=== PATIENT | male | born 1935 | race Caucasian/White ===

== ENCOUNTER 2025-06-22 13:15 | Outpatient (AMB) | payer MEDICARE, SELFPAY ==
--- OUTSIDE RECORDS SUMMARY | 2025-06-22 14:25 | XMS_ITS ---
Author Organization [facility] Care Team Providers Care Chha Name Role Phone Daniel Swenson Unavailable Unavailable Allergies and adverse reactions Code CodeSystem Substance Reaction Severity StartDate Concern Status 7984 RXNORM Penicillin Bronchospasm (c ode- 6403772, SNOMED CT) Moderate 05/26/2021 active 37510 RXNORM Lisinopril Bronchospasm (c ode- 7608471, SNOMED CT) Moderate 05/26/2021 active Care Team Name Role Address Phone Organization Dates Daniel Swenson [address] [place] [address], [address], [place] States (Office): : [facility] 05/27/2021 - 07/14/2021 Immunizations Immunization Status Vaccine Details Vaccine Code CodeSystem Date Notes Pneumovax Dose 1 completed pneumococcal polysaccharide vaccine, 23 valent 33 CVX created date: 06/02/2021 administere d date: 11/04/2019 PCV (Prevnar) 13 completed pneumococcal conjugate vaccine, 13 valent 133 CVX created date: 06/02/2021 administere d date: 11/04/2019 Influenza (standard dose syringe) completed Influenza, Madin [place] Canine Kidney, subunit, quadrivalent, injectable, preservative free 171 CVX created date: 06/02/2021 administere d date: 06/15/2020 COVID-19 Vaccine Dose 1 completed unknown vaccine or immune globulin Mfg: Pfsier 999 CVX created date: 06/12/2021 administere d date: 12/28/2020 COVID-19 Vaccine Dose 2 completed unknown vaccine or immune globulin Mfg: Pfsier 999 CVX created date: 06/12/2021 administere d date: 05/24/2021 Mental Status Section Date Assessment Total Score Description 07/14/2021 CAM 0 No delirium ind icated 06/01/2021 BIMS 12 moderate cognit helena impairment CAM 0 No delirium ind icated PHQ-9 03 minimal depress ion Problems Problem # Description Date of onset Resolved Date Code CodeSystem Concern Status 1 ANEMIA, UNSPECIFIED 05/26/[address] active 2 BACTEREMIA 05/26/[address] active 3 ESSENTIAL (PRIMARY) HYPERTENSION 05/26/[address] active 4 SEPSIS, UNSPECIFIED ORGANISM 05/26/[address] active 5 UNSPECIFIED ATRIAL FIBRILLATION 05/26/[address] active 6 UNSPECIFIED ATRIAL FLUTTER 05/26/[address] active 7 UNSTEADINESS ON FEET 05/26/[address] active 8 URINARY TRACT INFECTION, SITE NOT SPECIFIED 05/26/[address] active 9 WEAKNESS 05/26/[address] active Reason for Referral No Reasons for Referral Entered Social History Social History Observation Description Start Date End Date Code Code System Current Smoking Status Tobacco smoking consumption unknown 603873258 SNOMED CT Sex Assigned At Male 1935 92877-6 [facility] Gender Identity Vital Signs Code Code System Vitals Name Values and Units Timing Information 59328-3 LOINC Pain Level Value=0.0 07/14/2021 9279-1 [facility] Respiratory Rate Value=19.0 Units=/m in 07/14/2021 18523-4 [facility] O2 % BldC Oximetry Value=97.0 Units= % 07/14/2021 8310-5 LOINC Body Temperature Value=98.0 Units= F 07/14/2021 8867-4 [facility] Heart rate Value=74.0 Units=/min 08/2021 86341-7 [facility] Weight Fgcwb=456.0 Units=Lbs 05/2021 8462-4 [facility] Blood Pressure-Diastolic Value=58 Un its=mmHg 07/07/2021 8480-6 [facility] Blood Pressure-Systolic Ixamh=684 Un its=mmHg 07/07/2021 8302-2 [facility] Height Value=69.0 Units=Inches 05/27/2021
== END 2025-06-22 13:17 | disposition home or self-care (01) ==
LOC: HO.HMGAL 13:15
PROVIDERS: PCP Internal Medicine; Visit Provider Registered Nurse Emergency
DX: J30.89 Other allergic rhinitis (principal)
CPT/HCPCS: 95117; 95165

== ENCOUNTER 2025-07-07 15:14 | Outpatient (AMB) | payer MEDICARE, SELFPAY ==
--- OUTSIDE RECORDS SUMMARY | 2021-02-12 11:58 | XMS_ITS | Encounter Summary ---
Author Organization [facility] Address [address] [facility] [address] [place] [address] Phone Care Team Providers Care Subsystems Engineer Name Role Phone Willie Blair MD Primary Care Provider [phone] Daniel Flores MD Unavailable Delvin Waddell MD Unavailable Shaylee Dejesus MD Unavailable Tramaine Valle MD Unavailable Encounter Details Date Type Department Care Team (Late st Contact Info) Description 02/12/2021 11:58 AM EDT Hospital Encounter [facility] [address] [place] [address] Orlando Smallwood PA [address] [place] [address] [email or web address] Social History Tobacco Use Types Packs/Day [...] got money to buy more. Never True 02/27/2025 Within the past 6 months the food we bought just didn't last and we didn't have enough money to get more. Never True Residential Stability Answer Date Recor ded What is your housing situation today? I have jenifer sing 02/27/2025 How many times have you move d in the past 12 months? Zero (I did not move) 02/27/2025 Paying for Meds Answer Date Recorded Do you have trouble paying for medicines? No 02/27/2025 Paying Utility Bills Answer Date Record ed Do you have trouble paying your heating or elect ricity bill? No 02/27/2025 Transportation Answer Date Recorded Has the lack of transportati on kept you from medical appointments or from getting medications? No 02/27/2025 Digital Access Answer Date Recorded No 02/27/2025 Yes 02/27/2025 Do you have reliable internet access at home? Ye s 02/27/2025 Do you have a device (e.g., phone, tablet, computer) with a working camera? Yes 02/27/2025 Intimate Partner Violence Answer Date R ecorded Are you denied basic needs s uch as food, clothing, or medical care? No 03/23/2025 In the past 12 months have y ou been in a relationship with a person who hurts, threatens, or tries to control you? No 03/23/2025 Are you denied basic needs s uch as food, clothing, or medical care? No 03/23/2025 In the past 12 months have y ou been in a relationship with a person who hurts, threatens, or tries to control you? No 03/23/2025 Sex and Gender Information Value Date Recorded Sex Assigned at Male 06/15/2019 8:25 PM EDT Legal Sex Male 10:14 PM EDT Gender Identity Male 06/15/2019 8:25 PM EDT Sexual Orientation Straight 06/15/2019 8: 25 PM EDT documented as of this encounter Functional Status * Calculated C-SSRS Risk Score (Lifetime/Recent) Answer Date of Assessment Author No Risk Indicated 02/27/2025 2:34 PM EDT Sheela Sanchez RN * [place] Suicide Severity Rating Scale (Screener/Recent Self-Report) Question Answer Date of Assessment Author 1. Wish to be (Past 1 Month) No 02/27/2025 2:34 PM EDT Florecita Sawant RN 2. Non-Specific Active Suici alayna Thoughts (Past 1 Month) No 02/27/2025 2:34 PM EDT Kat Sawant RN 6. Suicidal Behavior (Lifetime) No 2:34 PM EDT Sheela Sawant RN documented as of this encounter Plan of Treatment Upcoming Encounters Date Type Department Care Team (Late st Contact Info) Description 08/10/2025 10:00 AM EDT Office Visit [facility] Allergy and Critical Care Medicine [address] [place] [address] López Henry MD [address] [place] [address] 08/27/2025 2:00 PM EDT Office Visit [facility] Internal Medicine 40 [place] [address] Willie Blair MD 40 [place] [address] documented as of this encounter Procedures Procedure [...] note documentation 02/27/2025 02/27/2025 7:29 AM EDT Assessment Noted Time PHQ-2 Depression Total Score: 0 02/04/20 10:44 AM EDT documented as of this encounter Care Teams Subsystems Engineer Relationship Specialty Start Date End Date Willie Blair MD 40 [place] [address] [email or web address] PCP - General Internal Medicine 02/04/20 Daniel Flores MD [address] [address] [email or web address] 04/14/20 Delvin Waddell MD [address] [address] [email or web address] 04/14/20 Shaylee Dejesus MD [address] [place] [address] Otolaryngology 05/20/20 Tramaine Valle MD [address] [place] [address] [email or web address] Gastroenterology 11/30/20 documented as of this encounter Additional Source Comments The information contained in this document represents components of the legal health record. It is not the complete legal health record.[facility]
--- OUTSIDE RECORDS SUMMARY | 2025-07-07 17:21 | XMS_ITS | Encounter Summary ---
Author Organization [facility] Address [address] [facility] [address] [place] [address] Phone Care Team Providers Care Corn Popper Name Role Phone Willie Blair MD Unavailable [phone] Willie Blair MD Primary Care Provider [phone] Daniel Flores MD Unavailable [phone] Delvin Waddell MD Unavailable Shaylee Dejesus MD Unavailable Tramaine Valle MD Unavailable [phone] Maxx Gardner OT Unavailable Chantel Philippe RN Unavailable Keily Gomez OT Unavailable Socorro Begum Unavailable [phone] Keily Gomez OT Unavailable Encounter Details Date Type Department Care Team (Late st Contact Info) Description 05/23/2021 Procedure Pass [facility] Cardiovascular And Interventional Radiology [address] [place], [place] [id number] Social History Tobacco Use Types Packs/Day Years Used Date Smoking Tobacco: Former Cigarettes Smokeless Tobacco: Never Alcohol Use Standard Drinks/Week Comments Not Currently 0 (1 standard drink = 0.6 oz pur e alcohol) 1-2 beers, 2-3 x month Sex and Gender Information Value Date Recorded Sex Assigned at Male 06/15/2019 8:25 PM EDT Legal Sex Male 10:14 PM EDT Gender Identity Male 06/15/2019 8:25 PM EDT Sexual Orientation Straight 06/15/2019 8: 25 PM EDT documented as of this encounter Plan of Treatment Upcoming Encounters Date Type Department Care Team (Late st Contact Info) Description 08/10/2025 10:00 AM EDT Office Visit [facility] Pulmonary, Allergy and Critical Care Medicine 10 [place] [address] López Henry MD [address] [address] [email or web address] 08/27/2025 2:00 PM EDT Office Visit [facility] Internal Medicine [address] [place] [address] Willie Blair MD 40 [place] [address] [email or web address] documented as of this encounter Visit Diagnoses Not on filedocumented [...] Assessment Noted Time PHQ-2 Depression Total Score: 2 02/22/20 21 1:16 PM EDT documented as of this encounter Care Teams Corn Popper Relationship Specialty Start Date End Date Willie Blair MD 40 [place] [address] [email or web address] PCP - General Internal Medicine 02/04/20 Willie Blair MD 40 [place] [address] [email or web address] Insurance Assigned Provider 02/08/24 Daniel Flores MD [address] [phone] [email or web address] Urology 04/14/20 Delvin Waddell MD [address] [phone] [email or web address] Cardiology 04/14/20 Shaylee Dejesus MD [address] [place] [address] [address] Otolaryngology 05/20/20 Tramaine Valle MD [address] [place] [phone] [email or web address] Gastroenterology 11/30/20 Maxx Gardner OT 10 [place] [address] [email or web address] Transitions Apartment ManagerHealthcare Corporate Account Director Therapy 05/22/21 Chantel Philippe, RN 10 [place] [address] [email or web address] iCMP Apartment ManagerDean Of Men 10/12/22 10/31/22 Keily Gomez, OT 30 [place] [address] [email or web address] Transitions Apartment ManagerHealthcare Corporate Account Director Therapy 12/30/23 Socorro Begum PA [address] [place] [address] Physician Branch Operations Specialist Cardiology 04/06/24 Keily Gomez, OT 30 [place] [address] [email or web address] Transitions Apartment ManagerHealthcare Corporate Account Director Therapy 03/01/25 documented as of this encounter Additional Source Comments The information contained in this document represents components of the legal health record. It is not the complete legal health record.[facility]
--- OUTSIDE RECORDS SUMMARY | 2025-07-07 17:21 | XMS_ITS | Encounter Summary ---
Author Organization [facility] Address [address] [facility] [address] [place] [address] Phone Care Team Providers Care Legal Librarian Name Role Phone Willie Blair MD Unavailable Willie Blair MD Primary Care Provider [phone] Daniel Flores MD Unavailable Delvin Waddell MD Unavailable Shaylee Dejesus MD Unavailable Tramaine Valle MD Unavailable [phone] Socorro Begum Unavailable [phone] Keily Gomez OT Unavailable Encounter Details Date Type Department Care Team (Late st Contact Info) Description 12/02/2024 Procedure Pass [facility] Endoscopy Admitting Dept Virtual Department [address] [place] [address] Social History Tobacco Use Types Packs/Day Years [...] on file 03/01/2023 No 03/01/2023 No 03/01/2023 Digital Access Answer Date Recorded No 03/26/2023 No 03/26/2023 Reliable internet access at home? Not on file 03/26/2023 Device with a working camera? Not on file Intimate Partner Violence Answer Date R ecorded Are you denied basic needs s uch as food, clothing, or medical care? No 12/02/2024 In the past 12 months have y ou been in a relationship with a person who hurts, threatens, or tries to control you? No 12/02/2024 Are you denied basic needs s uch as food, clothing, or medical care? No 12/02/2024 In the past 12 months have y ou been in a relationship with a person who hurts, threatens, or tries to control you? No 12/02/2024 Sex and Gender Information Value Date Recorded [...] Pulmonary, Allergy and Critical Care Medicine 10 [facility] [place] [address] López Henry MD 10 [facility] 2nd [place] [address] 08/27/2025 2:00 PM EDT Office Visit [facility] Internal Medicine [address] [place] [address] [place] [address] Willie Blair MD 40 [place] [address] [email or web address] documented as of this encounter Visit Diagnoses Not on filedocumented in this encounter Additional Health Concerns Infection Onset Date Last Indicated Resolved Time CoV-Risk 12/31/2024 12/31/2024 01/11/2025 1:22 AM EDT CoV-Risk Comment:Per note documentation 02/27/2025 02/27/2025 7:29 AM EDT Assessment Noted Time PHQ-9 Depression Total Score: 7 03/01/20 22 2:17 PM EDT PHQ-2 Depression Total Score: 0 03/18/20 24 7:47 PM EDT documented as of this encounter Care Teams Legal Librarian Relationship Specialty Start Date End Date Willie Blair MD 40 [place] [address] [email or web address] PCP - General Internal Medicine 02/04/20 Willie Blair MD 40 [place] [address] [email or web address] Insurance Assigned Provider 02/08/24 Daniel Flores MD 100 [facility] [address] [place] [address] [email or web address] Urology 04/14/20 Delvin Waddell MD 100 [facility] [address] [place] [address] [email or web address] Cardiology 04/14/20 Shaylee Dejesus MD NPI: [id number] [place] [address] Dr FELIX [address] [place] [address] Otolaryngology 05/20/20 Tramaine Valle MD [address] [place] [address] 2 [place] [address] [email or web address] Gastroenterology 11/30/20 Socorro Begum PA [address] [place] [address] Physician Patrol Judge Cardiology 04/06/24 Keily Gomez, OT 30 [place] [address] [email or web address] Transitions Milk Powder GrinderPlant Taxonomist Therapy 03/01/25 documented as of this encounter Additional Source Comments The information contained in this document represents components of the legal health record. It is not the complete legal health record.[facility]
--- OUTSIDE RECORDS SUMMARY | 2025-07-07 17:21 | XMS_ITS | Encounter Summary ---
Author Organization [facility] Address [address] [facility] [address] [place] [address] Phone Care Team Providers Care Student Support Services Director Name Role Phone Willie Blair MD Unavailable Willie Blair MD Primary Care Provider Daniel Flores MD Unavailable [phone] Delvin Waddell MD Unavailable Shaylee Dejesus MD Unavailable [phone] Tramaine Valle MD Unavailable [phone] Maxx Gardner OT Unavailable Chantel Philippe RN Unavailable [phone] Keily Gomez OT Unavailable Socorro Begum Unavailable [phone] Keily Gomez OT Unavailable Encounter Details Date Type Department Care Team (Late st Contact Info) Description 02/21/2021 Procedure Pass [facility], Ct Scan - [address] [id number] Social History Tobacco Use Types Packs/Day Years Used Date Smoking Tobacco: Never Smokeless Tobacco: Never Alcohol Use Standard Drinks/Week Comments Yes 0 [...] Pulmonary, Allergy and Critical Care Medicine 10 [place] [address] López Henry MD [address] [address] [email or web address] 08/27/2025 2:00 PM EDT Office Visit [facility] Internal Medicine 40 [place] [address] Willie Blair MD 40 [place] [address] [email or web address] documented as of this encounter Visit Diagnoses [...] EDT CoV-Risk Comment:Per note documentation 02/27/2025 02/27/2025 04/27/202 5 7:29 AM EDT Assessment Noted Time PHQ-2 Depression Total Score: 2 02/22/20 21 1:16 PM EDT documented as of this encounter Care Teams Student Support Services Director Relationship Specialty Start Date End Date Willie Blair MD 40 [place] [address] [email or web address] PCP - General Internal Medicine 02/04/20 Willie Blair MD 40 [place] [address] [email or web address] Insurance Assigned Provider 02/08/24 Daniel Flores MD [address] [phone] [email or web address] Urology 04/14/20 Delvin Waddell MD [address] [phone] [email or web address] Cardiology 04/14/20 Shaylee Dejesus MD [address] [place] [address] [address] FELIX [address] [place] [address] Otolaryngology 05/20/20 Tramaine Valle MD [address] [place] [address] [phone] [email or web address] Gastroenterology 11/30/20 Maxx Gardner, OT 10 [place], [place] [phone] [email or web address] Transitions Cabin Cleaning SupervisorSkinner Pelts Therapy 05/22/21 Chantel Philippe, RN 10 [place] [address] [email or web address] iCMP Cabin Cleaning SupervisorDie Repair 10/12/22 10/31/22 Keily Gomez, OT 30 [place] [address] [email or web address] Transitions Cabin Cleaning SupervisorSkinner Pelts Therapy 12/30/23 Socorro Begum PA [address] [place] [address] Physician Procurement Consultant Cardiology 04/06/24 Keily Gomez, OT 30 [place] [address] [email or web address] Transitions Cabin Cleaning SupervisorSkinner Pelts Therapy 03/01/25 documented as of this encounter Additional Source Comments The information contained in this document represents components of the legal health record. It is not the complete legal health record.[facility]
--- OUTSIDE RECORDS SUMMARY | 2025-07-07 17:21 | XMS_ITS | Clinical Summary ---
Author Organization Formerly [facility] Address [address] [place] [id number] Phone Care Team Providers Care Nut And Bolt Assembler Name Role Phone Willie Blair MD Unavailable [phone] Willie Blair MD Primary Care Provider Daniel Flores MD Unavailable Delvin Waddell MD Unavailable Shaylee Dejesus MD Unavailable Tramaine Valle MD Unavailable Socorro Begum Unavailable [phone] Allergies Active Allergy Reactions Criticality Noted Date Comments Lisinopril Angioedema High 10/04/2017 Other Reaction(s): Anaphylaxis, Not available Penicillins Swelling High 10/04/2017 Other Reaction(s): Anaphylaxis, Not available Medications lactobacillus rhamnosus, GG, (CULTURELLE) 10 billion cell capsule Take 1 capsule by mouth daily. Active Additional Information Patient taking differently:1 capsule Oral Daily,Align, Reported on 03/30/2025 ascorbic acid, vitamin C, (VITAMIN C) 500 MG tablet Take 500 mg by mouth daily. Active ferrous sulfate 325 mg (65 mg white earth iron) tablet Take 325 mg by mouth as directed. 5 days a week M-F 1 Active cholecalciferol, vitamin D3, 25 mcg (1,000 unit) capsule Take 2 capsules in the AM and 1 capsule in the PM Active calcium citrate-vitamin D3 315 mg-6.25 mcg (250 unit) per tablet 2 in am and 1 in pm 100 tablet 3 1 Active Additional Information Patient taking differently: Take 2 tablets at noon time and 1 tablet at dinner., Reported on 03/30/2025 loperamide (IMODIUM A-D) 2 mg tablet Take 2 mg by mouth 3 (three) times a day as needed for diarrhea. Active loratadine (CLARITIN) 10 mg tablet Take 10 mg by mouth daily as needed. Active losartan (COZAAR) 50 MG tablet Take 50 mg by mouth every morning. 4 Active nitroglycerin (NITROSTAT) 0.4 MG SL tabletIndication s:Precordial pain Place 1 tablet (0.4 mg total) under the tongue every 5 (five) minutes as needed for chest pain. 28 tablet 3 4 Active finasteride (PROSCAR) 5 mg tabletIndication s:BPH (benign prostatic hyperplasia) take one tablet by mouth every morning 90 tablet 3 4 Active FARXIGA 5 mg tablet Take 5 mg by mouth every morning. 4 Active omeprazole (PRILOSEC) 40 MG capsule TAKE ONE CAPSULE BY MOUTH ONCE DAILY 90 capsule 3 5 Active ELIQUIS 5 mg tabletIndication s:Atrial fibrillation and flutter TAKE ONE TABLET BY MOUTH TWICE DAILY 60 tablet 11 5 Active furosemide (LASIX) 20 MG tablet Take 1 tablet (20 mg total) by mouth daily. 30 tablet 5 Active predniSONE (DELTASONE) 10 MG tabletIndication s:Chronic obstructive pulmonary disease, unspecified COPD type Take 1 tablet (10 mg total) by mouth daily with breakfast. 4 tablet 5 Active carvedilol (COREG) 3.125 MG tabletIndication s:Essential hypertension 6.25 mg in am and 3.125 mg in pm 360 tablet 3 5 Active ENTRESTO 24-26 mg per tablet Take 1 tablet by mouth 2 (two) times a day. Active albuterol 90 mcg/actuation inhaler INHALE 2 PUFFS INTO THE LUNGS EVERY 6 (SIX) HOURS NEEDED FOR WHEEZING. 8.5 g 11 5 Active Active Problems Problem Noted Date Diagnosed Date Stage 3a chronic kidney disease 03/05/2025 Acute on chronic systolic heart failure 02/29/20 25 Assessment & Plan (03/01/2025 11:17 AM EDT): As Noted above Assessment & Plan (02/28/2025 12:36 PM EDT): As Noted. Congestive heart failure with cardiomyopathy Assessment & Plan (03/01/2025 11:17 AM EDT): Known history of nonischemic cardiomyopathy no record of latest EF. Follows closely with [facility] cardiology who was last seen in their office for a follow-up regarding chest pains back in January however previous to that he was last seen in June 2024, where he was taken off of Lasix and started on farxiga. Since then he has been having some shortness of breath and lower extremity edema which has been progressively getting worse. On admission he has noted to have an elevated BNP and noted interstitial edema on chest x-ray. Cardiology consulted, Lasix 80 mg twice daily being continued as per recommendations. Farxiga is nonformulary therefore started on Jardiance 10 mg p.o. daily TTE showing EF of 40 to 45% Will continue strict I & Os and daily weights Follow renal function closely as diuresis is escalated. Assessment & Plan (02/28/2025 12:36 PM EDT): Known history of nonischemic cardiomyopathy no record of latest EF. Follows closely with [facility] cardiology who was last seen in their office for a follow-up regarding chest pains back in January however previous to that he was last seen in June 2024, where he was taken off of Lasix and started on farxiga. Since then he has been having some shortness of breath and lower extremity edema which has been progressively getting worse. On admission he has noted to have an elevated BNP and noted interstitial edema on chest x-ray. Patient was given IV Lasix 40 mg while in the emergency department and transition to Lasix 80 mg daily on the medicine floor I/O- 1200 mL. Weight is down 3 pounds from 239-236. Creatinine has bumped from 0.9-1.2 Clinical exam shows no pulmonary crackles however patient does have 2+ to 3+ edema of the legs. -Farxiga is nonformulary therefore started on Jardiance 10 mg p.o. daily -Seen by cardiology and Lasix increased 80 mg IV twice daily. - Echocardiogram ordered for 03/02 -strict I & Os -daily weights - Follow renal function closely as diuresis is escalated. Assessment & Plan (02/27/2025 8:09 PM EDT): Patient with a history of CHF who follows closely with [facility] cardiology who was last seen in their office for a follow-up regarding chest pains back in January however previous to that he was last seen in June 2024, where he was taken off of Lasix and started on farxiga. Since then he has been having some shortness of breath and lower extremity edema which has been progressively getting worse. On admission he has noted to have an elevated BNP and noted interstitial edema on chest x-ray. Patient was given IV Lasix 40 mg while in the emergency department. - IV Lasix 40 mg daily -Farxiga is nonformulary therefore will give Jardiance 10 mg p.o. daily - Obtain echocardiogram -Cardiology referral -strict I & Os -daily weights BPH (benign prostatic hyperplasia) 07/23/2024 Overview (07/23/2024): Saw [facility] 06/23/24 fol for nephrolithiasis, microscopic hematuria, and BPH- tx on dual therapy- f/u [address] Flores Assessment & Plan (03/01/2025 11:17 AM EDT): Patient follows with Dr Flores and has noted hematuria due to the eliquis. According to patient's , patient has been on the Eliquis for a long time and cardiology does not want to stop it. No noted hematuria thus far. No urinary retention. Continue finasteride 5 mg p.o. daily and Cardura 2 mg at night Assessment & Plan (02/28/2025 12:36 PM EDT): Patient follows with Dr Flores and has noted hematuria due to the eliquis. According to patient's , patient has been on the Eliquis for a long time and cardiology does not want to stop it. No noted hematuria thus far. No urinary retention. -Continue finasteride 5 mg p.o. daily and Cardura 2 mg at night Assessment & Plan (02/27/2025 8:12 PM EDT): Patient follows with Dr Flores and has noted hematuria due to the eliquis. According to patient's , patient has been on the Eliquis for a long time and cardiology does not want to stop it. -Continue finasteride 5 mg p.o. daily and Cardura 2 mg at night Infection of intervertebral disc (pyogenic), lum bar region 03/28/2023 Hyperparathyroidism 03/27/2022 Assessment & Plan (03/27/2022 12:06 PM EDT): Pt had parathyroidectomy in past Cardiomyopathy 08/25/2021 Overview (02/13/2022): Mild nonischemic cardiomyopathy with EF of lower limit of normal by echo 04/2016. Assessment & Plan (12/29/2023 8:31 PM EST): -Patient with cardiomyopathy on Lasix at home, with chronic lower extremity edema -BNP is elevated at 1904 troponin mildly elevated but flat -Continue s/p IV Lasix holding for now now -Closely monitor I's and O's and check daily weights -He received IV diuresis but does not appear volume overloaded and further diuresis is held Assessment & Plan (08/27/2021 5:06 PM EDT): Ejection fraction noted at 45 to 50% in May, grade 1 diastolic dysfunction mild aortic stenosis Chronically on furosemide and Coreg as well as losartan Resume Lasix tomorrow Lumbar facet arthropathy 07/11/2021 Abdominal aortic aneurysm (AAA) without rupture 10/04/2017 Assessment & Plan (08/25/2021 6:33 PM EDT): This is followed and has been stable in appearance, most recent CT was in May Assessment & Plan (06/19/2018 10:54 AM EDT): The patient's AAA may affect the presenting issue of surgical procedure (s) and may increase the risk of slow healing wound (s), infection (s), kidney, lung and/or heart problems. Stable and/or controlled chronic conditions may reduce complications associated with your chronic condition (s). CT scan done earlier this year showed the aneurysm to be up to 2.8cm in size. Atrial fibrillation and flutter 10/04/2017 Assessment & Plan (03/01/2025 11:17 AM EDT): Patient with a history of a atrial fibrillation who follows with [facility] cardiology. He is managed on Coreg 6.25 p.o. twice daily and anticoagulated with Eliquis 5 mg p.o. twice daily. Heart rates have been well-controlled throughout his hospital stay. Telemetry shows A-fib in the 70s. Home regimen of Eliquis and Coreg continued. Continue to monitor on telemetry Assessment & Plan (02/28/2025 12:36 PM EDT): Patient with a history of a atrial fibrillation who follows with [facility] cardiology. He is managed on Coreg 6.25 p.o. twice daily and anticoagulated with Eliquis 5 mg p.o. twice daily. Heart rates have been well-controlled throughout his hospital stay. Telemetry shows A-fib in the 70s. -Home regimen of Eliquis and Coreg continued. -Continue to monitor on telemetry Assessment & Plan (02/27/2025 8:09 PM EDT): Patient with a history of a atrial fibrillation who follows with [facility] cardiology. Patient is rate controlled and on Eliquis 5 mg p.o. twice daily. Patient also was noted to be on Coreg at 6.25 p.o. twice daily. - Continue Eliquis 5 mg p.o. twice daily and Coreg 6.25 mg p.o. twice daily Assessment & Plan (12/27/2023 11:48 PM EST): -continue beta-ishaan -Continue anticoagulation with Eliquis, renally dosed Assessment & Plan (02/14/2022 10:48 AM EDT): Chronically on anticoagulation. The patient's CHADS-VASc = 3 (3.2% risk of stroke per year) Hypertension (1 point) Age > 75 (2 points) Remains stable in atrial fibrillation the monitor with a normal ventricular rate. Continue home coreg. Continue to hold Eliquis. Discussed the risks/benefits of holding his anticoagulation, which favor holding the medication in the immediate aftermath of significant bleeding event. Recommended outpatient follow up with his carton packaging machine operator (previously Dr. Waddell) for discussion on when the resume the medication. Assessment & Plan (08/25/2021 6:10 PM EDT): Hold Eliquis in the setting of GI bleeding, continue Coreg Assessment & Plan (05/26/2021 7:59 AM EDT): History of atrial fibrillation, chronic systolic CHF, hypertension,, mild to moderate CAD (based on catheterization April 2021). Followed by [place] cardiology (EKG here sinus) Had Cardiac cath April 2021 with summary-- cardiomyopathy NONischemic, EF 30%, NONcardiac chest pain (cath done for cardiomyopathy and atypical chest pain ) Echo done during this hospitalization EF 45%. -continue usual coreg lasix, losartan -eliquis still on hold until he gets, PICC line (Last night Doppler legs ordered due to edema. These were negative-patient has chronic leg edema) Assessment & Plan (06/19/2018 10:31 AM EDT): The patient's a-fib may affect the presenting issue of surgical procedure (s) and may increase the risk of slow healing wound (s), infection (s), kidney, lung and/or heart problems. Stable and/or controlled chronic conditions may reduce complications associated with your chronic condition (s). He is on Eliquis and will need to stop this preoperatively with no bridging. Chronic obstructive pulmonary disease 10/04/2017 Assessment & Plan (03/01/2025 11:17 AM EDT): Patient with a history of COPD who has been on albuterol MDI as needed.. On physical exam patient is not noted to have wheezing however diminished breath sounds bilaterally along with a productive cough with yellow sputum. His chest x-ray revealed no signs of pneumonia however interstitial edema. Patient was given 40 mg of IV Solu-Medrol and DuoNebs and admitted to medicine. Remained on IV steroids and was transition to p.o. prednisone on 03/02 after improvement in wheezing Continue DuoNebs to 4 times daily [facility] Assessment & Plan (02/28/2025 12:36 PM EDT): Patient with a history of COPD who has been on albuterol MDI as needed.. On physical exam patient is not noted to have wheezing however diminished breath sounds bilaterally along with a productive cough with yellow sputum. His chest x-ray revealed no signs of pneumonia however interstitial edema.. Patient was given 40 mg of IV Solu-Medrol and DuoNebs and admitted to medicine. Stable overnight with decrease in cough. Continues with inspiratory and expiratory wheezes - Continue Solu-Medrol IV 40 mg twice daily - Change DuoNebs to 4 times daily scheduled - [facility] Assessment & Plan (02/27/2025 8:09 PM EDT): Patient with a history of COPD who has been on albuterol MDI as needed.. On physical exam patient is not noted to have wheezing however diminished breath sounds bilaterally along with a productive cough with yellow sputum. His chest x-ray revealed no signs of pneumonia however interstitial edema.. Patient was given 40 mg of IV Solu-Medrol - Continue Solu-Medrol IV 40 mg twice daily - DuoNebs 3 mL a every 4-6 hours as - Albuterol MDI. Prn Assessment & Plan (02/12/2025 10:36 AM EDT): Chronic Obstructive Pulmonary Disease (COPD) Ongoing dyspnea, particularly with exertion. Previously on Incruse, discontinued due to dizziness, which improved post-discontinuation. Currently using albuterol. Dizziness may be related to dehydration. Hydration should be addressed before reintroducing Incruse. - Encourage hydration with electrolyte solutions like Pedialyte, especially in the morning before getting out of bed, to improve dizziness and potentially enhance breathing. - Consider reintroducing Incruse after ensuring adequate hydration and monitoring for dizziness. - Continue using albuterol as needed for symptom relief. Assessment & Plan (03/22/2024 2:45 PM EDT): Shortness of breath with exertion and stair climbing. Not using Incruse inhaler regularly. Discussed the importance of daily use for symptom control and preservation of lung function. -Use Incruse inhaler daily, consider taking at night if easier to remember. -Use Albuterol inhaler prior to exertional activities. Assessment & Plan (12/26/2023 9:36 PM EST): -Currently no wheezing, continue as needed albuterol, Incruse Ellipta is nonformulary Assessment & Plan (10/31/2022 11:36 AM EST): Recommend trying Incruse inhaler. This may improve his dyspnea on exertion. Albuterol as needed. Assessment & Plan (08/26/2021 4:53 PM EDT): No symptoms of exacerbation, clear chest x-ray on admission Assessment & Plan (08/23/2021 11:22 AM EDT): Continue with albuterol as needed. If his albuterol use increases we can think about adding something like Incruse or Spiriva. Assessment & Plan (07/01/2020 10:18 AM EDT): Patient is stable from pulmonary standpoint. Continue with the albuterol. I do not believe it is contributing to his thrush. He has had several sinus infections after starting our other inhalers and so holding off on those. Clinically he has been stable from a pulmonary standpoint. Assessment & Plan (06/19/2018 10:32 AM EDT): The patient's COPD may affect the presenting issue of surgical procedure (s) and may increase the risk of slow healing wound (s), infection (s), kidney, lung and/or heart problems. Stable and/or controlled chronic conditions may reduce complications associated with your chronic condition (s). He has seen Dr. Henry of pulmonology. Assessment & Plan (04/17/2018 9:39 AM EDT): Patient has had multiple sinus infections and issues when inhalers have been changed to a long-acting anticholinergic or even a long-acting beta agonist. He is feeling very stable on his daily regimen of Pro Air every evening and in the mornings only when necessary. As he is feeling well I would recommend no changes. Consider repeat pulmonary function test in about 2 years. Otherwise, I think that I will refer him back to your primary care is he seems to be quite stable from a pulmonary standpoint at this time. Assessment & Plan (01/07/2018 3:51 PM EST): Patient seems to have increased sinus infections whenever on long-acting beta agonist or long-acting cholinergics. Though he uses his Provera twice a day and could probably even use it more they're reluctant to try a new inhaler. Spiriva and delirium in the past and caused similar symptoms. Other inhalers prior to my meeting him has also caused these difficulties. Essential hypertension 10/04/2017 Assessment & Plan (03/01/2025 11:17 AM EDT): Hypertension managed as an outpatient with Coreg 6.25 twice daily and losartan 50 mg p.o. daily. Blood pressure is elevated since admission with increase in bpthis am 161/105. B{ improved with aggressive diuresis. Continue losartan 50 mg daily. Assessment & Plan (02/28/2025 1:01 PM EDT): Hypertension managed as an outpatient with Coreg 6.25 twice daily and losartan 50 mg p.o. daily. Blood pressure is elevated since admission with increase in bpthis am 161/105. B{ improved with aggressive diuresis. -Continue losartan 50 mg daily. Assessment & Plan (02/27/2025 8:09 PM EDT): Patient with a history of hypertension who is on Coreg 6.25 twice daily and losartan 50 mg p.o. daily Assessment & Plan (12/26/2023 9:35 PM EST): -Blood pressures currently controlled, continue Coreg Cozaar on hold for TIMO Assessment & Plan (09/05/2022 4:27 PM EDT): Than1 could argue that his cuff is too small and indeed it is a standard cuff and his arm is larger than average. Meanwhile the cuff that we used might of been slightly too large. The patient I feel is not 100% beta blocked and is on the alpha- ishaan. We would like him to increase the Coreg to 6.25 mg p.o. twice daily. He should be mindful of orthostatic symptoms and I described that to his . He should be taking some water increase for better stroke-volume. Will then follow-up with him in 40 days and see how his blood pressure is doing. I think it would be reasonable for him to go back to the eye doctor regarding the blurry vision so that he can get the eyes properly examined for optic nerve edema. This is being said because he was doing well back in July on the eye exam but now having the blurry vision. We encourage in any case to call back and be reassessed by the eye doctor. So again in 40 days I will see him and we encouraged to get a bigger cuff and recheck at home. Assessment & Plan (02/14/2022 10:54 AM EDT): History of nonischemic cardiomyopathy with a fairly preserved EF according to [facility] records. Given his ongoing hemodynamic stability, will resume his home cardiac medications. Assessment & Plan (06/19/2018 10:32 AM EDT): The patient's hypertension may affect the presenting issue of surgical procedure (s) and may increase the risk of slow healing wound (s), infection (s), kidney, lung and/or heart problems. Stable and/or controlled chronic conditions may reduce complications associated with your chronic condition (s). Hyperlipidemia 10/04/2017 Left bundle branch block 10/04/2017 Obstructive sleep apnea syndrome 10/04/2017 Assessment & Plan (03/01/2025 11:17 AM EDT): Uses CPAP Assessment & Plan (02/28/2025 12:36 PM EDT): Uses CPAP Assessment & Plan (02/27/2025 8:09 PM EDT): Uses CPAP Assessment & Plan (10/31/2022 11:36 AM EST): Patient falls asleep immediately when starts watching television. I did encourage him to resume using his CPAP regularly. May need to have the settings readjusted. Osteoarthritis Class 2 severe obesity due t o excess calories with serious comorbidity and body mass index (BMI) of 35.0 to 35.9 in adult Resolved Problems Problem Noted Date Diagnosed Date Resolved Date Bradycardia 02/12/2025 02/27/2025 Assessment & Plan (02/12/2025 10:36 AM EDT): Bradycardia Heart rate today in the 50s and at 59 bpm noted during a previous cardiology visit. Possible sick sinus syndrome contributing to dizziness. Further evaluation by a carton packaging machine operator is suggested. - Send a note to cardiology PA, Socorro Begum, to consider the low heart rate as a potential cause of dizziness. - Consider referral to a carton packaging machine operator for further evaluation if needed. Epigastric pain 10/07/2024 02/27/2025 Assessment & Plan (10/07/2024 1:52 PM EST): Await abdominal ultrasound. To plan follow up as indicated. If any worsened symptoms or concerns while awaiting imaging, will follow up emergently. Dizziness 10/07/2024 02/27/2025 Assessment & Plan (02/12/2025 10:36 AM EDT): Dizziness Dizziness, particularly in the morning, improves with movement. Potentially related to dehydration or medication changes, including discontinuation of Incruse and cardiac medications. Hydration should be addressed before reintroducing Incruse. - Encourage hydration with Pedialyte to address potential dehydration, explaining the mechanism of electrolyte absorption and its benefits over other solutions like Gatorade. - Monitor dizziness after reintroducing Incruse to determine if it is a contributing factor. Assessment & Plan (10/07/2024 1:54 PM EST): Improved when stopped Incruse. Will request review of medication by pulmonology. Dehydration 03/22/2024 02/27/2025 Assessment & Plan (03/22/2024 2:46 PM EDT): Blood pressure slightly low, mucous membranes dry. Likely due to inadequate fluid intake. -Increase fluid intake, consider sugar-free Gatorade or similar for electrolyte replenishment. Hypoxia 12/28/2023 02/27/2025 Pneumonia due to infectious organism 12/26/2023 02/27/2025 Assessment & Plan (12/29/2023 8:27 PM EST): -Patient has had a chronic cough for several weeks but it has gotten worse in the past couple of days and he developed yellow phlegm, fever -No leukocytosis, normal lactate - covid and influenza negative -procalcitonin 0.13 - not suggestive of bacterial infection -Legionella and strep pneumo negative - MRSA screen negative - noncontrast CT 12/27 did not show infiltrate - makes pneumonia less likely, possibly bronchitis -Continue empiric antibiotics, Rocephin and azithromycin (cover urine, respiratory, blood ctx NG - does have hx mssa bacteremia but was years ago) -Continued oxygen requirement, he does not use supplemental oxygen at baseline TIMO (acute kidney injury) 12/26/2023 Assessment & Plan (12/29/2023 8:32 PM EST): -Patient presented with creatinine of 1.7 compared to his baseline of 1.1 -Hold nephrotoxic meds including Cozaar - consider nephrology consult -lasix held renal function improving GIB (gastrointestinal bleeding) 02/13/2022 03/26/2022 Lower gastrointestinal hemorrhage 08/25/2021 03/26/2022 Overview (02/13/2022): Known diverticular disease. History of hemorrhoidal bleeding as well. Has had a partial colectomy. Assessment & Plan (02/14/2022 10:56 AM EDT): Appreciate gastroenterology's input. Bleeding appears to be diverticular versus hemorrhoidal. No signs of ongoing bleeding. Will continue to hold home Eliquis. May benefit from surgical evaluation for his hemorrhoids. Assessment & Plan (08/27/2021 5:06 PM EDT): Bright red blood per rectum on admission after bowel movement, still with BRBPR this afternoon; Some lightheadedness at home, none at present Known history of hemorrhoids, also had a diverticular bleed in 2016, required surgery, Patient feels his last colonoscopy was probably in 2016 or 2017, follows with Dr. Valle, Chronically on Eliquis, no NSAIDs or other anticoagulants Hemoglobin 11, with some BRBPR noted this afternoon. Holding Eliquis Colonoscopy planned for tomorrow following preparation Clear liquids N.p.o. past midnight -GI consult appreciated Staphylococcus aureus bacteremia 05/21/2021 02/13/2022 Assessment & Plan (05/25/2021 2:51 PM EDT): -Presented with back pain. In the hospital blood cultures positive MSSA. Back MRI with--? Paraspinal abscess. Source of MSSA unclear. IR tapped the ? Abscess 05/23, bloody. Cultures pending Follow-up blood cultures greater than 48 hours negative-IR consulted for PICC Reviewed--? Abscess with neuro[facility]. 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 Intravascular source likely. Probable endocarditis. TTE reading pending. If vegetation not found would do CHARITO. 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 Repeat BCs pending Dr Sherman to see tomorrow. Acute left-sided low back pain 05/20/2021 02/13/2022 Assessment & Plan (05/21/2021 12:07 PM EDT): For MRI today-- r/o discitis/osteomyelitis/epidural abscess Chest pain 05/20/2021 02/27/2025 Assessment & Plan (12/29/2023 8:30 PM EST): - troponins flat, do not suspect ACS - CT was w/o contrast so did not rule out PE - but not tachycardic mildly hypoxic - he is on apixaban, overall suspicion for PE lower, d dimer not over age corrected cut off - echo did not show pericardial effusion - pericarditis considered, troponins only mildly elevated and no EKG changes, cardiology felt noncardiac - by history does not sound musculoskeletal - kidney ultrasound did not show obstruction, do not suspect renal cysts are contributing Assessment & Plan (10/31/2022 11:37 AM EST): Wonder if this could be some atelectasis. Recommend patient use incentive spirometry at least twice daily for 3 weeks. Can also try albuterol during these episodes. Does not appear exertional. Not having any right now so I will not get any imaging studies at this point. Assessment & Plan (02/14/2022 10:52 AM EDT): Reports intermittent, chronic, left-sided chest pain located in the left mid- axillary region. 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 He describes the pain as intermittent, improves with activity and raising his arm over his head. No abnormality noted on recent chest xray. His description of the pain is suspicious for musculoskeletal etiology. Recurrent UTI 05/20/2021 02/13/2022 Assessment & Plan (05/25/2021 2:52 PM EDT): Urine culture staph aureus on 05/19 MSSA, most likely from bacteremia per ID Seen by Dr. Freeman who felt patient did not have prostatitis based on his prostate exam. Defer further management of stones to the outpatient setting with Urologist, Dr. Flores Assessment & Plan (05/21/2021 12:08 PM EDT): Most likely spillover from bacteremia, tho pt was relatively asymptomatic as outpt. Pre-op evaluation 06/24/2018 02/13/2022 Diastasis recti 06/19/2018 02/27/2025 Assessment & Plan (06/19/2018 10:23 AM EDT): The patient has a diastasis recti. I explained the nature of these and he and his understand that this does not need to be repaired. 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 I explained that the traditional way to repair this would be an open procedure with mesh implantation. Another option would be laparoscopic repair with mesh. I do not necessarily favor the open procedure but he would need a general anesthesia for laparoscopic. The risks and benefits of hernia surgery including but not limited to infection, bleeding, chronic pain, recurrence, need for open procedure if done laparoscopically, damage to organs, heart/lung risks of anesthesia, and scar have been explained to the patient. The patient understands these risks and wishes to proceed as the hernia is enlarging. 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 He is also on blood thinners for atrial fibrillation and he will need a letter from Dr. Blair for clearance. He would need to stop his Eliquis preoperatively. He has OSAP and will bring his CPAP with him to the hospital. I will have him see Anesthesia preoperatively as well. Recurrent sinusitis 01/07/2018 02/14/20 22 Assessment & Plan (01/07/2018 3:51 PM EST): Recommend that he part or saline washes. Currently on azithromycin. Shortness of breath 01/07/2018 02/28/20 25 Assessment & Plan (10/07/2024 1:53 PM EST): Concerning given history of CHF and modest weight gain. He is going to follow up with cardiology next week and also will check home AM weights daily until then. If continued gain, will follow up sooner. Assessment & Plan (01/07/2018 3:55 PM EST): We'll check chest x-ray with bilateral decubitus to rule out a pleural effusion ==> reviewed films no effusion or elevated hemidiaphragms. Likely diminished due to COPD. Adjustment disorder with depressed mood 01/03/2018 02/27/2025 Assessment & Plan (06/19/2018 10:34 AM EDT): The patient's depression may affect the presenting problem of surgical procedure (s) and may increase the risk of slow healing wound (s), infection (s) and the need to assure stability to optimize decisions and wound care. Stable and/or controlled chronic conditions may reduce complications associated with your chronic condition (s). Acute non-recurrent maxillary sinusitis 01/03/2018 04/17/2018 Bilateral headache 01/03/2018 2 Bilateral leg edema 01/03/2018 02/14/20 22 Hematuria 01/03/2018 02/13/2022 Anemia 10/04/2017 02/27/2025 Assessment & Plan (02/14/2022 10:46 AM EDT): Patient suffers from chronic anemia. Hemoglobin 11.7 on presentation, down to 9.7 on re-check. Stable this morning at 9.6. No signs of significant ongoing GI bleeding. Will restart his home iron supplementation. Angioedema 10/04/2017 02/13/2022 Gross hematuria 10/04/2017 02/13/2022 Calculus of kidney 10/04/2017 5 Encounters Date Type Department Care Team Description 04/30/2025 7:40 AM EDT - 04/30/2025 11:59 PM EDT Hospital Encounter [facility] [address] [place] [id number] Willie Blair MD Discharge Disposition: Home or Self Care from Last 3 Months Immunizations Immunization Administration Dates Next Due COVID-19 (Pre-08/26) Pfizer Vaccine, Bivalent 12+ 08/05/2022 COVID-19 (Pre-08/26) Pfizer Vaccine, mRNA, PF 08/17/2021,12/28/2020,12/07/2020 COVID-19, Unspecified Formulation 05/24/2021, Influenza High-Dose Quadriva lent Preservative Free IM 07/02/2023,08/05/2022,08/03/2021 Influenza High-Dose Trivalen t Preservative Free IM 07/27/2024,07/28/2018,07/09/2016,07/24,08/18/2014,07/13/2013,07/13/2012 Influenza Nasal, Unspecified Formulation 07/14/2010,08/05/2009 Influenza Trivalent Adjuvant ed Preservative free IM 06/19/2017 Influenza, Unspecified Formulation 07/20/2020,,09/13/2011 Influenza, whole 07/06/2008 Pneumococcal conjugate PCV13 11/04/2019,07/24/20 15 Pneumococcal conjugate, unsp ecified formulation 11/04/2019 Pneumococcal polysaccharide PPSV23 11/04,06/19/2017,02/02/2010,08/04 RSV Vaccine (bivalent) 07/24/2023 Td (adult) 5 Lf Tetanus Toxo id, PF, Adsorbed 09/04/2004 Tdap 06/17/2018,06/04/2013 Zoster live 04/14/2010 Zoster recombinant 08/27/2019,05/18/2019 Family History Medical History Relation Comments Leukemia Brother 1 Prostate cancer Brother 1 Heart disease Brother 2 Prostate cancer Brother 2 Stomach cancer Brother 2 Cancer Father No Known Problems Mother Prostate cancer Son Relation Status Comments Brother 1 (Age 86) Brother 2 Daughter Alive Father Mother Son Social History Tobacco Use Types Packs/Day Years Used Date Smoking Tobacco: Former Cigarettes Smokeless Tobacco: Never Tobacco Cessation:Counseling Given: Not Answered Comments:tried it in his 20s, once in a while; light smoker back [...] Orientation Straight 06/15/2019 8: 25 PM EDT Last Filed Vital Signs Vital Sign Reading Time Taken Comments Blood Pressure 124/72 03/30/2025 1:55 PM EDT Pulse 56 03/30/2025 1:55 PM EDT Temperature 36.1 C (97 F) 03/30/2025 12:51 PM EDT Respiratory Rate 20 03/30/2025 12:51 PM EDT Oxygen Saturation 96% 03/30/2025 12:51 PM EDT Inhaled Oxygen Concentration - - Weight 105.2 kg (232 lb) 03/30/2025 12:51 PM EDT Height 170.7 cm (5' 7.21 ) 03/30/2025 12:51 PM E DT Body Mass Index 36.11 03/30/2025 12:51 PM EDT Plan of Treatment Upcoming Encounters Date Type Department Care Team (Late st Contact Info) Description 08/10/2025 10:00 AM EDT Office [place] [facility] Critical [facility] Medicine [address] [place] [phone] López Henry MD [address] [place] [address] [place] [address] 08/27/2025 2:00 PM EDT Office Visit [facility] [address] [place] [address] Willie Blair MD [address] [place] [address] Health Maintenance Due Date Last Done Comments INFLUENZA VACCINE (#1) 2025 , 07/02/2023, 07/02/2023, Additional history exists COVID-19 VACCINE ( season) 2025 07/27/2024, 08/08/2023, 08/05/2022, Additional history exists DEPRESSION SCREENING 03/23/2026 03/23/2025, 03/01/20 22 CREATININE LEVEL 04/30/2026 04/30/2025, 12/2024, 03/02/2025, Additional history exists LIPID PANEL 04/30/2026 04/30/2025, 05/2 12/2023, 10/11/2023, Additional history exists POTASSIUM LEVEL 04/30/2026 04/30/2025, 05/0 12/2024, 03/02/2025, Additional history exists Adult Td,Tdap Booster 06/17/2028 06/17/2018 , 06/04/2013, 09/04/2004 ZOSTER VACCINES Completed 08/27/2019, 05/04, 04/14/2010 PNEUMOCOCCAL VACCINES (50+ years) Completed 11/04/2019, 11/04/2019, 06/19/2017, Additional history exists RSV VACCINE Completed 07/24/2023 HEPATITIS A VACCINES Aged Out No long er eligible based on patient's age to complete this topic HIB VACCINES Aged Out No longer eligi ble based on patient's age to complete this topic MENINGOCOCCAL VACCINES (ACWY) Aged Out No longer eligible based on patient's age to complete this topic MENINGOCOCCAL VACCINES (B) Aged Out N o longer eligible based on patient's age to complete this topic Medical Devices Implanted Type Area Packing Room Inspector Device Identifier Shelf Expiration Date Model / Serial / Lot Lens Lens Bilateral: Eye Knees Description:Bilat knee repla cements Device Fixation 37mm Optifix Pdlla Smooth Head Hollow Core Angled Tip Absorb Sterile Disp 30 Fastner - [id number] Implanted:Qty: 1 on 07/02/2018 by Arleen Donald MD at [facility] N/A: Abdomen DAVOL 03/01/2020 [id number] / / [id number] Mesh Synthetic [id number] Abdominal Non Absorbable Ellipse Polypropylene Eptfe Ventralex - [id number] Implanted:Qty: 1 on 07/02/2018 by Arleen Donald MD at [facility] Abdomen DAVOL 10/01/2019 [id number] / / [id number] Device Fixation 37mm Optifix Pdlla Smooth Head Hollow Core Angled Tip Absorb Sterile Disp 30 Fastner - [id number] Implanted:Qty: 1 on 07/02/2018 by Arleen Donald MD at [facility] N/A: Abdomen DAVOL 08/01/2018 [id number] / / [id number] Procedures Procedure Name Priority Date/Time Associated Diagnosis Comments 25-OH VITAMIN D Routine 04/30/2025 7:41 AM EDT Hyperparathyroidism COMPREHENSIVE METABOLIC PANEL Routine 04/30/2025 7:41 AM EDT Essential hypertension Impaired fasting glucose CBC AND DIFFERENTIAL Routine 04/30/2025 7:41 AM EDT Essential hypertension HEMOGLOBIN A1C Routine 04/30/2025 7:41 AM EDT Impaired fasting glucose LIPID PANEL Routine 04/30/2025 7:41 AM EDT ASCVD (arteriosclerotic cardiovascular disease) MAGNESIUM Routine 04/30/2025 7:41 AM EDT Essential hypertension from Last 3 Months Results * (ABNORMAL) Comprehensive metabolic panel (04/30/2025 7:41 AM EDT) SODIUM 141 133 - 146 mmol/L [facility] POTASSIUM 4.5 3.3 - 5.1 mmol/L [facility] CHLORIDE 105 96 - 108 mmol/L [facility] CO2 24 21 - 35 mmol/L [facility] BUN 30(H) 6 - 19 mg/dL [facility] CREATININE 1.10 0.5 - 1.5 mg/dL [facility] GLUCOSE 97 70 - 99 mg/dL [facility] ALBUMIN 3.9 3.9 - 4.8 g/dL [facility] TOTAL PROTEIN 6.7 6.5 - 8.0 g/dL [facility] CALCIUM 10.0 8.4 - 10.3 mg/dL [facility] ALKALINE PHOSPHATASE 69 39 - 117 U/L [facility] TOTAL BILIRUBIN 0.6 0.0 - 1.2 mg/dL [facility] AST 22 0 - 37 U/L [facility] ALT 18 0 - 40 U/L [facility] GLOBULIN 2.8 1 - 4.8 g/dL [facility] EGFR 64 >59 mL/min/1.7 3m2 [facility] Comment:Estimated glomerular filtration rate calculated using the CKD-EPI refit equation. ANION GAP 17 10 - 20 mmol/L [facility] Blood 04/30/2025 7:41 AM EDT 04/30/2025 7:43 AM EDT us Willie Blair MD LAB BLOOD ORDERABLES Final Re sult Performing Organization Address City/[facility]/ZIP Co de Phone Number [address] [address] * 25-OH vitamin D (04/30/2025 7:41 AM EDT) 25 OH VIT D (TOTAL) 42 30 - 60 ng/mL [facility] Blood 04/30/2025 7:41 AM EDT 04/30/2025 7:43 AM EDT us Willie Blair MD LAB BLOOD ORDERABLES Final Re sult Performing Organization Address [facility] Co de Phone Number [address] [address] * (ABNORMAL) CBC and differential (04/30/2025 7:41 AM EDT) WBC 5.88 4.00 - 11.00 K/uL [facility] RBC 5.07 4.50 - 5.90 M/uL [facility] HGB 15.1 13.5 - 17.5 g/dL [facility] HCT 48.0 41.0 - 53.0 % [facility] PLT 193 150 - 450 K/uL [facility] MCV 94.7 80.0 - 100.0 fL [facility] MCH 29.8 27.0 - 31.0 pg [facility] MCHC 31.5(L) 32.0 - 36.0 g/dL [facility] RDW 14.7(H) 11.5 - 14.5 % [facility] MPV 11.9 8.4 - 12.0 [facility] NRBC 0.00 0.00 /100 WBCs [facility] ABSOLUTE NRBC 0.00 0.00 K/uL [facility] DIFF METHOD Auto [facility] NEUTS 64.0 48.0 - 76.0 % [facility] LYMPHS 16.0(L) 18.0 - 41.0 % [facility] MONOS 13.4(H) 4.0 - 11.0 % [facility] EOS 5.4(H) 0.0 - 5.0 % [facility] BASOS 0.9 0.0 - 1.5 % [facility] Granulocytes, immature (%) 0.3 0.0 - 0.9 % [facility] ABSOLUTE NEUTS 3.76 1.92 - 7.60 K/uL [facility] ABSOLUTE LYMPHS 0.94 0.72 - 4.10 K/uL [facility] ABSOLUTE MONOS 0.79 0.16 - 1.10 K/uL [facility] ABSOLUTE EOS 0.32 0.00 - 0.50 K/uL [facility] ABSOLUTE BASOS 0.05 0.00 - 0.15 K/uL [facility] Granulocytes, immature 0.02 0.00 - 0.09 K/uL [facility] Blood 04/30/2025 7:41 AM EDT 04/30/2025 7:43 AM EDT us Willie Blair MD LAB BLOOD ORDERABLES Final Re sult Performing Organization Address City/[facility] Co de Phone Number [address] [address] * Magnesium (04/30/2025 7:41 AM EDT) MAGNESIUM 2.0 1.6 - 2.6 mg/dL [facility] Blood 04/30/2025 7:41 AM EDT 04/30/2025 7:43 AM EDT us Willie Blair MD LAB BLOOD ORDERABLES Final Re sult Performing Organization Address City/[facility]/ZIP Co de Phone Number [address] [address] * Hemoglobin A1c (04/30/2025 7:41 AM EDT) HEMOGLOBIN A1C 5.6 4.3 - 5.8 % [facility] Blood 04/30/2025 7:41 AM EDT 04/30/2025 7:44 AM EDT us Willie Blair MD LAB BLOOD ORDERABLES Final Re sult Performing Organization Address City/[facility]/ZIP Co de Phone Number [address] [address] * (ABNORMAL) Lipid panel (04/30/2025 7:41 AM EDT) HDL 52 mg/dL [facility] Comment: Interpretation <40 mg/dL: Low HDL cholesterol (major risk factor for CHD) Greater than or equal to 60 mg/dL: High HDL cholesterol ( negative risk factor for CHD) HDL - cholesterol is affected by a number of factors, e.g. smoking, excerise, hormones, sex and age. CHOLESTEROL 160 0 - 240 mg/dL [facility] TRIGLYCERIDES 73 30 - 160 mg/dL [facility] LDL 93 50 - 129 mg/dL [facility] Comment: LDL levels in terms of risk for coronary heart disease: <100 mg/dL: Optimal 100-129 mg/dL: Near or above optimal 130-159 mg/dL: Borderline high 160-189 mg/dL: High >190 mg/dL: Very High CARDIAC RISK RATIO 3.1(L) 3.4 - 5.0 [facility] Blood 04/30/2025 7:41 AM EDT 04/30/2025 7:44 AM EDT us Willie Blair MD LAB BLOOD ORDERABLES Final Re sult Performing Organization Address City/[facility]/ZIP Co de Phone Number [address] [address] from Last 3 Months Insurance MEDICARE PART A & B [employer] MEDEX SUPPLEMENT MEDICARE PART A & B [employer] MEDEX SUPPLEMENT MEDICARE PART A & B [employer] MEDEX SUPPLEMENT MEDICARE PART A & B [employer] MEDEX SUPPLEMENT MEDICARE PART A & B [employer] MEDEX SUPPLEMENT MEDICARE PART A & B [employer] MEDEX SUPPLEMENT MEDICARE PART A & B [facility] MEDEX SUPPLEMENT MEDICARE PART A & B [employer] MEDEX SUPPLEMENT MEDICARE PART A & B [employer] MEDEX SUPPLEMENT Advance Directives For more information, please contact: [phone] (9AM - 5PM [facility], Saturday-Saturday) Documents on File Type Date Recorded Patient Director Of Sales Expl anation Healthcare Proxy 04/26/2020 Health Care Proxy * Full Code (Latest Code Status on File) Date Activated Date Inactivated Comments 02/27/2025 10:32 PM Question Answer Comments Code Status Confirmed With: Patient * Full Code Date Activated Date Inactivated Comments 12/26/2023 9:33 PM 02/27/2025 10:32 PM Question Answer Comments Code Status Confirmed With: Patient * Full Code Date Activated Date Inactivated Comments 03/12/2022 8:16 AM 07/11/2023 10:39 AM Question Answer Comments Code Status Confirmed With: Patient * Full Code Date Activated Date Inactivated Comments 02/13/2022 3:39 PM 03/12/2022 8:16 AM Question Answer Comments Code Status Confirmed With: Patient * Full Code Date Activated Date Inactivated Comments 08/25/2021 8:37 PM 02/13/2022 3:39 PM Question Answer Comments Code Status Confirmed With: Patient Healthcare Agents on File Name Relationship Healthcare Agent Relationship Communication Kathy Du Spouse .Primary Health Care Agent (Proxy form on file) Arnulfo Du Son Alternate He althcare Agent (Proxy form on file) Care Teams [employer] Relationship Specialty Start Date End Date Willie Blair MD [address] [place] [address] [email or web address] PCP - General Internal Medicine 02/04/20 Willie Blair MD [address] [place] [address] [email or web address] Assigned Provider 02/08/24 Daniel Flores MD [address] [place] [phone] [email or web address] 04/14/20 Delvin Waddell MD [address] [place] [address] [email or web address] 04/14/20 Shaylee Dejesus MD [address] [place] [address] [address] [place] [address] Otolaryngology 05/20/20 Tramaine Valle MD [address] [place] [phone] Gastroenterology 11/30/20 Socorro Begum PA [facility] [place] [address] Physician [employer] Cardiology 04/06/24 Additional Source Comments The information contained in this document represents components of the legal health record. It is not the complete legal health record.[facility]ly [facility]
--- OUTSIDE RECORDS SUMMARY | 2025-07-07 17:21 | XMS_ITS | Encounter Summary ---
Author Organization [facility] Address [address] [facility] [address] [place] [address] Phone Care Team Providers Care Skip Tender Name Role Phone Willie Blair MD Unavailable Willie Blair MD Primary Care Provider [phone] Daniel Flores MD Unavailable Delvin Waddell MD Unavailable Shaylee Dejesus MD Unavailable [phone] Tramaine Valle MD Unavailable [phone] Socorro Begum Unavailable [phone] Keily Gomez OT Unavailable Encounter Details Date Type Department Care Team (Late st Contact Info) Description 02/27/2025 Procedure Pass [facility] Echo Lab 30 [place], [place] [id number] Social History Tobacco Use Types Packs/Day Years [...] as food, clothing, or medical care? No 02/27/2025 In the past 12 months have y ou been in a relationship with a person who hurts, threatens, or tries to control you? No 02/27/2025 Are you denied basic needs s uch as food, clothing, or medical care? No 02/27/2025 In the past 12 months have y ou been in a relationship with a person who hurts, threatens, or tries to control you? No 02/27/2025 Sex and Gender Information Value Date Recorded [...] 2:34 PM EDT Sheela Sanchez RN * [place] Suicide Severity Rating Scale (Screener/Recent Self-Report) Question [...] Description 08/10/2025 10:00 AM EDT Office Visit [facility] Pulmonary, Allergy and Critical Care Medicine [address] [place] [address] López Henry MD [address] [place] [address] 08/27/2025 2:00 PM EDT Office Visit [facility] [place] Internal Medicine 40 [place] [address] Willie Blair MD 40 [place] [address] documented as of this encounter Visit Diagnoses Not on filedocumented in this encounter Additional Health Concerns Infection Onset Date Last Indicated Resolved Time CoV-Risk Comment:Per note documentation 02/27/2025 02/27/2025 04/27/202 5 7:29 AM EDT Assessment Noted Time PHQ-9 Depression Total Score: 7 03/01/20 22 2:17 PM EDT PHQ-2 Depression Total Score: 0 03/18/20 24 7:47 PM EDT documented as of this encounter Care Teams Skip Tender Relationship Specialty Start Date End Date Willie Blair MD 40 [place] [address] [email or web address] PCP - General Internal Medicine 02/04/20 Willie Blair MD 40 [place] [address] [email or web address] Insurance Assigned Provider 02/08/24 Daniel Flores MD [address] [phone] [email or web address] Urology 04/14/20 Delvin Waddell MD [address] [phone] [email or web address] Cardiology 04/14/20 Shaylee Dejesus MD [address] [place] [address] Otolaryngology 05/20/20 Tramaine Valle MD [address] [place] [address] [phone] [email or web address] Gastroenterology 11/30/20 Socorro Begum [place] [address] Physician House Principal Cardiology 04/06/24 Keily Gomez, OT [address] [place] [address] [email or web address] Transitions Wet Process Miller HeadSteam Roller Operator Therapy 03/01/25 documented as of this encounter Additional Source Comments The information contained in this document represents components of the legal health record. It is not the complete legal health record.[facility]
--- OUTSIDE RECORDS SUMMARY | 2025-07-07 17:21 | XMS_ITS | Encounter Summary ---
Author Organization [facility] Address [address] [facility] [address] [place] [address] Phone Care Team Providers Care Health Plan Manager Name Role Phone Willie Blair MD Unavailable [phone] Willie Blair MD Primary Care Provider [phone] Daniel Flores MD Unavailable Delvin Waddell MD Unavailable [phone] Shaylee Dejesus MD Unavailable Tramaine Valle MD Unavailable [phone] Chantel Philippe RN Unavailable [phone] Keily Gomez OT Unavailable [phone] Socorro Begum Unavailable [phone] Keily Gomez OT Unavailable [phone] Encounter Details Date Type Department Care Team (Late st Contact Info) Description 01/03/2022 Procedure Pass [facility] Endoscopy Admitting Dept Virtual Department [address] [place] [address] [phone] Social History Tobacco Use Types Packs/Day Years Used Date Smoking Tobacco: Former Cigarettes Smokeless Tobacco: Never Comments:tried it in his 20s , once in a while Alcohol Use Standard Drinks/Week Comments Not Currently 0 (1 standard drink = 0.6 oz pure alcohol) 1-2 beers, 2-3 x month if that Sex and Gender Information Value Date Recorded [...] [facility] Pulmonary, Allergy and Critical Care Medicine [address] [place] [address] López Henry MD [address] [place] [address] [email or web address] 08/27/2025 2:00 PM EDT Office Visit [facility] Internal Medicine 40 [place] [address] Willie Blair MD 40 [place] [address] [email or web address] documented as of this encounter Visit Diagnoses Not on filedocumented in this encounter Additional Health Concerns Infection Onset Date Last Indicated Resolved Time CoV-Risk Comment:2 Neg covid 12/26/2023 12/26/2023 12/27/2023 2:[address] CoV-Risk 12/31/2024 12/31/2024 01/11/2025 1:22 AM EDT CoV-Risk Comment:Per note documentation 02/27/2025 02/27/2025 7:29 AM EDT Assessment Noted Time PHQ-2 Depression Total Score: 2 02/22/20 21 1:16 PM EDT documented as of this encounter Care Teams Health Plan Manager Relationship Specialty Start Date End Date Willie Blair MD 40 [place] [address] [email or web address] PCP - General Internal Medicine 02/04/20 Willie Blair MD 40 [place] [address] [email or web address] Insurance Assigned Provider 02/08/24 Daniel Flores MD [address] [phone] [email or web address] Urology 04/14/20 Delvin Waddell MD [address] [phone] [email or web address] Cardiology 04/14/20 Shaylee Dejesus MD [address] [place] [address] Otolaryngology 05/20/20 Tramaine Valle MD [address] [place] [address] [email or web address] Gastroenterology 11/30/20 Chantel Philippe, RN 10 [place], [place] [phone] [email or web address] iCMP Diplomatic InterpreterEvent Marketing Coordinator 10/12/22 10/31/22 Keily Gomez, OT 30 [place] [address] [email or web address] Transitions Diplomatic InterpreterLaborer Airport Maintenance Therapy 12/30/23 Socorro Begum PA [address] [place] [address] Physician Scaler Packer Cardiology 04/06/24 Keily Gomez, OT 30 [place] [address] [email or web address] Transitions Diplomatic InterpreterLaborer Airport Maintenance Therapy 03/01/25 documented as of this encounter Additional Source Comments The information contained in this document represents components of the legal health record. It is not the complete legal health record.[facility]
--- OUTSIDE RECORDS SUMMARY | 2025-07-07 17:21 | XMS_ITS | Encounter Summary ---
Author Organization [facility] Address 399 [facility] [address] [place] [address] Phone Care Team Providers Care Park Ranger Name Role Phone Willie Blair MD Unavailable [phone] Willie Blair MD Primary Care Provider Daniel Flores MD Unavailable [phone] Delvin Waddell MD Unavailable Shaylee Dejesus MD Unavailable [phone] Tramaine Valle MD Unavailable [phone] Maxx Gardner OT Unavailable Chantel Philippe RN Unavailable Keily Gomez OT Unavailable Socorro Begum Unavailable [phone] Keily Gomez OT Unavailable [phone] Encounter Details Date Type Department Care Team (Late st Contact Info) Description 05/25/2021 Procedure Pass [facility] Cardiovascular And Interventional Radiology 30 [place], [place] [phone] Social History Tobacco Use Types Packs/Day Years [...] Pulmonary, Allergy and Critical Care Medicine 10 [place] [address] López Henry MD [address] [address] [email or web address] 08/27/2025 2:00 PM EDT Office Visit [facility] Internal Medicine 40 [place] [address] Willie Blair MD 40 [place] [address] [email or web address] documented as of this encounter Visit Diagnoses [...] documented as of this encounter Care Teams Park Ranger Relationship Specialty Start Date End Date Willie Blair MD 40 [place] [address] [email or web address] PCP - General Internal Medicine 02/04/20 Willie Blair MD 40 [place] [address] [email or web address] Insurance Assigned Provider 02/08/24 Daniel Flores MD [address] [phone] [email or web address] Urology 04/14/20 Delvin Waddell MD [address] [phone] [email or web address] Cardiology 04/14/20 Shaylee Dejesus MD [address] [place] [address] [address] Otolaryngology 05/20/20 Tramaine Valle MD [address] [place] [address] [phone] [email or web address] Gastroenterology 11/30/20 Maxx Gardner OT 10 [place] [address] [email or web address] Transitions Spreader Operator AutomaticAutomation Architect Therapy 05/22/21 Chantel Philippe, RN 10 [place] [address] [email or web address] iCMP Spreader Operator AutomaticMetal Model Builder 10/12/22 10/31/22 Keily Gomez, OT 30 [place] [address] [email or web address] Transitions Spreader Operator AutomaticAutomation Architect Therapy 12/30/23 Socorro Begum PA [address] [place] [address] Physician Maintenance Scheduler Cardiology 04/06/24 Keily Gomez, OT 30 [place] [address] [email or web address] Transitions Spreader Operator AutomaticAutomation Architect Therapy 03/01/25 documented as of this encounter Additional Source Comments The information contained in this document represents components of the legal health record. It is not the complete legal health record.[facility]
--- OUTSIDE RECORDS SUMMARY | 2025-07-07 17:21 | XMS_ITS | Encounter Summary ---
Author Organization [facility] Address 399 [facility] [address] [place] [address] Phone Care Team Providers Care Wind Turbine Design Engineer Name Role Phone Willie Blair MD Unavailable Willie Blair MD Primary Care Provider Daniel Flores MD Unavailable Delvin Waddell MD Unavailable [phone] Shaylee Dejesus MD Unavailable Tramaine Valle MD Unavailable [phone] Chantel Philippe RN Unavailable [phone] Keily Gomez OT Unavailable [phone] Socorro Begum Unavailable [phone] Keily Gomez OT Unavailable [phone] Encounter Details Date Type Department Care Team (Late st Contact Info) Description 05/26/2021 Procedure Pass [facility] Cardiovascular And Interventional Radiology 30 [place] [address] Social History Tobacco Use Types Packs/Day Years [...] [facility] Pulmonary, Allergy and Critical Care Medicine [address] [place] [address] [address] [place], [place] [phone] López Henry MD [address] [place] [address] [email or web address] 08/27/2025 2:00 PM EDT Office Visit [facility] Internal Medicine 40 [place] [address] Willie Blair MD 40 [place] [address] [email or web address] documented as of this encounter Visit Diagnoses [...] Time PHQ-2 Depression Total Score: 2 02/22/20 1:16 PM EDT documented as of this encounter Care Teams Wind Turbine Design Engineer Relationship Specialty Start Date End Date Willie Blair MD 40 [place] [address] [email or web address] PCP - General Internal Medicine 02/04/20 Willie Blair MD 40 [place] [address] [email or web address] Insurance Assigned Provider 02/08/24 Daniel Flores MD [address] [phone] [email or web address] Urology 04/14/20 Delvin Waddell MD [address] [phone] [email or web address] Cardiology 04/14/20 Shaylee Dejesus MD [address] [place] [address] Otolaryngology 05/20/20 Tramaine Valle MD [address] [place] [address] [phone] [email or web address] Gastroenterology 11/30/20 Chantel Philippe, RN [address] [place] [address] [phone] [email or web address] iCMP Estimate ClerkFisher Crab 10/12/22 10/31/22 Keily Gomez, OT [address] [place] [address] [email or web address] Transitions Estimate ClerkSwaging Machine Adjuster Therapy 12/30/23 Socorro Begum PA [address] [place] [address] Physician Traveling Plant Operator Cardiology 04/06/24 Keily Gomez, OT [address] [place] [address] [email or web address] Transitions Estimate ClerkSwaging Machine Adjuster Therapy 03/01/25 documented as of this encounter Additional Source Comments The information contained in this document represents components of the legal health record. It is not the complete legal health record.[facility]
--- OUTSIDE RECORDS SUMMARY | 2025-07-07 17:21 | XMS_ITS | Encounter Summary ---
Author Organization [facility] Address 399 [facility] [address] [place] [address] Phone Care Team Providers Care Plate Finisher Name Role Phone Willie Blair MD Unavailable [phone] Willie Blair MD Primary Care Provider [phone] Daniel Flores MD Unavailable Delvin Waddell MD Unavailable Shaylee Dejesus MD Unavailable [phone] Tramaine Valle MD Unavailable [phone] Maxx Gardner OT Unavailable Chantel Philippe RN Unavailable Keily Gomez OT Unavailable [phone] Socorro Begum Unavailable [phone] Keily Gomez OT Unavailable Encounter Details Date Type Department Care Team (Late st Contact Info) Description 05/19/2021 Procedure Pass [facility], Ct Scan - [address] [phone] Social History Tobacco Use Types Packs/Day Years [...] Date of Assessment Author No Risk Indicated 05/19/2021 4:56 PM EDT Taylor Byrd RN * [place] Suicide Severity Rating Scale (Screener/Recent Self-Report) Question Answer Date of Assessment Author 1. Wish to be (Past 1 Month) No 021 4:56 PM EDT Taylor Byrd RN 2. Non-Specific Active Suici alayna Thoughts (Past 1 Month) No 05/19/2021 4:56 PM EDT Taylor Byrd RN 6. Suicidal Behavior (Lifetime) No 4:56 PM EDT Taylor Byrd RN documented as of this encounter Plan of Treatment Upcoming Encounters Date Type Department Care Team (Late st Contact Info) Description 08/10/2025 10:00 AM EDT Office Visit [facility] Pulmonary, Allergy and Critical Care Medicine [address] [place] [address] López Henry MD [address] [place] [address] 08/27/2025 2:00 PM EDT Office Visit [facility] [place] Internal Medicine 40 [place], [place] [phone] Willie Blair MD 40 [place] [address] documented as of this encounter Visit Diagnoses [...] documented as of this encounter Care Teams Plate Finisher Relationship Specialty Start Date End Date Willie Blair MD 40 [place] [address] [email or web address] PCP - General Internal Medicine 02/04/20 Willie Blair MD 40 [place] [address] [email or web address] Insurance Assigned Provider 02/08/24 Daniel Floers MD [address] [place] [address] [email or web address] Urology 04/14/20 Delvin Waddell MD [address] [place] [address] [email or web address] Cardiology 04/14/20 Shaylee Dejesus MD [address] [place] [address] [address] [place] [address] Otolaryngology 05/20/20 Tramaine Valle MD [address] [place] [address] Gastroenterology 11/30/20 Maxx Gardner, OT 10 [place] [address] [email or web address] Transitions Bow Maker CustomAccounting Manager Assistant Controller Therapy 05/22/21 Chantel Philippe, RN 10 [place] [address] [email or web address] iCMP Bow Maker CustomConformal Pad Former 10/12/22 10/31/22 Keily oGmez, OT 30 [place] [address] [email or web address] Transitions Bow Maker CustomAccounting Manager Assistant Controller Therapy 12/30/23 Socorro Begum PA [facility] [place] [address] Physician Records Management Clerk Cardiology 04/06/24 Keily Gomez, OT 30 [place] [address] [email or web address] Transitions Bow Maker CustomAccounting Manager Assistant Controller Therapy 03/01/25 documented as of this encounter Additional Source Comments The information contained in this document represents components of the legal health record. It is not the complete legal health record.[facility]
--- OUTSIDE RECORDS SUMMARY | 2025-07-07 17:21 | XMS_ITS | Encounter Summary ---
Author Organization [facility] Address 399 [facility] [address] [place] [address] Phone Care Team Providers Care Store Grocery Merchandiser Name Role Phone Willie Blair MD Unavailable [phone] Willie Blair MD Primary Care Provider [phone] Daniel Flores MD Primary Care Provider Willie Blair MD Primary Care Provider [phone] Daniel Flores MD Unavailable [phone] Delvin Waddell MD Unavailable [phone] Shaylee Dejesus MD Unavailable [phone] Tramaine Valle MD Unavailable [phone] Maxx Gardner OT Unavailable [phone] Chantel Philippe RN Unavailable [phone] Keily Gomez OT Unavailable [phone] Socorro Begum Unavailable Keily Gomez OT Unavailable [phone] Encounter Details Date Type Department Care Team (Late st Contact Info) Description 07/02/2018 Procedure Pass [place] Admitting Dept - Virtual Department 30 [place] [address] Social History Tobacco Use Types Packs/Day Years Used Date Smoking Tobacco: Never Smokeless Tobacco: Never Alcohol Use Standard Drinks/Week Comments Yes 1 (1 standard drink = 0.6 oz pur e alcohol) social drinker Sex and Gender Information Value Date Recorded Sex Assigned at Male 06/15/2019 8:25 PM EDT Legal Sex Male 10:14 PM EDT Gender Identity Male 06/15/2019 8:25 PM EDT Sexual Orientation Straight 06/15/2019 8: 25 PM EDT documented as of this encounter Plan of Treatment Upcoming Encounters Date Type Department Care Team ([facility] Contact Info) Description 08/10/2025 10:00 AM EDT Office Visit [facility] Pulmonary, Allergy and Critical Care Medicine [address] [place] [address] López Henry MD [address] [place] [address] [email or web address] 08/27/2025 2:00 PM EDT Office Visit [facility] Internal Medicine 40 [place] [address] Willie Blair MD 40 [place] [address] [email or web address] documented as of this encounter Visit [...] Noted Time PHQ-2 Depression Total Score: 0 01/04/20 18 11:03 AM EST documented as of this encounter Care Teams Store Grocery Merchandiser Relationship Specialty Start Date End Date Willie Blair MD 40 [place] [address] [email or web address] PCP - General Internal Medicine 09/19/17 01/03/20 Daniel Flores MD 100 [facility] [employer] [address] [phone] [email or web address] PCP - General Urology 01/04/20 02/03/20 Willie Blair MD 40 [place] [address] [email or web address] PCP - General Internal Medicine 02/04/20 Willie Blair MD 40 [place] [address] [email or web address] Insurance Assigned Provider 02/08/24 Daniel Flores MD 100 [facility] [address] [phone] [email or web address] Urology 04/14/20 Delvin Waddell MD 100 [facility] [address] [address] [email or web address] Cardiology 04/14/20 Shaylee Dejesus MD [address] [place] [address] Otolaryngology 05/20/20 Tramaine Valle MD [address] [place] [address] Gastroenterology 11/30/20 Maxx Gardner, OT 10 [place] [address] [email or web address] Transitions Radio ReporterConstruction Analyst Therapy 05/22/21 Chantel Philippe, RN [address] [place] [address] [email or web address] iCMP Radio ReporterElectrician Bus 10/12/22 10/31/22 Keily Gomez, OT 30 [place] [address] [email or web address] Transitions Radio ReporterConstruction Analyst Therapy 12/30/23 Socorro Begum PA [address] [place] [address] Physician Shipping Support Clerk Cardiology 04/06/24 Keily Gomez, OT 30 [place] [address] [email or web address] Transitions Radio ReporterConstruction Analyst Therapy 03/01/25 documented as of this encounter Additional Source Comments The information contained in this document represents components of the legal health record. It is not the complete legal health record.[facility]
--- OUTSIDE RECORDS SUMMARY | 2025-07-07 17:21 | XMS_ITS | Encounter Summary ---
Author Organization [facility] Address [address] [facility] [address] [place] [address] Phone Care Team Providers Care Concrete Polisher Name Role Phone Willie Blair MD Unavailable Willie Blair MD Primary Care Provider Daniel Flores MD Unavailable Delvin Waddell MD Unavailable Shaylee Dejesus MD Unavailable [phone] Tramaine Valle MD Unavailable [phone] Socorro Begum Unavailable [phone] Keily Gomez OT Unavailable Encounter Details Date Type Department Care Team (Late st Contact Info) Description 10/19/2024 Procedure Pass [facility], Ct Scan - [address] [id number] Social History Tobacco Use Types Packs/Day Years [...] as food, clothing, or medical care? No 03/18/2024 In the past 12 months have y ou been in a relationship with a person who hurts, threatens, or tries to control you? No 03/18/2024 Are you denied basic needs s uch as food, clothing, or medical care? No 03/18/2024 In the past 12 months have y ou been in a relationship with a person who hurts, threatens, or tries to control you? No 03/18/2024 Sex and Gender Information Value Date Recorded [...] [facility] Pulmonary, Allergy and Critical Care Medicine [address] [place] [address] [place] [address] López Henry MD 10 [facility] 2nd [place] [address] 08/27/2025 2:00 PM EDT [facility] [place] [facility] [address] [place], [place] [address] [place] [address] Willie Blair MD [address] [place] [address] [email or web address] documented as of [...] documented as of this encounter Care Teams Concrete Polisher Relationship Specialty Start Date End Date Willie Blair MD [address] [place] [address] [email or web address] PCP - General Internal Medicine 02/04/20 Willie Blair MD [address] [place] [address] [email or web address] Insurance Assigned Provider 02/08/24 Daniel Flores MD 100 [address] 120 [place] [address] [email or web address] Urology 04/14/20 Delvin Waddell MD 100 Jerem[address] Carranza [facility] 120 [place] [address] [email or web address] Cardiology 04/14/20 Shaylee Dejesus MD [address] [place] [address] Dr FELIX [address] [place] [address] Otolaryngology 05/20/20 Tramaine Valle MD [address] [place] [address] 2 [place] [address] [email or web address] Gastroenterology 11/30/20 Socorro Begum PA [address] [place] [address] Physician Chef Manager Cardiology 04/06/24 Keily Gomez, OT 30 [place] [address] [email or web address] Transitions Croze Cutter HelperPainter Rough Therapy 03/01/25 documented as of this encounter Additional Source Comments The information contained in this document represents components of the legal health record. It is not the complete legal health record.[facility]
--- OUTSIDE RECORDS SUMMARY | 2025-07-07 17:21 | XMS_ITS | Encounter Summary ---
Author Organization [facility] Address 399 [facility] [address] [place] [address] Phone Care Team Providers Care Food Product Inspector Name Role Phone Willie Blair MD Unavailable Willie Blair MD Primary Care Provider Daniel Flores MD Unavailable Delvin Waddell MD Unavailable Shaylee Dejesus MD Unavailable [phone] Tramaine Valle MD Unavailable [phone] Keily Gomez OT Unavailable [phone] Socorro Begum Unavailable [phone] Keily Gomez OT Unavailable [phone] Encounter Details Date Type Department Care Team (Late st Contact Info) Description 12/26/2023 Procedure Pass [facility], Ct Scan - [address] [address] Social History Tobacco Use Types Packs/Day Years Used Date Smoking Tobacco: Former Cigarettes Smokeless Tobacco: Never Comments:tried it in his 20s , once in a while; light smoker back in the day Alcohol Use Standard Drinks/Week Comments Yes 0 (1 standard drink = 0.6 oz pure alcohol) occasionally during holidays and special events Education Answer Date Recorded Are you interested in more education? Not on cinthya e 03/01/2023 Are you concerned about learning? Not on file 03/01/2023 No 03/01/2023 No 03/01/2023 Digital Access Answer Date Recorded No 03/26/2023 No 03/26/2023 Reliable internet access at home? Not on file 03/26/2023 Device with a working camera? Not on file Sex and Gender Information Value Date Recorded Sex Assigned at Male 06/15/2019 8:25 PM EDT Legal Sex Male 10:14 PM EDT Gender Identity Male 06/15/2019 8:25 PM EDT Sexual Orientation Straight 06/15/2019 8: 25 PM EDT documented as of this encounter Functional Status * Calculated C-SSRS Risk Score (Lifetime/Recent) Answer Date of Assessment Author No Risk Indicated 12/26/2023 2:43 PM Alli Osullivan * [place] Suicide Severity Rating Scale (Screener/Recent Self-Report) Question Answer Date of Assessment Author 1. Wish to be (Past 1 Month) No 024 2:43 PM Alli Osullivan 2. Non-Specific Active Suici alayna Thoughts (Past 1 Month) No 12/26/2023 2:43 PM Eduarda Osullivan 6. Suicidal Behavior (Lifetime) No 2:43 PM Alli Osullivan documented as of this encounter Plan of Treatment Upcoming Encounters Date Type Department Care Team (Late st Contact Info) Description 08/10/2025 10:00 AM EDT Office Visit [facility] Pulmonary, Allergy and Critical Care Medicine [address] [place] [address] [place] [address] López Henry MD 10 [facility] 2nd [place] [address] 08/27/2025 2:00 PM EDT Office Visit [facility] Internal Medicine 40 [place] [address] Willie Blair MD 40 [place] [address] [email or web address] documented as of this encounter Visit Diagnoses [...] PM EDT PHQ-2 Depression Total Score: 0 03/22/20 23 4:53 PM EDT documented as of this encounter Care Teams Food Product Inspector Relationship Specialty Start Date End Date Willie Blair MD 40 [place] [address] [email or web address] PCP - General Internal Medicine 02/04/20 Willie Blair MD 40 [place] [address] [email or web address] Insurance Assigned Provider 02/08/24 Daniel Flores MD 100 [address] [employer] [address] [place] [phone] [email or web address] Urology 04/14/20 Delvin Waddell MD [address] [place] [address] [email or web address] Cardiology 04/14/20 Shaylee Dejesus MD [address] [place] [address] Otolaryngology 05/20/20 Tramaine Valle MD [address] [place] [address] [email or web address] Gastroenterology 11/30/20 Keily Gomez, OT 30 [place] [address] [email or web address] Transitions Senior Water Resources EngineerDrilling Manager Therapy 12/30/23 Socorro Begum PA [address] [place] [address] Physician Commercial Attache Cardiology 04/06/24 Keily Gomez, OT 30 [place] [address] [email or web address] Transitions Senior Water Resources EngineerDrilling Manager Therapy 03/01/25 documented as of this encounter Additional Source Comments The information contained in this document represents components of the legal health record. It is not the complete legal health record.[facility]
--- OUTSIDE RECORDS SUMMARY | 2025-07-07 17:21 | XMS_ITS | Encounter Summary ---
Author Organization [facility] Address 399 [facility] [address] [place] [address] Phone Care Team Providers Care Event Decorator Name Role Phone Willie Blair MD Unavailable Willie Blair MD Primary Care Provider [phone] Daniel Flores MD Unavailable Delvin Waddell MD Unavailable Shaylee Dejesus MD Unavailable [phone] Tramaine Valle MD Unavailable [phone] Chantel Philippe RN Unavailable [phone] Keily Gomez OT Unavailable [phone] Socorro Begum Unavailable [phone] Keily Gomez OT Unavailable [phone] Encounter Details Date Type Department Care Team (Late st Contact Info) Description 03/27/2022 Procedure Pass [facility], [address] [address] Social History Tobacco Use Types Packs/Day Years Used Date Smoking Tobacco: Former Cigarettes Smokeless Tobacco: Never Comments:tried it in his 20s , once in a while Alcohol Use Standard Drinks/Week Comments Yes 0 (1 standard drink = 0.6 oz pure alcohol) occasionally during holidays and special events Sex and Gender Information Value Date Recorded [...] [facility] Pulmonary, Allergy and Critical Care Medicine [address] [place] [address] López Henry MD [address] [address] [email or web address] 08/27/2025 2:00 PM EDT Office Visit [facility] Internal Medicine 40 [place] [address] Willie Blair MD 40 [place] [address] [email or web address] documented as of this encounter Visit Diagnoses Not on filedocumented in this encounter Additional Health Concerns Infection Onset Date Last Indicated Resolved Time CoV-Risk Comment:2 Neg covid 12/26/2023 12/26/2023 12/27/2023 2:[address] CoV-Risk 12/31/2024 12/31/2024 01/11/2025 1:22 AM EDT CoV-Risk Comment:Per note documentation 02/27/2025 02/27/2025 7:29 AM EDT Assessment Noted Time PHQ-9 Depression Total Score: 7 03/01/20 2:17 PM EDT PHQ-2 Depression Total Score: 2 03/27/20 11:40 AM EDT documented as of this encounter Care Teams Event Decorator Relationship Specialty Start Date End Date Willie Blair MD 40 [place] [address] [email or web address] PCP - General Internal Medicine 02/04/20 Willie Blair MD 40 [place], [place] [email or web address] Insurance Assigned Provider 02/08/24 Daniel Flores MD [address] [phone] [email or web address] Urology 04/14/20 Delvin Waddell MD [address] [phone] [email or web address] Cardiology 04/14/20 Shaylee Dejesus MD [address] [place] [address] Otolaryngology 05/20/20 Tramaine Valle MD [address] [place] [address] [phone] [email or web address] Gastroenterology 11/30/20 Chantel Philippe, RN 10 [place], [place] [phone] [email or web address] iCMP Chief Operating EngineerCow Tester 10/12/22 10/31/22 Keily Gomez, OT [address] [place] [address] Transitions Chief Operating EngineerFoot Press Operator Therapy 12/30/23 Socorro Begum PA [address] [place] [address] Physician Melting Furnace Skimmer Cardiology 04/06/24 Keily Gomez, OT 30 [place] [address] [email or web address] Transitions Chief Operating EngineerFoot Press Operator Therapy 03/01/25 documented as of this encounter Additional Source Comments The information contained in this document represents components of the legal health record. It is not the complete legal health record.[facility]
--- OUTSIDE RECORDS SUMMARY | 2025-07-07 17:21 | XMS_ITS | Encounter Summary ---
Author Organization [facility] Address 399 [facility] [address] [place] [address] Phone Care Team Providers Care Clinical Data Coordinator Name Role Phone Willie Blair MD Unavailable Willie Blair MD Primary Care Provider [phone] Daniel Flores MD Unavailable Delvin Waddell MD Unavailable [phone] Shaylee Dejesus MD Unavailable Tramaine Valle MD Unavailable [phone] Chantel Philippe RN Unavailable [phone] Keily Gomez OT Unavailable Socorro Begum Unavailable [phone] Keily Gomez OT Unavailable [phone] Encounter Details Date Type Department Care Team (Late st Contact Info) Description 08/28/2021 Procedure Pass [facility] Endoscopy Admitting Dept Virtual Department [address] [place] [address] [phone] Social History Tobacco Use Types Packs/Day Years [...] [facility] Pulmonary, Allergy and Critical Care Medicine [address] [place] [address] [place] [address] López Henry MD 10 [facility] 2nd [place] [address] [email or web address] 08/27/2025 2:00 PM EDT Office Visit [facility] Internal Medicine 40 [place] [address] Willie Blair MD 40 [place] [address] [email or web address] documented as of this encounter Visit Diagnoses [...] documented as of this encounter Care Teams Clinical Data Coordinator Relationship Specialty Start Date End Date Willie Blair MD 40 [place] [address] [email or web address] PCP - General Internal Medicine 02/04/20 Willie Blair MD 40 [place] [address] [email or web address] Insurance Assigned Provider 02/08/24 Daniel Flores MD [address] [address] [email or web address] Urology 04/14/20 Delvin Waddell MD [address] [address] [email or web address] Cardiology 04/14/20 Shaylee Dejesus MD [address] [place] [address] Otolaryngology 05/20/20 Tramaine Valle MD [address] [place] [address] [phone] [email or web address] Gastroenterology 11/30/20 Chantel Philippe, RN [address] [place] [phone] [email or web address] iCMP Lightning Protection InstallerFountain Attendant 10/12/22 10/31/22 Keily Gomez, OT [address] [place] [address] [email or web address] Transitions Lightning Protection InstallerSenior Media Director Therapy 12/30/23 Socorro Begum PA [address] [place] [address] Physician Field Auditor Cardiology 04/06/24 Keily Gomez, OT [address] [place] [address] [email or web address] Transitions Lightning Protection InstallerSenior Media Director Therapy 03/01/25 documented as of this encounter Additional Source Comments The information contained in this document represents components of the legal health record. It is not the complete legal health record.[facility]
--- OUTSIDE RECORDS SUMMARY | 2025-07-07 17:21 | XMS_ITS | Encounter Summary ---
Author Organization [facility] Address 399 [facility] [address] [place] [address] Phone Care Team Providers Care Payroll Benefits Clerk Name Role Phone Willie Blair MD Unavailable [phone] Willie Blair MD Primary Care Provider Daniel Flores MD Unavailable [phone] Delvin Waddell MD Unavailable Shaylee Dejesus MD Unavailable Tramaine Valle MD Unavailable [phone] Maxx Gardner OT Unavailable Cahntel Philippe RN Unavailable Keily Gomez OT Unavailable Socorro Begum Unavailable [phone] Keily Gomez OT Unavailable Encounter Details Date Type Department Care Team (Late st Contact Info) Description 05/23/2021 Procedure Pass [facility], Ct Scan - [address] [id number] Social History Tobacco Use Types Packs/Day Years [...] Pulmonary, Allergy and Critical Care Medicine 10 [place] [address] López Henry MD [address] [address] 08/27/2025 2:00 PM EDT Office Visit [facility] Internal Medicine 40 [place] [address] Willie Blair MD 40 [place] [address] [email or web address] documented as of this encounter Visit Diagnoses [...] documented as of this encounter Care Teams Payroll Benefits Clerk Relationship Specialty Start Date End Date Willie Blair MD 40 [place] [address] [email or web address] PCP - General Internal Medicine 02/04/20 Willie Blair MD 40 [place] [address] [email or web address] Insurance Assigned Provider 02/08/24 Daniel Flores MD [address] [address] [email or web address] Urology 04/14/20 Delvin Waddell MD [address] [phone] [email or web address] Cardiology 04/14/20 Shaylee Dejesus MD [address] [place] [address] [address] FELIX [address] [place] [address] Otolaryngology 05/20/20 Tramaine Valle MD [address] [place] [address] [phone] [email or web address] Gastroenterology 11/30/20 Maxx Gardner OT 10 [place], [place] [phone] [email or web address] Transitions Home Care Music TherapistHuman Resources Services Specialist Therapy 05/22/21 Chantel Philippe, RN 10 [place] [address] [email or web address] iCMP Home Care Music TherapistField Assistant 10/12/22 10/31/22 Keily Gomez, OT 30 [place] [address] [email or web address] Transitions Home Care Music TherapistHuman Resources Services Specialist Therapy 12/30/23 Socorro Begum PA [address] [place] [address] Physician Inspector Of Dredging Cardiology 04/06/24 Keily Gomez, OT 30 [place] [address] [email or web address] Transitions Home Care Music TherapistHuman Resources Services Specialist Therapy 03/01/25 documented as of this encounter Additional Source Comments The information contained in this document represents components of the legal health record. It is not the complete legal health record.[facility]
--- OUTSIDE RECORDS SUMMARY | 2025-07-07 17:21 | XMS_ITS | Encounter Summary ---
Author Organization [facility] Address 399 [facility] [address] [place] [address] Phone Care Team Providers Care Mrp Controller Name Role Phone Willie Blair MD Unavailable Willie Blair MD Primary Care Provider Daniel Flores MD Unavailable Delvin Waddell MD Unavailable Shaylee Dejesus MD Unavailable Tramaine Valle MD Unavailable [phone] Chantel Philippe RN Unavailable [phone] Keily Gomez OT Unavailable Socorro Begum Unavailable [phone] Keily Gomez OT Unavailable [phone] Encounter Details Date Type Department Care Team (Late st Contact Info) Description 06/13/2021 Procedure Pass [facility], [address] [address] Social History Tobacco Use Types Packs/Day Years [...] PM EDT documented as of this encounter Last Filed Vital Signs Vital Sign Reading Time Taken Comments Blood Pressure - - Pulse - - Temperature - - Respiratory Rate - - Oxygen Saturation - - Inhaled Oxygen Concentration - - Weight 103 kg (227 lb) 06/16/2021 8:37 AM EDT Height 175.3 cm (5' 9 ) 06/16/2021 8:37 AM EDT Body Mass Index 33.52 06/16/2021 8:37 AM EDT documented in this encounter Plan of Treatment Upcoming Encounters Date Type Department Care Team (Late st Contact Info) Description 08/10/2025 10:00 AM EDT Office Visit [facility] Pulmonary, Allergy and Critical Care Medicine 10 [place] [address] López Henry MD [address] [address] [email or web address] 08/27/2025 2:00 PM EDT Office Visit [facility] Internal Medicine 40 [place] [address] Willie Blair MD 40 [place] [address] [email or web address] documented as of this encounter [...] documented as of this encounter Care Teams Mrp Controller Relationship Specialty Start Date End Date Willie Blair MD 40 [place] [address] [email or web address] PCP - General Internal Medicine 02/04/20 Willie Blair MD 40 [place] [address] [email or web address] Insurance Assigned Provider 02/08/24 Daniel Flores MD [address] [phone] [email or web address] Urology 04/14/20 Delvin Waddell MD [address] [address] [email or web address] Cardiology 04/14/20 Shaylee Dejesus MD [address] [place] [address] [place] 1989[address] Otolaryngology 05/20/20 Tramaine Valle MD [address] [place] [address] 2 [place] [address] [email or web address] Gastroenterology 11/30/20 Chantel Philippe, RN 10 [place] [address] [email or web address] iCMP Head Stock Transfer ClerkOperations Officer Trust Department 10/12/22 10/31/22 Keily Gomez, OT 30 [place] [address] [email or web address] Transitions Head Stock Transfer ClerkCage Supervisor Therapy 12/30/23 Socorro Begum PA [address] [place] [address] Physician Health Promotion Officer Cardiology 04/06/24 Keily Gomez, OT 30 [place] [address] [email or web address] Transitions Head Stock Transfer ClerkCage Supervisor Therapy 03/01/25 documented as of this encounter Additional Source Comments The information contained in this document represents components of the legal health record. It is not the complete legal health record.[facility]
--- OUTSIDE RECORDS SUMMARY | 2025-07-07 17:21 | XMS_ITS | Encounter Summary ---
Author Organization [facility] Address [address] [facility] [address] [place] [address] Phone Care Team Providers Care Cassandra Developer Name Role Phone Willie Blair MD Unavailable [phone] Willie Blair MD Primary Care Provider Daniel Flores MD Unavailable Delvin Waddell MD Unavailable Shaylee Dejesus MD Unavailable Tramaine Valle MD Unavailable [phone] Maxx Gardner OT Unavailable Chantel Philippe RN Unavailable [phone] Keily Gomez OT Unavailable Socorro Begum Unavailable [phone] Keily Gomez OT Unavailable Encounter Details Date Type Department Care Team (Late st Contact Info) Description 05/25/2021 Procedure Pass [facility], [address] [id number] Social History Tobacco Use Types Packs/Day Years [...] Pulmonary, Allergy and Critical Care Medicine 10 [place] [address] López Henry MD [address] [address] [email or web address] 08/27/2025 2:00 PM EDT Office Visit [facility] Internal Medicine 40 [place] [address] Willie Blair MD 40 [place] [address] [email or web address] documented [...] documented as of this encounter Care Teams Cassandra Developer Relationship Specialty Start Date End Date Willie Blair MD 40 [place] [address] [email or web address] PCP - General Internal Medicine 02/04/20 Willie Blair MD 40 [place] [address] [email or web address] Insurance Assigned Provider 02/08/24 Daniel Flores MD [address] [address] [email or web address] Urology 04/14/20 Delvin Waddell MD [address] [phone] [email or web address] Cardiology 04/14/20 Shaylee Dejesus MD [address] [place] [address] Dr FELIX [address] [place] [address] Otolaryngology 05/20/20 Tramaine Valle MD [address] [place] [address] [id number] [email or web address] Gastroenterology 11/30/20 Maxx Gardner OT 10 [place], [place] 1241962 [email or web address] Transitions Mingler OperatorVendor Quality Supervisor Therapy 05/22/21 Chantel Philippe, RN 10 [place] [address] [email or web address] iCMP Mingler OperatorEngineering Officer 10/12/22 10/31/22 Keily Gomez, OT 30 [place] [address] [email or web address] Transitions Mingler OperatorVendor Quality Supervisor Therapy 12/30/23 Socorro Begum PA [address] [place] [address] Physician Forcer Maker Cardiology 04/06/24 Keily Gomez, OT 30 [place] [address] [email or web address] Transitions Mingler OperatorVendor Quality Supervisor Therapy 03/01/25 documented as of this encounter Additional Source Comments The information contained in this document represents components of the legal health record. It is not the complete legal health record.[facility]
--- OUTSIDE RECORDS SUMMARY | 2025-07-07 17:21 | XMS_ITS | Encounter Summary ---
Author Organization [facility] Address [address] [facility] [address] [place] [address] Phone Care Team Providers Care Steaming Machine Operator Name Role Phone Willie Blair MD Unavailable Willie Blair MD Primary Care Provider Daniel Flores MD Unavailable Delvin Waddell MD Unavailable Shaylee Dejesus MD Unavailable Tramaine Valle MD Unavailable [phone] Maxx Gardner OT Unavailable Chantel Philippe RN Unavailable Keily Gomez OT Unavailable Socorro Begum Unavailable [phone] Keily Gomez OT Unavailable [phone] Encounter Details Date Type Department Care Team (Late st Contact Info) Description 05/21/2021 Procedure Pass [facility], [address] [phone] Social History Tobacco Use Types Packs/Day Years [...] Pulmonary, Allergy and Critical Care Medicine 10 [place] [address] López Henry MD [address] [address] [email or web address] 08/27/2025 2:00 PM EDT Office Visit [facility] Internal Medicine 40 [place] [address] Willie Blair MD 40 [place] [address] [email or web address] documented as of [...] documented as of this encounter Care Teams Steaming Machine Operator Relationship Specialty Start Date End Date Willie Blair MD 40 [place] [address] [email or web address] PCP - General Internal Medicine 02/04/20 Willie Blair MD 40 [place] [address] [email or web address] Insurance Assigned Provider 02/08/24 Daniel Flores MD [address] [address] [email or web address] Urology 04/14/20 Delvin Waddell MD [address] [phone] [email or web address] Cardiology 04/14/20 Shaylee Dejesus MD [address] [place] [address] Dr FELIX [address] [place] [address] Otolaryngology 05/20/20 Tramaine Valle MD [address] [place] [address] [phone] [email or web address] Gastroenterology 11/30/20 Maxx Gardner OT 10 [place], [place] [phone] [email or web address] Transitions Product Manager E CommerceHand Sole Sewer Therapy 05/22/21 Chantel Philippe, RN 10 [place] [address] [email or web address] iCMP Product Manager E CommerceSenior Wind Turbine Technician 10/12/22 10/31/22 Keily Gomez, OT 30 [place] [address] [email or web address] Transitions Product Manager E CommerceHand Sole Sewer Therapy 12/30/23 Socorro Begum PA [address] [place] [address] Physician Milk Truck Driver Cardiology 04/06/24 Keily Gomez, OT 30 [place] [address] [email or web address] Transitions Product Manager E CommerceHand Sole Sewer Therapy 03/01/25 documented as of this encounter Additional Source Comments The information contained in this document represents components of the legal health record. It is not the complete legal health record.[facility]
--- OUTSIDE RECORDS SUMMARY | 2025-07-07 17:21 | XMS_ITS | Encounter Summary ---
Author Organization [facility] Address [address] [facility] [address] [place] [address] Phone Care Team Providers Care Gutter Hanger Name Role Phone Willie Blair MD Unavailable [phone] Willie Blair MD Primary Care Provider [phone] Daniel Flores MD Unavailable Delvin Waddell MD Unavailable [phone] Shaylee Dejesus MD Unavailable Tramaine Valle MD Unavailable [phone] Maxx Gardner OT Unavailable [phone] Chantel Philippe RN Unavailable [phone] Keily Gomez OT Unavailable Socorro Begum Unavailable [phone] Keily Gomez OT Unavailable [phone] Encounter Details Date Type Department Care Team (Late st Contact Info) Description 05/25/2021 Procedure Pass [facility] Cardiovascular And Interventional Radiology 30 [place], [place] [phone] Social History Tobacco Use Types Packs/Day Years [...] Pulmonary, Allergy and Critical Care Medicine 10 [place] [address] López Henry MD [address] [address] [email or web address] 08/27/2025 2:00 PM EDT Office Visit [facility] Internal Medicine 40 [place] [address] Willie Blair MD 40 [place] [address] [email or web address] [...] documented as of this encounter Care Teams Gutter Hanger Relationship Specialty Start Date End Date Willie Blair MD 40 [place] [address] [email or web address] PCP - General Internal Medicine 02/04/20 Willie Blair MD 40 [place] [address] [email or web address] Insurance Assigned Provider 02/08/24 Daniel Flores MD [address] [address] [email or web address] Urology 04/14/20 Delvin Waddell MD [address] [address] [email or web address] Cardiology 04/14/20 Shaylee Dejesus MD [address] [place] [address] [address] Otolaryngology 05/20/20 Tramaine Valle MD [address] [place] [address] [id number] [email or web address] Gastroenterology 11/30/20 Maxx Gardner OT 10 [place] [address] [email or web address] Transitions Meter Readers SupervisorMolded Candles Wicker Therapy 05/22/21 Chantel Philippe, RN 10 [place] [address] [email or web address] iCMP Meter Readers SupervisorRfid Systems Architect 10/12/22 10/31/22 Keily Gomez, OT 30 [place] [address] [email or web address] Transitions Meter Readers SupervisorMolded Candles Wicker Therapy 12/30/23 Socorro Begum PA [address] [place] [address] Physician Senior Analytic Consultant Cardiology 04/06/24 Keily Gomez, OT 30 [place] [address] [email or web address] Transitions Meter Readers SupervisorMolded Candles Wicker Therapy 03/01/25 documented as of this encounter Additional Source Comments The information contained in this document represents components of the legal health record. It is not the complete legal health record.[facility]
--- OUTSIDE RECORDS SUMMARY | 2025-07-07 17:21 | XMS_ITS | Encounter Summary ---
Author Organization [facility] Address [address] [facility] [address] [place] [address] Phone Care Team Providers Care Industrial Engineering Technologist Name Role Phone Willie Blair MD Unavailable [phone] Willie Blair MD Primary Care Provider Daniel Flores MD Unavailable Delvin Waddell MD Unavailable Shaylee Dejesus MD Unavailable [phone] Tramaine Valle MD Unavailable [phone] Chantel Philippe RN Unavailable [phone] Keily Gomez OT Unavailable [phone] Socorro Begum Unavailable [phone] Keily Gomez OT Unavailable [phone] Encounter Details Date Type Department Care Team (Late st Contact Info) Description 02/13/2022 Procedure Pass [facility] Admitting Dept Virtual Department [address] [place] [address] [phone] Social History Tobacco Use Types Packs/Day Years [...] Date of Assessment Author No Risk Indicated 02/13/2022 10:47 AM EDT Ginette Mann RN * [place] Suicide Severity Rating Scale (Screener/Recent Self-Report) Question Answer Date of Assessment Author 1. Wish to be (Past 1 Month) No 02/13/2022 10:47 AM EDT Jennifer Silva RN 2. Non-Specific Active Suicidal Thoughts (Past 1 Month) No 02/13/2022 10:47 AM EDT Jennifer Silva RN 6. Suicidal Behavior (Lifetime) No 02/13/2022 10:47 AM EDT Jennifer Silva RN documented as of this encounter Plan of Treatment Upcoming Encounters Date Type Department Care Team (Late st Contact Info) Description 08/10/2025 10:00 AM EDT Office Visit [facility] Pulmonary, Allergy and Critical Care Medicine [address] [place] [address] López Henry MD [address] [place] [address] 08/27/2025 2:00 PM EDT Office Visit [facility] Internal Medicine 40 [place] [address] Willie Blair MD 40 [place] [address] documented as of this encounter Visit Diagnoses [...] documented as of this encounter Care Teams Industrial Engineering Technologist Relationship Specialty Start Date End Date Willie Blair MD 40 [place] [address] [email or web address] PCP - General Internal Medicine 02/04/20 Willie Blair MD 40 [place] [address] [email or web address] Insurance Assigned Provider 02/08/24 Daniel Flores MD [address] [address] [email or web address] Urology 04/14/20 Delvin Waddell MD [address] [address] [email or web address] Scenariosssm [email or web address].[facility] Cardiology 04/14/20 Shaylee Dejesus MD [address] [place] [address] [place] [address] Otolaryngology 05/20/20 Tramaine Valle MD [address] [address] Gastroenterology 11/30/20 Chantel Philippe, RN 10 [place] [address] [email or web address] iCMP Resident Care CoordinatorCertified Novell Engineer 10/12/22 10/31/22 Keily Gomez, OT [address] [place] [address] [email or web address] Transitions Resident Care CoordinatorWeb Development Intern Therapy 12/30/23 Socorro Begum PA [address] [place] [address] Physician Molding Manager Cardiology 04/06/24 Keily Gomez, OT [address] [place] [address] [email or web address] Transitions Resident Care CoordinatorWeb Development Intern Therapy 03/01/25 documented as of this encounter Additional Source Comments The information contained in this document represents components of the legal health record. It is not the complete legal health record.[facility]
--- OUTSIDE RECORDS SUMMARY | 2025-07-07 17:21 | XMS_ITS | Encounter Summary ---
Author Organization [facility] Address [address] [facility] [address] [place] [address] Phone Care Team Providers Care Fire Truck Driver Name Role Phone Willie Blair MD Unavailable Willie Blair MD Primary Care Provider [phone] Daniel Flores MD Unavailable [phone] Delvin Waddell MD Unavailable Shaylee Dejesus MD Unavailable Tramaine Valle MD Unavailable [phone] Chantel Philippe RN Unavailable [phone] Keily Gomez OT Unavailable [phone] Socorro Begum Unavailable [phone] Keily Gomez OT Unavailable [phone] Encounter Details Date Type Department Care Team (Late st Contact Info) Description 03/12/2022 Procedure Pass [place] Admitting Dept - [facility] Department [address] [place] [address] [phone] Social History Tobacco Use Types Packs/Day Years [...] CD Pulmonary, Allergy and Critical Care Medicine [address] [place] [address] López Henry MD [address] [address] [email or web address] 08/27/2025 2:00 PM EDT Office Visit [facility] Internal Medicine 40 [place] [address] Willie Blair MD 40 [place] [address] [email or web address] documented as of this encounter Visit Diagnoses [...] 2:17 PM EDT PHQ-2 Depression Total Score: 4 03/01/20 2:17 PM EDT documented as of this encounter Care Teams Fire Truck Driver Relationship Specialty Start Date End Date Willie Blair MD 40 [place] [address] [email or web address] PCP - General Internal Medicine 02/04/20 Willie Blair MD 40 [place], [place] [email or web address] Insurance Assigned Provider 02/08/24 Daniel Flores MD [address] [phone] [email or web address] Urology 04/14/20 Delvin Waddell MD [address] [phone] [email or web address] Cardiology 04/14/20 Shaylee Dejesus MD [address] [place] [address] Otolaryngology 05/20/20 Tramaine Valle MD [address] [place] [address] [phone] [email or web address] Gastroenterology 11/30/20 Chantel Philippe, RN 10 [place], [place] [phone] [email or web address] iCMP Perfume CompounderWellness Nurse 10/12/22 10/31/22 Keily Gomez, OT [address] [place] [address] Transitions Perfume CompounderBench Worker Apprentice Therapy 12/30/23 Socorro Begum PA [address] [place] [address] Physician Gas Main And Line Fitter Cardiology 04/06/24 Keily Gomez, OT 30 [place] [address] [email or web address] Transitions Perfume CompounderBench Worker Apprentice Therapy 03/01/25 documented as of this encounter Additional Source Comments The information contained in this document represents components of the legal health record. It is not the complete legal health record.[facility]
--- OUTSIDE RECORDS SUMMARY | 2025-07-07 17:21 | XMS_ITS | Encounter Summary ---
Author Organization [facility] Address [address] [facility] [address] [place] [address] Phone Care Team Providers Care Gifts Officer Name Role Phone Willie Blair MD Unavailable Willie Blair MD Primary Care Provider Daniel Flores MD Unavailable Delvin Waddell MD Unavailable Shaylee Dejesus MD Unavailable Tramaine Valle MD Unavailable [phone] Maxx Gardner OT Unavailable [phone] Chantel Philippe RN Unavailable Keily Gomez OT Unavailable Socorro Begum Unavailable [phone] Keily Gomez OT Unavailable Encounter Details Date Type Department Care Team (Late st Contact Info) Description 05/22/2021 Procedure Pass [facility] Cardiovascular And Interventional Radiology 30 [place], [place] [phone] Social History Tobacco Use Types Packs/Day Years [...] Pulmonary, Allergy and Critical Care Medicine 10 [place] [address] López Henry MD [address] [address] [email or web address] 08/27/2025 2:00 PM EDT Office Visit [facility] Internal Medicine 40 [place] [address] Willie Blair MD 40 [place] [address] [email or web address] documented as of this encounter Visit Diagnoses [...] documented as of this encounter Care Teams Gifts Officer Relationship Specialty Start Date End Date Willie Blair MD 40 [place] [address] [email or web address] PCP - General Internal Medicine 02/04/20 Willie Blair MD 40 [place] [address] [email or web address] Insurance Assigned Provider 02/08/24 Daniel Flores MD [address] [phone] [email or web address] Urology 04/14/20 Delvin Waddell MD [address] [address] [email or web address] Cardiology 04/14/20 Shaylee Dejesus MD [address] [place] [address] [address] Otolaryngology 05/20/20 Tramaine Valle MD [address] [place] [address] [phone] [email or web address] Gastroenterology 11/30/20 Maxx Gardner OT 10 [place] [address] [email or web address] Transitions Global Commodity ManagerCementer Oil Well Therapy 05/22/21 Chantel Philippe, RN 10 [place] [address] [email or web address] iCMP Global Commodity ManagerEducation And Development Manager 10/12/22 10/31/22 Keily Gomez, OT 30 [place] [address] [email or web address] Transitions Global Commodity ManagerCementer Oil Well Therapy 12/30/23 Socorro Begum PA [address] [place] [address] Physician Interior Design Principal Cardiology 04/06/24 Keily Gomez, OT 30 [place] [address] [email or web address] Transitions Global Commodity ManagerCementer Oil Well Therapy 03/01/25 documented as of this encounter Additional Source Comments The information contained in this document represents components of the legal health record. It is not the complete legal health record.[facility]
--- OUTSIDE RECORDS SUMMARY | 2025-07-07 17:21 | XMS_ITS | Encounter Summary ---
Author Organization [facility] Address [address] [facility] [address] [place] [address] Phone Care Team Providers Care Social Worker Masters Name Role Phone Willie Blair MD Unavailable [phone] Willie Blair MD Primary Care Provider [phone] Daniel Flores MD Primary Care Provider Willie Blair MD Primary Care Provider [phone] Daniel Flores MD Unavailable [phone] Delvin Waddell MD Unavailable Shaylee Dejesus MD Unavailable [phone] Tramaine Valle MD Unavailable [phone] Maxx Gardner OT Unavailable [phone] Chantel Philippe RN Unavailable [phone] Keily Gomez OT Unavailable [phone] Socorro Begum Unavailable [phone] Keily Gomez OT Unavailable [phone] Encounter Details Date Type Department Care Team (Late st Contact Info) Description 01/03/2018 Procedure Pass [facility] 30 [place] [address] Social History Tobacco Use Types Packs/Day Years [...] Encounters Date Type Department Care Team (Late Contact Info) Description 08/10/2025 10:00 AM EDT Office Visit [facility] Pulmonary, Allergy and Critical Care Medicine [address] [place] [address] López Henry MD [address] [place] [address] 08/27/2025 2:00 PM EDT Office Visit [facility] Internal Medicine 40 [place] [address] Willie Blair MD 40 [place] [address] [email or web address] documented as of this encounter Visit Diagnoses [...] documented as of this encounter Care Teams Social Worker Masters Relationship Specialty Start Date End Date Willie Blair MD 40 [place] [address] [email or web address] PCP - General Internal Medicine 09/19/17 01/03/20 Daniel Flores MD 100 [facility] [employer] [phone] [email or web address] PCP - General Urology 01/04/20 02/03/20 Willie Blair MD 40 [place] [address] [email or web address] PCP - General Internal Medicine 02/04/20 Willie Blair MD 40 [place] [address] [email or web address] Insurance Assigned Provider 02/08/24 Daniel Flores MD 100 [facility] Center[facility] C[facility] [address] [address] [email or web address] Urology 04/14/20 Delvin Waddell MD 100 [facility] Center[facility] [employer] [address] [address] [email or web address] Cardiology 04/14/20 Shaylee Dejesus MD [address] [place] [address] Otolaryngology 05/20/20 Tramaine Valle MD [address] [place] [address] Gastroenterology 11/30/20 Maxx Gardner, OT 10 [place] [address] [email or web address] Transitions Inside PolisherCook Railroad Therapy 05/22/21 Chantel Philippe, RN [address] [place] [address] iCMP Inside PolisherShipyard Painter 10/12/22 10/31/22 Keily Gomez, OT 30 [place] [address] Transitions Inside PolisherCook Railroad Therapy 12/30/23 Socorro Begum PA [address] [place] [address] Physician Surgical Aide Cardiology 04/06/24 Keily Gomez, OT 30 [place] [address] Transitions Inside PolisherCook Railroad Therapy 03/01/25 documented as of this encounter Additional Source Comments The information contained in this document represents components of the legal health record. It is not the complete legal health record.[facility]
--- OUTSIDE RECORDS SUMMARY | 2025-07-07 17:21 | XMS_ITS | Encounter Summary ---
Author Organization [facility] Address [address] [facility] [address] [place] [address] Phone Care Team Providers Care Counselor Manager Name Role Phone Willie Blair MD Unavailable Willie Blair MD Primary Care Provider [phone] Daniel Flores MD Unavailable Delvin Waddell MD Unavailable Shaylee Dejesus MD Unavailable Tramaine Valle MD Unavailable [phone] Maxx Gardner OT Unavailable Chantel Philippe RN Unavailable [phone] Keily Gomez OT Unavailable Socorro Begum Unavailable [phone] Keily Gomez OT Unavailable [phone] Encounter Details Date Type Department Care Team (Late st Contact Info) Description 05/20/2021 Procedure Pass [facility] Echo Lab 30 [place] [address] Social History Tobacco Use Types Packs/Day Years [...] 8:25 PM EDT Sexual Orientation Straight 06/15/2019 8 :25 PM EDT documented as of this encounter Plan of Treatment Upcoming Encounters Date Type Department Care Team (Late st Contact Info) Description 08/10/2025 10:00 AM EDT Office Visit [facility] Pulmonary, Allergy and Critical Care Medicine 10 [place] [address] López Henry MD [address] [place] [address] [email or web address] 08/27/2025 2:00 PM EDT Office Visit [facility] Internal Medicine 40 [place] [address] Willie Blair MD 40 [place] [address] [email or web address] documented as of this encounter Visit Diagnoses [...] documented as of this encounter Care Teams Counselor Manager Relationship Specialty Start Date End Date Willie Blair MD 40 [place] [address] [email or web address] PCP - General Internal Medicine 02/04/20 Willie Blair MD 40 [place] [address] [email or web address] Insurance Assigned Provider 02/08/24 Daniel Flores MD [address] [address] [email or web address] Urology 04/14/20 Delvin Waddell MD [address] [address] [email or web address] Cardiology 04/14/20 Shaylee Dejesus MD [address] [place] [address] Dr FELIX [address] [place] [address] Otolaryngology 05/20/20 Tramaine Valle MD [address] [place] [address] [phone] [email or web address] Gastroenterology 11/30/20 Maxx Gardner OT [address] [place] [address] [phone] [email or web address] Transitions Black Top Paver OperatorCosmetics Counter Manager Therapy 05/22/21 Chantel Philippe RN 10 [place] [address] [email or web address] iCMP Black Top Paver OperatorScale Clerk 10/12/22 10/31/22 Keily Gomez, OT 30 [place] [address] [email or web address] Transitions Black Top Paver OperatorCosmetics Counter Manager Therapy 12/30/23 Socorro Begum PA [address] [place] [address] Physician Tandem Mill Sticker Cardiology 04/06/24 Keily Gomez, OT [address] [place] [address] [email or web address] Transitions Black Top Paver OperatorCosmetics Counter Manager Therapy 03/01/25 documented as of this encounter Additional Source Comments The information contained in this document represents components of the legal health record. It is not the complete legal health record.[facility]
--- OUTSIDE RECORDS SUMMARY | 2025-07-07 17:21 | XMS_ITS | Encounter Summary ---
Author Organization [facility] Address [address] [facility] [address] [place] [address] Phone Care Team Providers Care Pulverizing And Sifting Operator Name Role Phone Willie Blair MD Unavailable [phone] Willie Blair MD Primary Care Provider [phone] Daniel Flores MD Unavailable [phone] Delvin Waddell MD Unavailable Shaylee Dejesus MD Unavailable Tramaine Valle MD Unavailable [phone] Chantel Philippe RN Unavailable [phone] Keily Gomez OT Unavailable Socorro Begum Unavailable [phone] Keily Gomez OT Unavailable [phone] Encounter Details Date Type Department Care Team (Late st Contact Info) Description 02/13/2022 Procedure Pass [facility], Ct Scan - [address] [address] Social History Tobacco Use Types Packs/Day Years [...] 10:47 AM EDT Ginette Mann RN * [place] Suicide Severity Rating Scale (Screener/Recent Self-Report) Question [...] Description 08/10/2025 10:00 AM EDT Office Visit [facility] Pulmonary, Allergy and Critical Care Medicine [address] [place] [address] López Henry MD [address] [place] [address] 08/27/2025 2:00 PM EDT [facility] 40 [place] [address] Willie Blair MD 40 [place] [address] documented as of this encounter Visit Diagnoses [...] documented as of this encounter Care Teams Pulverizing And Sifting Operator Relationship Specialty Start Date End Date Willie Blair MD 40 [place] [address] [email or web address] PCP - General Internal Medicine 02/04/20 Willie Blair MD 40 [place] [address] [email or web address] Insurance Assigned Provider 02/08/24 Daniel Flores MD [address] [address] [email or web address] Urology 04/14/20 Delvin Wadd[place] MD [address] [address] [email or web address] Cardiology 04/14/20 Shaylee Dejesus MD [address] [place] [address] [place] [address] Otolaryngology 05/20/20 Tramaine Valle MD [address] [address] [email or web address] Gastroenterology 11/30/20 Chantel Philippe, RN 10 [place] [address] [email or web address] iCMP Account Manager B2BStave Log Ripsaw Operator 10/12/22 10/31/22 Keily Gomez, OT 30 [place] [address] [email or web address] Transitions Account Manager B2BDevelopment Engineer Therapy 12/30/23 Socorro Begum PA [address] [place] [address] Physician Php Architect Cardiology 04/06/24 Keily Gomez, OT 30 [place] [address] [email or web address] Transitions Account Manager B2BDevelopment Engineer Therapy 03/01/25 documented as of this encounter Additional Source Comments The information contained in this document represents components of the legal health record. It is not the complete legal health record.[facility]
--- OUTSIDE RECORDS SUMMARY | 2025-07-07 17:21 | XMS_ITS | Encounter Summary ---
Author Organization [facility] Address [address] [facility] [address] [place] [address] Phone Care Team Providers Care Commission Agent Livestock Name Role Phone Willie Blair MD Unavailable Willie Blair MD Primary Care Provider [phone] Daniel Flores MD Unavailable [phone] Delvin Wadd[place] MD Unavailable Shaylee Dejesus MD Unavailable Tramaine Valle MD Unavailable [phone] Keily Gomez OT Unavailable [phone] Socorro Begum Unavailable [phone] Keily Gomez OT Unavailable [phone] Encounter Details Date Type Department Care Team (Late st Contact Info) Description 12/26/2023 Procedure Pass [facility] Echo Lab 30 [place], [place] [id number] Social History Tobacco Use Types Packs/Day Years [...] Indicated 12/26/2023 2:43 PM Alli Osullivan * [place] Suicide Severity Rating Scale (Screener/Recent Self-Report) Question [...] Pulmonary, Allergy and Critical Care Medicine 10 [facility] [place] [address] López Henry MD [address] [place] [address] 2nd [place] [address] 08/27/2025 2:00 PM EDT Office Visit [facility] [place] Internal Medicine 40 [facility] [place] [address] Willie Blair MD 40 [place] [address] [email or web address] documented as of this encounter Visit Diagnoses [...] documented as of this encounter Care Teams Commission Agent Livestock Relationship Specialty Start Date End Date Willie Blair MD 40 [place] [address] [email or web address] PCP - General Internal Medicine 02/04/20 Willie Blair MD 40 [place] [address] [email or web address] Insurance Assigned Provider 02/08/24 Daniel Flores MD [address] [place] [address] [email or web address] Urology 04/14/20 Delvin Wadd[place] MD [address] [place] [address] [email or web address] Cardiology 04/14/20 Shaylee Dejesus MD [address] [place] [address] FERNANDO [address] [place] [address] Otolaryngology 05/20/20 Tramaine Valle MD [address] [place] [address] 2 [place] [address] [email or web address] Gastroenterology 11/30/20 Keily Gomez, OT 30 [place] [address] [email or web address] Transitions Cpa TaxTube Cleaning Operator Therapy 12/30/23 Socorro Begum PA [address] [place] [address] Physician Supervisor Rolling Room Cardiology 04/06/24 Keily Gomez, OT 30 [place] [address] [email or web address] Transitions Cpa TaxTube Cleaning Operator Therapy 03/01/25 documented as of this encounter Additional Source Comments The information contained in this document represents components of the legal health record. It is not the complete legal health record.[facility]
--- OUTSIDE RECORDS SUMMARY | 2025-07-07 17:21 | XMS_ITS | Encounter Summary ---
Author Organization [facility] Address [address] [facility] [address] [place] [address] Phone Care Team Providers Care Fleshing Machine Operator Name Role Phone Willie Blair MD Unavailable Willie Blair MD Primary Care Provider [phone] Daniel Flores MD Unavailable [phone] Delvin Waddell MD Unavailable Shaylee Dejesus MD Unavailable [phone] Tramaine Valle MD Unavailable [phone] Maxx Gardner OT Unavailable Chantel Philippe RN Unavailable Keily Gomez OT Unavailable [phone] Socorro Begum Unavailable [phone] Keily Gomez OT Unavailable Encounter Details Date Type Department Care Team (Late st Contact Info) Description 05/10/2021 Procedure Pass [facility] Endoscopy Admitting Dept Virtual Department [address] [place] [address] Social History Tobacco Use Types Packs/Day [...] Pulmonary, Allergy and Critical Care Medicine 10 [place] [address] López Henry MD [address] [address] [email or web address] 08/27/2025 2:00 PM EDT Office Visit [facility] Internal Medicine 40 [place] [address] Willie Blair MD 40 [place] [address] [email or web address] documented as of this encounter Visit [...] documented as of this encounter Care Teams Fleshing Machine Operator Relationship Specialty Start Date End Date Willie Blair MD 40 [place] [address] [email or web address] PCP - General Internal Medicine 02/04/20 Willie Blair MD 40 [place] [address] [email or web address] Insurance Assigned Provider 02/08/24 Daniel Flores MD [address] [address] [email or web address] Urology 04/14/20 Delvin Wadd[place] MD [address] [address] [email or web address] Cardiology 04/14/20 Shaylee Dejesus MD [address] [place] [address] [address] Otolaryngology 05/20/20 Tramaine Valle MD [address] [place] [address] [phone] [email or web address] Gastroenterology 11/30/20 Maxx Gardner, OT 10 [place], [place] [phone] [email or web address] Transitions Design SpecialistSenior Compensation Analyst Therapy 05/22/21 Chantel Philippe, RN 10 [place] [address] [email or web address] iCMP Design SpecialistKelp Cutter 10/12/22 10/31/22 Keily Gomez, OT 30 [place] [address] [email or web address] Transitions Design SpecialistSenior Compensation Analyst Therapy 12/30/23 Socorro Begum PA [address] [place] [address] Physician Case Liner Cardiology 04/06/24 Keily Gomez, OT 30 [place] [address] [email or web address] Transitions Design SpecialistSenior Compensation Analyst Therapy 03/01/25 documented as of this encounter Additional Source Comments The information contained in this document represents components of the legal health record. It is not the complete legal health record.[facility]
--- OUTSIDE RECORDS SUMMARY | 2025-07-07 17:21 | XMS_ITS | Encounter Summary ---
Author Organization [facility] Address [address] [facility] [address] [place] [address] Phone Care Team Providers Care Show Girl Name Role Phone Willie Blair MD Unavailable Willie Blair MD Primary Care Provider [phone] Daniel Flores MD Unavailable Delvin Waddell MD Unavailable Shaylee Dejesus MD Unavailable [phone] Tramaine Valle MD Unavailable [phone] Chantel Philippe RN Unavailable [phone] Keily Gomez OT Unavailable Socorro Begum Unavailable [phone] Keily Gomez OT Unavailable [phone] Encounter Details Date Type Department Care Team (Latest Contact Info) Description 01/01/2022 Transcribe Orders Virtual Department 30 [place] [address] Navi Leon MD [address] [place] [address] [phone] [email or web address] g Encounter for laboratory testing for COVID-19 virus (Primary Dx) Social History Tobacco Use Types Packs/Day Years [...] Description 08/10/2025 10:00 AM EDT Office Visit [facility] Pulmonary, Allergy and Critical Care Medicine 10 [place] [address] López Henry MD [address] [place] [address] 2nd [place] [address] [email or web address] 08/27/2025 2:00 PM EDT Office Visit [facility] Internal Medicine 40 [place] [address] Willie Blair MD 40 [place] [address] [email or web address] documented as of this encounter Results * COVID-19 PCR Order (01/01/2022 4:11 PM EST) COVID-19 Comment [id number] [facility] COVID Testing Status Specimen received in analyzing lab. Results should be available within 24 to 48 hrs. [facility] Other 01/01/2022 4:11 PM EST 01/01/2022 8:34 PM EST us Navi Leon MD BODY FLUIDS AND STOOLS ORDERA BLES Final Result [facility] [address] [place] [address] [address] documented in this encounter Visit Diagnoses Diagnosis Encounter for laboratory testing for COVID-19 virus- Primary documented in this encounter Additional Health Concerns Infection Onset Date Last Indicated Resolved Time CoV-Risk Comment:2 Neg covid 12/26/2023 12/26/2023 12/27/2023 2:[address] CoV-Risk 12/31/2024 12/31/2024 01/11/2025 1:22 AM EDT CoV-Risk Comment:Per note documentation 02/27/2025 02/27/2025 7:29 AM EDT Assessment Noted Time PHQ-2 Depression Total Score: 2 02/22/20 21 1:16 PM EDT documented as of this encounter Care Teams Show Girl Relationship Specialty Start Date End Date Willie Blair MD 40 [place] [address] [email or web address] PCP - General Internal Medicine 02/04/20 Willie Blari MD 40 [place] [address] [email or web address] Insurance Assigned Provider 02/08/24 Daniel Flores MD [address] [place] [phone] [email or web address] Urology 04/14/20 Delvin Wadd[place] MD [address] [place] [address] [email or web address] Cardiology 04/14/20 Shaylee Dejesus MD [address] [place] [address] Otolaryngology 05/20/20 Tramaine Valle MD [address] [place] [address] Gastroenterology 11/30/20 Chantel Philippe, RN 10 [place] [address] iCMP Business Analytics SpecialistElectronic Transaction Implementer 10/12/22 10/31/22 Keily Gomez, OT [address] [place] [address] Transitions Business Analytics SpecialistCarver And Checkerer Specials Therapy 12/30/23 Socorro Begum PA [address] [place] [address] Physician Program Director/Music Director Cardiology 04/06/24 Keily Gomez, OT 30 [place] [address] Transitions Business Analytics SpecialistCarver And Checkerer Specials Therapy 03/01/25 documented as of this encounter Additional Source Comments The information contained in this document represents components of the legal health record. It is not the complete legal health record.[facility]
== END 2025-07-07 15:16 | disposition home or self-care (01) ==
LOC: HO.HMGAL 15:14
PROVIDERS: PCP Internal Medicine; Visit Provider Registered Nurse Emergency
DX: J30.89 Other allergic rhinitis (principal)
CPT/HCPCS: 95117; 95165

== ENCOUNTER 2025-07-21 11:05 | Outpatient (AMB) | payer MEDICARE, SELFPAY ==
--- OUTSIDE RECORDS SUMMARY | 2021-02-12 11:58 | XMS_ITS | Encounter Summary ---
Author Organization [facility] Address [address] [employer] [facility] [address] [place] [address] Phone Care Team Providers Care Field Sales Executive Name Role Phone Willie Blair MD Primary Care Provider Daniel Flores MD Unavailable [phone] Delvin Waddell MD Unavailable [phone] Shaylee Dejesus MD Unavailable Tramaine Valle MD Unavailable Encounter Details Date Type Department Care Team (Late st Contact Info) Description 02/12/2021 11:58 AM EDT Hospital Encounter [facility] [address] [place] [address] Orlando Smallwood PA [address] [place] [address] [email or web address] History Tobacco Use Types Packs/Day [...] 2:34 PM EDT Sheela Sanchez RN * [place] Suicide Severity Rating Scale (Screener/Recent Self-Report) Question [...] Description 08/10/2025 10:00 AM EDT Office Visit [facility], Allergy and Critical Care Medicine [address] [place] [address] López Henry MD [address] [place] [address] 08/27/2025 2:00 PM EDT Office Visit [facility] Medicine 40 [place] [address] Willie Blair MD 40 [place] [address] documented as of this encounter Procedures Procedure [...] documented as of this encounter Care Teams Field Sales Executive Relationship Specialty Start Date End Date Willie Blair MD 40 [place] [address] [email or web address] PCP - General Internal Medicine 02/04/20 Daniel Flores MD [address] [address] [email or web address] 04/14/20 Delvin Waddell MD [address] [address] [email or web address] 04/14/20 Shaylee Dejesus MD [address] [place] [address] Otolaryngology 05/20/20 Tramaine Valle MD [address] [place] [address] [email or web address] Gastroenterology 11/30/20 documented as of this encounter Additional Source Comments The information contained in this document represents components of the legal health record. It is not the complete legal health record.[facility]
--- OUTSIDE RECORDS SUMMARY | 2025-07-21 14:15 | XMS_ITS | Encounter Summary ---
Author Organization [facility] Address [address] [facility] [address] [place] [address] Phone Care Team Providers Care Waterway Traffic Checker Name Role Phone Willie Blair MD Unavailable Willie Blair MD Primary Care Provider Daniel Flores MD Unavailable Delvin Waddell MD Unavailable Shaylee Dejesus MD Unavailable [phone] Tramaine Valle MD Unavailable [phone] Socorro Begum Unavailable [phone] Keily Gomez OT Unavailable [phone] Encounter Details Date Type Department Care Team (Late st Contact Info) Description 02/27/2025 Procedure Pass [facility] Echo Lab 30 [place], [place] [id number] Social History Tobacco Use Types Packs/Day Years [...] 2:34 PM EDT Sheela Sanchez RN * [place] Suicide Severity Rating Scale (Screener/Recent Self-Report) Question [...] Description 08/10/2025 10:00 AM EDT Office Visit [facility] Pulmonary, Allergy and Critical Care Medicine [address] [place] [address] López Henry MD [address] [place] [address] 08/27/2025 2:00 PM EDT Office Visit [facility] [place] Internal Medicine 40 [place] [address] Willie Blair MD 40 [place] [address] documented as of this encounter Visit Diagnoses [...] documented as of this encounter Care Teams Waterway Traffic Checker Relationship Specialty Start Date End Date Willie Blair MD 40 [place] [address] [email or web address] PCP - General Internal Medicine 02/04/20 Willie Blair MD 40 [place] [address] [email or web address] Insurance Assigned Provider 02/08/24 Daniel Flores MD [address] [phone] [email or web address] Urology 04/14/20 Delvin Wadd[place] MD [address] [phone] [email or web address] Cardiology 04/14/20 Shaylee Dejesus MD [address] [place] [address] Otolaryngology 05/20/20 Tramaine Valle MD [address] [place] [address] [phone] [email or web address] Gastroenterology 11/30/20 Socorro Begum PA [facility] [place] [address] Physician Manufacturing Assembler Cardiology 04/06/24 Keily Gomez, OT [address] [place] [address] [email or web address] Transitions Jboss DeveloperGroundskeeper Porter Therapy 03/01/25 documented as of this encounter Additional Source Comments The information contained in this document represents components of the legal health record. It is not the complete legal health record.[facility]
--- OUTSIDE RECORDS SUMMARY | 2025-07-21 14:15 | XMS_ITS | Clinical Summary ---
Author Organization [address] [facility] Address [address] [place] [address] Phone Care Team Providers Care Cs Associate Name Role Phone Physician, Pcp Unknown Primary Care Provider Tiffanie vailable Encounters Date Type Department Care Team Description 07/08/2025 Lab Requisition [facility] - Main Lab [address] [facility] [place] [address] Daniel Flores MD Benign essential microscopic hematuria from Last 3 Months Social History Tobacco Use Types Packs/Day Years Used Date Smoking Tobacco: Never Assessed Sex and Gender Information Value Date Recorded Sex Assigned at Not on file Legal Sex Male 12:57 PM EDT Gender Identity Not on file Sexual Orientation Not on file Plan of Treatment Health Maintenance Due Date Last Done Comments DTaP,Tdap,and Td Vaccines (1 - Tdap) 1955 Pneumococcal Vaccine: 50+ Ye ars (1 of 1 - PCV) 1986 Zoster Vaccines (1 of 2) 1986 RSV Immunization Adult Patie nts (1 - 1-dose 75+ series) 2011 Depression Screening 11/04/2024 COVID-19 Vaccine (1 - 2023-2 5 season) 2025 Influenza Vaccine (#1) 2025 Cholesterol Screening (Lipid Panel) 07/08/2025 Falls Risk Assessment 07/08/2025 Medicare Annual Wellness Visit 07/08/2025 Social Influencers of Health Screening 07/08/2025 HIB Vaccines Aged Out No longer eligi ble based on patient's age to complete this topic HPV Vaccines Aged Out No longer eligi ble based on patient's age to complete this topic Hepatitis A Vaccines Aged Out No long er eligible based on patient's age to complete this topic Hepatitis B Vaccines Aged Out No long er eligible based on patient's age to complete this topic IPV Vaccines Aged Out No longer eligi ble based on patient's age to complete this topic MMR Vaccines Aged Out No longer eligi ble based on patient's age to complete this topic Meningococcal ACWY Vaccine Aged Out N o longer eligible based on patient's age to complete this topic Meningococcal B Vaccine Aged Out No l onger eligible based on patient's age to complete this topic RSV Immunization Patients Un deepak 20 months Aged Out No longer eligible b ased on patient's age to complete this topic Varicella Vaccines Aged Out No longer eligible based on patient's age to complete this topic Insurance MEDICARE BLUE CROSS - [place] MEDICARE AD[place]ANTAGE Care Teams Cs Associate Relationship Specialty Start Date End Date Physician, Pcp Unknown PCP - General 07/08/25
--- OUTSIDE RECORDS SUMMARY | 2025-07-21 14:15 | XMS_ITS | Encounter Summary ---
Author Organization [facility] Address 399 [facility] [address] [place] [address] Phone Care Team Providers Care Furniture Designer Name Role Phone Willie Blair MD Unavailable Willie Blair MD Primary Care Provider [phone] Daniel Flores MD Unavailable Delvin Waddell MD Unavailable [phone] Shaylee Dejesus MD Unavailable Tramaine Valle MD Unavailable [phone] Chantel Philippe RN Unavailable [phone] Keily Gomez OT Unavailable Socorro Begum Unavailable [phone] Keily Gomez OT Unavailable [phone] Encounter Details Date Type Department Care Team (Late st Contact Info) Description 08/28/2021 Procedure Pass [facility] Endoscopy Admitting Dept Virtual Department [address] [place] [address] [phone] Social History Tobacco Use Types Packs/Day Years [...] CD Pulmonary, Allergy and Critical Care Medicine [address] [place] [address] [place] [address] López Henry MD 10 [facility] 2nd [place] [address] [email or web address] 08/27/2025 2:00 PM EDT Office Visit [facility] Internal Medicine 40 [place] [address] Willie Blair MD 40 [place] [address] [email or web address] documented as of this encounter Visit Diagnoses [...] documented as of this encounter Care Teams Furniture Designer Relationship Specialty Start Date End Date Willie Blair MD 40 [place] [address] [email or web address] PCP - General Internal Medicine 02/04/20 Willie Blair MD 40 [place] [address] [email or web address] Insurance Assigned Provider 02/08/24 Daniel Flores MD [address] [phone] [email or web address] Urology 04/14/20 Delvin Waddell MD [address] [phone] [email or web address] Cardiology 04/14/20 Shaylee Dejesus MD [address] [place] [address] Otolaryngology 05/20/20 Tramaine Valle MD [address] [place] [address] [phone] [email or web address] Gastroenterology 11/30/20 Chantel Philippe, RN [address] [place] [address] [phone] [email or web address] iCMP Block SawyerDirector Revenue 10/12/22 10/31/22 Keily Gomez, OT [address] [place] [address] [email or web address] Transitions Block SawyerMail Clerk Therapy 12/30/23 Socorro Begum PA [address] [place] [address] Physician Heavy Equipment Service Manager Cardiology 04/06/24 Keily Gomez, OT [address] [place] [address] [email or web address] Transitions Block SawyerMail Clerk Therapy 03/01/25 documented as of this encounter Additional Source Comments The information contained in this document represents components of the legal health record. It is not the complete legal health record.[facility]
--- OUTSIDE RECORDS SUMMARY | 2025-07-21 14:15 | XMS_ITS | Encounter Summary ---
Author Organization [facility] Address 399 [facility] [address] [place] [address] Phone Care Team Providers Care Industrial Sociologist Name Role Phone Willie Blair MD Unavailable Willie Blair MD Primary Care Provider Daniel Flores MD Unavailable Delvin Waddell MD Unavailable Shaylee Dejesus MD Unavailable Tramaine Valle MD Unavailable [phone] Maxx Gardner OT Unavailable Chantel Philippe RN Unavailable [phone] Keily Gomez OT Unavailable Socorro Begum Unavailable [phone] Keily Gomez OT Unavailable Encounter Details Date Type Department Care Team (Late st Contact Info) Description 02/21/2021 Procedure Pass [facility], Ct Scan - [address] [phone] Social History Tobacco Use Types Packs/Day Years [...] Pulmonary, Allergy and Critical Care Medicine 10 [place] [address] López Henry MD [address] [address] [email or web address] 08/27/2025 2:00 PM EDT Office Visit [facility] Internal Medicine 40 [place] [address] Willie Blair MD 40 [place] [address] [email or web address] documented as of this encounter Visit Diagnoses [...] as of this encounter Care Teams Industrial Sociologist Relationship Specialty Start Date End Date Willie Blair MD 40 [place] [address] [email or web address] PCP - General Internal Medicine 02/04/20 Willie Blair MD 40 [place] [address] [email or web address] Insurance Assigned Provider 02/08/24 Daniel Flores MD [address] [phone] [email or web address] Urology 04/14/20 Delvin Waddell MD [address] [phone] [email or web address] Cardiology 04/14/20 Shaylee Dejesus MD [address] [place] [address] Dr FELIX [address] [place] [address] Otolaryngology 05/20/20 Tramaine Valle MD [address] [place] [address] [phone] [email or web address] Gastroenterology 11/30/20 Maxx Gardner, OT 10 [place], [place] [phone] [email or web address] Transitions Studio DirectorCreeler Therapy 05/22/21 Chantel Philippe, RN 10 [place] [address] [email or web address] iCMP Studio DirectorBridge Builder 10/12/22 10/31/22 Keily Gomez, OT 30 [place] [address] [email or web address] Transitions Studio DirectorCreeler Therapy 12/30/23 Socorro Begum PA [address] [place] [address] Physician Supervisor [employer] Cardiology 04/06/24 Keily Gomez, OT 30 [place] [address] [email or web address] Transitions Studio DirectorCreeler Therapy 03/01/25 documented as of this encounter Additional Source Comments The information contained in this document represents components of the legal health record. It is not the complete legal health record.[facility]
--- OUTSIDE RECORDS SUMMARY | 2025-07-21 14:15 | XMS_ITS | Encounter Summary ---
Author Organization [facility] Address [address] [facility] [address] [place] [address] Phone Care Team Providers Care Joint Sealer Name Role Phone Willie Blair MD Unavailable [phone] Willie Blair MD Primary Care Provider [phone] Daniel Flores MD Unavailable Delvin Waddell MD Unavailable [phone] Shaylee Dejesus MD Unavailable [phone] Tramaine Valle MD Unavailable [phone] Maxx Gardner OT Unavailable Chantel Philippe RN Unavailable Keily Gomez OT Unavailable Socorro Begum Unavailable [phone] Keily Gomez OT Unavailable Encounter Details Date Type Department Care Team (Late st Contact Info) Description 05/21/2021 Procedure Pass [facility], [address] [phone] Social History Tobacco Use Types Packs/Day Years [...] Pulmonary, Allergy and Critical Care Medicine 10 [place] [address] López Henry MD [address] [address] [email or web address] 08/27/2025 2:00 PM EDT Office Visit [facility] Internal Medicine 40 [place] [address] Willie Blair MD 40 [place] [address] [email or web address] documented as of this encounter Visit Diagnoses [...] documented as of this encounter Care Teams Joint Sealer Relationship Specialty Start Date End Date Willie Blair MD 40 [place] [address] [email or web address] PCP - General Internal Medicine 02/04/20 Willie Blair MD 40 [place] [address] [email or web address] Insurance Assigned Provider 02/08/24 Daniel Flores MD [address] [phone] [email or web address] Urology 04/14/20 Delvin Waddell MD [address] [phone] [email or web address] Cardiology 04/14/20 Shaylee Dejesus MD [address] [place] [address] Dr FELIX [address] [place] [address] Otolaryngology 05/20/20 Tramaine Valle MD [address] [place] [address] [phone] [email or web address] Gastroenterology 11/30/20 Maxx Gardner OT 10 [place], [place] [phone] [email or web address] Transitions Marine Equipment Design EngineerBlindstitch Lapel Padder Therapy 05/22/21 Chantel Philippe, RN 10 [place] [address] [email or web address] iCMP Marine Equipment Design EngineerMental Health Coordinator 10/12/22 10/31/22 Keily Gomez, OT 30 [place] [address] [email or web address] Transitions Marine Equipment Design EngineerBlindstitch Lapel Padder Therapy 12/30/23 Socorro Begum PA [address] [place] [address] Physician Facilities Maintenance Worker Cardiology 04/06/24 Keily Gomez, OT 30 [place] [address] [email or web address] Transitions Marine Equipment Design EngineerBlindstitch Lapel Padder Therapy 03/01/25 documented as of this encounter Additional Source Comments The information contained in this document represents components of the legal health record. It is not the complete legal health record.[facility]
--- OUTSIDE RECORDS SUMMARY | 2025-07-21 14:15 | XMS_ITS | Encounter Summary ---
Author Organization [employer] Address [address] [place] [address] Care Team Providers Care Computer System Specialist Name Role Phone Physician, Pcp Unknown Primary Care Provider Tiffanie vailable Encounter Details Date Type Department Care Team (Late st Contact Info) Description 07/08/2025 Lab Requisition [facility] - Main Lab [address] [facility] [place] [address] Daniel Flores MD 100 [facility] 120 [place] [address] Benign essential microscopic hematuria Social History Tobacco Use Types Packs/Day Years Used Date Smoking Tobacco: Never Assessed Sex and Gender Information Value Date Recorded Sex Assigned at Not on file Legal Sex Male 12:57 PM EDT Gender Identity Not on file Sexual Orientation Not on file documented as of this encounter Plan of Treatment Pending Results Name Type Priority Associated Diagnoses Date /Time Non-gynecologic cytology Pathology and Cytology Routine Benign essential microscopic hematuria 06/29/2025 12:00 AM EDT documented as of this encounter Visit Diagnoses Diagnosis Benign essential microscopic hematuria documented in this encounter Care Teams Computer System Specialist Relationship Specialty Start Date End Date Physician, Pcp Unknown PCP - General 07/08/25 documented as of this encounter
--- OUTSIDE RECORDS SUMMARY | 2025-07-21 14:15 | XMS_ITS | Encounter Summary ---
Author Organization [facility] Address 399 [facility] [address] [place] [address] Phone Care Team Providers Care Medical Apparatus Model Maker Name Role Phone Willie Blair MD Unavailable Willie Blair MD Primary Care Provider Daniel Flores MD Unavailable Delvin Waddell MD Unavailable Shaylee Dejesus MD Unavailable Tramaine Valle MD Unavailable [phone] Maxx Gardner OT Unavailable Chantel Philippe RN Unavailable Keily Gomez OT Unavailable Socorro Begum Unavailable [phone] Keily Gomez OT Unavailable [phone] Encounter Details Date Type Department Care Team (Late st Contact Info) Description 05/10/2021 Procedure Pass [facility] Endoscopy Admitting Dept Virtual Department [address] [place] [address] Social History Tobacco Use Types Packs/Day [...] Pulmonary, Allergy and Critical Care Medicine 10 [place] [address] López Henry MD [address] [address] [email or web address] 08/27/2025 2:00 PM EDT Office Visit [facility] Internal Medicine 40 [place] [address] Willie Blair MD 40 [place] [address] [email or web address] documented as of this encounter Visit Diagnoses [...] documented as of this encounter Care Teams Medical Apparatus Model Maker Relationship Specialty Start Date End Date Willie Blair MD 40 [place] [address] [email or web address] PCP - General Internal Medicine 02/04/20 Willie Blair MD 40 [place] [address] [email or web address] Insurance Assigned Provider 02/08/24 Daniel Flores MD [address] [phone] [email or web address] Urology 04/14/20 Delvin Waddell MD [address] [phone] [email or web address] Cardiology 04/14/20 Shaylee Dejesus MD [address] [place] [address] [address] Otolaryngology 05/20/20 Tramaine Valle MD [address] [place] [address] [phone] [email or web address] Gastroenterology 11/30/20 Maxx Gardner, OT 10 [place], [place] [phone] [email or web address] Transitions Wrapper SizerPlate Grinder Therapy 05/22/21 Chantel Philippe, RN 10 [place] [address] [email or web address] iCMP Wrapper SizerCustomer Experience Leader 10/12/22 10/31/22 Keily Gomez, OT 30 [place] [address] [email or web address] Transitions Wrapper SizerPlate Grinder Therapy 12/30/23 Socorro Begmu PA [address] [place] [address] Physician Plush Brusher Cardiology 04/06/24 Keily Gomez, OT 30 [place] [address] [email or web address] Transitions Wrapper SizerPlate Grinder Therapy 03/01/25 documented as of this encounter Additional Source Comments The information contained in this document represents components of the legal health record. It is not the complete legal health record.[facility]
--- OUTSIDE RECORDS SUMMARY | 2025-07-21 14:15 | XMS_ITS | Encounter Summary ---
Author Organization [facility] Address 399 [facility] [address] [place] [address] Phone Care Team Providers Care Call Or Contact Centre Manager Name Role Phone Willie Blair MD Unavailable Willie Blair MD Primary Care Provider [phone] Daniel Flores MD Unavailable Delvin Waddell MD Unavailable Shaylee Dejesus MD Unavailable Tramaine Valle MD Unavailable [phone] Socorro Begum Unavailable [phone] Keily Gomez OT Unavailable Encounter Details Date Type Department Care Team (Late st Contact Info) Description 12/02/2024 Procedure Pass [facility] Endoscopy Admitting Dept Virtual Department 30 [place] [address] Social History Tobacco Use Types [...] Pulmonary, Allergy and Critical Care Medicine 10 [facility] [place] [address] López Henry MD 10 [facility] 2nd [place] [address] 08/27/2025 2:00 PM EDT Office Visit [facility] Internal Medicine [address] [place] [address] [place] [address] Willie Blair MD 40 [place] [address] [email or web address] documented as of this encounter Visit Diagnoses [...] documented as of this encounter Care Teams Call Or Contact Centre Manager Relationship Specialty Start Date End Date Willie Blair MD 40 [place] [address] [email or web address] PCP - General Internal Medicine 02/04/20 Willie Blair MD 40 [place] [address] [email or web address] Insurance Assigned Provider 02/08/24 Daniel Flores MD 100 [facility] 120 [place] [address] [email or web address] Urology 04/14/20 Delvin Waddell MD 100 [facility] 120 [place] [address] [email or web address] Cardiology 04/14/20 Shaylee Dejesus MD NPI: [id number] [place] [address] Dr FELIX [address] [place] [address] Otolaryngology 05/20/20 Tramaine Valle MD [address] [place] [address] 2 [place] [address] [email or web address] Gastroenterology 11/30/20 Socorro Begum PA [address] [place] [address] Physician Senior Mechanical Technician Cardiology 04/06/24 Keily Gomez, OT 30 [place] [address] [email or web address] Transitions Records CoordinatorRewriter Therapy 03/01/25 documented as of this encounter Additional Source Comments The information contained in this document represents components of the legal health record. It is not the complete legal health record.[facility]
--- OUTSIDE RECORDS SUMMARY | 2025-07-21 14:15 | XMS_ITS | Encounter Summary ---
Author Organization [facility] Address 399 [facility] [address] [place] [address] Phone Care Team Providers Care Hi Ranger Operator Name Role Phone Willie Blair MD Unavailable [phone] Willie Blair MD Primary Care Provider Daniel Flores MD Unavailable Delvin Waddell MD Unavailable Shaylee Dejesus MD Unavailable Tramaine Valle MD Unavailable [phone] Maxx Gardner OT Unavailable [phone] Chantel Philippe RN Unavailable [phone] Keily Gomez OT Unavailable [phone] Socorro Begum Unavailable [phone] Keily Gomez OT Unavailable Encounter Details Date Type Department Care Team (Late st Contact Info) Description 05/19/2021 Procedure Pass [facility], Ct Scan - [address] [phone] Social History Tobacco Use Types Packs/Day Years [...] 4:56 PM EDT Taylor Byrd RN * [place] Suicide Severity Rating Scale (Screener/Recent Self-Report) Question [...] Description 08/10/2025 10:00 AM EDT Office Visit [facility] Pulmonary, Allergy and Critical Care Medicine [address] [place] [address] López Henry MD [address] [place] [address] 08/27/2025 2:00 PM EDT Office Visit [facility] [place] Internal Medicine 40 [place], [place] [phone] Willie Blair MD 40 [place] [address] documented as of this encounter Visit Diagnoses [...] documented as of this encounter Care Teams Hi Ranger Operator Relationship Specialty Start Date End Date Willie Blair MD 40 [place] [address] [email or web address] PCP - General Internal Medicine 02/04/20 Willie Blair MD 40 [place] [address] [email or web address] Insurance Assigned Provider 02/08/24 Daniel Flores MD 100 [address] [place] [address] [email or web address] Urology 04/14/20 Delvin Waddell MD 100 [address] 120 [place] [address] [email or web address] Cardiology 04/14/20 Shaylee Dejesus MD [address] [place] [address] Dr [address] [place] [address] Otolaryngology 05/20/20 Tramaine Valle MD [address] [place] [address] Gastroenterology 11/30/20 Maxx Gardner, OT 10 [place] [address] [email or web address] Transitions Strategic Marketing AssociateMaintenance And Custodian Supervisor Therapy 05/22/21 Chantel Philippe, RN 10 [place] [address] [email or web address] iCMP Strategic Marketing AssociateHospitalist Nocturnist Physician 10/12/22 10/31/22 Keily Gomez, OT 30 [place] [address] [email or web address] Transitions Strategic Marketing AssociateMaintenance And Custodian Supervisor Therapy 12/30/23 Socorro Begum PA [facility] [place] [address] Physician News Technical Director Cardiology 04/06/24 Keily Gomez, OT 30 [place] [address] [email or web address] Transitions Strategic Marketing AssociateMaintenance And Custodian Supervisor Therapy 03/01/25 documented as of this encounter Additional Source Comments The information contained in this document represents components of the legal health record. It is not the complete legal health record.[facility]
--- OUTSIDE RECORDS SUMMARY | 2025-07-21 14:15 | XMS_ITS | Encounter Summary ---
Author Organization [facility] Address [address] [facility] [address] [place] [address] Phone Care Team Providers Care Ribbon Lap Machine Tender Name Role Phone Willie Blair MD Unavailable Willie Blair MD Primary Care Provider Daniel Flores MD Unavailable Delvin Waddell MD Unavailable Shaylee Dejesus MD Unavailable [phone] Tramaine Valle MD Unavailable [phone] Maxx Gardner OT Unavailable Chantel Philippe RN Unavailable Keily Gomez OT Unavailable Socorro Begum Unavailable [phone] Keily Gomez OT Unavailable [phone] Encounter Details Date Type Department Care Team (Late st Contact Info) Description 05/20/2021 Procedure Pass [facility] 30 [place] [address] Social History Tobacco Use Types Packs/Day Years [...] Pulmonary, Allergy and Critical Care Medicine 10 [place] [address] López Henry MD [address] [place] [address] [email or web address] 08/27/2025 2:00 PM EDT Office Visit [facility] Internal Medicine 40 [place] [address] Willie Blair MD 40 [place] [address] [email or web address] documented as of this encounter Visit Diagnoses [...] documented as of this encounter Care Teams Ribbon Lap Machine Tender Relationship Specialty Start Date End Date Willie Blair MD 40 [place] [address] [email or web address] PCP - General Internal Medicine 02/04/20 Willie Blair MD 40 [place] [address] [email or web address] Insurance Assigned Provider 02/08/24 Daniel Flores MD [address] [address] [email or web address] Urology 04/14/20 Delvin Waddell MD [address] [address] [email or web address] Cardiology 04/14/20 Shaylee Dejesus MD [address] [place] [address] Dr FELIX [address] [place] [address] Otolaryngology 05/20/20 Tramaine Valle MD [address] [place] [address] [phone] [email or web address] Gastroenterology 11/30/20 Maxx Gardner OT [address] [place] [address] [id number] [email or web address] Transitions Director InternationalMetalsmith Apprentice Therapy 05/22/21 Chantel Philippe RN 10 [place] [address] [email or web address] iCMP Director InternationalOil Burner Repairer 10/12/22 10/31/22 Keily Gomez, OT 30 [place] [address] [email or web address] Transitions Director InternationalMetalsmith Apprentice Therapy 12/30/23 Socorro Begum PA [address] [place] [address] Physician Human Services Instructor Cardiology 04/06/24 Keily Gomez, OT [address] [place] [address] [email or web address] Transitions Director InternationalMetalsmith Apprentice Therapy 03/01/25 documented as of this encounter Additional Source Comments The information contained in this document represents components of the legal health record. It is not the complete legal health record.[facility]
--- OUTSIDE RECORDS SUMMARY | 2025-07-21 14:16 | XMS_ITS | Encounter Summary ---
Author Organization [facility] Address [address] [facility] [address] [place] [address] Phone Care Team Providers Care Instrument Adjuster Name Role Phone Willie Blair MD Unavailable Willie Blair MD Primary Care Provider Daniel Flores MD Unavailable Delvin Waddell MD Unavailable Sahylee Dejesus MD Unavailable Tramaine Valle MD Unavailable [phone] Chantel Philippe RN Unavailable [phone] Keily Gomez OT Unavailable [phone] Socorro Begum Unavailable [phone] Keily Gomez OT Unavailable [phone] Encounter Details Date Type Department Care Team (Latest Contact Info) Description 01/01/2022 Transcribe Orders Virtual Department 30 [place] [address] Navi Leon MD [address] [place] [address] [phone] [email or web address] Encounter for laboratory testing for COVID-19 [...] Description 08/10/2025 10:00 AM EDT Office Visit [facility] Pulmonary, Allergy and Critical Care Medicine 10 [place] [address] López Henry MD [address] [place] [address] 2nd [place] [address] [email or web address] 08/27/2025 2:00 PM EDT Office Visit [facility] Internal Medicine 40 [place] [address] Willie Blair MD 40 [place] [address] [email or web address] documented as of this encounter Results * COVID-19 PCR Order (01/01/2022 4:11 PM EST) COVID-19 Comment [id number] [facility] COVID Testing Status Specimen received in analyzing lab. Results should be available within 24 to 48 hrs. [facility] Other 01/01/2022 4:11 PM EST 01/01/2022 8:34 PM EST us Navi Leon MD BODY FLUIDS AND STOOLS ORDERA BLES Final Result [facility] [address] [place] [address] [address] documented in this encounter Visit Diagnoses Diagnosis [...] documented as of this encounter Care Teams Instrument Adjuster Relationship Specialty Start Date End Date Willie Blair MD 40 [place] [address] [email or web address] PCP - General Internal Medicine 02/04/20 Willie Blair MD 40 [place] [address] [email or web address] Insurance Assigned Provider 02/08/24 Daniel Flores MD [address] [place] [address] [place] [phone] [email or web address]-[email or web address] Environmental Solutionscedar county memorial hospital.[facility] Urology 04/14/20 Delvin Waddell MD [address] [place] [address] [email or web address] Cardiology 04/14/20 Shaylee Dejesus MD [address] [place] [address] Otolaryngology 05/20/20 Tramaine Valle MD [address] [place] [address] Gastroenterology 11/30/20 Chantel Philippe, RN 10 [place] [address] iCMP Correctional Program OfficerDiversified Crops Farmworker 10/12/22 10/31/22 Keily Gomez, OT [address] [place] [address] Transitions Correctional Program OfficerInterlocking Pavement Installer Therapy 12/30/23 Socorro Begum PA [address] [place] [address] Physician Cager Operator Cardiology 04/06/24 Keily Gomez, OT 30 [place] [address] Transitions Correctional Program OfficerInterlocking Pavement Installer Therapy 03/01/25 documented as of this encounter Additional Source Comments The information contained in this document represents components of the legal health record. It is not the complete legal health record.[facility]
--- OUTSIDE RECORDS SUMMARY | 2025-07-21 14:16 | XMS_ITS | Encounter Summary ---
Author Organization [facility] Address [address] [facility] [address] [place] [address] Phone Care Team Providers Care Mechanical Technical Service Specialist Name Role Phone Willie Blair MD Unavailable Willie Blair MD Primary Care Provider Daniel Flores MD Unavailable Delvin Waddell MD Unavailable Shaylee Dejesus MD Unavailable Tramaine Valle MD Unavailable [phone] Keily Gomez OT Unavailable [phone] Socorro Begum Unavailable [phone] Keily Gomez OT Unavailable [phone] Encounter Details Date Type Department Care Team (Late st Contact Info) Description 12/26/2023 Procedure Pass [facility], Ct Scan - [address] [address] Social History Tobacco Use Types Packs/Day Years [...] Indicated 12/26/2023 2:43 PM Alli Osullivan * [place] Suicide Severity Rating Scale (Screener/Recent Self-Report) Question [...] [facility] Pulmonary, Allergy and Critical Care Medicine [address] [place] [address] [place] [address] López Henry MD 10 [facility] 2nd [place] [address] 08/27/2025 2:00 PM EDT Office Visit [facility] Internal Medicine 40 [place] [address] Willie Blair MD 40 [place] [address] [email or web address] documented as of this encounter Visit [...] documented as of this encounter Care Teams Mechanical Technical Service Specialist Relationship Specialty Start Date End Date Willie Blair MD 40 [place] [address] [email or web address] PCP - General Internal Medicine 02/04/20 Willie Blair MD 40 [place] [address] [email or web address] Insurance Assigned Provider 02/08/24 Daniel Flores MD [address] [place] [phone] [email or web address] Urology 04/14/20 Delvin Waddell MD [address] [place] [phone] [email or web address] [facility] [email or web address].[facility] Cardiology 04/14/20 Shaylee Dejesus MD [address] [place] [address] Otolaryngology 05/20/20 Tramaine Valle MD [address] [place] [address] [email or web address] Gastroenterology 11/30/20 Keily Gomez, OT 30 [place] [address] [email or web address] Transitions Esl Instructional AssistantHousekeeping Associate Therapy 12/30/23 Socorro Begum PA [address] [place] [address] Physician Field Service Tech Cardiology 04/06/24 Keily Gomez, OT 30 [place] [address] [email or web address] Transitions Esl Instructional AssistantHousekeeping Associate Therapy 03/01/25 documented as of this encounter Additional Source Comments The information contained in this document represents components of the legal health record. It is not the complete legal health record.[facility]
--- OUTSIDE RECORDS SUMMARY | 2025-07-21 14:16 | XMS_ITS | Encounter Summary ---
Author Organization [facility] Address [address] [facility] [address] [place] [address] Phone Care Team Providers Care Machine Maintenance Name Role Phone Willie Blair MD Unavailable Willie Blair MD Primary Care Provider [phone] Daniel Flores MD Unavailable [phone] Delvin Waddell MD Unavailable [phone] Shaylee Dejesus MD Unavailable Tramaine Valle MD Unavailable [phone] Maxx Gardner OT Unavailable Chantel Philippe RN Unavailable Keily Gomez OT Unavailable Socorro Begum Unavailable [phone] Keily Gomez OT Unavailable [phone] Encounter Details Date Type Department Care Team (Late st Contact Info) Description 05/25/2021 Procedure Pass [facility] Cardiovascular And Interventional Radiology 30 [place], [place] [phone] Social History Tobacco Use Types Packs/Day Years [...] Pulmonary, Allergy and Critical Care Medicine 10 [place] [address] López Henry MD [address] [address] [email or web address] 08/27/2025 2:00 PM EDT Office Visit [facility] Internal Medicine 40 [place] [address] Willie Blair MD 40 [place] [address] [email or web address] documented as of [...] documented as of this encounter Care Teams Machine Maintenance Relationship Specialty Start Date End Date Willie Blair MD 40 [place] [address] [email or web address] PCP - General Internal Medicine 02/04/20 Willie Blair MD 40 [place] [address] [email or web address] Insurance Assigned Provider 02/08/24 Daniel Flores MD [address] [phone] [email or web address] Urology 04/14/20 Delvin Waddell MD [address] [address] [email or web address] [email or web address] [facility] Cardiology 04/14/20 Shaylee Dejesus MD [address] [place] [address] [address] Otolaryngology 05/20/20 Tramaine Valle MD [address] [place] [address] [phone] [email or web address] Gastroenterology 11/30/20 Maxx Gardner OT 10 [place] [address] [email or web address] Transitions Novelty Candy MakerLegal Activity Adjudicator Therapy 05/22/21 Chantel Philippe, RN 10 [place] [address] [email or web address] iCMP Novelty Candy MakerPhysical Education Department Chair 10/12/22 10/31/22 Keily Gomez, OT 30 [place] [address] [email or web address] Transitions Novelty Candy MakerLegal Activity Adjudicator Therapy 12/30/23 Socorro Begum PA [address] [place] [address] Physician Order Processing Manager Cardiology 04/06/24 Keily Gomez, OT 30 [place] [address] [email or web address] Transitions Novelty Candy MakerLegal Activity Adjudicator Therapy 03/01/25 documented as of this encounter Additional Source Comments The information contained in this document represents components of the legal health record. It is not the complete legal health record.[facility]
--- OUTSIDE RECORDS SUMMARY | 2025-07-21 14:16 | XMS_ITS | Encounter Summary ---
Author Organization [facility] Address [address] [facility] [address] [place] [address] Phone Care Team Providers Care Geriatric Nursing Assistant Name Role Phone Willie Blair MD Unavailable [phone] Willie Blair MD Primary Care Provider [phone] Daniel Flores MD Unavailable [phone] Delvin Waddell MD Unavailable [phone] Shaylee Dejesus MD Unavailable [phone] Tramaine Valle MD Unavailable [phone] Chantel Philippe RN Unavailable [phone] Keily Gomez OT Unavailable [phone] Socorro Begum Unavailable [phone] Keily Gomez OT Unavailable [phone] Encounter Details Date Type Department Care Team (Late st Contact Info) Description 06/13/2021 Procedure Pass [facility], [address] [address] Social History Tobacco Use Types Packs/Day Years [...] Pulmonary, Allergy and Critical Care Medicine 10 [place] [address] López Henry MD [address] [address] [email or web address] 08/27/2025 2:00 PM EDT Office Visit [facility] Internal Medicine 40 [place] [address] Willie Blair MD 40 [place] [address] [email or web address] documented as of this encounter Visit Diagnoses [...] documented as of this encounter Care Teams Geriatric Nursing Assistant Relationship Specialty Start Date End Date Willie Blair MD 40 [place] [address] [email or web address] PCP - General Internal Medicine 02/04/20 Willie Blair MD 40 [place] [address] [email or web address] Insurance Assigned Provider 02/08/24 Daniel Flores MD [address] [address] [email or web address] medical center.[facility] Urology 04/14/20 Delvin Waddell MD [address] [address] [email or web address] Cardiology 04/14/20 Shaylee Dejesus MD [address] [place] [address] [place] [phone] Otolaryngology 05/20/20 Tramaine Valle MD [address] [place] [address] 2 [place] [address] [email or web address] Gastroenterology 11/30/20 Chantel Philippe, RN 10 [place] [address] [email or web address] iCMP Senior Ux DeveloperWelding Machine Operator Electron Beam 10/12/22 10/31/22 Keily Gomez, OT 30 [place] [address] [email or web address] Transitions Senior Ux DeveloperWildlife And Game Protector Therapy 12/30/23 Socorro Begum PA [address] [place] [address] Physician Electricians Top Helper Cardiology 04/06/24 Keily Gomez, OT 30 [place] [address] [email or web address] Transitions Senior Ux DeveloperWildlife And Game Protector Therapy 03/01/25 documented as of this encounter Additional Source Comments The information contained in this document represents components of the legal health record. It is not the complete legal health record.[facility]
--- OUTSIDE RECORDS SUMMARY | 2025-07-21 14:16 | XMS_ITS | Encounter Summary ---
Author Organization [facility] Address [address] [facility] [address] [place] [address] Phone Care Team Providers Care Audit Senior Associate Name Role Phone Willie Blair MD Unavailable [phone] Willie Blair MD Primary Care Provider Daniel Flores MD Unavailable [phone] Delvin Waddell MD Unavailable Shaylee Dejesus MD Unavailable [phone] Tramaine Valle MD Unavailable [phone] Maxx Gardner OT Unavailable [phone] Chantel Philippe RN Unavailable Keily Gomez OT Unavailable [phone] Socorro Begum Unavailable [phone] Keily Gomez OT Unavailable Encounter Details Date Type Department Care Team (Late st Contact Info) Description 05/22/2021 Procedure Pass [facility] Cardiovascular And Interventional Radiology 30 [place], [place] [id number] Social History Tobacco Use Types Packs/Day Years [...] Pulmonary, Allergy and Critical Care Medicine 10 [place] [address] López Henry MD [address] [address] [email or web address] 08/27/2025 2:00 PM EDT Office Visit [facility] Internal Medicine 40 [place] [address] Willie lBair MD 40 [place] [address] [email or web address] documented as of this encounter Visit Diagnoses [...] documented as of this encounter Care Teams Audit Senior Associate Relationship Specialty Start Date End Date Willie Blair MD 40 [place] [address] [email or web address] PCP - General Internal Medicine 02/04/20 Willie Blair MD 40 [place] [address] [email or web address] Insurance Assigned Provider 02/08/24 Daniel Flores MD [address] [phone] [email or web address] Urology 04/14/20 Delvin Waddell MD [address] [address] [email or web address] Metricsellis fis[facility] Cardiology 04/14/20 Shaylee Dejesus MD [address] [place] [address] [address] Otolaryngology 05/20/20 Tramaine Valle MD [address] [place] [address] [phone] [email or web address] Gastroenterology 11/30/20 Maxx Gardner OT 10 [place] [address] [email or web address] Transitions [address] MagistrateManaged Services Consultant Therapy 05/22/21 Chantel Philippe, RN 10 [place] [address] [email or web address] iCMP Municipal Court MagistrateSoft Mud Molder 10/12/22 10/31/22 Keily Gomez, OT 30 [place] [address] [email or web address] Transitions [address] Court MagistrateManaged Services Consultant Therapy 12/30/23 Socorro Begum PA [address] [place] [address] Physician Supervisor Metal Cans Cardiology 04/06/24 Keily Gomez, OT 30 [place] [address] [email or web address] Transitions [address] Court MagistrateManaged Services Consultant Therapy 03/01/25 documented as of this encounter Additional Source Comments The information contained in this document represents components of the legal health record. It is not the complete legal health record.[facility]
--- OUTSIDE RECORDS SUMMARY | 2025-07-21 14:16 | XMS_ITS | Encounter Summary ---
Author Organization [facility] Address [address] [facility] [address] [place] [address] Phone Care Team Providers Care V Belt Coverer Name Role Phone Willie Blair MD Unavailable Willie Blair MD Primary Care Provider [phone] Daniel Flores MD Unavailable [phone] Delvin Waddell MD Unavailable Shaylee Dejesus MD Unavailable [phone] Tramaine Valle MD Unavailable [phone] Maxx Gardner OT Unavailable Chantel Philippe RN Unavailable Keily Gomez OT Unavailable [phone] Socorro Begum Unavailable [phone] Keily Gomez OT Unavailable Encounter Details Date Type Department Care Team (Late st Contact Info) Description 05/25/2021 Procedure Pass [facility] Cardiovascular And Interventional Radiology 30 [place], [place] [id number] Social History Tobacco Use Types Packs/Day Years [...] Pulmonary, Allergy and Critical Care Medicine 10 [place] [address] López Henry MD [address] [address] [email or web address] 08/27/2025 2:00 PM EDT Office Visit [facility] Internal Medicine 40 [place] [address] Willie Blair MD 40 [place] [address] [email or web address] documented as of this [...] documented as of this encounter Care Teams V Belt Coverer Relationship Specialty Start Date End Date Willie Blair MD 40 [place] [address] [email or web address] PCP - General Internal Medicine 02/04/20 Willie Blair MD 40 [place] [address] [email or web address] Insurance Assigned Provider 02/08/24 Daniel Flores MD [address] [phone] [email or web address] Urology 04/14/20 Delvin Waddell MD [address] [address] [email or web address] joseph hospital west.[facility] Cardiology 04/14/20 Shaylee Dejesus MD [address] [place] [address] [address] Otolaryngology 05/20/20 Tramaine Valle MD [address] [place] [address] [phone] [email or web address] Gastroenterology 11/30/20 Maxx Gardner OT 10 [place] [address] [email or web address] Transitions Apprentice EmbalmerSupervising Floorperson Therapy 05/22/21 Chantel Philippe, RN 10 [place] [address] [email or web address] iCMP Apprentice EmbalmerHand Dry Cleaner 10/12/22 10/31/22 Keily Gomez, OT 30 [place] [address] [email or web address] Transitions Apprentice EmbalmerSupervising Floorperson Therapy 12/30/23 Socorro Begum PA [address] [place] [address] Physician Police Liaison Officer Cardiology 04/06/24 Keily Gomez, OT 30 [place] [address] [email or web address] Transitions Apprentice EmbalmerSupervising Floorperson Therapy 03/01/25 documented as of this encounter Additional Source Comments The information contained in this document represents components of the legal health record. It is not the complete legal health record.[facility]
--- OUTSIDE RECORDS SUMMARY | 2025-07-21 14:16 | XMS_ITS | Encounter Summary ---
Author Organization [facility] Address [address] [facility] [address] [place] [address] Phone Care Team Providers Care Scrape Gatherer Name Role Phone Willie Blair MD Unavailable [phone] Willie Blair MD Primary Care Provider [phone] Daniel Flores MD Unavailable Delvin Waddlel MD Unavailable Shaylee Dejesus MD Unavailable Tramaine Valle MD Unavailable [phone] Maxx Gardner OT Unavailable Chantel Philippe RN Unavailable Keily Gomez OT Unavailable Socorro Begum Unavailable [phone] Keily Gomez OT Unavailable [phone] Encounter Details Date Type Department Care Team (Late st Contact Info) Description 05/23/2021 Procedure Pass [facility] Cardiovascular And Interventional Radiology 30 [place], [place] [phone] Social History Tobacco Use Types Packs/Day Years [...] Pulmonary, Allergy and Critical Care Medicine 10 [place] [address] López Henry MD [address] [address] [email or web address] 08/27/2025 2:00 PM EDT Office Visit [facility] Internal Medicine 40 [place] [address] Willie Blair MD 40 [place] [address] [email or web address] documented as of this encounter Visit Diagnoses [...] documented as of this encounter Care Teams Scrape Gatherer Relationship Specialty Start Date End Date Willie Blair MD 40 [place] [address] [email or web address] PCP - General Internal Medicine 02/04/20 Willie Blair MD 40 [place] [address] [email or web address] Insurance Assigned Provider 02/08/24 Daniel Flores MD [address] [address] [email or web address] Urology 04/14/20 Delvin Waddell MD [address] [address] [email or web address] Cardiology 04/14/20 Shaylee Dejesus MD [address] [place] [address] [address] Otolaryngology 05/20/20 Tramaine Valle MD [address] [place] [address] [phone] [email or web address] Gastroenterology 11/30/20 Maxx Gardner OT 10 [place] [address] [email or web address] Transitions Shoe CementerGoat Driver Therapy 05/22/21 Chantel Philippe, RN 10 [place] [address] [email or web address] iCMP Shoe CementerClinical Staff Pharmacist 10/12/22 10/31/22 Keily Gomez, OT 30 [place] [address] [email or web address] Transitions Shoe CementerGoat Driver Therapy 12/30/23 Socorro Begum PA [address] [place] [address] Physician Air Drier Cardiology 04/06/24 Keily Gomez, OT 30 [place] [address] [email or web address] Transitions Shoe CementerGoat Driver Therapy 03/01/25 documented as of this encounter Additional Source Comments The information contained in this document represents components of the legal health record. It is not the complete legal health record.[facility]
--- OUTSIDE RECORDS SUMMARY | 2025-07-21 14:16 | XMS_ITS | Encounter Summary ---
Author Organization [facility] Address [address] [facility] [address] [place] [address] Phone Care Team Providers Care Cured Meats Supervisor Name Role Phone Willie Blair MD Unavailable [phone] Willie Blair MD Primary Care Provider [phone] Daniel Flores MD Unavailable Delvin Waddell MD Unavailable Shaylee Dejesus MD Unavailable Tramaine Valle MD Unavailable [phone] Maxx Gardner OT Unavailable [phone] Chantel Philippe RN Unavailable Keily Gomez OT Unavailable Socorro Begum Unavailable [phone] Keily Gomez OT Unavailable Encounter Details Date Type Department Care Team (Late st Contact Info) Description 05/23/2021 Procedure Pass [facility], Ct Scan - [address] [phone] Social History Tobacco Use Types Packs/Day Years [...] Pulmonary, Allergy and Critical Care Medicine 10 [place] [address] López Henry MD [address] [address] 08/27/2025 2:00 PM EDT Office Visit [facility] Internal Medicine 40 [place] [address] Willie Blair MD 40 [place] [address] [email or web address] documented as of [...] documented as of this encounter Care Teams Cured Meats Supervisor Relationship Specialty Start Date End Date Willie Blair MD 40 [place] [address] [email or web address] PCP - General Internal Medicine 02/04/20 Willie Blair MD 40 [place] [address] [email or web address] Insurance Assigned Provider 02/08/24 Daniel Flores MD [address] [address] [email or web address] Urology 04/14/20 Delvin Waddell MD [address] [phone] [email or web address] Cardiology 04/14/20 Shaylee Dejesus MD [address] [place] [address] Dr FELIX [address] [place] [address] Otolaryngology 05/20/20 Tramaine Valle MD [address] [place] [address] [phone] [email or web address] Gastroenterology 11/30/20 Maxx Gardner OT 10 [place], [place] [phone] [email or web address] Transitions Ventilation MechanicFolder Machine Therapy 05/22/21 Chantel Philippe, RN 10 [place] [address] [email or web address] iCMP Ventilation MechanicJudicial Registrar 10/12/22 10/31/22 Keily Gomez, OT 30 [place] [address] [email or web address] Transitions Ventilation MechanicFolder Machine Therapy 12/30/23 Socorro Begum PA [address] [place] [address] Physician Skeet Operator Cardiology 04/06/24 Keily Gomez, OT 30 [place] [address] [email or web address] Transitions Ventilation MechanicFolder Machine Therapy 03/01/25 documented as of this encounter Additional Source Comments The information contained in this document represents components of the legal health record. It is not the complete legal health record.[facility]
--- OUTSIDE RECORDS SUMMARY | 2025-07-21 14:16 | XMS_ITS | Encounter Summary ---
Author Organization [facility] Address [address] [employer] [address] [place] [address] Phone Care Team Providers Care Resident Hall Director Name Role Phone Willie Blair MD Unavailable Willie Blair MD Primary Care Provider Daniel Flores MD Unavailable Delvin Waddell MD Unavailable Shaylee Dejesus MD Unavailable [phone] Tramaine Valle MD Unavailable [phone] Chantel Philippe RN Unavailable [phone] Keily Gomez OT Unavailable Socorro Begum Unavailable [phone] Keily Gomez OT Unavailable [phone] Encounter Details Date Type Department Care Team (Late st Contact Info) Description 05/26/2021 Procedure Pass [facility] Cardiovascular And Interventional Radiology 30 [place] [address] Social History Tobacco Use Types Packs/Day Years [...] [facility] Pulmonary, Allergy and Critical Care Medicine [address] [place] [address] [place], [place] [phone] López Henry MD [address] [place] [address] [email or web address] 08/27/2025 2:00 PM EDT Office Visit [facility] Internal Medicine 40 [place] [address] Willie Blair MD 40 [place] [address] [email or web address] documented as of this encounter [...] documented as of this encounter Care Teams Resident Hall Director Relationship Specialty Start Date End Date Willie Blair MD 40 [place] [address] [email or web address] PCP - General Internal Medicine 02/04/20 Willie Blair MD 40 [place] [address] [email or web address] Insurance Assigned Provider 02/08/24 Daniel Flores MD [address] [phone] [email or web address] Urology 04/14/20 Delvin Waddell MD [address] [address] [email or web address] Cardiology 04/14/20 Shaylee Dejesus MD [address] [place] [address] Otolaryngology 05/20/20 rTamaine Valle MD [address] [place] [address] [phone] [email or web address] Gastroenterology 11/30/20 Chantel Philippe, RN [address] [place] [address] [phone] [email or web address] iCMP Propulsion EngineerHealth Care Recruiter 10/12/22 10/31/22 Keily Gomez, OT [address] [place] [address] [email or web address] Transitions Propulsion EngineerBusiness School Dean Therapy 12/30/23 Socorro Begum PA [address] [place] [address] Physician Instrument Maker Apprentice Cardiology 04/06/24 Keily Gomez, OT [address] [place] [address] [email or web address] Transitions Propulsion EngineerBusiness School Dean Therapy 03/01/25 documented as of this encounter Additional Source Comments The information contained in this document represents components of the legal health record. It is not the complete legal health record.[facility]
--- OUTSIDE RECORDS SUMMARY | 2025-07-21 14:16 | XMS_ITS | Encounter Summary ---
Author Organization [facility] Address [address] [facility] [address] [place] [address] Phone Care Team Providers Care Director Of Employee Development Name Role Phone Willie Blair MD Unavailable Willie Blair MD Primary Care Provider [phone] Daniel Flores MD Unavailable Delvin Waddell MD Unavailable Shaylee Dejesus MD Unavailable Tramaine Valle MD Unavailable [phone] Chantel Philippe RN Unavailable [phone] Keily Gomez OT Unavailable Socorro Begum Unavailable [phone] Keily Gomez OT Unavailable [phone] Encounter Details Date Type Department Care Team (Late st Contact Info) Description 01/03/2022 Procedure Pass [facility] Endoscopy Admitting Dept Virtual Department [address] [place] [address] [phone] Social History Tobacco Use Types Packs/Day Years [...] Pulmonary, Allergy and Critical Care Medicine [address] [place] [address] López Henry MD [address] [place] [address] [email or web address] 08/27/2025 2:00 PM EDT Office Visit [facility] Internal Medicine 40 [place] [address] Willie Blair MD 40 [place] [address] [email or web address] documented as of this encounter Visit Diagnoses [...] documented as of this encounter Care Teams Director Of Employee Development Relationship Specialty Start Date End Date Willie Blair MD 40 [place] [address] [email or web address] PCP - General Internal Medicine 02/04/20 Willie Blair MD 40 [place] [address] [email or web address] Insurance Assigned Provider 02/08/24 Daniel Flores MD [address] [phone] [email or web address] Urology 04/14/20 Delvin Waddell MD [address] [address] [email or web address] Cardiology 04/14/20 Shaylee Dejesus MD [address] [place] [address] Otolaryngology 05/20/20 Tramaine Valle MD [address] [place] [address] [email or web address] Gastroenterology 11/30/20 Chantel Philippe, RN 10 [place], [place] [phone] [email or web address] iCMP Research And Development ScientistAdvertising Sales Executive 10/12/22 10/31/22 Keily Gomez, OT 30 [place] [address] [email or web address] Transitions Research And Development ScientistSupervisor Wet Room Therapy 12/30/23 Socorro Begum PA [address] [place] [address] Physician Technical Solution Architect Cardiology 04/06/24 Keily Gomez, OT 30 [place] [address] [email or web address] Transitions Research And Development ScientistSupervisor Wet Room Therapy 03/01/25 documented as of this encounter Additional Source Comments The information contained in this document represents components of the legal health record. It is not the complete legal health record.[facility]
--- OUTSIDE RECORDS SUMMARY | 2025-07-21 14:16 | XMS_ITS | Encounter Summary ---
Author Organization [facility] Address [address] [facility] [address] [place] [address] Phone Care Team Providers Care Aircraft Structure Mechanic Name Role Phone Willie Blair MD Unavailable [phone] Willie Blair MD Primary Care Provider Daniel Flores MD Primary Care Provider Willie Blair MD Primary Care Provider [phone] Daniel Flores MD Unavailable [phone] Delvin Waddell MD Unavailable Shaylee Dejesus MD Unavailable [phone] Tramaine Valle MD Unavailable [phone] Maxx Gardner OT Unavailable [phone] Chantel Philippe RN Unavailable [phone] Keily Gomez OT Unavailable [phone] Socorro Begum Unavailable [phone] Keily Gomez OT Unavailable [phone] Encounter Details Date Type Department Care Team (Late st Contact Info) Description 07/02/2018 Procedure Pass [place] Admitting Dept - Virtual Department 30 [place] [address] Social History Tobacco Use Types Packs/Day Years [...] Upcoming Encounters Date Type Department Care Team ([facility] Contact Info) Description 08/10/2025 10:00 AM EDT Office Visit [facility] Pulmonary, Allergy and Critical Care Medicine [address] [place] [address] López Henry MD [address] [place] [address] [email or web address] 08/27/2025 2:00 PM EDT Office Visit [facility] Internal Medicine 40 [place] [address] Willie Blair MD 40 [place] [address] [email or web address] documented as of this [...] documented as of this encounter Care Teams Aircraft Structure Mechanic Relationship Specialty Start Date End Date Willie Blair MD 40 [place] [address] [email or web address] PCP - General Internal Medicine 09/19/17 01/03/20 Daniel Flores MD 100 [facility] [address] [phone] [email or web address] PCP - General Urology 01/04/20 02/03/20 Willie Blair MD 40 [place] [address] [email or web address] PCP - General Internal Medicine 02/04/20 Willie Blair MD 40 [place] [address] [email or web address] Insurance Assigned Provider 02/08/24 Daniel Flores MD 100 [facility] [address] [address] [email or web address] Urology 04/14/20 Delvin Waddell MD 100 [place] [facility] [address] [address] [email or web address] Cardiology 04/14/20 Shaylee Dejesus MD [address] [place] [address] Otolaryngology 05/20/20 Tramaine Valle MD [address] [place] [address] Gastroenterology 11/30/20 Maxx Gardner, OT 10 [place] [address] [email or web address] Transitions Cast Iron DipperIt Infrastructure Project Manager Therapy 05/22/21 Chantel Philippe, RN [address] [place] [address] [email or web address] iCMP Cast Iron DipperManager Heavy Equipment 10/12/22 10/31/22 Keily Gomez, OT 30 [place] [address] [email or web address] Transitions Cast Iron DipperIt Infrastructure Project Manager Therapy 12/30/23 Socorro Begum PA [address] [place] [address] Physician Manager Legal Cardiology 04/06/24 Keily Goemz, OT 30 [place] [address] [email or web address] Transitions Cast Iron DipperIt Infrastructure Project Manager Therapy 03/01/25 documented as of this encounter Additional Source Comments The information contained in this document represents components of the legal health record. It is not the complete legal health record.[facility]
--- OUTSIDE RECORDS SUMMARY | 2025-07-21 14:16 | XMS_ITS | Encounter Summary ---
Author Organization [facility] Address [address] [facility] [address] [place] [address] Phone Care Team Providers Care Special Events Coordinator Name Role Phone Willie Blair MD Unavailable Willie Blair MD Primary Care Provider [phone] Daniel Flores MD Unavailable Delvin Waddell MD Unavailable Shaylee Dejesus MD Unavailable Tramaine Valle MD Unavailable [phone] Maxx Gardner OT Unavailable [phone] Chantel Philippe RN Unavailable Keily Gomez OT Unavailable [phone] Socorro Begum Unavailable [phone] Keily Gomez OT Unavailable Encounter Details Date Type Department Care Team (Late st Contact Info) Description 05/25/2021 Procedure Pass [facility], [address] [phone] Social History Tobacco Use Types Packs/Day Years [...] Pulmonary, Allergy and Critical Care Medicine 10 [place] [address] López Henry MD [address] [address] [email or web address] 08/27/2025 2:00 PM EDT Office Visit [facility] Internal Medicine 40 [place] [address] Willie Blair MD 40 [place] [address] [email or web address] documented as of this encounter [...] documented as of this encounter Care Teams Special Events Coordinator Relationship Specialty Start Date End Date Willie Blair MD 40 [place] [address] [email or web address] PCP - General Internal Medicine 02/04/20 Willie Blair MD 40 [place] [address] [email or web address] Insurance Assigned Provider 02/08/24 Daniel Flores MD [address] [address] [email or web address] Urology 04/14/20 Delvin Waddell MD [address] [phone] [email or web address] Cardiology 04/14/20 Shaylee Dejesus MD [address] [place] [address] Dr FELIX [address] [place] [address] Otolaryngology 05/20/20 Tramaine Valle MD [address] [place] [address] [phone] [email or web address] Gastroenterology 11/30/20 Maxx Gardner OT 10 [place], [place] [phone] [email or web address] Transitions Installer ApprenticeClinical Veterinarian Therapy 05/22/21 Chantel Philippe, RN 10 [place] [address] [email or web address] iCMP Installer ApprenticeTransfer Coordinator 10/12/22 10/31/22 Keily Gomez, OT 30 [place] [address] [email or web address] Transitions Installer ApprenticeClinical Veterinarian Therapy 12/30/23 Socorro Begum PA [address] [place] [address] Physician Director Pediatric Cardiology 04/06/24 Keily Gomez, OT 30 [place] [address] [email or web address] Transitions Installer ApprenticeClinical Veterinarian Therapy 03/01/25 documented as of this encounter Additional Source Comments The information contained in this document represents components of the legal health record. It is not the complete legal health record.[facility]
--- OUTSIDE RECORDS SUMMARY | 2025-07-21 14:16 | XMS_ITS | Encounter Summary ---
Author Organization [facility] Address [address] [facility] [address] [place] [address] Phone Care Team Providers Care Cone Machine Feeder Name Role Phone Willie Blair MD Unavailable [phone] Willie Blair MD Primary Care Provider Daniel Flores MD Unavailable Delvin Waddell MD Unavailable Shaylee Dejesus MD Unavailable Tramaine Valle MD Unavailable [phone] Keily Gomez OT Unavailable [phone] Socorro Begum Unavailable [phone] Keily Gomez OT Unavailable [phone] Encounter Details Date Type Department Care Team (Late st Contact Info) Description 12/26/2023 Procedure Pass [facility] Echo Lab 30 [place], [place] [phone] Social History Tobacco Use Types Packs/Day Years [...] Indicated 12/26/2023 2:43 PM Alli Osullivan * [place] Suicide Severity Rating Scale (Screener/Recent Self-Report) Question [...] Pulmonary, Allergy and Critical Care Medicine 10 [facility] [place] [address] López Henry MD [address] [place] [address] [address] [place] [address] 08/27/2025 2:00 PM EDT Office Visit [facility] [place] Internal Medicine 40 [facility] [place] [address] Willie Blair MD 40 [place] [address] [email or web address] documented as of this encounter Visit [...] documented as of this encounter Care Teams Cone Machine Feeder Relationship Specialty Start Date End Date Willie Blair MD 40 [place] [address] [email or web address] PCP - General Internal Medicine 02/04/20 Willie Blair MD 40 [place] [address] [email or web address] Insurance Assigned Provider 02/08/24 Daniel Flores MD [address] [place] [address] [email or web address] Urology 04/14/20 Delvin Waddell MD [address] [place] [address] [email or web address] Cardiology 04/14/20 Shaylee Dejesus MD [address] [place] [address] FERNANDO [address] [place] [address] Otolaryngology 05/20/20 Tramaine Valle MD [address] [place] [address] 2 [place] [address] [email or web address] Gastroenterology 11/30/20 Keily Gomez, OT 30 [place] [address] [email or web address] Transitions Rotary CutterDitch Tender Therapy 12/30/23 Socorro Begum PA [address] [place] [address] Physician Senior Clinical Project Manager Cardiology 04/06/24 Keily Gomez, OT 30 [place] [address] [email or web address] Transitions Rotary CutterDitch Tender Therapy 03/01/25 documented as of this encounter Additional Source Comments The information contained in this document represents components of the legal health record. It is not the complete legal health record.[facility]
--- OUTSIDE RECORDS SUMMARY | 2025-07-21 14:17 | XMS_ITS | Encounter Summary ---
Author Organization [facility] Address [address] [facility] [address] [place] [address] Phone Care Team Providers Care Clinical Trials Specialist Name Role Phone Willie Blair MD Unavailable Willie Blair MD Primary Care Provider Daniel Flores MD Unavailable Delvin Waddell MD Unavailable [phone] Shaylee Dejesus MD Unavailable Tramaine Valle MD Unavailable [phone] Chantel Philippe RN Unavailable [phone] Keily Gomez OT Unavailable [phone] Socorro Begum Unavailable [phone] Keily Gomez OT Unavailable [phone] Encounter Details Date Type Department Care Team (Late st Contact Info) Description 02/13/2022 Procedure Pass [facility] Endoscopy Admitting Dept Virtual Department [address] [place] [address] [id number] Social History Tobacco Use Types Packs/Day Years [...] 10:47 AM EDT Ginette Mann RN * [place] Suicide Severity Rating Scale (Screener/Recent Self-Report) Question [...] Description 08/10/2025 10:00 AM EDT Office Visit [facility] Pulmonary, Allergy and Critical Care Medicine [address] [place] [address] López Henry MD [address] [place] [address] 08/27/2025 2:00 PM EDT Office Visit [facility] [place] [facility] 40 [place] [address] Willie Blair MD 40 [place] [address] documented as of this encounter Visit Diagnoses [...] as of this encounter Care Teams Clinical Trials Specialist Relationship Specialty Start Date End Date Willie Blair MD 40 [place] [address] [email or web address] PCP - General Internal Medicine 02/04/20 Willie Blair MD 40 [place] [address] [email or web address] Insurance Assigned Provider 02/08/24 Daniel Flores MD [address] [address] [email or web address] Urology 04/14/20 Delvin Waddell MD [address] [address] [email or web address] Cardiology 04/14/20 Shaylee Dejesus MD [address] [place] [address] [place] [address] Otolaryngology 05/20/20 Tramaine Valle MD [address] [address] Gastroenterology 11/30/20 Chantel Philippe, RN 10 [place] [address] [email or web address] iCMP Latex DipperContract Specialist 10/12/22 10/31/22 Keily Gomez, OT [address] [place] [address] [email or web address] Transitions Latex DipperAccountant Auditor Therapy 12/30/23 Socorro Begum PA [address] [place] [address] Physician Catering Manager Cardiology 04/06/24 Keily Gomez, OT [address] [place] [address] [email or web address] Transitions Latex DipperAccountant Auditor Therapy 03/01/25 documented as of this encounter Additional Source Comments The information contained in this document represents components of the legal health record. It is not the complete legal health record.[facility]
--- OUTSIDE RECORDS SUMMARY | 2025-07-21 14:17 | XMS_ITS | Clinical Summary ---
Author Organization [facility] Address 399 [facility] [address] [place] [address] Phone Care Team Providers Care Foster Care Worker Name Role Phone Willie Blair MD Unavailable Willie Blair MD Primary Care Provider [phone] Daniel Flores MD Unavailable Delvin Waddell MD Unavailable Shaylee Dejesus MD Unavailable Tramaine Valle MD Unavailable Socorro Begum Unavailable [phone] Allergies Active Allergy Reactions Criticality Noted [...] Active ferrous sulfate 325 mg (65 mg barrow iron) tablet Take 325 mg by mouth [...] record of latest EF. Follows closely with [facility] cardiology who was last seen in their [...] record of latest EF. Follows closely with [facility] cardiology who was last seen in their [...] history of CHF who follows closely with [facility] cardiology who was last seen in their [...] of a atrial fibrillation who follows with [facility] cardiology. He is managed on Coreg 6.25 [...] of a atrial fibrillation who follows with [facility] cardiology. He is managed on Coreg 6.25 [...] of a atrial fibrillation who follows with [facility] cardiology. Patient is rate controlled and on [...] event. Recommended outpatient follow up with his acute care occupational therapist (previously Dr. Waddell) for discussion on when the resume the medication. Assessment & Plan (08/25/2021 6:10 PM EDT): Hold Eliquis in the setting of GI bleeding, continue Coreg Assessment & Plan (05/26/2021 7:59 AM EDT): History of atrial fibrillation, chronic systolic CHF, hypertension,, mild to moderate CAD (based on catheterization April 2021). Followed by [facility] cardiology (EKG here sinus) Had Cardiac cath [...] to 4 times daily scheduled [facility] Assessment & Plan (02/28/2025 [...] to 4 times daily scheduled - [facility] Prn Assessment & Plan (02/27/2025 [...] with a fairly preserved EF according to [facility] records. Given his ongoing hemodynamic stability, will [...] contributing to dizziness. Further evaluation by a acute care occupational therapist is suggested. - Send a note to cardiology PA, Socorro Begum, to consider the low heart rate as a potential cause of dizziness. - Consider referral to a acute care occupational therapist for further evaluation if needed. Epigastric pain [...] not going to be pursued, would not slip box changer- no vegetation seen on TTE Continue [...] He has previously discussed this with his acute care occupational therapist, who felt it was non-cardiac. He describes [...] 11:59 PM EDT Hospital Encounter [facility] [address] [place] [address] Willie Blair MD Discharge Disposition: Home or [...] Description 08/10/2025 10:00 AM EDT Office Visit [facility] Pulmonary, Allergy and Critical Care Medicine [address] [place] [address] López Henry MD [address] [place] [address] [place] [address] 08/27/2025 2:00 PM EDT Office Visit [facility] Internal Medicine 40 [place] [address] Willie Blair MD 40 [place] [address] Health Maintenance Due Date Last Done Comments [...] this topic Medical Devices Implanted Type Area Hob Machine Operator Device Identifier Shelf Expiration Date Model / Serial / Lot Lens Lens Bilateral: Eye Knees Description:Bilat knee repla cements Device Fixation 37mm Optifix Pdlla Smooth Head Hollow Core Angled Tip Absorb Sterile Disp 30 Fastner - [id number] Implanted:Qty: 1 on 07/02/2018 by Arleen Donald MD at [facility] N/A: Abdomen DAVOL 03/01/2020 [id number] / / [id number] Mesh Synthetic [id number] Abdominal Non Absorbable Ellipse Polypropylene Eptfe Ventralex - [id number] Implanted:Qty: 1 on 07/02/2018 by Arleen Donald MD at [facility] Abdomen DAVOL 10/01/2019 [id number] / / [id number] Device Fixation 37mm Optifix Pdlla Smooth Head Hollow Core Angled Tip Absorb Sterile Disp 30 Fastner - [id number] Implanted:Qty: 1 on 07/02/2018 by Arleen Donald MD at [facility] N/A: Abdomen DAVOL 08/01/2018 [id number] / / [id number] Procedures Procedure Name Priority Date/Time Associated Diagnosis [...] EDT) SODIUM 141 133 - 146 mmol/L [facility] POTASSIUM 4.5 3.3 - 5.1 mmol/L [facility] CHLORIDE 105 96 - 108 mmol/L [facility] CO2 24 21 - 35 mmol/L [facility] BUN 30(H) 6 - 19 mg/dL [facility] CREATININE 1.10 0.5 - 1.5 mg/dL [facility] GLUCOSE 97 70 - 99 mg/dL [facility] ALBUMIN 3.9 3.9 - 4.8 g/dL [facility] TOTAL PROTEIN 6.7 6.5 - 8.0 g/dL [facility] CALCIUM 10.0 8.4 - 10.3 mg/dL [facility] ALKALINE PHOSPHATASE 69 39 - 117 U/L [facility] TOTAL BILIRUBIN 0.6 0.0 - 1.2 mg/dL [facility] AST 22 0 - 37 U/L [facility] ALT 18 0 - 40 U/L [facility] GLOBULIN 2.8 1 - 4.8 g/dL [facility] EGFR 64 >59 mL/min/1.7 3m2 [facility] Comment:Estimated glomerular filtration rate calculated using the CKD-EPI refit equation. ANION GAP 17 10 - 20 mmol/L [facility] Blood 04/30/2025 7:41 AM EDT 04/30/2025 7:43 AM EDT us Willie Blair MD LAB BLOOD ORDERABLES Final Re sult Performing Organization Address City/[facility]/ZIP Co de Phone Number [address] [address] * 25-[place] vitamin D (04/30/2025 7:41 AM EDT) 25 [place] VIT D (TOTAL) 42 30 - 60 ng/mL [facility] Blood 04/30/2025 7:41 AM EDT 04/30/2025 7:43 AM EDT us Willie Blair MD LAB BLOOD ORDERABLES Final Re sult Performing Organization Address [facility] Co de Phone Number [address] [address] * (ABNORMAL) CBC and differential (04/30/2025 7:41 AM EDT) WBC 5.88 4.00 - 11.00 K/uL [facility] RBC 5.07 4.50 - 5.90 M/uL [facility] HGB 15.1 13.5 - 17.5 g/dL [facility] HCT 48.0 41.0 - 53.0 % [facility] PLT 193 150 - 450 K/uL [facility] MCV 94.7 80.0 - 100.0 fL [facility] MCH 29.8 27.0 - 31.0 pg [facility] MCHC 31.5(L) 32.0 - 36.0 g/dL [facility] RDW 14.7(H) 11.5 - 14.5 % [facility] MPV 11.9 8.4 - 12.0 [facility] NRBC 0.00 0.00 /100 WBCs [facility] ABSOLUTE NRBC 0.00 0.00 K/uL [facility] DIFF METHOD Auto [facility] NEUTS 64.0 48.0 - 76.0 % [facility] LYMPHS 16.0(L) 18.0 - 41.0 % [facility] MONOS 13.4(H) 4.0 - 11.0 % [facility] EOS 5.4(H) 0.0 - 5.0 % [facility] BASOS 0.9 0.0 - 1.5 % [facility] Granulocytes, immature (%) 0.3 0.0 - 0.9 % [facility] ABSOLUTE NEUTS 3.76 1.92 - 7.60 K/uL [facility] ABSOLUTE LYMPHS 0.94 0.72 - 4.10 K/uL [facility] ABSOLUTE MONOS 0.79 0.16 - 1.10 K/uL [facility] ABSOLUTE EOS 0.32 0.00 - 0.50 K/uL [facility] ABSOLUTE BASOS 0.05 0.00 - 0.15 K/uL [facility] Granulocytes, immature 0.02 0.00 - 0.09 K/uL [facility] Blood 04/30/2025 7:41 AM EDT 04/30/2025 7:43 AM EDT us Willie Blair MD LAB BLOOD ORDERABLES Final Re sult Performing Organization Address City/[facility] Co de Phone Number [address] [address] * Magnesium (04/30/2025 7:41 AM EDT) MAGNESIUM 2.0 1.6 - 2.6 mg/dL [facility] Blood 04/30/2025 7:41 AM EDT 04/30/2025 7:43 AM EDT us Willie Blair MD LAB BLOOD ORDERABLES Final Re sult Performing Organization Address City/[facility]/ZIP Co de Phone Number [address] [address] * Hemoglobin A1c (04/30/2025 7:41 AM EDT) HEMOGLOBIN A1C 5.6 4.3 - 5.8 % [facility] Blood 04/30/2025 7:41 AM EDT 04/30/2025 7:44 AM EDT us Willie Blair MD LAB BLOOD ORDERABLES Final Re sult Performing Organization Address City/[facility]/ZIP Co de Phone Number [address] [address] * (ABNORMAL) Lipid panel (04/30/2025 7:41 AM EDT) HDL 52 mg/dL [facility] Comment: Interpretation <40 mg/dL: Low HDL cholesterol (major risk factor for CHD) Greater than or equal to 60 mg/dL: High HDL cholesterol ( negative risk factor for CHD) HDL - cholesterol is affected by a number of factors, e.g. smoking, excerise, hormones, sex and age. CHOLESTEROL 160 0 - 240 mg/dL [facility] TRIGLYCERIDES 73 30 - 160 mg/dL [facility] LDL 93 50 - 129 mg/dL [facility] Comment: LDL levels in terms of risk for coronary heart disease: <100 mg/dL: Optimal 100-129 mg/dL: Near or above optimal 130-159 mg/dL: Borderline high 160-189 mg/dL: High >190 mg/dL: Very High CARDIAC RISK RATIO 3.1(L) 3.4 - 5.0 C [facility] Blood 04/30/2025 7:41 AM EDT 04/30/2025 7:44 AM EDT us Willie Blair MD LAB BLOOD ORDERABLES Final Re sult Performing Organization Address City/[facility]/ZIP Co de Phone Number [address] [address] from Last 3 Months Insurance MEDICARE PART A & B [employer] MEDEX SUPPLEMENT MEDICARE PART A & B [employer] MED[employer] SUPPLEMENT MEDICARE PART A & B [employer] SUPPLEMENT MEDICARE PART A & B [employer] MED[employer] SUPPLEMENT MEDICARE PART A & B [employer] MEDEX SUPPLEMENT MEDICARE PART A & B [employer] MEDEX SUPPLEMENT MEDICARE PART A & B [facility] MEDEX SUPPLEMENT MEDICARE PART A & B [employer] MEDEX SUPPLEMENT MEDICARE PART A & B [employer] MEDEX SUPPLEMENT Advance Directives For more information, please contact: [phone] (9AM - 5PM [facility], Saturday-Saturday) Documents on File Type Date Recorded Patient Harness Rigger Expl anation Healthcare Proxy 04/26/2020 Health Care [...] Agent (Proxy form on file) Care Teams Foster Care Worker Relationship Specialty Start Date End Date Willie Blair MD [address] [place] [address] [email or web address] PCP - General Internal Medicine 02/04/20 Willie Blair MD 40 [place] [address] [email or web address] Insurance Assigned Provider 02/08/24 Daniel Flores MD [address] [place] [address] [email or web address] Urology 04/14/20 Delvin Waddell MD [address] [place] [address] [email or web address] Cardiology 04/14/20 Shaylee Dejesus MD [address] [place] [address] 106 [place] [address] Otolaryngology 05/20/20 Tramaine Valle MD [address] [place] [address] Gastroenterology 11/30/20 Socorro Begum [place] [facility] [place] [address] Physician Guinea Pig Breeder Cardiology 04/06/24 Additional Source Comments The information contained in this document represents components of the legal health record. It is not the complete legal health record.[facility]
--- OUTSIDE RECORDS SUMMARY | 2025-07-21 14:17 | XMS_ITS | Encounter Summary ---
Author Organization [facility] Address [address] [facility] [address] [place] [address] Phone Care Team Providers Care Investor Relations Coordinator Name Role Phone Willie Blair MD Unavailable Willie Blair MD Primary Care Provider Daniel Flores MD Unavailable Delvin Waddell MD Unavailable Shaylee Dejesus MD Unavailable Tramaine Valle MD Unavailable [phone] Chantel Philippe RN Unavailable [phone] Keily Gomez OT Unavailable [phone] Socorro Begum Unavailable [phone] Keily Gomez OT Unavailable [phone] Encounter Details Date Type Department Care Team (Late st Contact Info) Description 02/13/2022 Procedure Pass [facility], Ct Scan - [address] [address] Social History Tobacco Use Types Packs/Day Years [...] 10:47 AM EDT Ginette Mann RN * [place] Suicide Severity Rating Scale (Screener/Recent Self-Report) Question [...] Description 08/10/2025 10:00 AM EDT Office Visit [facility] Pulmonary, Allergy and Critical Care Medicine [address] [place] [address] López Henry MD [address] [place] [address] 08/27/2025 2:00 PM EDT [facility] [address] [place] [address] Willie Blair MD 40 [place] [address] documented as of this encounter Visit Diagnoses [...] documented as of this encounter Care Teams Investor Relations Coordinator Relationship Specialty Start Date End Date Willie Blair MD 40 [place] [address] [email or web address] PCP - General Internal Medicine 02/04/20 Willie Blair MD 40 [place] [address] [email or web address] Insurance Assigned Provider 02/08/24 Daniel Flores MD [address] [address] [email or web address] Urology 04/14/20 Delvin Waddell MD [address] [address] [email or web address] Cardiology 04/14/20 Shaylee Dejesus MD [address] [place] [address] [place] [address] Otolaryngology 05/20/20 Tramaine Valle MD [address] [address] [email or web address] Gastroenterology 11/30/20 Chantel Philippe, RN 10 [place] [address] [email or web address] iCMP [employer] Foreign Language TutorWire Steward 10/12/22 10/31/22 Keily Gomez, OT 30 [place] [address] [email or web address] Transitions High [employer] Foreign Language TutorRoofing Laborer Therapy 12/30/23 Socorro Begum PA [address] [place] [address] Physician Medical Records Clerk Cardiology 04/06/24 Keily Gomez, OT [address] [place] [address] [email or web address] Transitions [employer] Foreign Language TutorRoofing Laborer Therapy 03/01/25 documented as of this encounter Additional Source Comments The information contained in this document represents components of the legal health record. It is not the complete legal health record.[facility]
--- OUTSIDE RECORDS SUMMARY | 2025-07-21 14:17 | XMS_ITS | Encounter Summary ---
Author Organization [facility] Address [address] [facility] [address] [place] [address] Phone Care Team Providers Care Government Services Professional Name Role Phone Willie Blair MD Unavailable [phone] Willie Blair MD Primary Care Provider [phone] Daniel Flores MD Unavailable Delvin Waddell MD Unavailable Shaylee Dejesus MD Unavailable Tramaine Valle MD Unavailable [phone] Socorro Begum Unavailable [phone] Keily Gomez OT Unavailable Encounter Details Date Type Department Care Team (Late st Contact Info) Description 10/19/2024 Procedure Pass [facility], Ct Scan - [address] [id number] Social History Tobacco Use Types Packs/Day Years [...] [facility] Pulmonary, Allergy and Critical Care Medicine [address] [place] [address] [place] [address] López Henry MD 10 [facility] [address] [place] [address] 08/27/2025 2:00 PM EDT [facility] [address] [place], [place] [address] [address] Willie Blair MD 40 [place] [address] [email or web address] documented as of this encounter [...] documented as of this encounter Care Teams Government Services Professional Relationship Specialty Start Date End Date Willie Blair MD 40 [place] [address] [email or web address] PCP - General Internal Medicine 02/04/20 Willie Blair MD 40 [place] [address] [email or web address] Insurance Assigned Provider 02/08/24 Daniel Flores MD 100 [address] [facility] [address] [place] [address] [email or web address] Urology 04/14/20 Delvin Waddell MD 100 [address] [facility] [address] [place] [address] [email or web address] Cardiology 04/14/20 Shaylee Dejesus MD [address] [place] [address] Dr FELIX [address] [place] [address] Otolaryngology 05/20/20 Tramaine Valle MD [address] [place] [address] 2 [place] [address] [email or web address] Gastroenterology 11/30/20 Socorro Begum PA [address] [place] [address] Physician Knitting Machine Operator Cardiology 04/06/24 Keily Gomez, OT 30 [place] [address] [email or web address] Transitions HydrologistMolder Meat Therapy 03/01/25 documented as of this encounter Additional Source Comments The information contained in this document represents components of the legal health record. It is not the complete legal health record.[facility]
--- OUTSIDE RECORDS SUMMARY | 2025-07-21 14:17 | XMS_ITS | Encounter Summary ---
Author Organization [facility] Address [address] [place] [address] Phone Care Team Providers Care Creative Recruiter Name Role Phone Willie Blair MD Unavailable Willie Blair MD Primary Care Provider [phone] Daniel Flores MD Unavailable Delvin Waddell MD Unavailable [phone] Shaylee Dejesus MD Unavailable [phone] Tramaine Valle MD Unavailable [phone] Chantel Philippe RN Unavailable [phone] Keily Gomez OT Unavailable Socorro Begum Unavailable [phone] Keily Gomez OT Unavailable [phone] Encounter Details Date Type Department Care Team (Late st Contact Info) Description 03/27/2022 Procedure Pass [facility], [address] [address] Social History Tobacco Use Types Packs/Day Years [...] CD Pulmonary, Allergy and Critical Care Medicine [address] [place] [address] López Henry MD [address] [address] [email or web address] 08/27/2025 2:00 PM EDT Office Visit [facility] Internal Medicine 40 [place] [address] Willie Blair MD 40 [place] [address] [email or web address] documented [...] documented as of this encounter Care Teams Creative Recruiter Relationship Specialty Start Date End Date Willie Blair MD 40 [place] [address] [email or web address] PCP - General Internal Medicine 02/04/20 Willie Blair MD 40 [place], [place] [email or web address] Insurance Assigned Provider 02/08/24 Daniel Flores MD [address] [phone] [email or web address] 04/14/20 Delvin Waddell MD [address] [phone] [email or web address] [email or web address] 04/14/20 Shaylee Dejesus MD [address] [place] [address] Otolaryngology 05/20/20 Tramaine Valle MD [address] [place] [address] [phone] [email or web address] Gastroenterology 11/30/20 Chantel Philippe, RN 10 [place], [place] [phone] [email or web address] iCMP Director MortgageFood Service Assistant 10/12/22 10/31/22 Keily Gomez, OT [address] [place] [address] Transitions Director MortgageSupervisor Properties Therapy 12/30/23 Socorro Begum PA [address] [place] [address] Physician Chief Engineering Division Cardiology 04/06/24 Keily Gmoez, OT 30 [place] [address] [email or web address] Transitions Director MortgageSupervisor Properties Therapy 03/01/25 documented as of this encounter Additional Source Comments The information contained in this document represents components of the legal health record. It is not the complete legal health record.[facility]
--- OUTSIDE RECORDS SUMMARY | 2025-07-21 14:17 | XMS_ITS | Encounter Summary ---
Author Organization [facility] Address [address] [place] [address] Phone Care Team Providers Care Identification Printing Machine Setter Name Role Phone Willie Blair MD Unavailable Willie Blair MD Primary Care Provider Daniel Flores MD Unavailable [phone] Delvin Waddell MD Unavailable [phone] Shaylee Dejesus MD Unavailable [phone] Tramanie Valle MD Unavailable [phone] Chantel Philippe RN Unavailable [phone] Keily Gomez OT Unavailable Socorro Begum Unavailable [phone] Keily Gomez OT Unavailable [phone] Encounter Details Date Type Department Care Team (Late st Contact Info) Description 03/12/2022 Procedure Pass [place] Admitting Dept - [facility] Department [address] [place] [address] [id number] Social History Tobacco Use Types Packs/Day Years [...] CD Pulmonary, Allergy and Critical Care Medicine [address] [place] [address] López Henry MD [address] [address] [email or web address] 08/27/2025 2:00 PM EDT Office Visit [facility] Internal Medicine 40 [place] [address] Willie Blair MD 40 [place] [address] [email or web address] documented as of this encounter [...] documented as of this encounter Care Teams Identification Printing Machine Setter Relationship Specialty Start Date End Date Willie Blair MD 40 [place] [address] [email or web address] PCP - General Internal Medicine 02/04/20 Willie Blair MD 40 [place], [place] [email or web address] Insurance Assigned Provider 02/08/24 Daniel Flores MD [address] [phone] [email or web address] 04/14/20 Delvin Waddell MD [address] [phone] [email or web address] Cardiology 04/14/20 Shaylee Dejesus MD [address] [place] [address] Otolaryngology 05/20/20 Tramaine Valle MD [address] [place] [address] [phone] [email or web address] Gastroenterology 11/30/20 Chantel Philippe, RN 10 [place], [place] [phone] [email or web address] iCMP Manager TransportMerchandise Execution Leader 10/12/22 10/31/22 Keily Gomez, OT [address] [place] [address] Transitions Manager TransportScreed Person Therapy 12/30/23 Socorro Begum PA [address] [place] [address] Physician Transmission Technician Cardiology 04/06/24 Keily Gomez, OT 30 [place] [address] [email or web address] Transitions Manager TransportScreed Person Therapy 03/01/25 documented as of this encounter Additional Source Comments The information contained in this document represents components of the legal health record. It is not the complete legal health record.[facility]
== END 2025-07-21 11:14 | disposition home or self-care (01) ==
LOC: HO.HMGAL 11:05
PROVIDERS: PCP Internal Medicine; Visit Provider Registered Nurse Emergency
DX: J30.89 Other allergic rhinitis (principal)
CPT/HCPCS: 95117; 95165

== ENCOUNTER 2025-08-11 13:00 | Outpatient (AMB) | payer MEDICARE, SELFPAY | END 2025-08-11 13:02 | disposition home or self-care (01) | LOC: HO.HMGAL 13:00 | PROVIDERS: PCP Internal Medicine; Visit Provider Registered Nurse Emergency | DX: J30.89 Other allergic rhinitis (principal) | CPT/HCPCS: 95117; 95165 ==

== ENCOUNTER 2025-08-30 13:57 | Outpatient (AMB) | payer MEDICARE, SELFPAY ==
--- OUTSIDE RECORDS SUMMARY | 2021-02-12 11:58 | XMS_ITS | Encounter Summary ---
Author Organization [facility] Address [address] [place] [address] [place] [address] Phone Care Team Providers Care Wood Heel Cementer Name Role Phone Willie Blair MD Primary Care Provider [phone] Daniel Flores MD Unavailable Delvin Waddell MD Unavailable [phone] Shaylee Dejesus MD Unavailable Tramaine Valle MD Unavailable [phone] Encounter Details Date Type Department Care Team (Late st Contact Info) Description 02/12/2021 11:58 AM EDT Hospital Encounter [facility] [address] [place] [address] Orlando Smallwood PA [address] [place] [address] [email or web address] Social History Tobacco Use Types Packs/Day [...] 5:58 PM EDT Nikkie Aguilar RN * [place] Suicide Severity Rating Scale (Screener/Recent Self-Report) Question [...] Description 10/22/2025 3:00 PM EST Office Visit [facility] Internal Medicine 40 [place] [address] Willie Blair MD 40 [place] [address] 11/03/2025 11:00 AM EST Office Visit [facility] 10 [place] [address] Charlene Piedra, [address] [address] [email or web address] 02/11/2026 10:20 AM EDT Office Visit [facility] Pul[facility], Allergy and Critical Care Medicine 10 [facility] [place] [address] López Henry MD [address] [address] (work) [email or web address] documented as of this encounter Procedures Procedure [...] documented as of this encounter Care Teams Wood Heel Cementer Relationship Specialty Start Date End Date Willie Blair MD 40 [place] [address] [email or web address] PCP - General Internal Medicine 02/04/20 Daniel Flores MD 100 [facility] 120 [place] [address] [email or web address] 04/14/20 Delvin Waddell MD 100 [facility] 120 [place] [address] [email or web address] Cardiology 04/14/20 Shaylee Dejesus MD [address] [place] [address] 106 [place] [address] Otolaryngology 05/20/20 Tramaine Valle MD [address] [place] [address] 2 [place] [address] [email or web address] Gastroenterology 11/30/20 documented as of this encounter Additional Source Comments The information contained in this document represents components of the legal health record. It is not the complete legal health record.[facility]
--- OUTSIDE RECORDS SUMMARY | 2025-08-27 14:00 | XMS_ITS | Encounter Summary ---
Author Organization [facility] Address [address] [place] [address] [place] [address] Phone Care Team Providers Care Quality Improvement Coordinator Name Role Phone Willie Blair MD Unavailable Willie Blair MD Primary Care Provider [phone] Daniel Flores MD Unavailable Delvin Waddell MD Unavailable Shaylee Dejesus MD Unavailable [phone] Tramaine Valle MD Unavailable Socorro Begum Unavailable [phone] Reason for Visit * Reason Comments TCM Visit [facility] ED admission fro m 08/13/25-08/17/25 for lower GI bleed. Lightheadedness Dizziness Encounter Details Date Type Department Care Team (Late st Contact Info) Description 08/27/2025 2:00 PM EDT Office Visit [facility] Internal Medicine [address] [place], [place] [phone] Willie Blair MD 40 [place], [place] [phone] [email or web address] Rectal bleeding (Primary Dx) Social History Tobacco Use Types [...] Sign Reading Time Taken Comments Blood Pressure 90/58 08/27/2025 2:48 PM EDT Pulse 56 08/27/2025 2:48 PM EDT Temperature 36.7 C (98 F) 08/27/2025 2:04 PM EDT Respiratory Rate 16 08/27/2025 2:04 PM EDT Oxygen Saturation 97% 08/27/2025 2:04 PM EDT Inhaled Oxygen Concentration - - Weight 104 kg (229 lb 3.2 oz) 08/27/2025 2:04 PM EDT Height 175.3 cm (5' 9.02 ) 08/27/2025 2:04 PM ED T Body Mass Index 33.83 08/27/2025 2:04 PM EDT documented in this encounter Progress Notes * Willie Blair MD - 08/27/2025 2:00 PM EDT Subjective Arnulfo Du is a 89 y.o. male. History of Present Illness Arnulfo Magaña is an 89 year old male who presents with lightheadedness and medication management concerns. He experiences intermittent lightheadedness, which he does not always communicate. He acknowledges the lightheadedness when asked and reports no dizziness when sitting up or lying down. He was hospitalized from August 13 to August 17 for gastrointestinal bleeding. A CT scan suggested a potential source of bleeding, but a subsequent colonoscopy did not confirm this. The bleeding episodes were less severe than a previous hemorrhage, with three episodes occurring over a 14-hourspan. Since returning home, there have been no further episodes of bleeding. His current medication regimen includes Entresto 24/26 mg taken twice daily, with a recent change to take the morning dose at noon. Carvedilol is taken at 3.125 mg, two tablets in the morning and oneat night. He is also on Farxiga 5 mg, which was restarted in March, and furosemide 20 mg, which was resumed in June. Iron is taken five times a week. He completed a course of prednisone for a cough, which has since improved significantly. Mucinex 1200 mg is taken for residual cough symptoms. His blood pressure readings have been erratic, with recent home measurements showing low values, and his pulse has been noted to be low, with a recent reading of 47. Current Outpatient Medications Ordered in [facility] Medication Sig albuterol 90 mcg/actuation inhaler INHALE 2 PUFFS INTO THE LUNGS EVERY 6 (SIX) HOURS NEEDED FOR WHEEZING. ascorbic acid, vitamin C, (VITAMIN C) 500 MG tablet Take 1,000 mg by mouth daily. calcium citrate-vitamin D3 315 mg-6.25 mcg (250 unit) per tablet 2 in am and 1 in pm carvedilol (COREG) 3.125 MG tablet 6.25 mg in am and 3.125 mg in pm (Patient taking differently: 6.25 mg at lunchtime and 3.125 mg in the evening) dapagliflozin propanediol (FARXIGA) 5 mg tablet Take 5 mg by mouth daily. ELIQUIS 5 mg tablet TAKE ONE TABLET BY MOUTH TWICE DAILY ENTRESTO 24-26 mg per tablet Take 1 tablet by mouth 2 (two) times a day. (Patient taking differently: Take 1 tablet by mouth at lunchtime and 1 tablet in the evening) ferrous sulfate 325 mg (65 mg [place] iron) tablet Take 325 mg by mouth as directed. 5 days a week M-F finasteride (PROSCAR) 5 mg tablet TAKE ONE TABLET BY MOUTH EVERY MORNING furosemide (LASIX) 20 MG tablet Take 20 mg by mouth daily. loperamide (IMODIUM A-D) 2 mg tablet Take 2 mg by mouth 3 (three) times a day as needed for diarrhea. omeprazole (PRILOSEC) 40 MG capsule TAKE ONE CAPSULE BY MOUTH ONCE DAILY nitroglycerin (NITROSTAT) 0.[address] 1 TABLET (0.4 MG TOTAL) UNDER THE TONGUE EVERY 5 (FIVE) MINUTES NEEDED FOR CHEST PAIN. (Patient not taking: Reported on 08/27/2025) predniSONE (DELTASONE) 20 MG tablet Take 1 tablet (20 mg total) by mouth daily with breakfast. (Patient not taking: Reported on 08/27/2025) Review of Systems Denies headaches/chest pains/dizziness/denies any bleeding Objective Physical Exam BP 90/58 (BP Location: Left arm, Patient Position: Sitting, Cuff Size: Medium) Pulse (!) 56 Temp 36.7 ??C (98 ??F) (Oral) Resp 16 Ht 175.3 cm (5' 9.02 ) Wt 104 kg (229 lb 3.2 oz) SpO2 97% BMI 33.83 kg/m?? GENERAL: Well developed, well nourished, in no acute distress. HEENT:PERRTL, EOM intact, fundi benign, TM's clear, throat clear. NECK: supple, no thyroid megaly, no adenopathy. LUNGS: clear to A&P,no wheezing/rhonichi/rales. HEART: RRR S1S2 without murmurs, rubs or gallops. ABDOMEN: bowel sounds: normal, soft non tender without masses. EXTREMITIES: without edema, clubbing or cyanosis. Assessment & Plan Routine medical exam Chronic combined systolic and diastolic heart failure Chronic heart failure with recent medication adjustment. Continuing Education Director changed timing of Entresto and carvedilol to noon, which may affect blood pressure. - Continue current medication regimen. - Monitor blood pressure closely. - Follow up with sas programmer as needed. Lightheadedness Intermittent lightheadedness possibly related to blood pressure fluctuations. Blood pressure recorded at 90/58 mmHg with a pulse of 47 bpm. - Monitor blood pressure regularly. - Evaluate for potential causes of blood pressure fluctuations. - Consider adjusting medication timing if symptoms persist. Recent gastrointestinal bleeding, resolved Recent gastrointestinal bleeding episode with hospitalization. CT scan suggested possible source, but colonoscopy showed no active bleeding. - Monitor for any signs of recurrent bleeding. - Follow up with gastroenterology if symptoms recur. Stage 3a chronic kidney disease Chronic kidney disease stage 3a, well-managed. - Continue monitoring renal function. - Ensure adequate hydration and avoid nephrotoxic agents. Chronic obstructive pulmonary disease (COPD) COPD with recent viral respiratory infection. Cough improved significantly with prednisone. Viral etiology confirmed, no bacterial infection. - Continue Mucinex for cough management. - Monitor respiratory status. - Avoid exposure to respiratory irritants. Essential hypertension Hypertension with recent medication timing adjustment. Blood pressure is erratic, sometimes low. - Continue current antihypertensive regimen. - Monitor blood pressure closely. - Adjust medication timing if necessary. I obtained verbal consent from the patient or their proxy to record this visit for purposes of producing a draft of the encounter documentation. documented in this encounter Plan of Treatment Upcoming Encounters Date Type Department Care Team (Late st Contact Info) Description 10/22/2025 3:00 PM EST Office Visit [facility] Internal Medicine [address] [place] [address] Willie Blair MD 40 [place] [address] 11/03/2025 11:00 AM EST Office Visit [facility] 10 [place] [address] Charlene Piedra, [address] [place] [phone] [email or web address] 02/11/2026 10:20 AM EDT Office Visit [facility] Pulmonary, Allergy and Critical Care Medicine 10 [place] [address] López Henry MD [address] [address] documented as of this encounter Results * (ABNORMAL) Comprehensive metabolic panel (08/27/2025 3:11 PM EDT) SODIUM 141 133 - 146 mmol/L [facility] POTASSIUM 4.8 3.3 - 5.1 mmol/L [facility] CHLORIDE 104 96 - 108 mmol/L [facility] CO2 27 21 - 35 mmol/L [facility] BUN 32(H) 6 - 19 mg/dL [facility] CREATININE 1.40 0.5 - 1.5 mg/dL [facility] GLUCOSE 101(H) 70 - 99 mg/dL [facility] ALBUMIN 3.7(L) 3.9 - 4.8 g/dL [facility] TOTAL PROTEIN 6.5 6.5 - 8.0 g/dL [facility] CALCIUM 9.4 8.4 - 10.3 mg/dL [facility] ALKALINE PHOSPHATASE 72 39 - 117 U/L [facility] TOTAL BILIRUBIN 0.5 0.0 - 1.2 mg/dL [facility] AST 16 0 - 37 U/L [facility] ALT 13 0 - 40 U/L [facility] GLOBULIN 2.8 1 - 4.8 g/dL [facility] EGFR 48(L) >59 mL/min/1.7 3m2 [facility] Comment:Estimated glomerular filtration rate calculated using the CKD-EPI refit equation. ANION GAP 15 10 - 20 mmol/L [facility] Blood 08/27/2025 3:11 PM EDT 08/27/2025 3:13 PM EDT us Willie Blair MD LAB BLOOD ORDERABLES Final Re sult [facility] [address] [place] [address] * (ABNORMAL) CBC and differential (08/27/2025 3:11 PM EDT) WBC 7.57 4.00 - 11.00 K/uL [facility] RBC 4.51 4.50 - 5.90 M/uL [facility] HGB 13.1(L) 13.5 - 17.5 g/dL [facility] HCT 42.3 41.0 - 53.0 % [facility] PLT 270 150 - 450 K/uL [facility] MCV 93.8 80.0 - 100.0 fL [facility] MCH 29.0 27.0 - 31.0 pg [facility] MCHC 31.0(L) 32.0 - 36.0 g/dL [facility] RDW 14.1 11.5 - 14.5 % [facility] MPV 11.3 8.4 - 12.0 fL [facility] NRBC 0.00 0.00 /100 WBCs [facility] ABSOLUTE NRBC 0.00 0.00 K/uL [facility] DIFF METHOD Auto [facility] NEUTS 69.4 48.0 - 76.0 % [facility] LYMPHS 14.8(L) 18.0 - 41.0 % [facility] MONOS 12.0(H) 4.0 - 11.0 % [facility] EOS 2.4 0.0 - 5.0 % [facility] BASOS 1.1 0.0 - 1.5 % [facility] Granulocytes, immature (%) 0.3 0.0 - 0.9 % [facility] ABSOLUTE NEUTS 5.26 1.92 - 7.60 K/uL [facility] ABSOLUTE LYMPHS 1.12 0.72 - 4.10 K/uL [facility] ABSOLUTE MONOS 0.91 0.16 - 1.10 K/uL [facility] ABSOLUTE EOS 0.18 0.00 - 0.50 K/uL [facility] ABSOLUTE BASOS 0.08 0.00 - 0.15 K/uL [facility] Granulocytes, immature 0.02 0.00 - 0.09 K/uL [facility] Blood 08/27/2025 3:11 PM EDT 08/27/2025 3:13 PM EDT us Willie Blair MD LAB BLOOD ORDERABLES Final Re sult [address] [address] documented in this encounter Visit Diagnoses Diagnosis Rectal bleeding- Primary Hemorrhage of rectum and anus documented in this encounter Additional Health Concerns Assessment Noted Time PHQ-9 Depression Total Score: 7 03/01/20 22 2:17 PM EDT PHQ-2 Depression Total Score: 2 03/23/20 25 3:56 PM EDT documented as of this encounter Care Teams Quality Improvement Coordinator Relationship Specialty Start Date End Date Willie Blair MD [address] [place] [address] [email or web address] PCP - General Internal Medicine 02/04/20 Willie Blair MD [address] [place] [address] [email or web address] Insurance Assigned Provider 02/08/24 Daniel Flores MD [address] [phone] [email or web address] 04/14/20 Delvin Waddell MD [address] [phone] [email or web address] Cardiology 04/14/20 Shaylee Dejesus MD [address] [place] [address] Otolaryngology 05/20/20 Tramaine Valle MD [address] [place] [address] [email or web address] Gastroenterology 11/30/20 Socorro Begum PA [address] [place] [address] Physician Assistant Mechanic Cardiology 04/06/24 documented as of this encounter Additional Source Comments The information contained in this document represents components of the legal health record. It is not the complete legal health record.[facility]
--- OUTSIDE RECORDS SUMMARY | 2025-08-27 15:11 | XMS_ITS | Encounter Summary ---
Author Organization [facility] Address [address] [place] [address] [place] [address] Phone Care Team Providers Care Neighborhood Coordinator Name Role Phone Willie Blair MD Unavailable Willie Blair MD Primary Care Provider [phone] Daniel Flores MD Unavailable [phone] Delvin Waddell MD Unavailable Shaylee Dejesus MD Unavailable [phone] Tramaine Valle MD Unavailable Socorro Begum Unavailable [phone] Encounter Details Date Type Department Care Team (Latest Contact Info) Description 08/27/2025 3:11 PM EDT - 08/27/2025 11:59 PM EDT Hospital Encounter [facility] [address] [place], [place] [id number] Willie Blair MD [address] [place], [place] [phone] [email or web address] Discharge Disposition: Home or Self Care Social History Tobacco Use Types Packs/Day Years [...] PM EDT documented as of this encounter Medications at Time of Discharge albuterol 90 mcg/actuation inhaler INHALE 2 PUFFS INTO THE LUNGS EVERY 6 (SIX) HOURS NEEDED FOR WHEEZING. 8.5 g 11 04/06/2025 ascorbic acid, vitamin C, (VITAMIN C) 500 MG tablet Take 1,000 mg by mouth daily. calcium citrate-vitamin D3 315 mg-6.25 mcg (250 unit) per tablet 2 in am and 1 in pm 100 tablet 3 09/14/2021 carvedilol (COREG) 3.125 MG tabletIndications: Essential hypertension 6.25 mg in am and 3.125 mg in pm 360 tablet 3 03/07/2025 dapagliflozin propanediol (FARXIGA) 5 mg tablet Take 5 mg by mouth daily. 03/18/2025 ELIQUIS 5 mg tabletIndications: Atrial fibrillation and flutter TAKE ONE TABLET BY MOUTH TWICE DAILY 60 tablet 11 01/11/2025 ENTRESTO 24-26 mg per tablet Take 1 tablet by mouth 2 (two) times a day. 03/23/2025 ferrous sulfate 325 mg (65 mg [place] iron) tablet Take 325 mg by mouth as directed. 5 days a week M-F 08/21/2021 finasteride (PROSCAR) 5 mg tabletIndications: BPH (benign prostatic hyperplasia) TAKE ONE TABLET BY MOUTH EVERY MORNING 90 tablet 3 08/02/2025 furosemide (LASIX) 20 MG tablet Take 20 mg by mouth daily. loperamide (IMODIUM A-D) 2 mg tablet Take 2 mg by mouth 3 (three) times a day as needed for diarrhea. nitroglycerin (NITROSTAT) 0.4 MG SL tabletIndications: Precordial pain PLACE 1 TABLET (0.4 MG TOTAL) UNDER THE TONGUE EVERY 5 (FIVE) MINUTES NEEDED FOR CHEST PAIN. 25 tablet 3 08/02/2025 omeprazole (PRILOSEC) 40 MG capsule TAKE ONE CAPSULE BY MOUTH ONCE DAILY 90 capsule 3 11/16/2024 predniSONE (DELTASONE) 20 MG tablet Take 1 tablet (20 mg total) by mouth daily with breakfast. 5 tablet 08/20/2025 documented as of this encounter Plan of Treatment Upcoming Encounters Date Type Department Care Team (Late st Contact Info) Description 10/22/2025 3:00 PM EST Office Visit [facility] Internal Medicine [address] [place] [address] Willie Blair MD [address] [place] [address] 11/03/2025 11:00 AM EST Office Visit [facility] [address] [place] [address] Charlene Piedra, [address] [address] [email or web address] 02/11/2026 10:20 AM EDT Office Visit [facility] Pulmonary, Allergy and Critical Care Medicine 10 [facility] [place] [address] López Henry MD 10 [facility] 2nd [place] [address] documented as of this encounter Procedures Procedure Name Priority Date/Time Associated Diagnosis Comments COMPREHENSIVE METABOLIC PANEL Routine 08/27/2025 3:11 PM EDT Rectal bleeding CBC AND DIFFERENTIAL Routine 08/27/2025 3:11 PM EDT Rectal bleeding documented in this encounter Results * (ABNORMAL) CBC and differential (08/27/2025 3:11 PM EDT) WBC 7.57 4.00 - 11.00 K/uL [facility] RBC 4.51 4.50 - 5.90 M/uL [facility] HGB 13.1(L) 13.5 - 17.5 g/dL [facility] HCT 42.3 41.0 - 53.0 % [facility] PLT 270 150 - 450 K/uL [facility] MCV 93.8 80.0 - 100.0 fL [facility] MCH 29.0 27.0 - 31.0 pg [facility] MCHC 31.0(L) 32.0 - 36.0 g/dL [facility] RDW 14.1 11.5 - 14.5 % [facility] MPV 11.3 8.4 - 12.0 fL [facility] NRBC 0.00 0.00 /100 WBCs [facility] ABSOLUTE NRBC 0.00 0.00 K/uL [facility] DIFF METHOD Auto [facility] NEUTS 69.4 48.0 - 76.0 % [facility] LYMPHS 14.8(L) 18.0 - 41.0 % [facility] MONOS 12.0(H) 4.0 - 11.0 % [facility] EOS 2.4 0.0 - 5.0 % [facility] BASOS 1.1 0.0 - 1.5 % [facility] Granulocytes, immature (%) 0.3 0.0 - 0.9 % [facility] ABSOLUTE NEUTS 5.26 1.92 - 7.60 K/uL [facility] ABSOLUTE LYMPHS 1.12 0.72 - 4.10 K/uL [facility] ABSOLUTE MONOS 0.91 0.16 - 1.10 K/uL [facility] ABSOLUTE EOS 0.18 0.00 - 0.50 K/uL [facility] ABSOLUTE BASOS 0.08 0.00 - 0.15 K/uL [facility] Granulocytes, immature 0.02 0.00 - 0.09 K/uL [facility] Blood 08/27/2025 3:11 PM EDT 08/27/2025 3:13 PM EDT us Willie Blair MD LAB BLOOD ORDERABLES Final Re sult [address] [address] * (ABNORMAL) Comprehensive metabolic panel (08/27/2025 3:11 PM EDT) SODIUM 141 133 - 146 mmol/L [facility] POTASSIUM 4.8 3.3 - 5.1 mmol/L [facility] CHLORIDE 104 96 - 108 mmol/L [facility] CO2 27 21 - 35 mmol/L [facility] BUN 32(H) 6 - 19 mg/dL [facility] CREATININE 1.40 0.5 - 1.5 mg/dL [facility] GLUCOSE 101(H) 70 - 99 mg/dL [facility] ALBUMIN 3.7(L) 3.9 - 4.8 g/dL [facility] TOTAL PROTEIN 6.5 6.5 - 8.0 g/dL [facility] CALCIUM 9.4 8.4 - 10.3 mg/dL [facility] ALKALINE PHOSPHATASE 72 39 - 117 U/L [facility] TOTAL BILIRUBIN 0.5 0.0 - 1.2 mg/dL [facility] AST 16 0 - 37 U/L [facility] ALT 13 0 - 40 U/L [facility] GLOBULIN 2.8 1 - 4.8 g/dL [facility] EGFR 48(L) >59 mL/min/1.7 3m2 [facility] Comment:Estimated glomerular filtration rate calculated using the CKD-EPI refit equation. ANION GAP 15 10 - 20 mmol/L [facility] Blood 08/27/2025 3:11 PM EDT 08/27/2025 3:13 PM EDT us Willie Blair MD LAB BLOOD ORDERABLES Final Re sult [address] [address] documented in this encounter Visit Diagnoses Diagnosis Rectal bleeding Hemorrhage of rectum and anus documented in this encounter Additional Health Concerns Assessment Noted Time PHQ-9 Depression Total Score: 7 03/01/20 22 2:17 PM EDT PHQ-2 Depression Total Score: 2 03/23/20 25 3:56 PM EDT documented as of this encounter Care Teams Neighborhood Coordinator Relationship Specialty Start Date End Date Willie Blair MD [address] [place] [address] [email or web address] PCP - General Internal Medicine 02/04/20 Willie Blair MD [address] [place] [address] [email or web address] Insurance Assigned Provider 02/08/24 Daniel Flores MD [address] [phone] [email or web address] 04/14/20 Delvin Waddell MD [address] [phone] [email or web address] Cardiology 04/14/20 Shaylee Dejesus MD [address] [place] [address] Otolaryngology 05/20/20 Tramaine Valle MD [address] [place] [address] [email or web address] Gastroenterology 11/30/20 Socorro Begum PA [address] [place] [address] Physician Cosmetic Sales Assistant Cardiology 04/06/24 documented as of this encounter Additional Source Comments The information contained in this document represents components of the legal health record. It is not the complete legal health record.[facility]
--- OUTSIDE RECORDS SUMMARY | 2025-08-30 17:37 | XMS_ITS | Encounter Summary ---
Author Organization [facility] Address [address] [place] [address] [place] [address] Phone Care Team Providers Care Gear Grinder Name Role Phone Willie Blair MD Unavailable Willie Blair MD Primary Care Provider Daniel Flores MD Unavailable Delvin Waddell MD Unavailable Shaylee Dejesus MD Unavailable Tramaine Valle MD Unavailable [phone] Maxx Gardner OT Unavailable [phone] Chantel Philippe RN Unavailable [phone] Keily Gomez OT Unavailable Socorro Begum Unavailable [phone] Keily Gomez OT Unavailable [phone] Encounter Details Date Type Department Care Team (Late st Contact Info) Description 05/19/2021 Procedure Pass [facility], Ct Scan - [address] [phone] Social History Tobacco Use Types Packs/Day Years [...] 4:56 PM EDT Taylor Byrd RN * Solo Suicide Severity Rating Scale (Screener/Recent Self-Report) Question Answer Date of Assessment Author 1. Wish to be (Past 1 Month) No 021 4:56 PM EDT Taylor Byrd RN 2. Non-Specific Active Suici laayna Thoughts (Past 1 Month) No 05/19/2021 4:56 PM EDT Taylor Byrd RN 6. Suicidal Behavior (Lifetime) No 4:56 PM EDT Taylor Byrd RN documented as of this encounter Plan of Treatment Upcoming Encounters Date Type Department Care Team (Late st Contact Info) Description 10/22/2025 3:00 PM EST Office Visit [facility] Internal Medicine [address] [place] [address] Willie Blair MD [address] [place] [address] 11/03/2025 11:00 AM EST Office Visit [facility] Gastroenterology Clinic 10 [place] [address] Charlene Piedra, [address] [address] [email or web address] 02/11/2026 10:20 AM EDT Office Visit [facility] Pulmonary, Allergy and Critical Care Medicine 10 [place] [address] López Henry MD 10 [facility] 2nd [place] [address] [email or web address] documented as of [...] documented as of this encounter Care Teams Gear Grinder Relationship Specialty Start Date End Date Willie Blair MD [address] [place] [address] [email or web address] PCP - General Internal Medicine 02/04/20 Willie Blair MD [address] [place] [address] [email or web address] Insurance Assigned Provider 02/08/24 Daniel Flores MD [address] [phone] [email or web address] Urology 04/14/20 Delvin Waddell MD 100 [facility] [address] [place] [address] [email or web address] Cardiology 04/14/20 Shaylee Dejesus MD [address] [place] [address] [address] [place] [address] Otolaryngology 05/20/20 Tramaine Valle MD [address] [place] [address] [email or web address] Gastroenterology 11/30/20 Maxx Gardner, OT [address] [place] [address] [email or web address] Transitions Manager TechnologyMachine Hoop Maker Helper Therapy 05/22/21 Chantel Philippe, RN 10 [place] [address] [email or web address] [email or web address] Court Recorder 10/12/22 10/31/22 Keily Gomez, OT [address] [place] [address] [email or web address] Transitions Manager [employer] Hoop Maker Helper Therapy 12/30/23 Socorro Begum PA [address] [place] [address] Physician Budget Director Cardiology 04/06/24 Keily Gomez, OT [address] [place] [address] [email or web address] Transitions Manager Technology[employer] Hoop Maker Helper Therapy 03/01/25 documented as of this encounter Additional Source Comments The information contained in this document represents components of the legal health record. It is not the complete legal health record.[facility]
--- OUTSIDE RECORDS SUMMARY | 2025-08-30 17:37 | XMS_ITS | Data Portability ---
Author Organization [place] [facility], Allergy Address [address] [place] [phone] Care Team Providers Care Cementer Machine Joiner Name Role Phone GOPAL LAGUNA Primary Care Provider Assessment Encounter Date Assessment Date Assessment LastModified by Organization Details LastModified Time 07/21/2024 07/21/2024 Impacted cerumen was debrided bilaterally today. Ear exam is otherwise normal. He will follow up in six months. [email or web address] Not available 07/21/2024 11:11:29 01/11/2025 01/11/2025 Ears were meticulously cleaned bilaterally today with fine pics and suction. Patient is encouraged to avoid Q-tips in his ears relative to packing the wax in tighter. He noted subjective improvement in his hearing after the ear cleaning. He will follow up in 6 months for repeat ear cleaning. [email or web address] Not available 01/11/2025 16:07:33 Plan of Treatment Reminders Order Date Submit Date Provider Last Modified By Organization Details Last Modified Time Details Appointments Establish ed 15 2024 03:00P M JOSE DIAZ MD Not available Not available Not available Lab None recorded. Referral None recorded. Procedures None recorded. Surgeries None recorded. Imaging None recorded. Medication Orders None recorded. Patient TargetsNo targets recorded. Patient InstructionsNo instructions recorded. Reason for Referral None Reported. Results Created Date Observation Date Name Description Value Unit Range Abnormal Flag Note LastModifiedBy Organization Detail LastModifiedTime 06/25/2012/11/2021 imagi ng/di agnos tic resul t No observ ation record ed. [email or web address] Not Available 02:22:16 06/25/20 24 07/30/2019 imagi ng/di agnos tic resul t No observ ation record ed. [email or web address] Not Available 02:23:18 06/25/20 24 12/11/2021 audio gram No observ ation record ed. [email or web address] Not Available 02:23:49 Result Notes None recorded. Problems Name Problem SNOMED Code Status Onset Date Resolution Date Notes Provider Name and Address Organization Details Recorded Time Sensorine ural hearing loss of bilateral ears 186482110 Active 2021 Sensorine ural hearing loss, bilateral ; Note: Date Diagnosed : 12/11/2021 11:00 AM (H90.3) Not Available [facility] 4 02:22:15 Glossodyn ia 69398924 Active 2021 Glossodyn ia; Note: Date Diagnosed : 12/11/2021 12:27 PM (K14.6) Not Available [facility] 4 02:22:32 Impacted cerumen of bilateral ears 86792637783 [address] Active 2021 Impacted cerumen, bilateral ; Note: Date Diagnosed : 06/11/2022 1:26 PM (H61.23) Not Available [facility] 4 02:22:37 Problem Notes None recorded. Procedures Surgical History Date Name Laterality Status Provider Name and Address Organization Details Recorded Time 5 Cerumen removal without microscope bilat completed Chidi Flor [place] [facility] 01/11/2025 16:07:03 Imaging Results None recorded. Procedure Notes None recorded. Medical Equipment None Reported. Allergies Allergen ID Allergen Name Allergen Category Reaction Reaction Severity Criticality Documentation Date Start Date Code Code System Note Provider Name and Address Organization Details Recorded Time 70436 Product containin g penicilli n (product) medicatio n Not available Not available Not available 03/17/2024 45321 8001 SNOMED React ion: other react ion, Lip swell ing; Not Available [facility] 4 00:56:08 20163 lisinopri l medicatio n Not available Not available Not available 03/17/2024 02924 RxNorm React ion: other react ion, Lip swell ing; Not Available [facility] 4 00:56:09 Medications Name Sig Start Date Stop Date Status Note LastModified by Organization Details LastModified Time losartan 50 mg tablet active Not Available Not Available No t Available clotrimazole 10 mg tina 2021 active Medication ID: [id number] Brand Name: clotrimazole Send Method: E-Prescribed Subs Allowed: subs [place] Medicatio nGenericName : clotrimazole Not Available Not Available Not Available cefpodoxime 200 mg tablet active Not Available Not Available Not Available Iron (ferrous sulfate) 325 mg (65 mg iron) tablet 2021 active Medication ID: [id number] Brand Name: Iron (ferrous sulfate) Sen d Method: E-Prescribed Subs Allowed: subs [place] Medicatio nGenericName : Iron (ferrous sulfate) Not Available Not Available Not Available Claritin 10 mg tablet 2021 active Medication ID: [id number] Brand Name: Claritin Sen d Method: E-Prescribed Subs Allowed: subs [place] Medicatio nGenericName : Claritin Not Available Not Available Not Available chlorthalido ne 25 mg tablet active Not Available Not Available Not Available omeprazole 40 mg capsule,neema yed release active Not Available Not Available Not Available spironolacto ne 25 mg tablet active Not Available Not Available Not Available carvedilol 3.125 mg tablet active Not Available Not Available Not Available famotidine 20 mg tablet active Not Available Not Available Not Available losartan 25 mg tablet active Not Available Not Available No t Available nitroglyceri n 0.4 mg sublingual tablet active Not Available Not Available Not Available doxazosin 4 mg tablet active Not Available Not Available No t Available Tylenol 325 mg tablet 2021 active Medication ID: [id number] Brand Name: Tylenol Send Method: E-Prescribed Subs Allowed: subs [place] Medicatio nGenericName : Tylenol Not Available Not Available Not Available Culturelle 10 billion cell capsule 2021 active Medication ID: [id number] Brand Name: Culturelle S end Method: E-Prescribed Subs Allowed: subs [place] Medicatio nGenericName : Culturelle Not Available Not Available Not Available furosemide 20 mg tablet active Not Available Not Available Not Available albuterol sulfate HFA 90 mcg/actuatio n aerosol inhaler active Not Available Not Available Not Available fluticasone propionate 50 mcg/actuatio n nasal spray,suspen ailyn 2021 active Medication ID: [id number] Brand Name: fluticasone propionate S end Method: E-Prescribed Subs Allowed: subs [place] Medicatio nGenericName : fluticasone propionate Not Available Not Available Not Available finasteride 5 mg tablet active Not Available Not Available Not Available Vitamin D3 25 mcg (1,000 unit) chewable tablet 2021 active Medication ID: [id number] Brand Name: Vitamin D3 Send Method: E-Prescribed Subs Allowed: subs [place] Medicatio nGenericName : Vitamin D3 Not Available Not Available Not Available Eliquis 5 mg tablet active Not Available Not Available Not Available Farxiga 10 mg tablet active Not Available Not Available No t Available Farxiga 5 mg tablet active Not Available Not Available Not Available Incruse Ellipta 62.5 mcg/actuatio n powder for inhalation active Not Available Not Available N ot Available Citracal-D3 Maximum Plus 325 mg-12.5 mcg-2.75 mg tablet 2021 active Medication ID: [id number] Brand Name: Citracal + D Maximum Send Method: E-Prescribed Subs Allowed: subs [place] Medicatio nGenericName : Citracal + D Maximum Not Available Not Available Not Available Vitals Date Recorded Body height Body mass index (BMI) Body weight Provider Name and Address Organization Details Last Updated DateTime 01/11/2025 175.26 cm 35.4 kg/m2 586738.17 g Cecilia Carson [facility] 01/11/2025 15:34:41 Date Recorded Body height Body mass index (BMI) Body weight Provider Name and Address Organization Details Last Updated DateTime 07/21/2024 175.26 cm 35.4 kg/m2 904983.17 g Cecilia Carson [facility] 07/21/2024 10:06:51 Social History None recorded. Functional Status None recorded. Mental Status None recorded. Family History Nothing Reported. Medical History No medical history recorded. Past Encounters Encounter ID Performer Location Encounter Start Date Encounter Closed Date Diagnosis/Indication Diagnosis SNOMED-CT Code Diagnosis ICD10 Code Diagnosis IMO Codes Diagnosis Note [id number] JAHAIRA BAIG PA-C [facility] [address] [address] 07/21/2024 09:53:00 07/21/2024 10:20:03 Impacted cerumen of bilateral ears 6820421521 966376 H61.23 [id number] CHIDI FLOR PA-C [facility] on [address] [place] [address] 01/11/2025 15:24:47 01/11/2025 16:36:05 Impacted cerumen of bilateral ears [id number] 205074 H61.23 Health Concerns Section Related Observation LastModified by Organization Detai ls LastModified Time None Recorded Concern Status LastModified by Organization Details LastModified Time None Recorded Advance Directives Directive None Recorded Payers Insurance Date Sequence Insurance Name Policy Number Policy Cleaning Covered Member ID Cleaning Member ID Guarantor Name 07/12/2025 2 [place] [id number] Murphy Gutierrezam [id number] Murphy Florian 07/12/2025 1 [place] [employer] SERVICES Murphy Marcos Florian [id number] Murphy Du Notes Date Note Type Note Provider Name and Address Organization Details Recorded Time 07/21/2024 text/html ROS as noted in the HPI 89 year old male presents today for an ear cleaning. He has bilateral hearing aids from [employer]. No concerns today. JOSE DIAZ MD [address] [place] [address], [phone], [facility] 07/21/2024 13:59:27 01/11/2025 text/html ROS as noted in the HPI Gómez is an 89 year old male who presents to the office with his [place] for routine ear cleaning. No acute concerns. He uses bilateral amplification. MURPHY ZEPEDA MD [address] [place] [address], [phone], [facility] 01/12/2025 08:00:25
--- OUTSIDE RECORDS SUMMARY | 2025-08-30 17:37 | XMS_ITS | Encounter Summary ---
Author Organization [facility] Address [address] [place] [address] [place] [address] Phone Care Team Providers Care Banquet Supervisor Name Role Phone Willie Blair MD Unavailable [phone] Willie Blair MD Primary Care Provider [phone] Daniel Flores MD Unavailable Delvin Waddell MD Unavailable Shaylee Dejesus MD Unavailable Tramaine Valle MD Unavailable [phone] Socorro Begum Unavailable [phone] Keily Gomez OT Unavailable [phone] Encounter Details Date Type Department Care Team (Late st Contact Info) Description 12/02/2024 Procedure Pass [facility] Endoscopy Admitting Dept Virtual Department 30 [place], [place] [id number] Social History Tobacco Use Types Packs/Day Years [...] Description 10/22/2025 3:00 PM EST Office Visit [facility] 40 [place] [address] Willie Blair MD 40 [place] [address] 11/03/2025 11:00 AM EST Office Visit [facility] Gastroenterology Clinic 10 [place] [address] Charlene Piedra SUPERVISOR BEEHIVE KILN 10 [facility] 2 [place] [address] [email or web address] 02/11/2026 10:20 AM EDT Office Visit [facility] Pulmonary, Allergy and Critical Care Medicine 10 [facility] [place] [address] López Henry MD [address] [place] [address] documented as of this encounter Visit Diagnoses Not on filedocumented in this encounter Additional Health Concerns Infection Onset Date Last Indicated Resolved Time CoV-Risk 12/31/2024 12/31/2024 01/11/2025 1:22 AM EDT CoV-Risk Comment:Per note documentation 02/27/2025 02/27/2025 7:29 AM EDT CoV-Risk 08/16/2025 08/16/2025 08/27/2025 1:21 AM EDT Assessment Noted Time PHQ-9 Depression Total Score: 7 03/01/20 2:17 PM EDT PHQ-2 Depression Total Score: 0 03/18/20 24 7:47 PM EDT documented as of this encounter Care Teams Banquet Supervisor Relationship Specialty Start Date End Date Willie Blair MD 40 [place] [address] PCP - General Internal Medicine 02/04/20 Willie Blair MD 40 [place] [address] Insurance Assigned Provider 02/08/24 Daniel Flores MD [address] [place] [address] 120 [place] [address] [email or web address] Urology 04/14/20 Delvin Waddell MD 100 [facility] 120 [place] [address] [email or web address] Cardiology 04/14/20 Shaylee Dejesus MD [address] [place] [address] 106 [place] [address] Otolaryngology 05/20/20 Tramaine Valle MD [address] [place] [address] 2 [place] [address] [email or web address] Gastroenterology 11/30/20 Socorro Begum PA [address] [place] [address] Physician Mixer Operator Cardiology 04/06/24 Keily Gomez, OT 30 [place] [address] [email or web address] Transitions Airport AttendantMechanical Reliability Engineer Therapy 03/01/25 documented as of this encounter Additional Source Comments The information contained in this document represents components of the legal health record. It is not the complete legal health record.[facility]
--- OUTSIDE RECORDS SUMMARY | 2025-08-30 17:37 | XMS_ITS | Encounter Summary ---
Author Organization [facility] Address [address] [place] [address] [place] [address] Phone Care Team Providers Care Electronics Utility Worker Name Role Phone Willie Blair MD Unavailable [phone] Willie Blair MD Primary Care Provider Daniel Flores MD Unavailable Delvin Waddell MD Unavailable Shaylee Dejesus MD Unavailable Tramaine Valle MD Unavailable [phone] Maxx Gardner OT Unavailable [phone] Chantel Philippe RN Unavailable [phone] Keily Gomez OT Unavailable [phone] Socorro Begum Unavailable [phone] Keily Gomez OT Unavailable [phone] Encounter Details Date Type Department Care Team (Late st Contact Info) Description 05/23/2021 Procedure Pass [facility] Cardiovascular And Interventional Radiology 30 [place] [address] Social History Tobacco Use Types Packs/Day Years [...] Description 10/22/2025 3:00 PM EST Office Visit [facility] Internal Medicine 40 [place] [address] Willie Blair MD 40 [place] [address] 11/03/2025 11:00 AM EST Office Visit [facility] Gastroenterology Clinic 10 [place] [address] Charlene Piedra, RIVET HEATER [employer] [address] [address] [email or web address] 02/11/2026 10:20 AM EDT Office Visit [facility] Pulmonary, Allergy and Critical Care Medicine 10 [facility] [place] [address] López Henry MD [address] [address] documented as of this encounter Visit Diagnoses [...] documented as of this encounter Care Teams Electronics Utility Worker Relationship Specialty Start Date End Date Willie Blair MD 40 [place] [address] [email or web address] PCP - General Internal Medicine 02/04/20 Willie Blair MD 40 [place] [address] [email or web address] Insurance Assigned Provider 02/08/24 Daniel Flores MD [address] [address] [email or web address] medical [email or web address].[email or web address] Urology 04/14/20 Delvin Waddell MD [address] [address] [email or web address] memorial [email or web address] Cardiology 04/14/20 Shaylee Dejesus MD [address] [place] [address] Otolaryngology 05/20/20 Tramaine Valle MD [address] [place] [address] [email or web address] Gastroenterology 11/30/20 Maxx Gardner, OT [address] [place] [address] [email or web address] Transitions Imaging TechnologistForging Machine Operator Therapy 05/22/21 Chantel Philippe, RN [address] [place] [address] [email or web address] [facility] Imaging TechnologistCutter Wet Machine 10/12/22 10/31/22 Keily Gomez, OT 30 [place] [address] [email or web address] Transitions Imaging TechnologistForging Machine Operator Therapy 12/30/23 Socorro Begum PA [address] [place] [address] Physician Hospital Insurance Representative Cardiology 04/06/24 Keily Gomez, OT 30 [place] [address] [email or web address] Transitions Imaging TechnologistForging Machine Operator Therapy 03/01/25 documented as of this encounter Additional Source Comments The information contained in this document represents components of the legal health record. It is not the complete legal health record.[facility]
--- OUTSIDE RECORDS SUMMARY | 2025-08-30 17:37 | XMS_ITS | Encounter Summary ---
Author Organization [facility] Address [address] [place] [address] [place] [address] Phone Care Team Providers Care Lace Finisher Name Role Phone Willie Blair MD Unavailable [phone] Willie Blair MD Primary Care Provider Daniel Flores MD Unavailable Delvin Waddell MD Unavailable Shaylee Dejesus MD Unavailable Tramaine Valle MD Unavailable [phone] Maxx Gardner OT Unavailable [phone] Chantel Philippe RN Unavailable [phone] Keily Gomez OT Unavailable Socorro Begum Unavailable [phone] Keily Gomez OT Unavailable [phone] Encounter Details Date Type Department Care Team (Late st Contact Info) Description 05/25/2021 Procedure Pass [facility] Cardiovascular And Interventional Radiology 30 [place] [address] Social History Tobacco Use Types Packs/Day Years [...] Description 10/22/2025 3:00 PM EST Office Visit [facility] Internal Medicine 40 [place] [address] Willie Blair MD 40 [place] [address] 11/03/2025 11:00 AM EST Office [facility] Gastroenterology Clinic 10 [place] [address] Charlene Piedra, VP GLOBAL [address] [address] [email or web address] 02/11/2026 10:20 AM EDT Office Visit [facility] Pulmonary, Allergy and Critical Care Medicine 10 [facility] [place] [address] López Henry MD [address] [address] documented as of this encounter Visit Diagnoses [...] documented as of this encounter Care Teams Lace Finisher Relationship Specialty Start Date End Date Willie Blair MD 40 [place] [address] [email or web address] PCP - General Internal Medicine 02/04/20 Willie Blair MD 40 [place] [address] [email or web address] Insurance Assigned Provider 02/08/24 Daniel Flores MD [address] [address] [email or web address] Urology 04/14/20 Delvin Waddell MD [address] [address] [email or web address].[facility] Cardiology 04/14/20 Shaylee Dejesus MD [address] [place] [address] Otolaryngology 05/20/20 Tramaine Valle MD [address] [place] [address] [email or web address] Gastroenterology 11/30/20 Maxx Gardner, OT [address] [place] [address] [email or web address] Transitions Management RepDeskidding Machine Operator Therapy 05/22/21 Chantel Philippe, RN [address] [place] [address] [email or web address] [facility] Management RepFelt Coverer 10/12/22 10/31/22 Keily Gomez, OT 30 [place] [address] [email or web address] Transitions Management RepDeskidding Machine Operator Therapy 12/30/23 Socorro Begum PA [address] [place] [address] Physician Deck And Hull Assembler Cardiology 04/06/24 Keily Gomez, OT 30 [place] [address] [email or web address] Transitions Management RepDeskidding Machine Operator Therapy 03/01/25 documented as of this encounter Additional Source Comments The information contained in this document represents components of the legal health record. It is not the complete legal health record.[facility]
--- OUTSIDE RECORDS SUMMARY | 2025-08-30 17:37 | XMS_ITS | Encounter Summary ---
Author Organization [facility] Address [address] [place] [address] [place] [address] Phone Care Team Providers Care Computer Systems Integrator Name Role Phone Willie Blair MD Unavailable [phone] Willie Blair MD Primary Care Provider Daniel Flores MD Unavailable Delvin Waddell MD Unavailable Shaylee Dejesus MD Unavailable Tramaine Valle MD Unavailable [phone] Maxx Gardner OT Unavailable [phone] Chantel Philippe RN Unavailable [phone] Keliy Gomez OT Unavailable Socorro Begum Unavailable [phone] Keily Gomez OT Unavailable [phone] Encounter Details Date Type Department Care Team (Late st Contact Info) Description 05/21/2021 Procedure Pass [facility], [address] [id number] Social History Tobacco Use Types Packs/Day Years [...] Description 10/22/2025 3:00 PM EST [facility] Medicine 40 [place] [address] Willie Blair MD 40 [place] [address] 11/03/2025 11:00 AM EST Office Visit [facility] Gastroenterology Clinic 10 [place] [address] Charlene Piedra, [address] [address] [email or web address] 02/11/2026 10:20 AM EDT Office Visit [facility] Pulmonary, Allergy and Critical Care Medicine 10 [place] [address] López Henry MD [address] [address] documented as of this encounter Visit Diagnoses [...] documented as of this encounter Care Teams Computer Systems Integrator Relationship Specialty Start Date End Date Willie Blair MD 40 [place] [address] [email or web address] PCP - General Internal Medicine 02/04/20 Willie Blair MD 40 [place] [address] [email or web address] Insurance Assigned Provider 02/08/24 Daniel Flores MD [address] [address] [email or web address] francis hospital & [email or web address] services.[facility] Urology 04/14/20 Delvin Waddell MD [address] [address] [email or web address] Cardiology 04/14/20 Shaylee Dejesus MD [address] [place] [address] Dr [facility]IX [facility] [place] [address] Otolaryngology 05/20/20 Tramaine Valle MD [address] [address] [email or web address] Gastroenterology 11/30/20 Maxx Gardner, OT 10 [place] [address] [email or web address] Transitions Laborer Dairy FarmMeat Seafood Associate Therapy 05/22/21 Chantel Philippe, RN [address] [place] [address] [email or web address] Laborer Dairy FarmOverhauler Bus Truck 10/12/22 10/31/22 Keily Gomez, OT 30 [place] [address] [email or web address] Transitions Laborer Dairy FarmMeat Seafood Associate Therapy 12/30/23 Socorro Begum PA [address] [place] [address] Physician Pharmacist Helper Cardiology 04/06/24 Keily Gomez, OT 30 [place] [address] [email or web address] Transitions Laborer Dairy FarmMeat Seafood Associate Therapy 03/01/25 documented as of this encounter Additional Source Comments The information contained in this document represents components of the legal health record. It is not the complete legal health record.[facility]
--- OUTSIDE RECORDS SUMMARY | 2025-08-30 17:37 | XMS_ITS | Encounter Summary ---
Author Organization [facility] Address [address] [place] [address] [place] [address] Phone Care Team Providers Care Riding Silks Custodian Name Role Phone Wlilie Blair MD Unavailable [phone] Willie Blair MD Primary Care Provider [phone] Daniel Flores MD Unavailable Delvin Waddell MD Unavailable [phone] Shaylee Dejesus MD Unavailable Tramaine Valle MD Unavailable [phone] Maxx Gardner OT Unavailable [phone] Chantel Philippe RN Unavailable [phone] Keily Gomez OT Unavailable [phone] Socorro Begum Unavailable [phone] Keily Gomez OT Unavailable [phone] Encounter Details Date Type Department Care Team (Late st Contact Info) Description 05/22/2021 Procedure Pass [facility] Cardiovascular And Interventional Radiology 30 [place] [address] Social History Tobacco Use Types Packs/Day Years [...] Description 10/22/2025 3:00 PM EST Office Visit [facility] Internal Medicine 40 [place] [address] Willie Blair MD 40 [place] [address] 11/03/2025 11:00 AM EST Office Visit [facility] Gastroenterology Clinic 10 [place] [address] Charlene Piedra, VISUAL COMMUNICATIONS INSTRUCTOR [address] [address] [email or web address] 02/11/2026 10:20 AM EDT Office Visit [facility] Pulmonary, Allergy and Critical Care Medicine 10 [facility] [place] [address] López Henry MD [address] [address] documented as of this encounter Visit Diagnoses [...] documented as of this encounter Care Teams Riding Silks Custodian Relationship Specialty Start Date End Date Willie Blair MD 40 [place] [address] [email or web address] PCP - General Internal Medicine 02/04/20 Willie Blair MD 40 [place] [address] [email or web address] Insurance Assigned Provider 02/08/24 Daniel Flores MD [address] [address] [email or web address] Urology 04/14/20 Delvin Waddell MD [address] [address] [email or web address] Cardiology 04/14/20 Shaylee Dejesus MD [address] [place] [address] Otolaryngology 05/20/20 Tramaine Valle MD [address] [place] [address] [email or web address] Gastroenterology 11/30/20 Maxx Gardner, OT [address] [place] [address] [email or web address] Transitions Ladle CleanerChanger Fixer Therapy 05/22/21 Chantel Philippe, RN [address] [place] [address] [email or web address] [facility] Ladle CleanerRodent Control Worker 10/12/22 10/31/22 Keily Gomez, OT 30 [place] [address] [email or web address] Transitions Ladle CleanerChanger Fixer Therapy 12/30/23 Socorro Begum PA [address] [place] [address] Physician Automatic Vulcanizing [place] Operator Cardiology 04/06/24 Keily Gomez, OT 30 [place] [address] [email or web address] Transitions Ladle CleanerChanger Fixer Therapy 03/01/25 documented as of this encounter Additional Source Comments The information contained in this document represents components of the legal health record. It is not the complete legal health record.[facility]
--- OUTSIDE RECORDS SUMMARY | 2025-08-30 17:37 | XMS_ITS | Encounter Summary ---
Author Organization [facility] Address [address] [place] [address] [place] [address] Phone Care Team Providers Care Stringed Instrument Assembler Name Role Phone Willie Blair MD Unavailable [phone] Willie Blair MD Primary Care Provider Daniel Flores MD Unavailable Delvin Waddell MD Unavailable [phone] Shaylee Dejesus MD Unavailable Tramaine Valle MD Unavailable [phone] Chantel Philippe RN Unavailable [phone] Keily Gomez OT Unavailable Socorro Begum Unavailable [phone] Keily Gomez OT Unavailable [phone] Encounter Details Date Type Department Care Team (Late st Contact Info) Description 08/28/2021 Procedure Pass [facility] Endoscopy Admitting Dept Virtual Department [address] [place] [address] Social History Tobacco Use Types Packs/Day Years [...] Description 10/22/2025 3:00 PM EST Office Visit [facility] Internal Medicine 40 [place] [address] Willie Blair MD 40 [place] [address] 11/03/2025 11:00 AM EST Office Visit [facility] Gastroenterology Clinic 10 [place] [address] Charlene Piedra, HOSE TUBING BACKER [address] [address] [email or web address] 02/11/2026 10:20 AM EDT Office Visit [facility] Pulmonary, Allergy and Critical Care Medicine 10 [place] [address] López Henry MD [address] [address] documented as of this encounter Visit Diagnoses [...] documented as of this encounter Care Teams Stringed Instrument Assembler Relationship Specialty Start Date End Date Willie Blair MD 40 [place] [address] [email or web address] PCP - General Internal Medicine 02/04/20 Willie Blair MD 40 [place] [address] [email or web address] Insurance Assigned Provider 02/08/24 Daniel Flores MD [address] [address] [email or web address] Urology 04/14/20 Delvin Waddell MD [address] [address] [email or web address] Cardiology 04/14/20 Shaylee Dejesus MD [address] [place] [address] Dr [address]ELIX [address] [place] [address] Otolaryngology 05/20/20 Tramaine Valle MD [address] [place] [address] [place] [address] [email or web address] Gastroenterology 11/30/20 Chantel Philippe, RN 10 [place] [address] [email or web address] PHCM House MoverHeat Treat Worker 10/12/22 10/31/22 Keily Gomez, OT 30 [place] [address] [email or web address] Transitions House MoverSnuff Container Inspector Therapy 12/30/23 Socorro Begum PA [address] [place] [address] Physician Lens Blank Gauger Cardiology 04/06/24 Keily Gomez, OT 30 [place] [address] [email or web address] Transitions House MoverSnuff Container Inspector Therapy 03/01/25 documented as of this encounter Additional Source Comments The information contained in this document represents components of the legal health record. It is not the complete legal health record.[facility]
--- OUTSIDE RECORDS SUMMARY | 2025-08-30 17:37 | XMS_ITS | Encounter Summary ---
Author Organization [facility] Address [address] [place] [address] [place] [address] Phone Care Team Providers Care Property Supervisor Name Role Phone Willie Blair MD Unavailable [phone] Willie Blair MD Primary Care Provider Daniel Flores MD Unavailable [phone] Delvin Waddell MD Unavailable Shaylee Dejesus MD Unavailable Tramaine Valle MD Unavailable [phone] Socorro Begum Unavailable [phone] Keily Gomez OT Unavailable [phone] Encounter Details Date Type Department Care Team (Late st Contact Info) Description 02/27/2025 Procedure Pass [facility] Echo Lab 30 [place], [place] [id number] Social History Tobacco Use Types Packs/Day Years [...] Risk Indicated 02/27/2025 2:34 PM EDT Sheela Sanchez, RIZWANA * [place] Suicide Severity Rating Scale (Screener/Recent Self-Report) Question [...] Description 10/22/2025 3:00 PM EST Office Visit [facility] Internal Medicine 40 [place] [address] Willie Blair MD 40 [place] [address] 11/03/2025 11:00 AM EST Office Visit [facility] Gastroenterology Clinic 10 [place] [address] Charlene Piedra, [address] [address] [email or web address] 02/11/2026 10:20 AM EDT Office Visit [facility] Pulmonary, Allergy and Critical Care Medicine 10 [facility] [place] [address] López Henry MD [address] [address] [email or web address] documented as of this encounter Visit Diagnoses Not on filedocumented in this encounter Additional Health Concerns Infection Onset Date Last Indicated Resolved Time CoV-Risk Comment:Per note documentation 02/27/2025 02/27/2025 7:29 AM EDT CoV-Risk 08/16/2025 08/16/2025 08/27/2025 1:21 AM EDT Assessment Noted Time PHQ-9 Depression Total Score: 7 03/01/20 22 2:17 PM EDT PHQ-2 Depression Total Score: 0 03/18/20 24 7:47 PM EDT documented as of this encounter Care Teams Property Supervisor Relationship Specialty Start Date End Date Willie Blair MD 40 [place] [address] [email or web address] PCP - General Internal Medicine 02/04/20 Willie Blair MD 40 [place] [address] [email or web address] Insurance Assigned Provider 02/08/24 Daniel Flores MD [address] [address] [email or web address] Urology 04/14/20 Delvin Waddell MD [address] [facility] [address] [facility] 120 [place] [address] [email or web address] Cardiology 04/14/20 Shaylee Dejesus MD [address] [place] [address] Dr FELIX [address] [place] [address] Otolaryngology 05/20/20 Tramaine Valle MD [address] [place] [address] [email or web address] Gastroenterology 11/30/20 Socorro Begum PA [address] [place] [address] Physician Client Service Administrator Cardiology 04/06/24 Keily Gomez, OT 30 [place] [address] [email or web address] Transitions Cone PickerValuation Consultant Therapy 03/01/25 documented as of this encounter Additional Source Comments The information contained in this document represents components of the legal health record. It is not the complete legal health record.[facility]
--- OUTSIDE RECORDS SUMMARY | 2025-08-30 17:37 | XMS_ITS | Encounter Summary ---
Author Organization [employer] [facility] Address [address] [place] [address] Care Team Providers Care Nutrition Educator Name Role Phone Physician, Pcp Unknown Primary Care Provider Tiffanie vailable Encounter Details Date Type Department Care Team (Late st Contact Info) Description 07/08/2025 Lab Requisition [facility] - Main Lab 299 [facility] [place] [address] Daniel Flores MD 100 [facility] 120 [place] [address] Benign essential microscopic hematuria Social History Tobacco Use Types Packs/Day Years Used Date Smoking Tobacco: Never Assessed Sex and Gender Information Value Date Recorded Sex Assigned at Not on file Legal Sex Male 12:57 PM EDT Gender Identity Not on file Sexual Orientation Not on file documented as of this encounter Plan of Treatment Not on file documented as of this encounter Procedures Procedure Name Priority Date/Time Associated Diagnosis Comments NON-GYNECOLOGIC CYTOLOGY Routine 06/29/2025 12:00 AM EDT Benign essential microscopic hematuria documented in this encounter Results * Non-gynecologic cytology (06/29/2025 12:00 AM EDT) Final Diagnosis Urine, Voided, [id number]: Negative for high grade urothelial carcinoma. 07/30/2025 4:43 PM EDT [facility] Specimen A Adequacy Satisfactory for evaluation 07/30/2025 4:43 PM EDT [facility] Clinical Information Benign essential microscopic hematuria R31.1 Urine cytology with reflex UroVysion (AUC/SHGUC) 07/30/2025 4:43 PM EDT [facility] Gross Description A. Urine, Voided, [id number]: Received one ThinPrep slide for cytology. 07/30/2025 4:43 PM EDT [facility] Disclaimer Unless otherwise specified, all tissue is 10% NB formalin fixed and paraffin embedded. Technical pathology services provided by [facility] Urology at [address] [place] [address] [address], [place] [address] (CLIA #[id number]/Gio Ortiz MD, Time Broker) 07/30/2025 4:43 PM EDT [facility] Urine Urine specimen from urethra / Unknown 06/29/2025 07/08/2025 1:04 PM EDT us Daniel Flores MD LAB CYTOLOGY ORDERABLES Fin al Result [facility] [address] [place] [address], documented in this encounter Visit Diagnoses Diagnosis Benign essential microscopic hematuria documented in this encounter Care Teams Nutrition Educator Relationship Specialty Start Date End Date Physician, Pcp Unknown PCP - General 07/08/25 documented as of this encounter
--- OUTSIDE RECORDS SUMMARY | 2025-08-30 17:37 | XMS_ITS | Encounter Summary ---
Author Organization [facility] Address [address] [place] [address] [place] [address] Phone Care Team Providers Care Newspaper Carrier Name Role Phone Willie Blair MD Unavailable [phone] Willie Blair MD Primary Care Provider Daniel Flores MD Unavailable Delvin Waddell MD Unavailable Shaylee Dejesus MD Unavailable Tramaine Valle MD Unavailable [phone] Maxx Gardner OT Unavailable [phone] Chantel Philippe RN Unavailable [phone] Keily Gomez OT Unavailable [phone] Socorro Begum Unavailable [phone] Keily Gomez OT Unavailable [phone] Encounter Details Date Type Department Care Team (Late st Contact Info) Description 05/10/2021 Procedure Pass [facility] Endoscopy Admitting Dept Virtual Department 30 [place], [place] [id number] Social History Tobacco Use Types Packs/Day Years [...] Description 10/22/2025 3:00 PM EST Office Visit [facility] Internal Medicine 40 [place] [address] Willie Blair MD 40 [place] [address] 11/03/2025 11:00 AM EST Office Visit [facility] Gastroenterology Clinic 10 [place] [address] Charlene Piedra, HOT DOG VENDER [address] [address] [email or web address] 02/11/2026 10:20 AM EDT Office Visit [facility] Pulmonary, Allergy and Critical Care Medicine 10 [facility] [place] [address] López Henry MD [address] [address] documented as of this encounter Visit Diagnoses [...] documented as of this encounter Care Teams Newspaper Carrier Relationship Specialty Start Date End Date Willie Blair MD 40 [place] [address] [email or web address] PCP - General Internal Medicine 02/04/20 Willie Blair MD 40 [place] [address] [email or web address] Insurance Assigned Provider 02/08/24 Daniel Flores MD [address] [address] [email or web address] [email or web address] Urology 04/14/20 Delvin Waddell MD [address] [address] [email or web address] Cardiology 04/14/20 Shaylee Dejesus MD [address] [place] [address] Dr FELIX [address] [place] [address] Otolaryngology 05/20/20 Tramaine Valle MD [address] [place] [address] [email or web address] Gastroenterology 11/30/20 Maxx Gardner, OT [address] [place] [address] [email or web address] Transitions Paper BalerTube Builder Airplane Therapy 05/22/21 Chantel Philippe, RN [address] [place] [address] [email or web address] Paper BalerPalliative Medicine Physician 10/12/22 10/31/22 Keily Gomez, OT 30 [place] [address] [email or web address] Transitions Paper BalerTube Builder Airplane Therapy 12/30/23 Socorro Begum PA [address] [place] [address] Physician Millwright Cardiology 04/06/24 Keily Gomez, OT 30 [place] [address] [email or web address] Transitions Paper BalerTube Builder Airplane Therapy 03/01/25 documented as of this encounter Additional Source Comments The information contained in this document represents components of the legal health record. It is not the complete legal health record.[facility]
--- OUTSIDE RECORDS SUMMARY | 2025-08-30 17:37 | XMS_ITS | Clinical Summary ---
Author Organization 299 [facility] Address 299 [place] [address] Phone Care Team Providers Care Load Out Supervisor Name Role Phone Physician, Pcp Unknown Primary Care Provider Tiffanie vailable Encounters Date Type Department Care Team Description 07/08/2025 Lab Requisition [facility] - Main Lab 299 [facility] [place] [address] Daniel Flores MD Benign essential [...] on patient's age to complete this topic Procedures Procedure Name Priority Date/Time Associated Diagnosis Comments NON-GYNECOLOGIC CYTOLOGY Routine 06/29/2025 12:00 AM EDT Benign essential microscopic hematuria from Last 3 Months Results * Non-gynecologic cytology (06/29/2025 12:00 AM EDT) Final Diagnosis Urine, Voided, [id number]: Negative for high grade urothelial carcinoma. 07/30/2025 4:43 PM EDT [facility] Specimen A Adequacy Satisfactory for evaluation 07/30/2025 4:43 PM EDT [facility] Clinical Information Benign essential microscopic hematuria R31.1 Urine cytology with reflex UroVysion (AUC/SHGUC) 07/30/2025 4:43 PM EDT [facility] Gross Description A. Urine, Voided, [id number]: Received one ThinPrep slide for cytology. 07/30/2025 4:43 PM EDT [facility] Disclaimer Unless otherwise specified, all tissue is 10% NB formalin fixed and paraffin embedded. Technical pathology services provided by [facility] Urology at 100 [facility] [address], [place] [address] (CLIA #[id number]/Gio Ortiz MD, Communication Assistant) 07/30/2025 4:43 PM EDT [facility] Urine Urine specimen from urethra / Unknown 06/29/2025 07/08/2025 1:04 PM EDT us Daniel Flores MD LAB CYTOLOGY ORDERABLES Fin al Result [facility] LAB [address] [place] [address], [place] [phone] from Last 3 Months Insurance MEDICARE [facility] Care Teams Load Out Supervisor Relationship Specialty Start Date End Date Physician, Pcp Unknown PCP - General 07/08/25
--- OUTSIDE RECORDS SUMMARY | 2025-08-30 17:37 | XMS_ITS | Encounter Summary ---
Author Organization [facility] Address [address] [place] [address] [place] [address] Phone Care Team Providers Care Expeller Worker Name Role Phone Willie Blair MD Unavailable [phone] Willie Blair MD Primary Care Provider Daniel Flores MD Unavailable Delvin Waddell MD Unavailable Shaylee Dejesus MD Unavailable [phone] Tramaine Valle MD Unavailable [phone] Chantel Philippe RN Unavailable [phone] Keily Gomez OT Unavailable [phone] Socorro Begum Unavailable [phone] Keily Gomez OT Unavailable [phone] Encounter Details Date Type Department Care Team (Late st Contact Info) Description 05/26/2021 Procedure Pass [facility] Cardiovascular And Interventional Radiology 30 [place] [address] Social History Tobacco Use Types Packs/Day Years [...] Description 10/22/2025 3:00 PM EST Office Visit [facility] Internal Medicine 40 [place] [address] Willie Blair MD 40 [place] [address] 11/03/2025 11:00 AM EST Office Visit [facility] Gastroenterology Clinic 10 [place] [address] Charlene Piedra, [address] [address] [email or web address] 02/11/2026 10:20 AM EDT Office Visit [facility] Pulmonary, Allergy and Critical Care Medicine 10 [place] [address] López Henry MD [address] [address] documented as of this encounter Visit Diagnoses [...] documented as of this encounter Care Teams Expeller Worker Relationship Specialty Start Date End Date Willie Blair MD 40 [place] [address] [email or web address] PCP - General Internal Medicine 02/04/20 Willie Blair MD 40 [place] [address] [email or web address] Insurance Assigned Provider 02/08/24 Daniel Flores MD [address] [address] [email or web address] Urology 04/14/20 Delvin Waddell MD [address] [address] [email or web address] Cardiology 04/14/20 Shaylee Dejesus MD [address] [place] [address] 106 [place] [address] Otolaryngology 05/20/20 Tramaine Valle MD [address] [place] [address] 2 [place] [address] [email or web address] Gastroenterology 11/30/20 Chatnel Philippe, RN 10 [place] [address] [email or web address] PHCM Campaign DirectorDirectory Assistance Operator 10/12/22 10/31/22 Keily Gomez, OT 30 [place] [address] [email or web address] Transitions Campaign DirectorCytology Laboratory Manager Therapy 12/30/23 Socorro Begum PA [address] [place] [address] Physician Dump Attendant Cardiology 04/06/24 Keily Gomez, OT 30 [place] [address] [email or web address] Transitions Campaign DirectorCytology Laboratory Manager Therapy 03/01/25 documented as of this encounter Additional Source Comments The information contained in this document represents components of the legal health record. It is not the complete legal health record.[facility]
--- OUTSIDE RECORDS SUMMARY | 2025-08-30 17:37 | XMS_ITS | Encounter Summary ---
Author Organization [facility] Address [address] [place] [address] [place] [address] Phone Care Team Providers Care Manager Business Management Name Role Phone Willie Blair MD Unavailable Willie Blair MD Primary Care Provider Daniel Flores MD Unavailable [phone] Delvin Waddell MD Unavailable Shaylee Dejesus MD Unavailable Tramaine Valle MD Unavailable [phone] Maxx Gardnre OT Unavailable [phone] Chantel Philippe RN Unavailable [phone] Keily Gomez OT Unavailable Socorro Begum Unavailable [phone] Keily Gomez OT Unavailable [phone] Encounter Details Date Type Department Care Team (Late st Contact Info) Description 05/23/2021 Procedure Pass [facility], Ct Scan - [address] [id number] Social History Tobacco Use Types Packs/Day Years [...] Description 10/22/2025 3:00 PM EST Office Visit [facility] Internal Medicine 40 [place] [address] Willie Blair MD 40 [place] [address] 11/03/2025 11:00 AM EST Office Visit [facility] Gastroenterology Clinic 10 [place] [address] Charlene Piedra, [address] [address] [email or web address] 02/11/2026 10:20 AM EDT Office Visit [facility] Pulmonary, Allergy and Critical Care Medicine 10 [facility] [place] [address] López Henry MD [address] [address] documented as of this encounter Visit Diagnoses [...] documented as of this encounter Care Teams Manager Business Management Relationship Specialty Start Date End Date Willie Blair MD 40 [place] [address] [email or web address] PCP - General Internal Medicine 02/04/20 Willie Blair MD 40 [place] [address] [email or web address] Insurance Assigned Provider 02/08/24 Daniel Flores MD [address] [address] [email or web address] Urology 04/14/20 Delvin Waddell MD [address] [address] [email or web address] Cardiology 04/14/20 Shaylee Dejesus MD [address] [place] [address] [place] [address] Otolaryngology 05/20/20 Tramaine Valle MD [address] [place] [address] [email or web address] Gastroenterology 11/30/20 Maxx Gardner, OT 10 [place] [address] [email or web address] Transitions Electronic EngraverShipping Team Leader Therapy 05/22/21 Chantel Philippe, RN [address] [place] [address] [email or web address] Electronic EngraverFish Header 10/12/22 10/31/22 Keily Gomez, OT 30 [place] [address] [email or web address] Transitions Electronic EngraverShipping Team Leader Therapy 12/30/23 Socorro Begum PA [address] [place] [address] Physician Cable Repairer Cardiology 04/06/24 Keily Gomez, OT 30 [place] [address] [email or web address] Transitions Electronic EngraverShipping Team Leader Therapy 03/01/25 documented as of this encounter Additional Source Comments The information contained in this document represents components of the legal health record. It is not the complete legal health record.[facility]
--- OUTSIDE RECORDS SUMMARY | 2025-08-30 17:37 | XMS_ITS | Encounter Summary ---
Author Organization [facility] Address [address] [place] [address] [place] [address] Phone Care Team Providers Care Waiter/Waitress Counter Name Role Phone Willie Blair MD Unavailable Willie Blair MD Primary Care Provider Daniel Flores MD Unavailable Delvin Waddell MD Unavailable Shaylee Dejesus MD Unavailable [phone] Tramaine Valle MD Unavailable [phone] Maxx Gardner OT Unavailable [phone] Chantel Philippe RN Unavailable [phone] Keily Gomez OT Unavailable Socorro Begum Unavailable [phone] Keily Gomez OT Unavailable [phone] Encounter Details Date Type Department Care Team (Late st Contact Info) Description 05/20/2021 Procedure Pass [facility] Echo Lab 30 [place], [place] [id number] Social History Tobacco Use Types Packs/Day Years [...] Description 10/22/2025 3:00 PM EST Office Visit [facility] Internal Medicine 40 [place] [address] Willie Blair MD 40 [place] [address] 11/03/2025 11:00 AM EST Office Visit [facility] Gastroenterology Clinic 10 [place] [address] Charlene Piedra, LITHOGRAPH PRINTER [address] [address] [email or web address] 02/11/2026 10:20 AM EDT Office Visit [facility] Pulmonary, Allergy and Critical Care Medicine 10 [facility] [place] [address] López Henry MD [address] [address] documented as of this encounter Visit Diagnoses [...] documented as of this encounter Care Teams Waiter/Waitress Counter Relationship Specialty Start Date End Date Willie Blair MD 40 [place] [address] [email or web address] PCP - General Internal Medicine 02/04/20 Willie Blair MD 40 [place] [address] [email or web address] Insurance Assigned Provider 02/08/24 Daniel Flores MD [address] [address] [email or web address] Urology 04/14/20 Delvin Waddell MD [address] [address] [email or web address] Cardiology 04/14/20 Shaylee Dejesus MD [address] [place] [address] Otolaryngology 05/20/20 Tramaine Valle MD [address] [place] [address] [email or web address] Gastroenterology 11/30/20 Maxx Gardner, OT 10 [place] [address] [email or web address] Transitions Artist AgentIndustrial Pharmacist Therapy 05/22/21 Chantel Philippe, RN [address] [place] [address] [email or web address] [facility] Artist AgentFender Mechanic 10/12/22 10/31/22 Keily Gomez, OT 30 [place] [address] [email or web address] Transitions Artist AgentIndustrial Pharmacist Therapy 12/30/23 Socorro Begum PA [address] [place] [address] Physician Converter Supervisor Cardiology 04/06/24 Keily Gomez, OT 30 [place] [address] [email or web address] Transitions Artist AgentIndustrial Pharmacist Therapy 03/01/25 documented as of this encounter Additional Source Comments The information contained in this document represents components of the legal health record. It is not the complete legal health record.[facility]
--- OUTSIDE RECORDS SUMMARY | 2025-08-30 17:37 | XMS_ITS | Encounter Summary ---
Author Organization [facility] Address [address] [place] [address] [place] [address] Phone Care Team Providers Care Java Web Developer Name Role Phone Willie Blair MD Unavailable [phone] Willie Blair MD Primary Care Provider [phone] Daniel Flores MD Unavailable [phone] Delvin Waddell MD Unavailable Shaylee Dejesus MD Unavailable Tramaine Valle MD Unavailable [phone] Maxx Gardner OT Unavailable [phone] Chantel Philippe RN Unavailable [phone] Keily Gomez OT Unavailable Socorro Begum Unavailable [phone] Keily Gomez OT Unavailable [phone] Encounter Details Date Type Department Care Team (Late st Contact Info) Description 02/21/2021 Procedure Pass [facility] Scan - [address] [id number] Social History Tobacco Use Types Packs/Day Years [...] Description 10/22/2025 3:00 PM EST Office Visit [facility] Internal Medicine 40 [place] [address] Willie Blair MD 40 [place] [address] 11/03/2025 11:00 AM EST Office Visit [facility] Gastroenterology Clinic 10 [place] [address] Charlene Piedra, EASEMENT MAN [address] [address] [email or web address] 02/11/2026 10:20 AM EDT Office Visit [facility] Pulmonary, Allergy and Critical Care Medicine 10 [facility] [place] [place] [address] López Henry MD [address] [address] documented as of this encounter Visit Diagnoses [...] as of this encounter Care Teams Java Web Developer Relationship Specialty Start Date End Date Willie Blair MD 40 [place] [address] [email or web address] PCP - General Internal Medicine 02/04/20 Willie Blair MD 40 [place] [address] [email or web address] Insurance Assigned Provider 02/08/24 Daniel Flores MD [address] [address] [email or web address] Urology 04/14/20 Delvin Waddell MD [address] [address] [email or web address] Cardiology 04/14/20 Shaylee Dejesus MD [address] [place] [address] Dr FELIX [address] [place] [address] Otolaryngology 05/20/20 Tramaine Valle MD [address] [address] [email or web address] Gastroenterology 11/30/20 Maxx Gardner, OT 10 [place] [address] [email or web address] Transitions Developer AdvocateSampler First Therapy 05/22/21 Chantel Philippe, RN [address] [place] [address] [email or web address] Developer AdvocateTrash Truck Driver 10/12/22 10/31/22 Keily Gomez, OT 30 [place] [address] [email or web address] Transitions Developer AdvocateSampler First Therapy 12/30/23 Socorro Begum PA [address] [place] [address] Physician Supervisor Money Room Cardiology 04/06/24 Keily Gomez, OT 30 [place] [address] [email or web address] Transitions Developer AdvocateSampler First Therapy 03/01/25 documented as of this encounter Additional Source Comments The information contained in this document represents components of the legal health record. It is not the complete legal health record.[facility]
--- OUTSIDE RECORDS SUMMARY | 2025-08-30 17:37 | XMS_ITS | Encounter Summary ---
Author Organization [facility] Address [address] [place] [address] [place] [address] Phone Care Team Providers Care Business Change Manager Name Role Phone Willie Blair MD Unavailable [phone] Willie Blair MD Primary Care Provider Daniel Flores MD Unavailable [phone] Delvin Waddell MD Unavailable [phone] Shaylee Dejesus MD Unavailable [phone] Tramaine Valle MD Unavailable [phone] Maxx Gardner OT Unavailable [phone] Chantel Philippe RN Unavailable [phone] Keily Gomez OT Unavailable Socorro Begum Unavailable [phone] Keily Gomez OT Unavailable [phone] Encounter Details Date Type Department Care Team (Late st Contact Info) Description 05/25/2021 Procedure Pass [facility] Cardiovascular And Interventional Radiology 30 [place] [address] Social History Tobacco Use Types Packs/Day Years [...] Description 10/22/2025 3:00 PM EST Office Visit [facility] Internal Medicine 40 [place] [address] Willie Blair MD 40 [place] [address] 11/03/2025 11:00 AM EST Office Visit [facility] Gastroenterology Clinic 10 [place] [address] Charlene Piedra, WINDOWS INFRASTRUCTURE ENGINEER [address] [address] [email or web address] 02/11/2026 10:20 AM EDT Office Visit [facility] Pulmonary, Allergy and Critical Care Medicine 10 [facility] [place] [address] López Henry MD [address] [address] documented as of this encounter Visit Diagnoses [...] documented as of this encounter Care Teams Business Change Manager Relationship Specialty Start Date End Date Willie Blair MD 40 [place] [address] [email or web address] PCP - General Internal Medicine 02/04/20 Willie Blair MD 40 [place] [address] [email or web address] Insurance Assigned Provider 02/08/24 Daniel Flores MD [address] [address] [email or web address] Urology 04/14/20 Delvin Waddell MD [address] [address] [email or web address] Cardiology 04/14/20 Shaylee Dejesus MD [address] [place] [address] Otolaryngology 05/20/20 Tramaine Valle MD [address] [place] [address] [email or web address] Gastroenterology 11/30/20 Maxx Gardner, OT [address] [place] [address] [email or web address] Transitions Seo AssociateWebsite Admin Therapy 05/22/21 Chantel Philippe, RN [address] [place] [address] [email or web address] [facility] Seo AssociatePoultry Slaughterer 10/12/22 10/31/22 Keily Gomez, OT 30 [place] [address] [email or web address] Transitions Seo AssociateWebsite Admin Therapy 12/30/23 Socorro Begum PA [address] [place] [address] Physician Spar Machine Operator Cardiology 04/06/24 Keily Gomez, OT 30 [place] [address] [email or web address] Transitions Seo AssociateWebsite Admin Therapy 03/01/25 documented as of this encounter Additional Source Comments The information contained in this document represents components of the legal health record. It is not the complete legal health record.[facility]
--- OUTSIDE RECORDS SUMMARY | 2025-08-30 17:38 | XMS_ITS | Encounter Summary ---
Author Organization [facility] Address [address] [place] [address] [place] [address] Phone Care Team Providers Care Senior Mechanical Technician Name Role Phone Willie Blair MD Unavailable [phone] Willie Blair MD Primary Care Provider Daniel Flores MD Unavailable Delvin Waddell MD Unavailable [phone] Shaylee Dejesus MD Unavailable [phone] Tramaine Valle MD Unavailable [phone] Chantel Philippe RN Unavailable [phone] Keily Gomez OT Unavailable [phone] Socorro Begum Unavailable [phone] Keily Gomez OT Unavailable [phone] Encounter Details Date Type Department Care Team (Late st Contact Info) Description 01/03/2022 Procedure Pass [facility] Endoscopy Admitting Dept Virtual Department [address] [place] [address] [phone] Social History Tobacco Use Types Packs/Day Years [...] Description 10/22/2025 3:00 PM EST Office Visit [facility] Internal Medicine 40 [place] [address] Willie Blair MD 40 [place] [address] 11/03/2025 11:00 AM EST Office Visit [facility] Gastroenterology Clinic 10 [place] [address] Charlene Piedra, TRIAL COURT JUDGE [address] [address] [email or web address] 02/11/2026 10:20 AM EDT Office Visit [facility] Pulmonary, Allergy and Critical Care Medicine 10 [facility] [place] [place] [address] López Henry MD [address] [place] [address] documented as of this encounter Visit Diagnoses [...] documented as of this encounter Care Teams Senior Mechanical Technician Relationship Specialty Start Date End Date Willie Blair MD 40 [place] [address] [email or web address] PCP - General Internal Medicine 02/04/20 Willie Blair MD 40 [place] [address] [email or web address] Insurance Assigned Provider 02/08/24 Daniel Flores MD [address] [address] [email or web address] Urology 04/14/20 Delvin Waddell MD [address] [address] [email or web address] Cardiology 04/14/20 Shaylee Dejesus MD [address] [place] [address] [address] Otolaryngology 05/20/20 Tramaine Valle MD [address] [place] [address] [email or web address] Gastroenterology 11/30/20 Chantel Philippe, RN [address] [place] [address] [email or web address] PHCM AccessionerConstruction Teacher 10/12/22 10/31/22 Keily Gomez, OT [address] [place] [address] [email or web address] Transitions AccessionerJoint Runner Therapy 12/30/23 Socorro Begum PA [address] [place] [address] Physician Vehicle Damage Appraiser Cardiology 04/06/24 Keily Gomez, OT [address] [place] [address] [email or web address] Transitions AccessionerJoint Runner Therapy 03/01/25 documented as of this encounter Additional Source Comments The information contained in this document represents components of the legal health record. It is not the complete legal health record.[facility]
--- OUTSIDE RECORDS SUMMARY | 2025-08-30 17:38 | XMS_ITS | Encounter Summary ---
Author Organization [facility] Address [address] [place] [address] [place] [address] Phone Care Team Providers Care Doorperson Or Luggage Porter Name Role Phone Willie Blair MD Unavailable [phone] Willie Blair MD Primary Care Provider Daniel Flores MD Unavailable [phone] Delvin Waddell MD Unavailable Shaylee Dejesus MD Unavailable [phone] Tramaine Valle MD Unavailable [phone] Chantel Philippe RN Unavailable [phone] Keily Gomez OT Unavailable [phone] Socorro Begum Unavailable [phone] Keily Gomez OT Unavailable [phone] Encounter Details Date Type Department Care Team (Late st Contact Info) Description 06/13/2021 Procedure Pass [facility], [address] [address] Social History Tobacco Use Types Packs/Day Years [...] Description 10/22/2025 3:00 PM EST Office Visit [facility] Internal Medicine 40 [place] [address] Willie Blair MD 40 [place] [address] 11/03/2025 11:00 AM EST Office Visit [facility] Gastroenterology Clinic 10 [place] [address] Charlene Piedra, [address] [address] [email or web address] 02/11/2026 10:20 AM EDT Office Visit [facility] Pulmonary, Allergy and Critical Care Medicine 10 [facility] [place] [address] López Henry MD [address] [address] documented as of this encounter Visit Diagnoses [...] documented as of this encounter Care Teams Doorperson Or Luggage Porter Relationship Specialty Start Date End Date Willie Blair MD 40 [place] [address] [email or web address] PCP - General Internal Medicine 02/04/20 Willie Blair MD 40 [place] [address] [email or web address] Insurance Assigned Provider 02/08/24 Daniel Flores MD [address] [place] [address] [place] [phone] [email or web address] Urology 04/14/20 Delvin Waddell MD [address] [place] [address] [place] [address] [email or web address] Cardiology 04/14/20 Shaylee Dejesus MD [address] [place] [address] 106 [place] [address] Otolaryngology 05/20/20 Tramaine Valle MD [address] [place] [address] Gastroenterology 11/30/20 Chantel Philippe, RN [address] [place] [address] [facility] Certified Pathology AssistantLens Polisher 10/12/22 10/31/22 Keily Gomez, OT [address] [place] [address] Transitions Certified Pathology AssistantGarment Cutter Therapy 12/30/23 Socorro Begum PA [address] [place] [address] Physician Ob Scrub Tech Cardiology 04/06/24 Keily Gomez, OT 30 [place] [address] Transitions Certified Pathology AssistantGarment Cutter Therapy 03/01/25 documented as of this encounter Additional Source Comments The information contained in this document represents components of the legal health record. It is not the complete legal health record.[facility]
--- OUTSIDE RECORDS SUMMARY | 2025-08-30 17:38 | XMS_ITS | Encounter Summary ---
Author Organization [facility] Address [address] [place] [address] [place] [address] Phone Care Team Providers Care Architect Internship Name Role Phone Willie Blair MD Unavailable [phone] Willie Blair MD Primary Care Provider Daniel Flores MD Unavailable [phone] Delvin Waddell MD Unavailable Shaylee eDjesus MD Unavailable Tramaine Valle MD Unavailable [phone] Keily Gomez OT Unavailable [phone] Socorro Begum Unavailable [phone] Keily Gomez OT Unavailable [phone] Encounter Details Date Type Department Care Team (Late st Contact Info) Description 12/26/2023 Procedure Pass [facility] Echo Lab 30 [place], [place] [id number] Social History Tobacco Use Types Packs/Day Years [...] Indicated 12/26/2023 2:43 PM Alli Osullivan * [place] Suicide Severity Rating Scale (Screener/Recent Self-Report) Question Answer Date of Assessment Author 1. Wish to be (Past 1 Month) No 024 2:43 PM Alli Osullivan 2. Non-Specific Active Suici alayna Thoughts (Past 1 Month) No 12/26/2023 2:43 PM Eduarda Osullivan 6. Suicidal Behavior (Lifetime) No 4 2:43 PM Alli Osullivan documented as of this encounter Plan of Treatment Upcoming Encounters Date Type Department Care Team (Late st Contact Info) Description 10/22/2025 3:00 PM EST Office Visit [facility] Internal Medicine 40 [place] [address] Willie Blair MD 40 [place] [address] 11/03/2025 11:00 AM EST Office Visit [facility] Gastroenterology Clinic 10 [place] [address] Charlene Avila, FAMILY RESOURCE COORDINATOR 10 [facility] 2 [place] [address] [email or web address] 02/11/2026 10:20 AM EDT Office Visit [facility] Pulmonary, Allergy and Critical Care Medicine 10 [facility] [place] [address] López Henry MD [address] [place] [address] [place] [address] documented as of this encounter Visit Diagnoses [...] documented as of this encounter Care Teams Architect Internship Relationship Specialty Start Date End Date Willie Blair MD 40 [place] [address] PCP - General Internal Medicine 02/04/20 Willie Blair MD 40 [place] [address] Insurance Assigned Provider 02/08/24 Daniel Flores MD [address] [place] [address] 120 [place] [address] [email or web address] Urology 04/14/20 Delvin Waddell MD 100 Jeremiah Carranza [facility] 120 [place] [address] [email or web address] Cardiology 04/14/20 Shaylee Dejesus MD [address] [place] [address] 106 [place] [address] Otolaryngology 05/20/20 Tramaine Valle MD [address] [place] [address] Gastroenterology 11/30/20 Keily Gomez, OT 30 [place] [address] Transitions Counter Supply WorkerComber Operator Therapy 12/30/23 Socorro Begum PA [address] [place] [address] Physician Certified Master Locksmith Cardiology 04/06/24 Keily Gomez, OT 30 [place] [address] Transitions Counter Supply WorkerComber Operator Therapy 03/01/25 documented as of this encounter Additional Source Comments The information contained in this document represents components of the legal health record. It is not the complete legal health record.[facility]
--- OUTSIDE RECORDS SUMMARY | 2025-08-30 17:38 | XMS_ITS | Encounter Summary ---
Author Organization [facility] Address [address] [address] [place] [address] Phone Care Team Providers Care Science Technician Name Role Phone Willie Blair MD Unavailable Willie Blair MD Primary Care Provider Daniel Flores MD Unavailable Delvin Waddell MD Unavailable Shaylee Dejesus MD Unavailable [phone] Tramaine Valle MD Unavailable [phone] Chantel Philippe RN Unavailable [phone] Keily Gomez OT Unavailable Socorro Begum Unavailable [phone] Keily Gomez OT Unavailable [phone] Encounter Details Date Type Department Care Team (Latest Contact Info) Description 01/01/2022 Transcribe Orders Virtual Department 30 [place] [address] Navi Leon MD [address] [place] [address] [phone] [email or web address] Encounter for laboratory testing for COVID-19 [...] Description 10/22/2025 3:00 PM EST Office Visit [facility] Internal Medicine 40 [place] [address] Willie Blair MD 40 [place] [address] 11/03/2025 11:00 AM EST Office Visit [facility] Gastroenterology Clinic 10 [place] [address] Charlene Piedra, COMMERCIAL HORTICULTURE INSTRUCTOR [address] [place] [address] [email or web address] 02/11/2026 10:20 AM EDT Office Visit [facility] Pulmonary, Allergy and Critical Care Medicine 10 [facility] [place] [address] López Henry MD [address] [address] documented as of this encounter Results * COVID-19 PCR Order (01/01/2022 4:11 PM EST) COVID-19 Comment [id number] [facility] COVID Testing Status Specimen received in analyzing lab. Results should be available within 24 to 48 hrs. [facility] Other 01/01/2022 4:11 PM EST 01/01/2022 8:34 PM EST us Navi Leon MD BODY FLUIDS AND STOOLS ORDERA BLES Final Result Performing Organization Address City/State/[facility] Co de Phone Number [facility] [address] [place] [address] [facility] 30 [place] [address] documented in this encounter Visit Diagnoses Diagnosis [...] documented as of this encounter Care Teams Science Technician Relationship Specialty Start Date End Date Willie Blair MD [address] [place] [address] [email or web address] PCP - General Internal Medicine 02/04/20 Willie Blair MD [address] [place] [address] [email or web address] Insurance Assigned Provider 02/08/24 Daniel Flores MD [address] [address] [email or web address] Urology 04/14/20 Delvin Waddell MD 100 Jeremiah Carranza [facility] 120 [place] [address] [email or web address] Cardiology 04/14/20 Shaylee Dejesus MD [address] [place] [address] Otolaryngology 05/20/20 Tramaine Valle MD [address] [place] [address] [email or web address] Gastroenterology 11/30/20 Chantel Philippe, RN [address] [place] [address] [email or web address] PHCM Mess AttendantRadio Interference Supervisor 10/12/22 10/31/22 Keily Gomez, OT 30 [place] [address] [email or web address] Transitions Mess AttendantLabel Drier Therapy 12/30/23 Socorro Begum PA [address] [place] [address] Physician News Anchor Cardiology 04/06/24 Keily Gomez, OT 30 [place] [address] [email or web address] Transitions Mess AttendantLabel Drier Therapy 03/01/25 documented as of this encounter Additional Source Comments The information contained in this document represents components of the legal health record. It is not the complete legal health record.[facility]
--- OUTSIDE RECORDS SUMMARY | 2025-08-30 17:38 | XMS_ITS | Encounter Summary ---
Author Organization [facility] Address [address] [facility] [address] [place] [address] Phone Care Team Providers Care Biological Science Technician Name Role Phone Willie Blair MD Unavailable Willie Blair MD Primary Care Provider Daniel Flores MD Unavailable Delvin Waddell MD Unavailable Shaylee Dejesus MD Unavailable [phone] Tramaine Valle MD Unavailable [phone] Socorro Begum Unavailable [phone] Encounter Details Date Type Department Care Team (Late st Contact Info) Description 08/13/2025 Procedure Pass [facility], Ct Scan - [address] [address] Social History Tobacco Use Types Packs/Day Years [...] 5:58 PM EDT Nikkie Aguilar RN * [place] Suicide Severity Rating Scale (Screener/Recent Self-Report) Question [...] Description 10/22/2025 3:00 PM EST Office Visit [facility] Internal Medicine 40 [place] [address] Willie Blair MD 40 [place] [address] 11/03/2025 11:00 AM EST Office Visit [facility]ology [facility] 10 [place] [address] Charlene Piedra, [address] [address] [email or web address] 02/11/2026 10:20 AM EDT Office Visit [facility] Pulmonary, Allergy and Critical Care Medicine 10 [facility] [place] [address] López Henry MD [address] [address] documented as of this encounter Visit Diagnoses Not on filedocumented in this encounter Additional Health Concerns Infection Onset Date Last Indicated Resolved Time CoV-Risk 08/16/2025 08/16/2025 08/27/2025 1:21 AM EDT Assessment Noted Time PHQ-9 Depression Total Score: 7 03/01/20 22 2:17 PM EDT PHQ-2 Depression Total Score: 2 03/23/20 25 3:56 PM EDT documented as of this encounter Care Teams Biological Science Technician Relationship Specialty Start Date End Date Willie Blair MD 40 [place] [address] [email or web address] PCP - General Internal Medicine 02/04/20 Willie Blair MD 40 [place] [address] [email or web address] Insurance Assigned Provider 02/08/24 Daniel Flores MD [address] [phone] [email or web address] Urology 04/14/20 Delvin Waddell MD [address] [phone] [email or web address] Cardiology 04/14/20 Shaylee Dejesus MD [address] [place] [address] Dr FELIX [address] [place] [address] Otolaryngology 05/20/20 Tramaine Valle MD [address] [place] [address] 2 [place] [address] Gastroenterology 11/30/20 Socorro Begum PA [address] [place] [address] Physician Chair Pad Maker Cardiology 04/06/24 documented as of this encounter Additional Source Comments The information contained in this document represents components of the legal health record. It is not the complete legal health record.[facility]
--- OUTSIDE RECORDS SUMMARY | 2025-08-30 17:38 | XMS_ITS | Encounter Summary ---
Author Organization [facility] Address [address] [place] [address] [place] [address] Phone Care Team Providers Care Telecommunications Clerk Name Role Phone Willie Blair MD Unavailable [phone] Willie Blair MD Primary Care Provider [phone] Daniel Flores MD Unavailable Delvin Waddell MD Unavailable Shaylee Dejesus MD Unavailable Tramaine Valle MD Unavailable [phone] Maxx Gardner OT Unavailable [phone] Chantel Philippe RN Unavailable [phone] Keily Gomez OT Unavailable Socorro Begum Unavailable [phone] Keily Gomez OT Unavailable [phone] Encounter Details Date Type Department Care Team (Late st Contact Info) Description 05/25/2021 Procedure Pass [facility], [address] [id number] Social History Tobacco Use Types Packs/Day Years [...] Description 10/22/2025 3:00 PM EST Office Visit [facility] Internal Medicine 40 [place] [address] Willie Blair MD 40 [place] [address] 11/03/2025 11:00 AM EST Office Visit [facility] 10 [place] [address] Charlene Piedra, [address] [address] [email or web address] 02/11/2026 10:20 AM EDT Office Visit [facility] Pulmonary, Allergy and Critical Care Medicine 10 [place] [address] López Henry MD [address] [address] documented as of this encounter Visit Diagnoses [...] documented as of this encounter Care Teams Telecommunications Clerk Relationship Specialty Start Date End Date Willie Blair MD 40 [place] [address] [email or web address] PCP - General Internal Medicine 02/04/20 Willie Blair MD 40 [place] [address] [email or web address] Insurance Assigned Provider 02/08/24 Daniel Flores MD [address] [phone] [email or web address] Urology 04/14/20 Delvin Waddell MD [address] [address] [email or web address] Cardiology 04/14/20 Shaylee Dejesus MD [address] [place] [address] Dr FELIX [facility] [place] [address] Otolaryngology 05/20/20 Tramaine Valle MD [address] [address] [email or web address] Gastroenterology 11/30/20 Maxx Gardner, OT 10 [place] [address] [email or web address] Transitions Parking Meter CollectorFinishing Tunnel Operator Therapy 05/22/21 Chantel Philippe, RN [address] [place] [address] [email or web address] Parking Meter CollectorStrategic Intelligence Officer 10/12/22 10/31/22 Keily Gomez, OT 30 [place] [address] [email or web address] Transitions Parking Meter CollectorFinishing Tunnel Operator Therapy 12/30/23 Socorro Begum PA [address] [place] [address] Physician Loss Mitigation Specialist Cardiology 04/06/24 Keily Gomez, OT 30 [place] [address] [email or web address] Transitions Parking Meter CollectorFinishing Tunnel Operator Therapy 03/01/25 documented as of this encounter Additional Source Comments The information contained in this document represents components of the legal health record. It is not the complete legal health record.[facility]
--- OUTSIDE RECORDS SUMMARY | 2025-08-30 17:38 | XMS_ITS | Encounter Summary ---
Author Organization [facility] Address [address] [place] [address] [place] [address] Phone Care Team Providers Care In Home Sales Consultant Name Role Phone Willie Blair MD Unavailable [phone] Willie Blair MD Primary Care Provider Daniel Flores MD Unavailable Delvin Waddell MD Unavailable Shaylee Dejesus MD Unavailable Tramaine Valle MD Unavailable [phone] Keily Gomez OT Unavailable [phone] Socorro Begum Unavailable [phone] Keily Gomez OT Unavailable [phone] Encounter Details Date Type Department Care Team (Late st Contact Info) Description 12/26/2023 Procedure Pass [facility], Ct Scan - [address] [address] Social History Tobacco Use Types Packs/Day Years [...] Indicated 12/26/2023 2:43 PM Alli Osullivan * [place] Suicide Severity Rating Scale (Screener/Recent Self-Report) Question [...] Description 10/22/2025 3:00 PM EST Office Visit [facility] Internal Medicine 40 [place] [address] Willie Blair MD 40 [place] [address] 11/03/2025 11:00 AM EST Office Visit [facility] Gastroenterology Clinic 10 [place] [address] Charlene Piedra, GASTROENTEROLOGY TEACHER 10 [facility] Fernando 2 [place] [address] [email or web address] 02/11/2026 10:20 AM EDT Office Visit [facility] Pulmonary, Allergy and Critical Care Medicine 10 [facility] [place] [address] López Henry MD [address] [place] [address] [place] [address] documented as of this encounter Visit Diagnoses [...] documented as of this encounter Care Teams In Home Sales Consultant Relationship Specialty Start Date End Date Willie Blair MD 40 [place] [address] PCP - General Internal Medicine 02/04/20 Willie Blair MD 40 [place] [address] Insurance Assigned Provider 02/08/24 Daniel Flores MD [address] [place] [address] [address] [place] [address] [email or web address] Urology 04/14/20 Delvin Waddell MD [address] [facility] 120 [place] [address] [email or web address] Cardiology 04/14/20 Shaylee Dejesus MD [address] [place] [address] Otolaryngology 05/20/20 Tramaine Valle MD [address] [place] [address] [email or web address] Gastroenterology 11/30/20 Keily Gomez, OT 30 [place] [address] Transitions Intern ArchitectResort Host Therapy 12/30/23 Socorro Begum PA [address] [place] [address] Physician Meteorological Observer Cardiology 04/06/24 Keily Gomez, OT 30 [place] [address] Transitions Intern ArchitectResort Host Therapy 03/01/25 documented as of this encounter Additional Source Comments The information contained in this document represents components of the legal health record. It is not the complete legal health record.[facility]
--- OUTSIDE RECORDS SUMMARY | 2025-08-30 17:38 | XMS_ITS | Encounter Summary ---
Author Organization [facility] Address [address] [place] [address] [place] [address] Phone Care Team Providers Care Filtering Machine Tender Name Role Phone Willie Blair MD Unavailable [phone] Willie Blair MD Primary Care Provider [phone] Daniel Flores MD Primary Care Provider Willie Blair MD Primary Care Provider [phone] Daniel Flores MD Unavailable [phone] Delvin Waddell MD Unavailable [phone] Shaylee Dejesus MD Unavailable [phone] Tramaine Valle MD Unavailable [phone] Maxx Gardner OT Unavailable [phone] Chantel Philippe RN Unavailable [phone] Keily Gomez OT Unavailable [phone] Socorro Begum Unavailable [phone] Keily Gomez OT Unavailable [phone] Encounter Details Date Type Department Care Team (Late st Contact Info) Description 07/02/2018 Procedure Pass [facility] Admitting Dept - Virtual Department 30 [place] [address] Social History Tobacco Use Types Packs/Day Years [...] Description 10/22/2025 3:00 PM EST Office Visit [facility] Internal Medicine 40 [place] [address] Willie Blair MD 40 [place] [address] 11/03/2025 11:00 AM EST Office Visit [facility] Gastroenterology Clinic 10 [place] [address] Charlene Piedra, [address] [address] [email or web address] 02/11/2026 10:20 AM EDT Office Visit [facility] Pulmonary, Allergy and Critical Care Medicine 10 [facility] [place] [address] López Henry MD [address] [address] documented as of this encounter Visit Diagnoses Not on filedocumented in this encounter Additional Health Concerns Infection Onset Date Last Indicated Resolved Time CoV-Exposed Comment:Positive COVID-19 10/30/2021 10/30/2021 11/02/2021 11: 44 AM EST COVID-11/01/2021 11/01/2021 11/22/2021 1:23 AM EST CoV-Risk Comment:2 Neg covid 12/26/2023 12/26/2023 12/27/2023 2:[address] CoV-Risk 12/31/2024 12/31/2024 01/11/2025 1:2 2 AM EDT CoV-Risk Comment:Per note documentation 02/27/2025 02/27/2025 7:29 AM EDT CoV-Risk 08/16/2025 08/16/2025 08/27/2025 1:21 AM EDT Assessment Noted Time PHQ-2 Depression Total Score: 0 01/04/20 11:03 AM EST documented as of this encounter Care Teams Filtering Machine Tender Relationship Specialty Start Date End Date Willie Blair MD 40 [place] [address] [email or web address] PCP - General Internal Medicine 09/19/17 01/03/20 Daniel Flores MD [address] [employer] [address] [phone] [email or web address] PCP - General Urology 01/04/20 02/03/20 Willie Blair MD 40 [place] [address] [email or web address] PCP - General Internal Medicine 02/04/20 Willie Blair MD 40 [place] [address] [email or web address] Insurance Assigned Provider 02/08/24 Daniel Flores MD 100 [facility] CenterStrikeForce Technologies [address] [phone] [email or web address] Urology 04/14/20 Delvin Waddell MD [address] [place], [place] [address]ingrid [facility] 120 [place] [address] [email or web address] Cardiology 04/14/20 Shaylee Dejesus MD [address] [place] [address] Otolaryngology 05/20/20 Tramaine Valle MD [address] [place] [address] [email or web address] Gastroenterology 11/30/20 Maxx Gardner, OT [address] [place] [address] [email or web address] Transitions Health And Wellness Sales ConsultantBody Piercer Therapy 05/22/21 Chantel Philippe, RN [address] [place] [address] [email or web address] [facility] Sales ConsultantCertified Court/Medical Interpreter 10/12/22 10/31/22 Keily Gomez, OT 30 [place] [address] [email or web address] Transitions Health And Wellness Sales ConsultantBody Piercer Therapy 12/30/23 Socorro Begum PA [address] [place] [address] Physician Chipper Operator Cardiology 04/06/24 Keily Gomez, OT 30 [place] [address] Transitions Health And Wellness Sales ConsultantBody Piercer Therapy 03/01/25 documented as of this encounter Additional Source Comments The information contained in this document represents components of the legal health record. It is not the complete legal health record.[facility]
--- OUTSIDE RECORDS SUMMARY | 2025-08-30 17:38 | XMS_ITS | Encounter Summary ---
Author Organization [facility] Address [address] [place] [address] [place] [address] Phone Care Team Providers Care Loss Prevention Coordinator Name Role Phone Willie Blair MD Unavailable Willie Blair MD Primary Care Provider Daniel Flores MD Unavailable [phone] Delvin Waddell MD Unavailable [phone] Shaylee Dejesus MD Unavailable Tramaine Valle MD Unavailable Socorro Begum Unavailable [phone] Encounter Details Date Type Department Care Team (Late st Contact Info) Description 08/14/2025 Procedure Pass [facility] Endoscopy Admitting Dept Virtual Department 30 [place], [place] [id number] Social History Tobacco Use Types Packs/Day Years [...] your housing situation today? I have jenifer amezcua 08/13/2025 How many times have you move [...] Description 10/22/2025 3:00 PM EST Office Visit [facility] Internal Medicine 40 [place] [address] Willie Blair MD 40 [place] [address] 11/03/2025 11:00 AM EST Office Visit [facility] Gastroenterology Clinic 10 [place] [address] Charlene Piedra, [address] [address] [email or web address] 02/11/2026 10:20 AM EDT Office Visit [facility] Pulmonary, Allergy and Critical Care Medicine 10 [place] [address] López Henry MD [address] [place] [address] documented as of this encounter Visit Diagnoses Not on filedocumented in this encounter Additional Health Concerns Infection Onset Date Last Indicated Resolved Time CoV-Risk 08/16/2025 08/16/2025 08/27/2025 1:21 AM EDT Assessment Noted Time PHQ-9 Depression Total Score: 7 03/01/20 22 2:17 PM EDT PHQ-2 Depression Total Score: 2 03/23/20 25 3:56 PM EDT documented as of this encounter Care Teams Loss Prevention Coordinator Relationship Specialty Start Date End Date Willie Blair MD 40 [place] [address] PCP - General Internal Medicine 02/04/20 Willie Blair MD 40 [place] [address] [email or web address] Insurance Assigned Provider 02/08/24 Dainel Flores MD [address] [phone] [email or web address] Urology 04/14/20 Delvin Waddell MD [address] [phone] [email or web address] Cardiology 04/14/20 Shaylee Dejesus MD [address] [place] [address] Otolaryngology 05/20/20 Tramaine Valle MD [address] [place] [address] [email or web address] Gastroenterology 11/30/20 Socorro Begum PA [facility] [place] [address] Physician International Relations Professor Cardiology 04/06/24 documented as of this encounter Additional Source Comments The information contained in this document represents components of the legal health record. It is not the complete legal health record.[facility]
--- OUTSIDE RECORDS SUMMARY | 2025-08-30 17:38 | XMS_ITS | Encounter Summary ---
Author Organization [facility] Address [address] [place] [address] [place] [address] Phone Care Team Providers Care Oceanographer Physical Name Role Phone Willie Blair MD Unavailable [phone] Willie Blair MD Primary Care Provider Daniel Flores MD Unavailable Delvin Waddell MD Unavailable Shaylee Dejesus MD Unavailable [phone] Tramaine Valle MD Unavailable [phone] Chantel Philippe RN Unavailable [phone] Keily Gomez OT Unavailable [phone] Socorro Begum Unavailable [phone] Keily Gomez OT Unavailable [phone] Encounter Details Date Type Department Care Team (Late st Contact Info) Description 02/13/2022 Procedure Pass [facility], Ct Scan - [address] [address] Social History Tobacco Use Types Packs/Day Years [...] 10:47 AM EDT Ginette Mann RN * [place] Suicide Severity Rating Scale (Screener/Recent Self-Report) Question [...] Visit [facility] Internal Medicine 40 [place] [address] Willie Blair MD 40 [place] [address] 11/03/2025 11:00 AM EST Office Visit [facility] Gastroenterology Clinic 10 [place] [address] Charlene Piedra, [address] [address] [email or web address] 02/11/2026 10:20 AM EDT Office Visit [facility] Pulmonary, Allergy and Critical Care Medicine 10 [facility] [place] [address] López Henry MD [address] [place] [address] [email or web address] documented as of this encounter Visit Diagnoses [...] documented as of this encounter Care Teams Oceanographer Physical Relationship Specialty Start Date End Date Willie Blair MD 40 [place] [address] [email or web address] PCP - General Internal Medicine 02/04/20 Willie Blair MD 40 [place] [address] [email or web address] Insurance Assigned Provider 02/08/24 Daniel Flores MD 100 [employer] [address] [phone] [email or web address] Urology 04/14/20 Delvin Waddell MD 100 [employer] Fernando [address] [place] [phone] [email or web address] Cardiology 04/14/20 Shaylee Dejesus MD [address] [place] [address] Otolaryngology 05/20/20 Tramaine Valle MD [address] [place] [address] Gastroenterology 11/30/20 Chantel Philippe RN [address] [place] [address] PHCM Case Making Machine OperatorRubber Press Tender 10/12/22 10/31/22 Keily Gomez, OT 30 [place] [address] Transitions Case Making Machine OperatorAthletics Director Therapy 12/30/23 Socorro Begum PA [address] [place] [address] Physician Section Supervisor Cardiology 04/06/24 Keily Gomez, OT 30 [place] [address] Transitions Case Making Machine OperatorAthletics Director Therapy 03/01/25 documented as of this encounter Additional Source Comments The information contained in this document represents components of the legal health record. It is not the complete legal health record.[facility]
--- OUTSIDE RECORDS SUMMARY | 2025-08-30 17:39 | XMS_ITS | Encounter Summary ---
Author Organization [facility] Address [address] [place] [address] [place] [address] Phone Care Team Providers Care Media Theorist And Author Of Name Role Phone Willie Blair MD Unavailable [phone] Willie Blair MD Primary Care Provider [phone] Daniel Flores MD Primary Care Provider Willie Blair MD Primary Care Provider [phone] Daniel Flores MD Unavailable [phone] Delvin Waddell MD Unavailable Shaylee Dejesus MD Unavailable [phone] Tramaine Valle MD Unavailable [phone] Maxx Gardner OT Unavailable [phone] Chantel Philippe RN Unavailable [phone] Keily Gomez OT Unavailable [phone] Socorro Begum Unavailable [phone] Keily Gomez OT Unavailable [phone] Encounter Details Date Type Department Care Team (Late st Contact Info) Description 01/03/2018 Procedure Pass [facility], [facility] - [facility] [address] [place] [address] Social History Tobacco Use Types Packs/Day Years [...] Description 10/22/2025 3:00 PM EST Office Visit [facility] Internal Medicine 40 [place] [address] Willie Blair MD 40 [place] [address] 11/03/2025 11:00 AM EST Office Visit [facility] 10 [place] [address] Charlene Piedra, [address] [address] [email or web address] 02/11/2026 10:20 AM EDT Office Visit [facility] Pulmonary, Allergy and Critical Care Medicine 10 [facility] [place] [address] López Henry MD [address] [address] documented as of this encounter Visit Diagnoses [...] documented as of this encounter Care Teams Media Theorist And Author Of Relationship Specialty Start Date End Date Willie Blair MD 40 [place] [address] [email or web address] PCP - General Internal Medicine 09/19/17 01/03/20 Daniel Flores MD [address] [phone] [email or web address] PCP - General Urology 01/04/20 02/03/20 Willie Blair MD 40 [place] [address] [email or web address] PCP - General Internal Medicine 02/04/20 Willie Blair MD 40 [place] [address] [email or web address] Insurance Assigned Provider 02/08/24 Daniel Flores MD 100 [facility] [address] [phone] [email or web address] Urology 04/14/20 Delvin Waddell MD [address] [place], [place] [address]ingrid [facility] 120 [place] [address] [email or web address] Cardiology 04/14/20 Shaylee Dejesus MD [address] [place] [address] Otolaryngology 05/20/20 Tramaine Valle MD [address] [place] [address] [email or web address] Gastroenterology 11/30/20 Maxx Gardner, OT [address] [place] [address] [email or web address] Registered Veterinary TechnicianElectric Organ Checker Therapy 05/22/21 Chantel Philippe, RN [address] [place] [address] [email or web address] PHC Registered Veterinary TechnicianSpray Technician 10/12/22 10/31/22 Keily Gomez, OT 30 [place] [address] [email or web address] Transitions Registered Veterinary TechnicianElectric Organ Checker Therapy 12/30/23 Socorro Begum PA [address] [place] [address] Physician Electrical Controls Technician Cardiology 04/06/24 Keily Gomez, OT 30 [place] [address] Transitions Registered Veterinary TechnicianElectric Organ Checker Therapy 03/01/25 documented as of this encounter Additional Source Comments The information contained in this document represents components of the legal health record. It is not the complete legal health record.[facility]
--- OUTSIDE RECORDS SUMMARY | 2025-08-30 17:39 | XMS_ITS | Encounter Summary ---
Author Organization [facility] Address [address] [place] [address] [place] [address] Phone Care Team Providers Care Film Inspector Name Role Phone Willie Blair MD Unavailable [phone] Willie Blair MD Primary Care Provider Daniel Flores MD Unavailable Delvin Waddell MD Unavailable [phone] Shaylee Dejesus MD Unavailable [phone] Tramaine Valle MD Unavailable [phone] Chantel Philippe RN Unavailable [phone] Keily Gomez OT Unavailable [phone] Socorro Begum Unavailable [phone] Keily Gomez OT Unavailable [phone] Encounter Details Date Type Department Care Team (Late st Contact Info) Description 03/12/2022 Procedure Pass [place] Admitting Dept - Virtual Department [address] [place] [address] Social History Tobacco Use Types Packs/Day Years [...] Description 10/22/2025 3:00 PM EST Office Visit [facility] [place] Internal Medicine 40 [place] [address] Willie Blair MD 40 [place] [address] 11/03/2025 11:00 AM EST Office Visit [facility] 10 [place] [address] Charlene Piedra, DIRECTOR PROSPECT [address] [address] [email or web address] 02/11/2026 10:20 AM EDT Office Visit [facility] Pulmonary, Allergy and Critical Care Medicine 10 [place] [address] López Henry MD [address] [address] documented as of this encounter Visit Diagnoses [...] EDT PHQ-2 Depression Total Score: 4 03/01/20 22 2:17 PM EDT documented as of this encounter Care Teams Film Inspector Relationship Specialty Start Date End Date Willie Blair MD 40 [place] [address] [email or web address] PCP - General Internal Medicine 02/04/20 Willie Blair MD 40 [place] [address] [email or web address] Insurance Assigned Provider 02/08/24 Daniel Flores MD 100 [facility] 120 [place] [address] [email or web address] Urology 04/14/20 Delvin Waddell MD 100 [facility] 120 [place] [address] [email or web address] Cardiology 04/14/20 Shaylee Dejesus MD [address] [place] [address] 106 [place] [address] Otolaryngology 05/20/20 Tramaine Valle MD [address] [place] [address] 2 [place] [address] [email or web address] Gastroenterology 11/30/20 Chantel Philippe, RN 10 [place] [address] PHCM Pathology Lab TechnicianPlastic Molding Operator 10/12/22 10/31/22 Keily Gomez, OT 30 [place] [address] [email or web address] Transitions Pathology Lab TechnicianTube Backer Therapy 12/30/23 Socorro Begum PA [address] [place] [address] Physician Wire Basket Maker Cardiology 04/06/24 Keily Gomez, OT 30 [place] [address] [email or web address] Transitions Pathology Lab TechnicianTube Backer Therapy 03/01/25 documented as of this encounter Additional Source Comments The information contained in this document represents components of the legal health record. It is not the complete legal health record.[facility]
--- OUTSIDE RECORDS SUMMARY | 2025-08-30 17:39 | XMS_ITS | Encounter Summary ---
Author Organization [facility] Address [address] [place] [address] [place] [address] Phone Care Team Providers Care Instructor Correspondence [employer] Name Role Phone Willie Blair MD Unavailable [phone] Willie Blair MD Primary Care Provider Daniel Flores MD Unavailable [phone] Delvin Waddell MD Unavailable Shaylee Dejesus MD Unavailable Tramaine Valle MD Unavailable Socorro Begum Unavailable [phone] Reason for Visit * Reason Onset Date Comments Blood pressure 08/27/2025 Encounter Details Date Type Department Care Team (Late st Contact Info) Description 08/27/2025 Telephone [facility] Internal Medicine 40 [place], [place] [phone] Willie Blair MD 40 [place], [place] [phone] [email or web address] Blood pressure Social History Tobacco Use Types Packs/Day Years [...] PM EDT documented as of this encounter Progress Notes * Willie Blair MD - 08/27/2025 8:05 PM EDT Noted. * Gilberto Albert - 08/27/2025 4:41 PM EDT [place] called in a blood pressure for Gómez as it was low in the office. She states it was 107/73 witha pulse 65 documented in this encounter Plan of Treatment Upcoming Encounters Date Type Department Care Team (Late st Contact Info) Description 10/22/2025 3:00 PM EST Office Visit [facility] Internal Medicine 40 [place] [address] Willie Blair MD 40 [place] [address] 11/03/2025 11:00 AM EST Office Visit [facility] Gastroenterology Clinic 10 [place] [address] Charlene Piedra, [address] [address] [email or web address] 02/11/2026 10:20 AM EDT Office Visit [facility] Pulmonary, Allergy and Critical Care Medicine 10 [facility] [place] [address] López Henry MD [address] [place] [address] 2[address] [place] [address] [email or web address] documented as [...] documented as of this encounter Care Teams Instructor Correspondence School Relationship Specialty Start Date End Date Willie Blair MD 40 [place] [address] [email or web address] PCP - General Internal Medicine 02/04/20 Willie Blair MD 40 [place] [address] [email or web address] Insurance Assigned Provider 02/08/24 Daniel Flores MD [address] [facility] 120 [place] [phone] [email or web address] Urology 04/14/20 Delvin Waddell MD [address] [facility] 120 [place] [phone] [email or web address] Cardiology 04/14/20 Shaylee Dejesus MD [address] [place] [address] Dr FELIX [address] [place] [address] Otolaryngology 05/20/20 Tramaine Valle MD [address] [place] [address] [email or web address] Gastroenterology 11/30/20 Socorro Begum PA [address] [place] [address] Physician Global Sales Manager Cardiology 04/06/24 documented as of this encounter Additional Source Comments The information contained in this document represents components of the legal health record. It is not the complete legal health record.[facility]
--- OUTSIDE RECORDS SUMMARY | 2025-08-30 17:39 | XMS_ITS | Encounter Summary ---
Author Organization [facility] Address [address] [place] [address] [place] [address] Phone Care Team Providers Care Case Supervisor Name Role Phone Willie Blair MD Unavailable [phone] Willie Blair MD Primary Care Provider Daniel Flores MD Unavailable Delvin Waddell MD Unavailable Shaylee Dejesus MD Unavailable [phone] Tramaine Valle MD Unavailable [phone] Chantel Philippe RN Unavailable [phone] Keily Gomez OT Unavailable [phone] Socorro Begum Unavailable [phone] Keily Gomez OT Unavailable [phone] Encounter Details Date Type Department Care Team (Late st Contact Info) Description 03/27/2022 Procedure Pass [facility], [address] [address] Social History Tobacco Use Types Packs/Day Years [...] Description 10/22/2025 3:00 PM EST Office Visit [facility] [place] Internal Medicine 40 [place] [address] Willie Blair MD 40 [place] [address] 11/03/2025 11:00 AM EST Office Visit [facility] Gastroenterology Clinic 10 [place] [address] Charlene Piedra, DEPUTY PROBATION OFFICER [address] [address] [email or web address] 02/11/2026 10:20 AM EDT Office Visit [facility], Allergy and Critical Care Medicine 10 [place] [address] López Henry MD [address] [address] documented as of this encounter Visit Diagnoses [...] EDT PHQ-2 Depression Total Score: 2 03/27/20 22 11:40 AM EDT documented as of this encounter Care Teams Case Supervisor Relationship Specialty Start Date End Date Willie Blair MD 40 [place] [address] [email or web address] PCP - General Internal Medicine 02/04/20 Willie Blair MD 40 [place] [address] [email or web address] Insurance Assigned Provider 02/08/24 Daniel Flores MD 100 [facility] 120 [place] [address] [email or web address] Urology 04/14/20 Delvin Waddell MD 100 [facility] 120 [place] [address] [email or web address] Cardiology 04/14/20 Shaylee Dejesus MD [address] [place] [address] 106 [place] [address] Otolaryngology 05/20/20 Tramaine Valle MD [address] [place] [address] 2 [place] [address] [email or web address] Gastroenterology 11/30/20 Chantel Philippe, RN 10 [place] [address] PHCM Wait StaffComputer Laboratory Technician 10/12/22 10/31/22 Keily Gomez, OT 30 [place] [address] [email or web address] Transitions Wait StaffRinkman Therapy 12/30/23 Socorro Begum PA [address] [place] [address] Physician International Project Engineer Cardiology 04/06/24 Keily Gomez, OT 30 [place] [address] [email or web address] Transitions Wait StaffRinkman Therapy 03/01/25 documented as of this encounter Additional Source Comments The information contained in this document represents components of the legal health record. It is not the complete legal health record.[facility]
--- OUTSIDE RECORDS SUMMARY | 2025-08-30 17:39 | XMS_ITS | Encounter Summary ---
Author Organization [facility] Address [address] [place] [address] [place] [address] Phone Care Team Providers Care Acid Retort Operator Name Role Phone Willie Blair MD Unavailable Willie Blair MD Primary Care Provider [phone] Daniel Flores MD Unavailable [phone] Delvin Waddell MD Unavailable Shaylee Dejesus MD Unavailable Tramaine Valle MD Unavailable [phone] Socorro Begum Unavailable [phone] Keily Gomez OT Unavailable [phone] Encounter Details Date Type Department Care Team (Late st Contact Info) Description 10/19/2024 Procedure Pass [facility], Ct Scan - [address] [id number] Social History Tobacco Use Types Packs/Day Years [...] Description 10/22/2025 3:00 PM EST Office Visit [facility] [place] Internal Medicine 40 [place] [address] Willie Blair MD 40 [place] [address] 11/03/2025 11:00 AM EST Office Visit [facility] Gastro[facility]ology Clinic 10 [place] [address] Charlene Piedra, DESIGN ENG 10 [facility] 2 [place] [address] [email or web address] 02/11/2026 10:20 AM EDT Office Visit [facility] Pulmonary, Allergy and Critical Care Medicine 10 [place] [address] López Henry MD [address] [place] [address] [email or web address] documented as of this encounter Visit Diagnoses [...] documented as of this encounter Care Teams Acid Retort Operator Relationship Specialty Start Date End Date Willie Blair MD 40 [place] [address] PCP - General Internal Medicine 02/04/20 Willie Blair MD 40 [place] [address] Insurance Assigned Provider 02/08/24 Daniel Flores MD [address] [place] [address] 120 [place] [address] [email or web address] Urology 04/14/20 Delvin Waddell MD 100 [facility] 120 [place] [address] [email or web address] Cardiology 04/14/20 Shaylee Dejesus MD [address] [place] [address] 106 [place] [address] Otolaryngology 05/20/20 Tramaine Valle MD [address] [place] [address] 2 [place] [address] [email or web address] Gastroenterology 11/30/20 Socorro Begum PA [address] [place] [address] Physician Instrument And Control Technician Cardiology 04/06/24 Keily Gomez, OT 30 [place] [address] [email or web address] Transitions Supervisor Self Service StoreDobby Loom Fixer Therapy 03/01/25 documented as of this encounter Additional Source Comments The information contained in this document represents components of the legal health record. It is not the complete legal health record.[facility]
== END 2025-08-30 13:57 | disposition home or self-care (01) ==
LOC: HO.HMGAL 13:57
PROVIDERS: PCP Internal Medicine; Visit Provider Registered Nurse Emergency
DX: J30.89 Other allergic rhinitis (principal)
CPT/HCPCS: 95117; 95165

== ENCOUNTER 2025-09-22 13:33 | Outpatient (AMB) | payer MEDICARE, SELFPAY ==
--- OUTSIDE RECORDS SUMMARY | 2025-09-23 01:34 | XMS_ITS | Continuity of Care Document ---
Author Organization [place] - [facility], [facility] Address [address] [place] [address] Care Team Providers Care Army Manager Name Role Phone GOPAL LAGUNA Primary Care Provider Assessment No assessment recorded. Plan of Treatment Reminders Order Date Submit Date Provider Last Modified By Organization Details Last Modified Time Details Appointments Establish ed 15 2025 01:00P M AMY PAGE PA-C Not available Not available Not available Lab None recorded. Referral None recorded. Procedures None recorded. Surgeries None recorded. Imaging None recorded. Medication Orders None recorded. Patient TargetsNo targets recorded. Patient InstructionsNo instructions recorded. Reason for Referral None Reported. Problems Name Problem SNOMED Code Status Onset Date Resolution Date Notes Provider Name and Address Organization Details Recorded Time Sensorine ural hearing loss of bilateral ears 887155130 Active 2021 Sensorine ural hearing loss, bilateral ; Note: Date Diagnosed : 12/11/2021 11:00 AM (H90.3) Not Available [facility] 4 02:22:15 Glossodyn ia 63211071 Active 2021 Glossodyn ia; Note: Date Diagnosed : 12/11/2021 12:27 PM (K14.6) Not Available [facility] 4 02:22:32 Impacted cerumen of bilateral ears 57893641683 57218 Active 2021 Impacted cerumen, bilateral ; Note: Date Diagnosed : 06/11/2022 1:26 PM (H61.23) Not Available [facility] 4 02:22:37 Problem Notes None recorded. Procedures Surgical History Date Name Laterality Status Provider Name and Address Organization Details Recorded Time 5 Cerumen removal without microscope bilat completed Angelica Puga [place] - [facility] 01/11/2025 16:07:03 Imaging Results None recorded. Procedure Notes None recorded. Medical Equipment None Reported. Allergies Allergen ID Allergen Name Allergen Category Reaction Reaction Severity Criticality Documentation Date Start Date Code Code System Note Provider Name and Address Organization Details Recorded Time 83049 Product containin g penicilli n (product) medicatio n Not available Not available Not available 03/17/2024 42942 8001 SNOMED React ion: other react ion, Lip swell ing; Not Available [facility] 4 00:56:08 15166 lisinopri l medicatio n Not available Not available Not available 03/17/2024 82109 RxNorm React ion: other react ion, Lip swell ing; Not Available [facility] 4 00:56:09 Medications Name Sig Start Date Stop Date Status Note LastModified by Organization Details LastModified Time losartan 50 mg tablet 09/14 completed Not Available Not Available Not Available clotrimazol e 10 mg tina 09/14 completed Medication ID: [id number] Rian nd Name: clotrimazo le Send Method: E-Prescrib ed Subs Allowed: subs OK Medicat ionGeneric Name: clotrimazo le Not Available Not Available Not Available cefpodoxime 200 mg tablet active Not Available Not Available Not Available Iron (ferrous sulfate) 325 mg (65 mg iron) tablet 2021 active Medication ID: [id number] Rian nd Name: Iron (ferrous sulfate) S end Method: E-Prescrib ed Subs Allowed: subs OK Medicat ionGeneric Name: Iron (ferrous sulfate) Not Available Not Available Not Available Claritin 10 mg tablet 2021 active Medication ID: [id number] Rian nd Name: Claritin S end Method: E-Prescrib ed Subs Allowed: subs OK Medicat ionGeneric Name: Claritin Not Available Not Available Not Available prednisone 20 mg tablet 09/14 completed Not Available Not Available Not Available chlorthalid one 25 mg tablet 09/14 completed Not Available Not Available Not Available omeprazole 40 mg capsule,del ayed release active Not Available Not Available Not Available spironolact one 25 mg tablet 09/14 completed Not Available Not Available Not Available carvedilol 3.125 mg tablet active Not Available Not Available Not Available famotidine 20 mg tablet 09/14 completed Not Available Not Available Not Available benzonatate 100 mg capsule 09/14 completed Not Available Not Available Not Available losartan 25 mg tablet 09/14 completed Not Available Not Available Not Available nitroglycer in 0.4 mg sublingual tablet active Not Available Not Available Not Available doxazosin 4 mg tablet 09/14 completed Not Available Not Available Not Available Tylenol 325 mg tablet 2021 active Medication ID: [id number] Rian nd Name: Tylenol Se nd Method: E-Prescrib ed Subs Allowed: subs OK Medicat ionGeneric Name: Tylenol Not Available Not Available Not Available Culturelle 10 billion cell capsule 2021 active Medication ID: [id number] Rian nd Name: Culturelle Send Method: E-Prescrib ed Subs Allowed: subs OK Medicat ionGeneric Name: Culturelle Not Available Not Available Not Available furosemide 20 mg tablet 09/14 completed Not Available Not Available Not Available albuterol sulfate HFA 90 mcg/actuati on aerosol inhaler active Not Available Not Available Not Available fluticasone propionate 50 mcg/actuati on nasal spray,suspe nsion 2021 active Medication ID: [id number] Rian nd Name: fluticason e propionate Send Method: E-Prescrib ed Subs Allowed: subs OK Medicat ionGeneric Name: fluticason e propionate Not Available Not Available Not Available finasteride 5 mg tablet active Not Available Not Available Not Available Vitamin D3 25 mcg (1,000 unit) chewable tablet 09/14 completed Medication ID: [id number] Rian nd Name: Vitamin D3 Send Method: E-Prescrib ed Subs Allowed: subs OK Medicat ionGeneric Name: Vitamin D3 Not Available Not Available Not Available Eliquis 5 mg tablet active Not Available Not Available No t Available Farxiga 10 mg tablet 09/14 completed Not Available Not Available Not Available Farxiga 5 mg tablet active Not Available Not Available No t Available Incruse Ellipta 62.5 mcg/actuati on powder for inhalation 09/14 completed Not Available Not Available Not Available sacubitril 24 mg-valsarta n 26 mg tablet 09/14 completed Not Available Not Available Not Available Citracal-D3 Maximum Plus 325 mg-12.5 mcg-2.75 mg tablet 2021 active Medication ID: [id number] Bra nd Name: Citracal + D Maximum Se nd Method: E-Prescrib ed Subs Allowed: subs OK Medicat ionGeneric Name: Citracal + D Maximum Not Available Not Available Not Available Vitals Date Recorded Body height Body mass index (BMI) Body weight Provider Name and Address Organization Details Last Updated DateTime 09/14/2025 175.26 cm 34.1 kg/m2 689605.84 g Carmen Euceda [place] - [facility] 09/14/2025 15:07:28 Social History None recorded. Functional Status None recorded. Mental Status None recorded. Family History Nothing Reported. Medical History No medical history recorded. Past Encounters Encounter ID Performer Location Encounter Start Date Encounter Closed Date Diagnosis/Indication Diagnosis SNOMED-CT Code Diagnosis ICD10 Code Diagnosis IMO Codes Diagnosis Note [id number] JOSE DIAZ MD [facility] [address] [address] 09/14/2025 15:01:33 09/14/2025 15:23:08 Impacted cerumen of bilateral ears [id number] 557275 H61.23 Only a small amount of cerumen was removed. I did recommend having the hearing and hearing aids assessed to make sure they are functionin g adequately . We can stretch his next visit to 1 year. Sensorineu ral hearing loss of bilateral ears 238982832 H90.3 Health Concerns Section Related Observation LastModified by Organization Detai ls LastModified Time None Recorded Concern Status LastModified by Organization Details LastModified Time None Recorded Payers Encounter Date Sequence Insurance Name Policy Number Policy Cleaning Covered Member ID Cleaning Member ID Guarantor Name 09/14/2025 2 [place] [id number] Arnulfo Du [id number] 30 Arnulfo Du 09/14/2025 1 [place] [employer] Arnulfo Du [id number] Arnulfo Du Notes Date Note Type Note Provider Name and Address Organization Details Recorded Time 09/14/2025 text/html ROS as noted in the HPI 89 year old male who presents to the office for routine ear cleaning. No acute concerns. He uses bilateral amplification. JOSE DIAZ MD [address] [place] [address], [place], [address], [facility] - [facility] 09/15/2025 07:41:13
--- OUTSIDE RECORDS SUMMARY | 2025-09-23 01:34 | XMS_ITS | Data Portability ---
Author Organization [place] - [facility], Allergy Address [address] [place] [address] Care Team Providers Care Keymodule Assembly Machine Tender Name Role Phone GOPAL LAGUNA Primary Care [...] Sensorine ural hearing loss of bilateral ears 110580274 Active 2021 Sensorine ural hearing loss, bilateral ; Note: Date Diagnosed : 12/11/2021 11:00 AM (H90.3) Not Available [facility] 4 02:22:15 Glossodyn ia 95159851 Active 2021 Glossodyn ia; Note: Date Diagnosed : 12/11/2021 12:27 PM (K14.6) Not Available [facility] 4 02:22:32 Impacted cerumen of bilateral ears 36801650809 18599 Active 2021 Impacted cerumen, bilateral ; Note: Date Diagnosed : 06/11/2022 1:26 PM (H61.23) Not Available [facility] 4 02:22:37 Problem Notes None recorded. Procedures Surgical History Date Name Laterality Status Provider Name and Address Organization Details Recorded Time Cerumen removal without microscope bilat completed Chidi Flor [place] - [facility] 01/11/2025 16:07:03 Imaging Results None recorded. Procedure Notes None recorded. Medical Equipment None Reported. Allergies Allergen ID Allergen Name Allergen Category Reaction Reaction Severity Criticality Documentation Date Start Date Code Code System Note Provider Name and Address Organization Details Recorded Time 98530 Product containin g penicilli n (product) medicatio n Not available Not available Not available 03/17/2024 09571 8001 SNOMED React ion: other react ion, Lip swell ing; Not Available [facility] 4 00:56:08 85074 lisinopri l medicatio n Not available Not available Not available 03/17/2024 00391 RxNorm React ion: other react ion, Lip swell ing; Not Available [facility] 4 00:56:09 Medications Name Sig Start Date Stop Date Status Note LastModified by Organization Details LastModified Time losartan 50 mg tablet 09/14 completed Not Available Not Available Not Available clotrimazol e 10 mg tina 09/14 completed Medication ID: [id number] Rian nd Name: clotrimazo le Send Method: E-Prescrib ed Subs Allowed: subs OK Medicat ionGeneric Name: clotrimazo le Not Available Not Available Not Available cefpodoxime 200 mg tablet active Not Available Not Available Not Available Iron (ferrous sulfate) 325 mg (65 mg iron) tablet 2021 active Medication ID: [id number] Rian nd Name: Iron (ferrous sulfate) S end Method: E-Prescrib ed Subs Allowed: subs OK Medicat ionGeneric Name: Iron (ferrous sulfate) Not Available Not Available Not Available Claritin 10 mg tablet 2021 active Medication ID: [id number] Rian nd Name: Claritin S end Method: [...] 325 mg tablet 2021 active Medication ID: [id number] Rian nd Name: Tylenol Se nd Method: E-Prescrib ed Subs Allowed: subs OK Medicat ionGeneric Name: Tylenol Not Available Not Available Not Available Culturelle 10 billion cell capsule 2021 active Medication ID: [id number] Rian nd Name: Culturelle Send Method: E-Prescrib ed Subs Allowed: subs OK Medicat ionGeneric Name: Culturelle Not Available Not Available Not Available furosemide 20 mg tablet 09/14 completed Not Available Not Available Not Available albuterol sulfate HFA 90 mcg/actuati on aerosol inhaler active Not Available Not Available Not Available fluticasone propionate 50 mcg/actuati on nasal spray,suspe nsion 2021 active Medication ID: [id number] Rian nd Name: fluticason e propionate Send Method: E-Prescrib ed Subs Allowed: subs OK Medicat ionGeneric Name: fluticason e propionate Not Available Not Available Not Available finasteride 5 mg tablet active Not Available Not Available Not Available Vitamin D3 25 mcg (1,000 unit) chewable tablet 09/14 completed Medication ID: [id number] Rian nd Name: Vitamin D3 Send Method: [...] mcg-2.75 mg tablet 2021 active Medication ID: [id number] Rian nd Name: Citracal + D Maximum Se nd Method: E-Prescrib ed Subs Allowed: subs OK Medicat ionGeneric Name: Citracal + D Maximum Not Available Not Available Not Available Vitals Date Recorded Body height Body mass index (BMI) Body weight Provider Name and Address Organization Details Last Updated DateTime 01/11/2025 175.26 cm 35.4 kg/m2 695358.17 g Cecilia Carson [facility] 01/11/2025 15:34:41 Date Recorded Body height Body mass index (BMI) Body weight Provider Name and Address Organization Details Last Updated DateTime 07/21/2024 175.26 cm 35.4 kg/m2 094270.17 g Cecilia Carson [facility] 07/21/2024 10:06:51 Date Recorded Body height Body mass index (BMI) Body weight Provider Name and Address Organization Details Last Updated DateTime 09/14/2025 175.26 cm 34.1 kg/m2 754347.84 g Carmen Euceda [place] - [facility] 09/14/2025 15:07:28 Social History None recorded. Functional Status None recorded. Mental Status None recorded. Family History Nothing Reported. Medical History No medical history recorded. Past Encounters Encounter ID Performer Location Encounter Start Date Encounter Closed Date Diagnosis/Indication Diagnosis SNOMED-CT Code Diagnosis ICD10 Code Diagnosis IMO Codes Diagnosis Note [id number] JAHAIRA BAIG PA-C [facility] on [address] [place] [phone] 07/21/2024 09:53:00 07/21/2024 10:20:03 Impacted cerumen of bilateral ears [id number] 168962 H61.23 [id number] CHIDI FLOR PA-C [facility] on [address] [place] [id number] 01/11/2025 15:24:47 01/11/2025 16:36:05 Impacted cerumen of bilateral ears [id number] 702739 H61.23 [id number] JOSE DIAZ MD [facility] on [address] [place] [id number] 09/14/2025 15:01:33 09/14/2025 15:23:08 Impacted cerumen of bilateral ears 5538199803 990200 H61.23 Only a small amount of cerumen was removed. I did recommend having the hearing and hearing aids assessed to make sure they are functionin g adequately . We can stretch his next visit to 1 year. Sensorineu ral hearing loss of bilateral ears 238684282 H90.3 Health Concerns Section Related Observation LastModified by Organization Detai ls LastModified Time None Recorded Concern Status LastModified by Organization Details LastModified Time None Recorded Advance Directives Directive None Recorded Payers Insurance Date Sequence Insurance Name Policy Number Policy Cleaning Covered Member ID Cleaning Member ID Guarantor Name 09/17/2025 2 [place]) [id number] Murphy Du [id number] Murphy Du 09/14/2025 1 MEDIC[place] B[place] [facility] Murphy Du [id number] Murphy Du Notes Date Note Type Note Provider Name and Address Organization Details Recorded Time 07/21/2024 text/html ROS as noted in the HPI 89 year old male presents today for an ear cleaning. He has bilateral hearing aids from [employer]. No concerns today. JOSE DIAZ MD [address] [place] [address], [phone], [facility] - [facility] 07/21/2024 13:59:27 01/11/2025 text/html ROS as noted in the [facility] Gómez is an 89 year old male who presents to the office with his [place] for routine ear cleaning. No acute concerns. He uses bilateral amplification. MURPHY ZEPEDA MD [address] [place] [address], [phone], [facility] 01/12/2025 08:00:25 09/14/2025 text/html ROS as noted in the HPI 89 year old male who presents to the office for routine ear cleaning. No acute concerns. He uses bilateral amplification. JOSE DIAZ MD [address] [place] [address], [phone], [facility] 09/15/2025 07:41:13
== END 2025-09-22 13:33 | disposition home or self-care (01) ==
LOC: HO.HMGAL 13:33
PROVIDERS: PCP Internal Medicine; Visit Provider Registered Nurse Emergency
DX: J30.89 Other allergic rhinitis (principal)
CPT/HCPCS: 95117; 95165

== ENCOUNTER 2025-10-04 12:58 | Outpatient (AMB) | payer MEDICARE, SELFPAY ==
--- OUTSIDE RECORDS SUMMARY | 2021-02-12 10:58 | XMS_ITS | Encounter Summary ---
Author Organization [facility] Address [address] [place] [address] [place] [address] Phone Care Team Providers Care Java Tech Name Role Phone Willie Blair MD Primary Care Provider Daniel Flores MD Unavailable Delvin Waddell MD Unavailable [phone] Shaylee Dejesus MD Unavailable [phone] Tramaine Valle MD Unavailable [phone] Encounter Details Date Type Department Care Team (Late st Contact Info) Description 02/12/2021 11:58 AM EDT Hospital Encounter [facility] [address] [place] [address] Orlando Smallwood PA [address] [place] [address] [email or web address] Social History Tobacco Use Types Packs/Day [...] 5:58 PM EDT Nikkie Aguilar RN * [place] Suicide Severity Rating Scale (Screener/Recent Self-Report) Question [...] Description 10/22/2025 3:00 PM EST Office Visit [facility] Internal Medicine 40 [place] [address] Willie Blair MD 40 [place] [address] 11/03/2025 10:45 AM EST Office Visit [facility] 10 [place] [address] Charlene Piedra, [address] [address] [email or web address] 02/11/2026 10:20 AM EDT Office Visit [facility] Pulmonary, Allergy and Critical Care Medicine 10 [facility] [place] [address] López Henry MD [address] [address] (work) [email or web address] documented as of this encounter Procedures Procedure [...] documented as of this encounter Care Teams Java Tech Relationship Specialty Start Date End Date Willie Blair MD 40 [place] [address] [email or web address] PCP - General Internal Medicine 02/04/20 Daniel Flores MD 100 [facility] 120 [place] [address] [email or web address] 04/14/20 Delvin Waddell MD 100 [facility] 120 [place] [address] [email or web address] Cardiology 04/14/20 Shaylee Dejesus MD [address] [place] [address] 106 [place] [address] Otolaryngology 05/20/20 Tramaine Valle MD [address] [place] [address] 2 [place] [address] [email or web address] Gastroenterology 11/30/20 documented as of this encounter Additional Source Comments The information contained in this document represents components of the legal health record. It is not the complete legal health record.[facility]
--- OUTSIDE RECORDS SUMMARY | 2025-10-04 16:34 | XMS_ITS | Encounter Summary ---
Author Organization [facility] Address [address] [place] [address] [place] [address] Phone Care Team Providers Care Deputy City Clerk Name Role Phone Willie Blair MD Unavailable Willie Blair MD Primary Care Provider [phone] Daniel Flores MD Unavailable Delvin Waddell MD Unavailable Shaylee Dejesus MD Unavailable Tramaine Valle MD Unavailable [phone] Maxx Gardner OT Unavailable [phone] Chantel Philippe RN Unavailable [phone] Keily Gomez OT Unavailable [phone] Socorro Begum Unavailable [phone] Keily Gomez OT Unavailable [phone] Encounter Details Date Type Department Care Team (Late st Contact Info) Description 05/20/2021 Procedure Pass [facility] [address] [place], [place] [id number] Social History Tobacco Use Types Packs/Day Years [...] 10/22/2025 3:00 PM EST Office Visit [facility] Internal Medicine [address] [place] [address] Willie Blair MD [address] [place] [address] 11/03/2025 10:45 AM EST Office Visit [facility] Gastroenterology Clinic 10 [place] [address] Charlene Piedra, INCINERATOR ATTENDANT [address] [address] [email or web address] 02/11/2026 10:20 AM EDT Office Visit [facility] Pulmonary, Allergy and Critical Care Medicine 10 [facility] [place] [address] López Henry MD [address] [address] documented as of this encounter Visit Diagnoses [...] documented as of this encounter Care Teams Deputy City Clerk Relationship Specialty Start Date End Date Willie Blair MD [address] [place] [address] [email or web address] PCP - General Internal Medicine 02/04/20 Willie Blair MD [address] [place] [address] [email or web address] Insurance Assigned Provider 02/08/24 Daniel Flores MD [address] [address] [email or web address] Urology 04/14/20 Delvin Waddell MD [address] [address] [email or web address] Cardiology 04/14/20 Shaylee Dejesus MD [address] [place] [address] Otolaryngology 05/20/20 Tramaine Valle MD [address] [place] [address] [email or web address] Gastroenterology 11/30/20 Maxx Gardner, OT 10 [place] [address] [email or web address] Transitions Load CheckerSandwich Wrapper Therapy 05/22/21 Chantel Philippe, RN [address] [place] [address] [email or web address] [facility] Load CheckerLithographic Photographer Apprentice 10/12/22 10/31/22 Keily Gomez, OT 30 [place] [address] [email or web address] Transitions Load CheckerSandwich Wrapper Therapy 12/30/23 Socorro Begum PA [address] [place] [address] Physician Engineering Psychologist Cardiology 04/06/24 Keily Gomez, OT [address] [place] [address] [email or web address] Transitions Load CheckerSandwich Wrapper Therapy 03/01/25 documented as of this encounter Additional Source Comments The information contained in this document represents components of the legal health record. It is not the complete legal health record.[facility]
--- OUTSIDE RECORDS SUMMARY | 2025-10-04 16:34 | XMS_ITS | Encounter Summary ---
Author Organization [facility] Address [address] [place] [address] [place] [address] Phone Care Team Providers Care Insurance Sales Executive Name Role Phone Willie Blair MD Unavailable [phone] Willie Blair MD Primary Care Provider Daniel Flores MD Unavailable Delvin Waddell MD Unavailable [phone] Shaylee Dejesus MD Unavailable Tramaine Valle MD Unavailable [phone] Socorro Begum Unavailable [phone] Keily Gomez OT Unavailable [phone] Encounter Details Date Type Department Care Team (Late st Contact Info) Description 02/27/2025 Procedure Pass [facility] Echo [facility] [address] [place], [place] [phone] Social History Tobacco Use Types Packs/Day Years [...] 2:34 PM EDT Sheela Sanchez RN * [place] Suicide Severity Rating Scale (Screener/Recent Self-Report) Question [...] Description 10/22/2025 3:00 PM EST Office Visit [facility] Internal Medicine [address] [place] [address] Willie Blair MD 40 [place] [address] 11/03/2025 10:45 AM EST Office Visit [facility] Gastroenterology Clinic 10 [place] [address] Charlene Piedra, [address] [address] [email or web address] 02/11/2026 10:20 AM EDT Office Visit [facility] Pulmonary, Allergy and Critical Care Medicine 10 [place] [address] López Henry MD [address] [address] [email or web address] documented as of this encounter Visit Diagnoses [...] documented as of this encounter Care Teams Insurance Sales Executive Relationship Specialty Start Date End Date Willie Blair MD [address] [place] [address] [email or web address] PCP - General Internal Medicine 02/04/20 Willie Blair MD [address] [place] [address] [email or web address] Insurance Assigned Provider 02/08/24 Daniel Flores MD [address] [phone] [email or web address] Urology 04/14/20 Delvin Waddell MD [address] [facility] [address] [facility] [address] [place] [address] [email or web address] Cardiology 04/14/20 Shaylee Dejesus MD [address] [place] [address] Dr FELIX [address] [place] [address] Otolaryngology 05/20/20 Tramaine Valle MD [address] [place] [address] [email or web address] Gastroenterology 11/30/20 Socorro Begum PA [address] [place] [address] Physician Pulp Grinder Cardiology 04/06/24 Keily Gomez, OT 30 [place] [address] [email or web address] Transitions Produce SpecialistTile Edger Therapy 03/01/25 documented as of this encounter Additional Source Comments The information contained in this document represents components of the legal health record. It is not the complete legal health record.[facility]
--- OUTSIDE RECORDS SUMMARY | 2025-10-04 16:34 | XMS_ITS | Clinical Summary ---
Author Organization [facility] Address [address] [place] [address] Phone Care Team Providers Care Welder/Fabricator Name Role Phone Physician, Pcp Unknown Primary Care Provider Tiffanie vailable Social History Tobacco Use Types Packs/Day Years [...] series) 2011 Depression Screening 11/04/2024 COVID-19 Vaccine ( - 2024-2 6 season) 2025 Influenza Vaccine (#1) 2025 Cholesterol [...] age to complete this topic Insurance MEDICARE [facility] Care Teams Welder/Fabricator Relationship Specialty Start Date End Date Physician, Pcp Unknown PCP - General 07/08/25
--- OUTSIDE RECORDS SUMMARY | 2025-10-04 16:34 | XMS_ITS | Continuity of Care Document ---
Author Organization [place] - 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 Procedures Surgical History Date Name Laterality Status Provider Name and Address Organization Details Recorded Time 5 Cerumen removal without microscope bilat completed Angelica Puga [place] - [facility] 01/11/2025 16:07:03 Imaging Results None recorded. Procedure Notes None recorded. Medical Equipment None Reported. Allergies Allergen ID Allergen Name Allergen Category Reaction Reaction Severity Criticality Documentation Date Start Date Code Code System Note Provider Name and Address Organization Details Recorded Time 21817 Product containin g penicilli n (product) medicatio n Not available Not available Not available 03/17/2024 20169 8001 SNOMED React ion: other react ion, Lip swell ing; Not Available [facility] 4 00:56:08 03211 lisinopri l medicatio n Not available Not available Not available 03/17/2024 29301 RxNorm React ion: other react ion, Lip swell ing; Not Available [facility] 4 00:56:09 Medications Name Sig Start Date Stop Date Status Note LastModified by Organization Details LastModified Time losartan 50 mg tablet 09/14 completed Not Available Not Available Not Available clotrimazol e 10 mg tina 09/14 completed Medication ID: [id number] Rian nd Name: clotrimazo le Send Method: E-Prescrib ed Subs Allowed: subs OK Medicat ionGeneric Name: clotrimazo le Not Available Not Available Not Available cefpodoxime 200 mg tablet active Not Available Not Available Not Available Iron (ferrous sulfate) 325 mg (65 mg iron) tablet 2021 active Medication ID: [id number] Rina nd Name: Iron (ferrous sulfate) S end Method: E-Prescrib ed Subs Allowed: subs OK Medicat ionGeneric Name: Iron (ferrous sulfate) Not Available Not Available Not Available Claritin 10 mg tablet 2021 active Medication ID: [id number] Rian nd Name: Claritin S end Method: [...] 325 mg tablet 2021 active Medication ID: [id number] Rian nd Name: Tylenol Se nd Method: E-Prescrib ed Subs Allowed: subs OK Medicat ionGeneric Name: Tylenol Not Available Not Available Not Available Culturelle 10 billion cell capsule 2021 active Medication ID: [id number] Rian nd Name: Culturelle Send Method: E-Prescrib ed Subs Allowed: subs OK Medicat ionGeneric Name: Culturelle Not Available Not Available Not Available furosemide 20 mg tablet 09/14 completed Not Available Not Available Not Available albuterol sulfate HFA 90 mcg/actuati on aerosol inhaler active Not Available Not Available Not Available fluticasone propionate 50 mcg/actuati on nasal spray,suspe nsion 2021 active Medication ID: [id number] Rian nd Name: fluticason e propionate Send Method: E-Prescrib ed Subs Allowed: subs OK Medicat ionGeneric Name: fluticason e propionate Not Available Not Available Not Available finasteride 5 mg tablet active Not Available Not Available Not Available Vitamin D3 25 mcg (1,000 unit) chewable tablet 09/14 completed Medication ID: [id number] Rian nd Name: Vitamin D3 Send Method: [...] mcg-2.75 mg tablet 2021 active Medication ID: [id number] Bra nd Name: Citracal + D Maximum Se nd Method: E-Prescrib ed Subs Allowed: subs OK Medicat ionGeneric Name: Citracal + D Maximum Not Available Not Available Not Available Vitals Date Recorded Body height Body mass index (BMI) Body weight Provider Name and Address Organization Details Last Updated DateTime 09/14/2025 175.26 cm 34.1 kg/m2 194221.84 g Carmen Euceda [place] - [facility] 09/14/2025 15:07:28 Social History None recorded. Functional Status None recorded. Mental Status None recorded. Family History Nothing Reported. Medical History No medical history recorded. Past Encounters Encounter ID Performer Location Encounter Start Date Encounter Closed Date Diagnosis/Indication Diagnosis SNOMED-CT Code Diagnosis ICD10 Code Diagnosis IMO Codes Diagnosis Note [id number] JOSE DIAZ MD [facility] [address] [address] 09/14/2025 15:01:33 09/14/2025 15:23:08 Impacted cerumen of bilateral ears [id number] 320825 H61.23 Only a small amount of cerumen was removed. I did recommend having the hearing and hearing aids assessed to make sure they are functionin g adequately . We can stretch his next visit to 1 year. Sensorineu ral hearing loss of bilateral ears 968520103 H90.3 Health Concerns Section Related Observation LastModified by Organization Detai ls LastModified Time None Recorded Concern Status LastModified by Organization Details LastModified Time None Recorded Payers Encounter Date Sequence Insurance Name Policy Number Policy Cleaning Covered Member ID Cleaning Member ID Guarantor Name 09/14/2025 2 [place] [id number] Arnulfo Du [id number] 30 Arnulfo Du 09/14/2025 1 [place] [employer] Arnulfo Du [id number] Arnulfo Du Notes Date Note Type Note Provider Name and Address Organization Details Recorded Time 09/14/2025 text/html ROS as noted in the HPI 89 year old male who presents to the office for routine ear cleaning. No acute concerns. He uses bilateral amplification. JOSE DIAZ MD [address] [place] [address], [place], [address], [facility] - [facility] 09/15/2025 07:41:13
--- OUTSIDE RECORDS SUMMARY | 2025-10-04 16:34 | XMS_ITS | Encounter Summary ---
Author Organization [facility] Address [address] [place] [address] [place] [address] Phone Care Team Providers Care Mine Engineering Superintendent Name Role Phone Willie Blair MD Unavailable Willie Blair MD Primary Care Provider Daniel Flores MD Unavailable Delvin Waddell MD Unavailable Shaylee Dejesus MD Unavailable [phone] Tramaine Valle MD Unavailable [phone] Maxx Gardner OT Unavailable [phone] Chantel Philippe RN Unavailable [phone] Keily Gomez OT Unavailable [phone] Socorro Begum Unavailable [phone] Keily Gomez OT Unavailable [phone] Encounter Details Date Type Department Care Team (Late st Contact Info) Description 05/19/2021 Procedure Pass [facility], Ct Scan - [address] [id number] Social History Tobacco Use Types Packs/Day Years [...] 4:56 PM EDT Taylor Byrd RN * Spurgeon Suicide Severity Rating Scale (Screener/Recent Self-Report) Question [...] Description 10/22/2025 3:00 PM EST [facility] Visit [facility] Internal Medicine 40 [place] [address] Willie Blair MD 40 [place] [address] 11/03/2025 10:45 AM EST Office Visit [facility]ology [facility] 10 [place] [address] Charlene Piedra, [address] [address] [email or web address] 02/11/2026 10:20 AM EDT Office Visit [facility] Pulmonary, Allergy and Critical Care Medicine 10 [place] [address] López Henry MD 10 [facility] 2nd [place] [address] [email or web address] documented as of this encounter Visit Diagnoses [...] documented as of this encounter Care Teams Mine Engineering Superintendent Relationship Specialty Start Date End Date Willie Blair MD 40 [place] [address] [email or web address] PCP - General Internal Medicine 02/04/20 Willie Blair MD 40 [place] [address] [email or web address] Insurance Assigned Provider 02/08/24 Daniel Flores MD [address] [address] [email or web address] Urology 04/14/20 Delvin Waddell MD 100 [facility] 120 [place] [address] [email or web address] Cardiology 04/14/20 Shaylee Dejesus MD [address] [place] [phone] Otolaryngology 05/20/20 Tramaine Valle MD [address] [place] [address] [email or web address] Gastroenterology 11/30/20 Maxx Gardner, OT [address] [place] [address] [email or web address] Transitions Retail Sales ConsultantMotorcycle Technician Therapy 05/22/21 Chantel Philippe, RN 10 [place] [address] [email or web address] Retail Sales ConsultantDrinking Water Technician 10/12/22 10/31/22 Keily Gomez, OT 30 [place] [address] [email or web address] Transitions Retail Sales ConsultantMotorcycle Technician Therapy 12/30/23 Socorro Begum PA [address] [place] [address] Physician Candy Attendant Cardiology 04/06/24 Keily Gomez, OT 30 [place] [address] [email or web address] Transitions Retail Sales ConsultantMotorcycle Technician Therapy 03/01/25 documented as of this encounter Additional Source Comments The information contained in this document represents components of the legal health record. It is not the complete legal health record.[facility]
--- OUTSIDE RECORDS SUMMARY | 2025-10-04 16:34 | XMS_ITS | Encounter Summary ---
Author Organization [facility] Address [address] [place] [address] [place] [address] Phone Care Team Providers Care Data Acquisition Technician Name Role Phone Willie Blair MD Unavailable [phone] Willie Blair MD Primary Care Provider Daniel Flores MD Unavailable Delvin Waddell MD Unavailable Shaylee Dejesus MD Unavailable Tramaine Valle MD Unavailable [phone] Maxx Gardner OT Unavailable [phone] Chantel Philippe RN Unavailable [phone] Keily Gomez OT Unavailable Socorro Begum Unavailable [phone] Keily Gomez OT Unavailable [phone] Encounter Details Date Type Department Care Team (Late st Contact Info) Description 05/21/2021 Procedure Pass [facility], [address] [id number] Social History Tobacco Use Types Packs/Day Years [...] Description 10/22/2025 3:00 PM EST Office Visit [facility] Internal Medicine 40 [place] [address] Willie Blair MD 40 [place] [address] 11/03/2025 10:45 AM EST Office Visit [facility] Gastroenterology Clinic 10 [place] [address] Charlene Piedra, [address] [address] [email or web address] 02/11/2026 10:20 AM EDT Office Visit [facility] Pulmonary, Allergy and Critical Care Medicine 10 [facility] [place] [address] López Henry MD [address] [address] documented as of this encounter Visit Diagnoses [...] documented as of this encounter Care Teams Data Acquisition Technician Relationship Specialty Start Date End Date Willie Blair MD 40 [place] [address] [email or web address] PCP - General Internal Medicine 02/04/20 Willie Blair MD 40 [place] [address] [email or web address] Insurance Assigned Provider 02/08/24 Daniel Flores MD [address] [address] [email or web address] Urology 04/14/20 Delvin Waddell MD [address] [address] [email or web address] Cardiology 04/14/20 Shaylee Dejesus MD [address] [place] [address] Dr FELIX [facility] [place] [address] Otolaryngology 05/20/20 Tramaine Valle MD [address] [address] [email or web address] Gastroenterology 11/30/20 Maxx Gardner, OT 10 [place] [address] [email or web address] Transitions Last Repairer HelperEpic Ambulatory Specialists Therapy 05/22/21 Chantel Philippe, RN [address] [place] [address] [email or web address] Last Repairer HelperOracle Data Warehouse Developer 10/12/22 10/31/22 Keily Gomez, OT 30 [place] [address] [email or web address] Transitions Last Repairer HelperEpic Ambulatory Specialists Therapy 12/30/23 Socorro Begum PA [address] [place] [address] Physician State Tested Nursing Assistant Cardiology 04/06/24 Keily Gomez, OT 30 [place] [address] [email or web address] Transitions Last Repairer HelperEpic Ambulatory Specialists Therapy 03/01/25 documented as of this encounter Additional Source Comments The information contained in this document represents components of the legal health record. It is not the complete legal health record.[facility]
--- OUTSIDE RECORDS SUMMARY | 2025-10-04 16:34 | XMS_ITS | Encounter Summary ---
Author Organization [facility] Address [address] [place] [address] [place] [address] Phone Care Team Providers Care Transmission Inspector Name Role Phone Willie Blair MD Unavailable Willie Blair MD Primary Care Provider [phone] Daniel Flores MD Unavailable Delvin Waddell MD Unavailable Shaylee Dejesus MD Unavailable [phone] Tramaine Valle MD Unavailable [phone] Maxx Gardner OT Unavailable [phone] Chantel Philippe RN Unavailable [phone] Keily Gomez OT Unavailable [phone] Socorro Begum Unavailable [phone] Keily Gomez OT Unavailable [phone] Encounter Details Date Type Department Care Team (Late st Contact Info) Description 05/10/2021 Procedure Pass [facility] Endoscopy Admitting Dept Virtual Department 30 [place] [address] Social History Tobacco Use Types [...] Description 10/22/2025 3:00 PM EST Office Visit [facility] Internal Medicine 40 [place] [address] Willie Blair MD 40 [place] [address] 11/03/2025 10:45 AM EST Office Visit [facility] Gastroenterology Clinic 10 [place] [address] Charlene Piedra, KNOTTER [address] [address] [email or web address] 02/11/2026 10:20 AM EDT Office Visit [facility] Pulmonary, Allergy and Critical Care Medicine 10 [facility] [place] [address] López Henry MD [address] [address] documented as of this encounter Visit Diagnoses [...] documented as of this encounter Care Teams Transmission Inspector Relationship Specialty Start Date End Date Willie Blair MD 40 [place] [address] [email or web address] PCP - General Internal Medicine 02/04/20 Willie Blair MD 40 [place] [address] [email or web address] Insurance Assigned Provider 02/08/24 Daniel Flores MD [address] [address] [email or web address] Urology 04/14/20 Delvin Waddell MD [address] [address] [email or web address] Cardiology 04/14/20 Shaylee Dejesus MD [address] [place] [address] Dr FELIX [address] [place] [address] Otolaryngology 05/20/20 Tramaine Valle MD [address] [place] [address] [email or web address] Gastroenterology 11/30/20 Maxx Gardner, OT [address] [place] [address] [email or web address] Transitions Inpatient Care Manager RnClaims Adjustor Therapy 05/22/21 Chantel Philippe, RN [address] [place] [address] [email or web address] Inpatient Care Manager RnLand Leases And Rentals Manager 10/12/22 10/31/22 Keily Gomez, OT 30 [place] [address] [email or web address] Transitions Inpatient Care Manager RnClaims Adjustor Therapy 12/30/23 Socorro Begum PA [address] [place] [address] Physician Bonding And Composite Fabricator Cardiology 04/06/24 Keily Gomez, OT 30 [place] [address] [email or web address] Transitions Inpatient Care Manager RnClaims Adjustor Therapy 03/01/25 documented as of this encounter Additional Source Comments The information contained in this document represents components of the legal health record. It is not the complete legal health record.[facility]
--- OUTSIDE RECORDS SUMMARY | 2025-10-04 16:34 | XMS_ITS | Encounter Summary ---
Author Organization [facility] Address [address] [place] [address] [place] [address] Phone Care Team Providers Care Knapsack Sprayer Name Role Phone Willie Blair MD Unavailable [phone] Willie Blair MD Primary Care Provider Daniel Flores MD Unavailable Delvin Waddell MD Unavailable Shaylee Dejesus MD Unavailable Tramaine Valle MD Unavailable [phone] Maxx Gardner OT Unavailable [phone] Chantel Philippe RN Unavailable [phone] Keily Gomez OT Unavailable Socorro Begum Unavailable [phone] Keily Gomez OT Unavailable [phone] Encounter Details Date Type Department Care Team (Late st Contact Info) Description 02/21/2021 Procedure Pass [facility], Ct Scan - [address] [id number] Social History Tobacco Use Types Packs/Day Years [...] Description 10/22/2025 3:00 PM EST Office Visit [facility] Internal Medicine 40 [place] [address] Willie Blair MD 40 [place] [address] 11/03/2025 10:45 AM EST Office Visit [facility] Gastroenterology Clinic 10 [place] [address] Charlene Piedra, [address] [address] [email or web address] 02/11/2026 10:20 AM EDT Office Visit [facility] Pulmonary, Allergy and Critical Care Medicine 10 [facility] [place] [address] López Henry MD [address] [address] documented as of this encounter Visit Diagnoses [...] documented as of this encounter Care Teams Knapsack Sprayer Relationship Specialty Start Date End Date Willie Blair MD 40 [place] [address] [email or web address] PCP - General Internal Medicine 02/04/20 Willie Blair MD 40 [place] [address] [email or web address] Insurance Assigned Provider 02/08/24 Daniel Flroes MD [address] [address] [email or web address] Urology 04/14/20 Delvin Waddell MD [address] [address] [email or web address] Cardiology 04/14/20 Shaylee Dejesus MD [address] [place] [address] Dr FELIX [address] [place] [address] Otolaryngology 05/20/20 Tramaine Valle MD [address] [address] [email or web address] Gastroenterology 11/30/20 Maxx Gardner, OT 10 [place] [address] [email or web address] Transitions Document Control ClerkExpansion Joint Builder Therapy 05/22/21 Chantel Philippe, RN [address] [place] [address] [email or web address] Document Control ClerkPitch Filler 10/12/22 10/31/22 Keily Gomez, OT 30 [place] [address] [email or web address] Transitions Document Control ClerkExpansion Joint Builder Therapy 12/30/23 Socorro Begum PA [address] [place] [address] Physician Safety And Occupational Health Manager Cardiology 04/06/24 Keily Gomez, OT 30 [place] [address] [email or web address] Transitions Document Control ClerkExpansion Joint Builder Therapy 03/01/25 documented as of this encounter Additional Source Comments The information contained in this document represents components of the legal health record. It is not the complete legal health record.[facility]
--- OUTSIDE RECORDS SUMMARY | 2025-10-04 16:34 | XMS_ITS | Encounter Summary ---
Author Organization [facility] Address [address] [place] [address] [place] [address] Phone Care Team Providers Care Pick Up Worker Name Role Phone Willie Blair MD Unavailable [phone] Willie Blair MD Primary Care Provider Daniel Flores MD Unavailable Delvin Waddell MD Unavailable Shaylee Dejesus MD Unavailable Tramaine Valle MD Unavailable [phone] Socorro Begum Unavailable [phone] Keily Gomez OT Unavailable [phone] Encounter Details Date Type Department Care Team (Late st Contact Info) Description 12/02/2024 Procedure Pass [facility] Endoscopy Admitting Dept Virtual Department 30 [place], [place] [phone] Social History Tobacco Use Types Packs/Day Years [...] Description 10/22/2025 3:00 PM EST Office Visit [facility] [place] [facility] Medicine 40 [place] [address] Willie Blair MD 40 [place] [address] 11/03/2025 10:45 AM EST Office Visit [facility] Gastroenterology Clinic 10 [place] [address] Charlene Piedra IN SERVICE EDUCATOR 10 [facility] 2 [place] [address] [email or web address] 02/11/2026 10:20 AM EDT Office Visit [facility] Pulmonary, Allergy and Critical Care Medicine 10 [facility] [address] López Henry MD [address] [place] [address] documented as of this encounter Visit Diagnoses [...] documented as of this encounter Care Teams Pick Up Worker Relationship Specialty Start Date End Date Willie Blair MD 40 [place] [address] PCP - General Internal Medicine 02/04/20 Willie Blair MD 40 [place] [address] Insurance Assigned Provider 02/08/24 Daniel Flores MD [address] [place] [address] 120 [place] [address] [email or web address] Urology 04/14/20 Delvin Waddell MD 100 [facility] 120 [place] [address] [email or web address] Cardiology 04/14/20 Shaylee Dejesus MD [address] [place] [address] 106 [place] [address] Otolaryngology 05/20/20 Tramaine Valle MD [address] [place] [address] 2 [place] [address] [email or web address] Gastroenterology 11/30/20 Socorro Begum PA [address] [place] [address] Physician Cotton Jammer Cardiology 04/06/24 Keily Goemz, OT 30 [place] [address] [email or web address] Transitions Cataloging AssistantBack Gray Cloth Washer Therapy 03/01/25 documented as of this encounter Additional Source Comments The information contained in this document represents components of the legal health record. It is not the complete legal health record.[facility]
--- OUTSIDE RECORDS SUMMARY | 2025-10-04 16:34 | XMS_ITS | Encounter Summary ---
Author Organization [facility] Address [address] [place] [address] [place] [address] Phone Care Team Providers Care Oil Painter Name Role Phone Willie Blair MD Unavailable [phone] Willie Blair MD Primary Care Provider [phone] Daniel Flores MD Unavailable [phone] Delvin Waddell MD Unavailable Shaylee Dejesus MD Unavailable Tramaine Valle MD Unavailable [phone] Chantel Philippe RN Unavailable [phone] Keily Gomez OT Unavailable Socorro Begum Unavailable [phone] Keily Gomez OT Unavailable [phone] Encounter Details Date Type Department Care Team (Late st Contact Info) Description 08/28/2021 Procedure Pass [facility] Endoscopy Admitting Dept Virtual Department [address] [place] [address] Social History Tobacco Use Types Packs/Day Years [...] Description 10/22/2025 3:00 PM EST Office Visit [facility] Internal Medicine 40 [place] [address] Willie Blair MD 40 [place] [address] 11/03/2025 10:45 AM EST Office Visit [facility] G[facility]ology [facility] 10 [place] [address] Charlene Piedra, PACKAGE DESIGNER [address] [address] [email or web address] 02/11/2026 10:20 AM EDT Office Visit [facility] Pulmonary, Allergy and Critical Care Medicine 10 [place] [address] López Henry MD [address] [address] documented as of this encounter Visit Diagnoses [...] documented as of this encounter Care Teams Oil Painter Relationship Specialty Start Date End Date Willie Blair MD 40 [place] [address] [email or web address] PCP - General Internal Medicine 02/04/20 Willie Blair MD 40 [place] [address] [email or web address] Insurance Assigned Provider 02/08/24 Daniel Flores MD [address] [address] [email or web address] Urology 04/14/20 Delvin Waddell MD [address] [address] [email or web address] Cardiology 04/14/20 Shaylee Dejesus MD [address] [place] [address] Dr FELIX [address] [place] [address] Otolaryngology 05/20/20 Tramaine Valle MD [address] [place] [address] [place] [address] [email or web address] Gastroenterology 11/30/20 Chantel Philippe, RN 10 [place] [address] [email or web address] PHCM Deputy Chief MagistrateDust Collector 10/12/22 10/31/22 Keily Gomez, OT 30 [place] [address] [email or web address] Transitions Deputy Chief MagistrateBoiler Shop Mechanic Therapy 12/30/23 Socorro Begum PA [address] [place] [address] Physician Nitric Acid Plant Operator Cardiology 04/06/24 Keily Gomez, OT 30 [place] [address] [email or web address] Transitions Deputy Chief MagistrateBoiler Shop Mechanic Therapy 03/01/25 documented as of this encounter Additional Source Comments The information contained in this document represents components of the legal health record. It is not the complete legal health record.[facility]
--- OUTSIDE RECORDS SUMMARY | 2025-10-04 16:34 | XMS_ITS | Encounter Summary ---
Author Organization [email or web address] Address [address] [place] [address] Care Team Providers Care Registration Manager Name Role Phone Physician, Pcp Unknown Primary Care Provider Tiffanie vailable Encounter Details Date Type Department Care Team (Late st Contact Info) Description 07/08/2025 Lab Requisition [facility] - Main Lab 299 Pending Sale To [facility] [place] [address] Daniel Flores MD 100 [facility] 120 [place] [address] Benign essential microscopic hematuria Social History Tobacco [...] 12:00 AM EDT) Final Diagnosis Urine, Voided, [id number]: Negative for high grade urothelial carcinoma. 07/30/2025 4:43 PM EDT [facility] at 1643 EDT Specimen A Adequacy Satisfactory for evaluation 07/30/2025 4:43 PM EDT [facility] Clinical Information Benign essential microscopic hematuria R31.1 Urine cytology with reflex UroVysion (AUC/SHGUC) 07/30/2025 4:43 PM EDT [facility] Gross Description A. Urine, Voided, [id number]: Received one ThinPrep slide for cytology. 07/30/2025 4:43 PM EDT [facility] Disclaimer Unless otherwise specified, all tissue is 10% NB formalin fixed and paraffin embedded. Technical pathology services provided by [facility]rology at [address] [place] [address] [address], [place] [address] (CLIA #[id number]/Gio Ortiz MD, Awning Erector) 07/30/2025 4:43 PM EDT [facility] Urine Urine specimen from urethra / Unknown 06/29/2025 07/08/2025 1:04 PM EDT us Daniel Flores MD LAB CYTOLOGY ORDERABLES Fin al Result [facility] [address] [place] [address], documented in this encounter Visit Diagnoses Diagnosis Benign essential microscopic hematuria documented in this encounter Care Teams Registration Manager Relationship Specialty Start Date End Date Physician, Pcp Unknown PCP - General 07/08/25 documented as of this encounter
--- OUTSIDE RECORDS SUMMARY | 2025-10-04 16:35 | XMS_ITS | Encounter Summary ---
Author Organization [facility] Address [address] [place] [address] [place] [address] Phone Care Team Providers Care Supervisory Cbp Officer Name Role Phone Willie Blair MD Unavailable Willie Blair MD Primary Care Provider Daniel Flores MD Unavailable Delvin Waddell MD Unavailable Shaylee Dejesus MD Unavailable [phone] Tramaine Valle MD Unavailable [phone] Maxx Gardner OT Unavailable [phone] Chantel Philippe RN Unavailable [phone] Keily Gomez OT Unavailable [phone] Socorro Begum Unavailable [phone] Keily Gomez OT Unavailable [phone] Encounter Details Date Type Department Care Team (Late st Contact Info) Description 05/25/2021 Procedure Pass [facility] Cardiovascular And Interventional Radiology 30 [place] [address] Social History Tobacco Use Types Packs/Day Years [...] Description 10/22/2025 3:00 PM EST Office Visit [facility] Internal Medicine 40 [place] [address] Willie Blair MD 40 [place] [address] 11/03/2025 10:45 AM EST Office Visit [facility] Gastroenterology Clinic 10 [place] [address] Charlene Piedra, SHADE CLOTH FINISHER [address] [address] [email or web address] 02/11/2026 10:20 AM EDT Office Visit [facility] Pulmonary, Allergy and Critical Care Medicine 10 [facility] [place] [address] López Henry MD [address] [address] documented as of this encounter Visit Diagnoses [...] documented as of this encounter Care Teams Supervisory Cbp Officer Relationship Specialty Start Date End Date Willie Blair MD 40 [place] [address] [email or web address] PCP - General Internal Medicine 02/04/20 Willie Blair MD 40 [place] [address] [email or web address] Insurance Assigned Provider 02/08/24 Daniel Flores MD [address] [address] [email or web address] Urology 04/14/20 Delvin Waddell MD [address] [address] [email or web address] Cardiology 04/14/20 Shaylee Dejesus MD [address] [place] [address] Otolaryngology 05/20/20 Tramaine Valle MD [address] [place] [address] [email or web address] Gastroenterology 11/30/20 Maxx Gardner, OT [address] [place] [address] [email or web address] Transitions Quality Control Systems ManagerSpace Systems Operations Craftsman Therapy 05/22/21 Chantel Philippe, RN [address] [place] [address] [email or web address] [facility] Quality Control Systems ManagerGranulator 10/12/22 10/31/22 Keily Gomez, OT 30 [place] [address] [email or web address] Transitions Quality Control Systems ManagerSpace Systems Operations Craftsman Therapy 12/30/23 Socorro Begum PA [address] [place] [address] Physician Missile Technician Cardiology 04/06/24 Keily Gomez, OT 30 [place] [address] [email or web address] Transitions Quality Control Systems ManagerSpace Systems Operations Craftsman Therapy 03/01/25 documented as of this encounter Additional Source Comments The information contained in this document represents components of the legal health record. It is not the complete legal health record.[facility]
--- OUTSIDE RECORDS SUMMARY | 2025-10-04 16:35 | XMS_ITS | Encounter Summary ---
Author Organization [facility] Address [address] [place] [address] [place] [address] Phone Care Team Providers Care Grade Setter Name Role Phone Willie Blair MD Unavailable Willie Blair MD Primary Care Provider Daniel Flores MD Unavailable Delvin Waddell MD Unavailable Shaylee Dejesus MD Unavailable Tramaine Valle MD Unavailable [phone] Maxx Gardner OT Unavailable [phone] Chantel Philippe RN Unavailable [phone] Keily Gomez OT Unavailable Socorro Begum Unavailable [phone] Keily Gomez OT Unavailable [phone] Encounter Details Date Type Department Care Team (Late st Contact Info) Description 05/23/2021 Procedure Pass [facility] Cardiovascular And Interventional Radiology 30 [place] [address] Social History Tobacco Use Types Packs/Day Years [...] Description 10/22/2025 3:00 PM EST Office Visit [facility] Internal Medicine 40 [place] [address] Willie Blair MD 40 [place] [address] 11/03/2025 10:45 AM EST Office Visit [facility] Gastroenterology Clinic 10 [place] [address] Charlene Piedra, X RAY TECH [address] [address] [email or web address] 02/11/2026 10:20 AM EDT Office Visit [facility] Pulmonary, Allergy and Critical Care Medicine 10 [facility] [place] [address] López Henry MD [address] [address] documented as of this encounter Visit Diagnoses [...] documented as of this encounter Care Teams Grade Setter Relationship Specialty Start Date End Date Willie Blair MD 40 [place] [address] [email or web address] PCP - General Internal Medicine 02/04/20 Willie Blair MD 40 [place] [address] [email or web address] Insurance Assigned Provider 02/08/24 Daniel Flores MD [address] [address] [email or web address] Urology 04/14/20 Delvin Waddell MD [address] [address] [email or web address] Cardiology 04/14/20 Shaylee Dejesus MD [address] [place] [address] Otolaryngology 05/20/20 Tramaine Valle MD [address] [place] [address] [email or web address] Gastroenterology 11/30/20 Maxx Gardner, OT [address] [place] [address] [email or web address] Transitions Welding Machine Operator Helper GasDirectory Operator Therapy 05/22/21 Chantel Philippe, RN [address] [place] [address] [email or web address] [facility] Welding Machine Operator Helper GasRail Maintenance Worker 10/12/22 10/31/22 Keily Gomez, OT 30 [place] [address] [email or web address] Transitions Welding Machine Operator Helper GasDirectory Operator Therapy 12/30/23 Socorro Begum PA [address] [place] [address] Physician Lead Teller Cardiology 04/06/24 Keily Gomez, OT 30 [place] [address] [email or web address] Transitions Welding Machine Operator Helper GasDirectory Operator Therapy 03/01/25 documented as of this encounter Additional Source Comments The information contained in this document represents components of the legal health record. It is not the complete legal health record.[facility]
--- OUTSIDE RECORDS SUMMARY | 2025-10-04 16:35 | XMS_ITS | Encounter Summary ---
Author Organization [facility] Address [address] [place] [address] [place] [address] Phone Care Team Providers Care Group Contract Analyst Name Role Phone Willie Blair MD Unavailable [phone] Willie Blair MD Primary Care Provider [phone] Daniel Flores MD Unavailable Delvin Waddell MD Unavailable Shaylee Dejesus MD Unavailable Tramaine Valle MD Unavailable [phone] Chantel Philippe RN Unavailable [phone] Keily Gomez OT Unavailable [phone] Socorro Begum Unavailable [phone] Keily Gomez OT Unavailable [phone] Encounter Details Date Type Department Care Team (Late st Contact Info) Description 05/26/2021 Procedure Pass [facility] Cardiovascular And Interventional Radiology 30 [place] [address] Social History Tobacco Use Types Packs/Day Years [...] Description 10/22/2025 3:00 PM EST Office Visit [facility] Internal Medicine 40 [place] [address] Willie Blair MD 40 [place] [address] 11/03/2025 10:45 AM EST Office Visit [facility] Gastroenterology Clinic 10 [place] [address] Charlene Piedra, [address] [address] [email or web address] 02/11/2026 10:20 AM EDT Office Visit [facility] Pulmonary, Allergy and Critical Care Medicine 10 [place] [address] López Henry MD [address] [address] documented as of this encounter Visit Diagnoses [...] documented as of this encounter Care Teams Group Contract Analyst Relationship Specialty Start Date End Date Willie Blair MD 40 [place] [address] [email or web address] PCP - General Internal Medicine 02/04/20 Willie Blair MD 40 [place] [address] [email or web address] Insurance Assigned Provider 02/08/24 Daniel Flores MD [address] [address] [email or web address] Urology 04/14/20 Delvin Waddell MD [address] [address] [email or web address] Cardiology 04/14/20 Shaylee Dejesus MD [address] [place] [address] 106 [place] [address] Otolaryngology 05/20/20 Tramaine Valle MD [address] [place] [address] 2 [place] [address] [email or web address] Gastroenterology 11/30/20 Chantel Philippe, RN 10 [place] [address] [email or web address] PHCM Slitter Service And SetterMotor Overhauler 10/12/22 10/31/22 Keily Gomez, OT 30 [place] [address] [email or web address] Transitions Slitter Service And SetterDrywall Metal Stud Worker Therapy 12/30/23 Socorro Begum PA [address] [place] [address] Physician Exhibitions Curator Cardiology 04/06/24 Keily Gomez, OT 30 [place] [address] [email or web address] Transitions Slitter Service And SetterDrywall Metal Stud Worker Therapy 03/01/25 documented as of this encounter Additional Source Comments The information contained in this document represents components of the legal health record. It is not the complete legal health record.[facility]
--- OUTSIDE RECORDS SUMMARY | 2025-10-04 16:35 | XMS_ITS | Encounter Summary ---
Author Organization [facility] Address [address] [place] [address] [place] [address] Phone Care Team Providers Care Harvest Crew Supervisor Name Role Phone Willie Blair MD Unavailable [phone] Willie Blair MD Primary Care Provider [phone] Daniel Flores MD Unavailable [phone] Delvin Waddell MD Unavailable Shaylee Dejesus MD Unavailable Tramaine Valle MD Unavailable [phone] Maxx Gardner OT Unavailable [phone] Chantel Philippe RN Unavailable [phone] Keily Gomez OT Unavailable Socorro Begum Unavailable [phone] Keily Gomez OT Unavailable [phone] Encounter Details Date Type Department Care Team (Late st Contact Info) Description 05/22/2021 Procedure Pass [facility] Cardiovascular And Interventional Radiology 30 [place] [address] Social History Tobacco Use Types Packs/Day Years [...] PM EST Office Visit [facility] Internal Medicine 40 [place] [address] Willie Blair MD 40 [place] [address] 11/03/2025 10:45 AM EST Office Visit [facility] Gastroenterology Clinic 10 [place] [address] Charlene Piedra, WATER PUMPING STATION ENGINEER [address] [address] [email or web address] 02/11/2026 10:20 AM EDT Office Visit [facility] Pulmonary, Allergy and Critical Care Medicine 10 [facility] [place] [address] López Henry MD [address] [address] documented as of this encounter Visit Diagnoses [...] documented as of this encounter Care Teams Harvest Crew Supervisor Relationship Specialty Start Date End Date Willie Blair MD 40 [place] [address] [email or web address] PCP - General Internal Medicine 02/04/20 Willie Blair MD 40 [place] [address] [email or web address] Insurance Assigned Provider 02/08/24 Daniel Flores MD [address] [address] [email or web address] Urology 04/14/20 Delvin Waddell MD [address] [address] [email or web address] Cardiology 04/14/20 Shaylee Dejesus MD [address] [place] [address] Otolaryngology 05/20/20 Tramaine Valle MD [address] [place] [address] [email or web address] Gastroenterology 11/30/20 Maxx Gardner, OT [address] [place] [address] [email or web address] Transitions Reservations ClerkPv Design And Installation Technician Therapy 05/22/21 Chantel Philippe, RN [address] [place] [address] [email or web address] [facility] Reservations ClerkWeb Operations Administrator 10/12/22 10/31/22 Keily Gomez, OT 30 [place] [address] [email or web address] Transitions Reservations ClerkPv Design And Installation Technician Therapy 12/30/23 Socorro Begum PA [address] [place] [address] Physician Linen Supply Load Builder Cardiology 04/06/24 Keily Gomez, OT 30 [place] [address] [email or web address] Transitions Reservations ClerkPv Design And Installation Technician Therapy 03/01/25 documented as of this encounter Additional Source Comments The information contained in this document represents components of the legal health record. It is not the complete legal health record.[facility]
--- OUTSIDE RECORDS SUMMARY | 2025-10-04 16:35 | XMS_ITS | Encounter Summary ---
Author Organization [facility] Address [address] [facility] [address] [place] [address] Phone Care Team Providers Care Perforator Typist Name Role Phone Willie Blair MD Unavailable [phone] Willie Blair MD Primary Care Provider Daniel Flores MD Unavailable Delvin Waddell MD Unavailable Shaylee Dejesus MD Unavailable [phone] Tramaine Valle MD Unavailable [phone] Keily Gomez OT Unavailable [phone] Socorro Begum Unavailable [phone] Keily Gomez OT Unavailable [phone] Encounter Details Date Type Department Care Team (Late st Contact Info) Description 12/26/2023 Procedure Pass [facility], Ct Scan - [address] [address] Social History Tobacco Use Types Packs/Day Years [...] Indicated 12/26/2023 2:43 PM Alli Osullivan * [place] Suicide Severity Rating Scale (Screener/Recent Self-Report) Question [...] Description 10/22/2025 3:00 PM EST Office Visit [facility] Internal Medicine 40 [place] [address] Willie Blair MD 40 [place] [address] 11/03/2025 10:45 AM EST Office Visit [facility] Gastroenterology Clinic 10 [place] [address] Charlene Piedra, FASHION SUPERVISOR 10 [facility] Fernando 2 [place] [address] [email or web address] 02/11/2026 10:20 AM EDT Office Visit [facility] Pulmonary, Allergy and Critical Care Medicine 10 [facility] [place] [address] López Henry MD [address] [place] [address] [place] [address] documented as of this encounter Visit Diagnoses [...] documented as of this encounter Care Teams Perforator Typist Relationship Specialty Start Date End Date Willie Blair MD 40 [place] [address] PCP - General Internal Medicine 02/04/20 Willie Blair MD 40 [place] [address] Insurance Assigned Provider 02/08/24 Daniel Flores MD [address] [place] [address] 120 [place] [address] [email or web address] Urology 04/14/20 Delvin Waddell MD 100 [facility] Campus[facility]ela Carranza [facility] 120 [place] [address] [email or web address] [email or web address] Cardiology 04/14/20 Shaylee Dejesus MD [address] [place] [address] Otolaryngology 05/20/20 Tramaine Valle MD [address] [place] [address] [email or web address] Gastroenterology 11/30/20 Keily Gomez, OT 30 [place] [address] Transitions Graphic EngineerLens Matcher Therapy 12/30/23 Socorro Begum PA [address] [place] [address] Physician Hydraulic Elevator Constructor Cardiology 04/06/24 Keily Gomez, OT 30 [place] [address] Transitions Graphic EngineerLens Matcher Therapy 03/01/25 documented as of this encounter Additional Source Comments The information contained in this document represents components of the legal health record. It is not the complete legal health record.[facility]
--- OUTSIDE RECORDS SUMMARY | 2025-10-04 16:35 | XMS_ITS | Encounter Summary ---
Author Organization [facility] Address [address] [place] [address] [place] [address] Phone Care Team Providers Care Photovoltaic Power Systems Engineer Name Role Phone Willie Blair MD Unavailable Willie Blair MD Primary Care Provider Daniel Flores MD Unavailable Delvin Waddell MD Unavailable Shaylee Dejesus MD Unavailable [phone] Tramaine Valle MD Unavailable [phone] Maxx Gardner OT Unavailable [phone] Chantel Philippe RN Unavailable [phone] Keily Gomez OT Unavailable [phone] Socorro Begum Unavailable [phone] Keily Gomez OT Unavailable [phone] Encounter Details Date Type Department Care Team (Late st Contact Info) Description 05/23/2021 Procedure Pass [facility], Ct Scan - [address] [id number] Social History Tobacco Use Types Packs/Day Years [...] Description 10/22/2025 3:00 PM EST Office Visit [facility] Internal Medicine 40 [place] [address] Willie Blair MD 40 [place] [address] 11/03/2025 10:45 AM EST Office Visit [facility] Gastroenterology Clinic 10 [place] [address] Charlene Piedra, [address] [address] [email or web address] 02/11/2026 10:20 AM EDT Office Visit [facility] Pulmonary, Allergy and Critical Care Medicine 10 [facility] [place] [address] López Henry MD [address] [address] documented as of this encounter Visit Diagnoses [...] documented as of this encounter Care Teams Photovoltaic Power Systems Engineer Relationship Specialty Start Date End Date Willie Blair MD 40 [place] [address] [email or web address] PCP - General Internal Medicine 02/04/20 Willie Blair MD 40 [place] [address] [email or web address] Insurance Assigned Provider 02/08/24 Daniel Flores MD [address] [address] [email or web address] Urology 04/14/20 Delvin Waddell MD [address] [address] [email or web address] Cardiology 04/14/20 Shaylee Dejesus MD [address] [place] [address] [place] [address] Otolaryngology 05/20/20 Tramaine Valle MD [address] [place] [address] [email or web address] Gastroenterology 11/30/20 Maxx Gardner, OT 10 [place] [address] [email or web address] Transitions Composition WorkerSheep Sorter Therapy 05/22/21 Chantel Philippe, RN [address] [place] [address] [email or web address] Composition WorkerSuperintendent Tests 10/12/22 10/31/22 Keily Gomez, OT 30 [place] [address] [email or web address] Transitions Composition WorkerSheep Sorter Therapy 12/30/23 Socorro Begum PA [address] [place] [address] Physician Communicable Disease Specialist Cardiology 04/06/24 Keily Gomez, OT 30 [place] [address] [email or web address] Transitions Composition WorkerSheep Sorter Therapy 03/01/25 documented as of this encounter Additional Source Comments The information contained in this document represents components of the legal health record. It is not the complete legal health record.[facility]
--- OUTSIDE RECORDS SUMMARY | 2025-10-04 16:35 | XMS_ITS | Encounter Summary ---
Author Organization [facility] Address [address] [place] [address] [place] [address] Phone Care Team Providers Care Distillery Manager Name Role Phone Willie Blair MD Unavailable [phone] Willie Blair MD Primary Care Provider Daniel Flores MD Unavailable Delvin Waddell MD Unavailable Shaylee Dejesus MD Unavailable [phone] Tramaine Valle MD Unavailable [phone] Keily Gomez OT Unavailable [phone] Socorro Begum Unavailable [phone] Keily Gomez OT Unavailable [phone] Encounter Details Date Type Department Care Team (Late st Contact Info) Description 12/26/2023 Procedure Pass [facility] 30 [place], [place] [id number] Social History Tobacco Use Types Packs/Day Years [...] Indicated 12/26/2023 2:43 PM Alli Osullivan * [place] Suicide Severity Rating Scale (Screener/Recent Self-Report) Question [...] Description 10/22/2025 3:00 PM EST Office Visit [facility] Internal Medicine 40 [place] [address] Willie Blair MD 40 [place] [address] 11/03/2025 10:45 AM EST Office Visit [facility] Gastroenterology Clinic 10 [place] [address] Charlene Avila, SPORTS BETTING MANAGER 10 [facility] 2 [place] [address] [email or web address] 02/11/2026 10:20 AM EDT Office Visit [facility] Pulmonary, Allergy and Critical Care Medicine 10 [facility] [place] [address] López Henry MD [address] [place] [address] [place] [address] documented as of this encounter Visit Diagnoses [...] documented as of this encounter Care Teams Distillery Manager Relationship Specialty Start Date End Date Willie Blair MD 40 [place] [address] PCP - General Internal Medicine 02/04/20 Willie Blair MD 40 [place] [address] Insurance Assigned Provider 02/08/24 Daniel Flores MD [address] [place] [address] 120 [place] [address] [email or web address] Urology 04/14/20 Delvin Waddell MD 100 Jeremiah Carranza [facility] 120 [place] [address] [email or web address] Cardiology 04/14/20 Shaylee Dejesus MD [address] [place] [address] 106 [place] [address] Otolaryngology 05/20/20 Tramaine Valle MD [address] [place] [address] Gastroenterology 11/30/20 Keily Gomez, OT 30 [place] [address] Transitions Patient Service CoordinatorPly Bander Therapy 12/30/23 Socorro Begum PA [address] [place] [address] Physician Process Analyst Cardiology 04/06/24 Keily Gomez, OT 30 [place] [address] Transitions Patient Service CoordinatorPly Bander Therapy 03/01/25 documented as of this encounter Additional Source Comments The information contained in this document represents components of the legal health record. It is not the complete legal health record.[facility]
--- OUTSIDE RECORDS SUMMARY | 2025-10-04 16:35 | XMS_ITS | Encounter Summary ---
Author Organization [facility] Address [address] [place] [address] [place] [address] Phone Care Team Providers Care Geoduck Diver Name Role Phone Willie Blair MD Unavailable Willie Blair MD Primary Care Provider Daniel Flores MD Unavailable Delvin Waddell MD Unavailable Shaylee Dejesus MD Unavailable [phone] Tramaine Valle MD Unavailable [phone] Maxx Gardner OT Unavailable [phone] Chantel Philippe RN Unavailable [phone] Keily Gomez OT Unavailable Socorro Begum Unavailable [phone] Keily Gomez OT Unavailable [phone] Encounter Details Date Type Department Care Team (Late st Contact Info) Description 05/25/2021 Procedure Pass [facility] Cardiovascular And Interventional Radiology 30 [place] [address] Social History Tobacco Use Types Packs/Day Years [...] Visit [facility] Internal Medicine 40 [place] [address] Willie Blair MD 40 [place] [address] 11/03/2025 10:45 AM EST Office Visit [facility] Gastroenterology Clinic 10 [place] [address] Charlene Piedra, FAMILY CONSUMER SCIENTIST [address] [address] [email or web address] 02/11/2026 10:20 AM EDT Office Visit [facility] Pulmonary, Allergy and Critical Care Medicine 10 [facility] [address] López Henry MD [address] [address] documented as of this encounter Visit Diagnoses [...] documented as of this encounter Care Teams Geoduck Diver Relationship Specialty Start Date End Date Willie Blair MD 40 [place] [address] [email or web address] PCP - General Internal Medicine 02/04/20 Willie Blair MD 40 [place] [address] [email or web address] Insurance Assigned Provider 02/08/24 Daniel Flores MD [address] [address] [email or web address] Urology 04/14/20 Delvin Waddell MD [address] [address] [email or web address] [email or web address] Cardiology 04/14/20 Shaylee Dejesus MD [address] [place] [address] Otolaryngology 05/20/20 Tramaine Valle MD [address] [place] [address] [email or web address] Gastroenterology 11/30/20 Maxx Gardner, OT [address] [place] [address] [email or web address] Transitions Branch AssistantGreens Laborer Therapy 05/22/21 Chantel Philippe, RN [address] [place] [address] [email or web address] [facility] Branch AssistantClock Mechanic 10/12/22 10/31/22 Keily Gomez, OT 30 [place] [address] [email or web address] Transitions Branch AssistantGreens Laborer Therapy 12/30/23 Socorro Begum PA [address] [place] [address] Physician Needle Straightener Cardiology 04/06/24 Keily Gomez, OT 30 [place] [address] [email or web address] Transitions Branch AssistantGreens Laborer Therapy 03/01/25 documented as of this encounter Additional Source Comments The information contained in this document represents components of the legal health record. It is not the complete legal health record.[facility]
--- OUTSIDE RECORDS SUMMARY | 2025-10-04 16:35 | XMS_ITS | Data Portability ---
Author Organization [place] [facility] Allergy Address [address] [place] [address] Care Team Providers Care Apparel Fashion Designer Name Role Phone GOPAL LAGUNA Primary Care [...] Sensorine ural hearing loss of bilateral ears [id number] Active 2021 Sensorine ural hearing loss, bilateral ; Note: Date Diagnosed : 12/11/2021 11:00 AM (H90.3) Not Available Critical [facility] hospital 4 02:22:15 Glossodyn ia [id number] Active 2021 Glossodyn ia; Note: Date Diagnosed : 12/11/2021 12:27 PM (K14.6) Not Available [facility] 4 02:22:32 Impacted cerumen of bilateral ears 32897424118 82048 Active 2021 Impacted cerumen, bilateral ; Note: Date Diagnosed : 06/11/2022 1:26 PM (H61.23) Not Available [facility] 4 02:22:37 Problem Notes None recorded. Procedures Surgical History Date Name Laterality Status Provider Name and Address Organization Details Recorded Time Cerumen removal without microscope bilat completed Cihdi Flor [place] - [facility] 01/11/2025 16:07:03 Imaging Results None recorded. Procedure Notes None recorded. Medical Equipment None Reported. Allergies Allergen ID Allergen Name Allergen Category Reaction Reaction Severity Criticality Documentation Date Start Date Code Code System Note Provider Name and Address Organization Details Recorded Time 98398 Product containin g penicilli n (product) medicatio n Not available Not available Not available 03/17/2024 98098 8001 SNOMED React ion: other react ion, Lip swell ing; Not Available Critical [facility] hospital 4 00:56:08 56837 lisinopri l medicatio n Not available Not available Not available 03/17/2024 78643 RxNorm React ion: other react ion, Lip swell ing; Not Available Critical [facility] hospital 4 00:56:09 Medications Name Sig Start Date Stop Date Status Note LastModified by Organization Details LastModified Time losartan 50 mg tablet 09/14 completed Not Available Not Available Not Available clotrimazol e 10 mg tina 09/14 completed Medication ID: [id number] Rian nd Name: clotrimazo le Send Method: E-Prescrib ed Subs Allowed: subs [place] Medicat ionGeneric Name: clotrimazo le Not Available Not Available Not Available cefpodoxime 200 mg tablet active Not Available Not Available Not Available Iron (ferrous sulfate) 325 mg (65 mg iron) tablet 2021 active Medication ID: [id number] Rian nd Name: Iron (ferrous sulfate) S end Method: E-Prescrib ed Subs Allowed: subs [place] Medicat ionGeneric Name: Iron (ferrous sulfate) Not Available Not Available Not Available Claritin 10 mg tablet 2021 active Medication ID: [id number] Rian nd Name: Claritin S end Method: [...] 325 mg tablet 2021 active Medication ID: [id number] Rian nd Name: Tylenol Se nd Method: E-Prescrib ed Subs Allowed: subs OK Medicat ionGeneric Name: Tylenol Not Available Not Available Not Available Culturelle 10 billion cell capsule 2021 active Medication ID: [id number] Rian nd Name: Culturelle Send Method: E-Prescrib ed Subs Allowed: subs OK Medicat ionGeneric Name: Culturelle Not Available Not Available Not Available furosemide 20 mg tablet 09/14 completed Not Available Not Available Not Available albuterol sulfate HFA 90 mcg/actuati on aerosol inhaler active Not Available Not Available Not Available fluticasone propionate 50 mcg/actuati on nasal spray,suspe nsion 2021 active Medication ID: [id number] Rian nd Name: fluticason e propionate Send Method: E-Prescrib ed Subs Allowed: subs [place] Medicat ionGeneric Name: fluticason e propionate Not Available Not Available Not Available finasteride 5 mg tablet active Not Available Not Available Not Available Vitamin D3 25 mcg (1,000 unit) chewable tablet 09/14 completed Medication ID: [id number] Rian nd Name: Vitamin D3 Send Method: [...] mcg-2.75 mg tablet 2021 active Medication ID: [id number] Rian nd Name: Citracal + D Maximum Se nd Method: E-Prescrib ed Subs Allowed: subs OK Medicat ionGeneric Name: Citracal + D Maximum Not Available Not Available Not Available Vitals Date Recorded Body height Body mass index (BMI) Body weight Provider Name and Address Organization Details Last Updated DateTime 01/11/2025 175.26 cm 35.4 kg/m2 459785.17 g Cecilia Carson [facility] 01/11/2025 15:34:41 Date Recorded Body height Body mass index (BMI) Body weight Provider Name and Address Organization Details Last Updated DateTime 07/21/2024 175.26 cm 35.4 kg/m2 234381.17 g Cecilia Carson [facility] 07/21/2024 10:06:51 Date Recorded Body height Body mass index (BMI) Body weight Provider Name and Address Organization Details Last Updated DateTime 09/14/2025 175.26 cm 34.1 kg/m2 532006.84 g Carmen Euceda [place] - [facility] 09/14/2025 15:07:28 Social History None recorded. Functional Status None recorded. Mental Status None recorded. Family History Nothing Reported. Medical History No medical history recorded. Past Encounters Encounter ID Performer Location Encounter Start Date Encounter Closed Date Diagnosis/Indication Diagnosis SNOMED-CT Code Diagnosis ICD10 Code Diagnosis IMO Codes Diagnosis Note [id number] JAHAIRA BAIG PA-C [facility] on [address] [place] [id number] 07/21/2024 09:53:00 07/21/2024 10:20:03 Impacted cerumen of bilateral ears [id number] 031869 H61.23 [id number] CHIDI FLOR PA-C [facility] on [address] [place] [id number] 01/11/2025 15:24:47 01/11/2025 16:36:05 Impacted cerumen of bilateral ears 0818909284 566400 H61.23 [id number] JOSE DIAZ MD [facility] on [address] [place] [id number] 09/14/2025 15:01:33 09/14/2025 15:23:08 Impacted cerumen of bilateral ears 9427808283 205330 H61.23 Only a small amount of cerumen was removed. I did recommend having the hearing and hearing aids assessed to make sure they are functionin g adequately . We can stretch his next visit to 1 year. Sensorineu ral hearing loss of bilateral ears 873030389 H90.3 Health Concerns Section Related Observation LastModified by Organization Detai ls LastModified Time None Recorded Concern Status LastModified by Organization Details LastModified Time None Recorded Advance Directives Directive None Recorded Payers Insurance Date Sequence Insurance Name Policy Number Policy Cleaning Covered Member ID Cleaning Member ID Guarantor Name 09/17/2025 2 [place]) [id number] Murphy Du [id number] Murphy Du 09/14/2025 1 MEDICARE B-[place]: [facility] Murphy Du [id number] 5 Murphy Du Notes Date Note Type Note Provider Name and Address Organization Details Recorded Time 07/21/2024 text/html ROS as noted in the HPI 89 year old male presents today for an ear cleaning. He has bilateral hearing aids from [employer]. No concerns today. JOSE DIAZ MD [address] [place] [address], [phone], [facility] - [facility] 07/21/2024 13:59:27 01/11/2025 text/html ROS as noted in the [facility] Gómez is an 89 year old male who presents to the office with his [place] for routine ear cleaning. No acute concerns. He uses bilateral amplification. MURPHY ZEPEDA MD [address] [place] [address], [phone], [facility] 01/12/2025 08:00:25 09/14/2025 text/html ROS as noted in the HPI 89 year old male who presents to the office for routine ear cleaning. No acute concerns. He uses bilateral amplification. JOSE DIAZ MD [address] [place] [address], [phone], [facility] 09/15/2025 07:41:13
--- OUTSIDE RECORDS SUMMARY | 2025-10-04 16:35 | XMS_ITS | Encounter Summary ---
Author Organization [facility] Address [address] [place] [address] [place] [address] Phone Care Team Providers Care Calculation Clerk Name Role Phone Willie Blair MD Unavailable [phone] Willie Blair MD Primary Care Provider Daniel Flores MD Unavailable Delvni Waddell MD Unavailable Shaylee Dejesus MD Unavailable Tramaine Valle MD Unavailable [phone] Maxx Gardner OT Unavailable [phone] Chantel Philippe RN Unavailable [phone] Keily Gomez OT Unavailable Socorro Begum Unavailable [phone] Keily Gomez OT Unavailable [phone] Encounter Details Date Type Department Care Team (Late st Contact Info) Description 05/25/2021 Procedure Pass [facility], [address] [id number] Social History Tobacco Use Types Packs/Day Years [...] Description 10/22/2025 3:00 PM EST Office Visit [facility] Internal Medicine 40 [place] [address] Willie Blair MD 40 [place] [address] 11/03/2025 10:45 AM EST Office Visit [facility] Gastroenterology Clinic 10 [place] [address] Charlene Piedra, [address] [address] [email or web address] 02/11/2026 10:20 AM EDT Office Visit [facility] Pulmonary, Allergy and Critical Care Medicine 10 [facility] [place] [address] López Henry MD [address] [address] documented as of this encounter Visit Diagnoses [...] documented as of this encounter Care Teams Calculation Clerk Relationship Specialty Start Date End Date Willie Blair MD 40 [place] [address] [email or web address] PCP - General Internal Medicine 02/04/20 Willie Blair MD 40 [place] [address] [email or web address] Insurance Assigned Provider 02/08/24 Daniel Flores MD [address] [address] [email or web address] Urology 04/14/20 Delvin Waddell MD [address] [address] [email or web address] Cardiology 04/14/20 Shaylee Dejesus MD [address] [place] [address] Dr FELIX [facility] [place] [address] Otolaryngology 05/20/20 Tramaine Valle MD [address] [address] [email or web address] Gastroenterology 11/30/20 Maxx Gardner, OT 10 [place] [address] [email or web address] Transitions Aerial Planting And Cultivation ManagerHat Blocker Therapy 05/22/21 Chantel Philippe, RN [address] [place] [address] [email or web address] Aerial Planting And Cultivation ManagerSoftware Engineer Developer 10/12/22 10/31/22 Keily Gomez, OT [address] [place] [address] [email or web address] Transitions Aerial Planting And Cultivation ManagerHat Blocker Therapy 12/30/23 Socorro Begum PA [address] [place] [address] Physician Educational Consultant Cardiology 04/06/24 Keily Gomez, OT [address] [place] [address] [email or web address] Transitions Aerial Planting And Cultivation ManagerHat Blocker Therapy 03/01/25 documented as of this encounter Additional Source Comments The information contained in this document represents components of the legal health record. It is not the complete legal health record.[facility]
--- OUTSIDE RECORDS SUMMARY | 2025-10-04 16:35 | XMS_ITS | Encounter Summary ---
Author Organization [facility] Address [address] [place] [address] [place] [address] Phone Care Team Providers Care Fishing Boat Captain Name Role Phone Willie Blair MD Unavailable [phone] Willie Blair MD Primary Care Provider [phone] Daniel Flores MD Primary Care Provider Willie Blair MD Primary Care Provider [phone] Daniel Flores MD Unavailable [phone] Delvin Waddell MD Unavailable Shaylee Dejesus MD Unavailable [phone] Tramaine Valle MD Unavailable [phone] Maxx Gardner OT Unavailable [phone] Chantel Philippe RN Unavailable [phone] Keily Gomez OT Unavailable [phone] Socorro Begum Unavailable [phone] Keily Gomez OT Unavailable [phone] Encounter Details Date Type Department Care Team (Late st Contact Info) Description 07/02/2018 Procedure Pass OR Admitting Dept - Virtual Department 30 [place] [address] Social History Tobacco Use Types Packs/Day Years [...] Description 10/22/2025 3:00 PM EST Office Visit [facility] Internal Medicine 40 [place] [address] Willie Blair MD 40 [place] [address] 11/03/2025 10:45 AM EST Office Visit [facility] 10 [place] [address] Charlene Piedra, PO [address] [address] [email or web address] 02/11/2026 10:20 AM EDT Office Visit [facility] Pulmonary, Allergy [facility] Critical [facility] Medicine 10 [facility] [place] [address] López Henry MD [address] [address] documented as of this encounter Visit Diagnoses [...] documented as of this encounter Care Teams Fishing Boat Captain Relationship Specialty Start Date End Date Willie Blair MD 40 [place] [address] [email or web address] PCP - General Internal Medicine 09/19/17 01/03/20 Daniel Flores MD [address] [employer] [address] [place] [address] [phone] [email or web address] PCP - General Urology 01/04/20 02/03/20 Willie Blair MD 40 [place] [address] [email or web address] PCP - General Internal Medicine 02/04/20 Willie Blair MD 40 [place] [address] [email or web address] Insurance Assigned Provider 02/08/24 Daniel Flores MD 100 [facility] [address] [phone] [email or web address] Urology 04/14/20 Delvin Waddell MD [address] [facility] 120 [place] [address] [email or web address] Cardiology 04/14/20 Shaylee Dejesus MD [address] [place] [address] Otolaryngology 05/20/20 Tramaine Valle MD [address] [place] [address] [email or web address] Gastroenterology 11/30/20 Maxx Gardner, OT [address] [place] [address] [email or web address] Transitions Wire TechnicianIndustrial Gas Service Helper Therapy 05/22/21 Chantel Philippe, RN [address] [place] [address] [email or web address] PHCM Wire TechnicianBenchroom Shop Optician 10/12/22 10/31/22 Keily Gomez, OT 30 [place] [address] [email or web address] Transitions Wire TechnicianIndustrial Gas Service Helper Therapy 12/30/23 Socorro Begum PA [address] [place] [address] Physician Practice Or Student Teacher Cardiology 04/06/24 Keily Gomez, OT 30 [place] [address] Transitions Wire TechnicianIndustrial Gas Service Helper Therapy 03/01/25 documented as of this encounter Additional Source Comments The information contained in this document represents components of the legal health record. It is not the complete legal health record.[facility]
--- OUTSIDE RECORDS SUMMARY | 2025-10-04 16:36 | XMS_ITS | Encounter Summary ---
Author Organization [facility] Address [address] [place] [address] [place] [address] Phone Care Team Providers Care Drywall Metal Stud Worker Name Role Phone Willie Blair MD Unavailable [phone] Willie Blair MD Primary Care Provider [phone] Daniel Flores MD Unavailable [phone] Delvin Waddell MD Unavailable Shaylee Dejesus MD Unavailable Tramaine Valle MD Unavailable [phone] Chantel Philippe RN Unavailable [phone] Keily Gomez OT Unavailable [phone] Socorro Begum Unavailable [phone] Keily Gomez OT Unavailable [phone] Encounter Details Date Type Department Care Team (Latest Contact Info) Description 01/01/2022 Transcribe Orders Virtual Department 30 [place] [address] Navi Leon MD [address] [place] [address] [phone] [email or web address] Encounter for laboratory testing for [...] Description 10/22/2025 3:00 PM EST Office Visit [facility] Internal Medicine 40 [place] [address] Willie Blair MD 40 [place] [address] 11/03/2025 10:45 AM EST Office Visit [facility] Gastroenterology Clinic 10 [place] [address] Charlene Piedra, PO [address] [address] [email or web address] 02/11/2026 10:20 AM EDT Office Visit [facility] Pulmonary, Allergy [facility] [address] [facility] [place] [place] [address] López Henry MD [address] [phone] documented as of this encounter Results * COVID-19 PCR Order (01/01/2022 4:11 PM EST) COVID-19 Comment [id number] [facility] COVID Testing Status Specimen received in analyzing lab. Results should be available within 24 to 48 hrs. [facility] Other 01/01/2022 4:11 PM EST 01/01/2022 8:34 PM EST us Navi Leon MD LAB GENERAL ORDERABLES Final Result Performing Organization Address City/State/[facility] Co de Phone Number [facility] [address] [place] [address] [facility] 30 [place] [address] documented in this encounter Visit Diagnoses Diagnosis [...] documented as of this encounter Care Teams Drywall Metal Stud Worker Relationship Specialty Start Date End Date Willie Blair MD 40 [place] [address] [email or web address] PCP - General Internal Medicine 02/04/20 Willie Blair MD 40 [place] [address] [email or web address] Insurance Assigned Provider 02/08/24 Daniel Flores MD [address] [place] [phone] [email or web address] Urology 04/14/20 Delvin Waddell MD 100 Jeremiah Carranza [facility] 120 [place] [address] [email or web address] Cardiology 04/14/20 Shaylee Dejesus MD [address] [place] [address] 106 [place] [address] Otolaryngology 05/20/20 Tramaine Valle MD [address] [place] [address] [email or web address] Gastroenterology 11/30/20 Chantel Philippe, RN [address] [place] [address] [email or web address] PHCM Laboratory Animal Facility SupervisorTurning Sander Tender 10/12/22 10/31/22 Keily Gomez, OT 30 [place] [address] [email or web address] Transitions Laboratory Animal Facility SupervisorAction Installer Therapy 12/30/23 Socorro Begum PA [address] [place] [address] Physician Parts Runner Cardiology 04/06/24 Keily Gomez, OT 30 [place] [address] [email or web address] Transitions Laboratory Animal Facility SupervisorAction Installer Therapy 03/01/25 documented as of this encounter Additional Source Comments The information contained in this document represents components of the legal health record. It is not the complete legal health record.[facility]
--- OUTSIDE RECORDS SUMMARY | 2025-10-04 16:36 | XMS_ITS | Encounter Summary ---
Author Organization [facility] Address [address] [place] [address] [place] [address] Phone Care Team Providers Care Cancer Center Director Name Role Phone Willie Blair MD Unavailable [phone] Willie Blair MD Primary Care Provider [phone] Daniel Flores MD Unavailable Delvin Waddell MD Unavailable [phone] Shaylee Dejesus MD Unavailable [phone] Tramaine Valle MD Unavailable [phone] Chantel Philippe RN Unavailable [phone] Keily Gomez OT Unavailable [phone] Socorro Begum Unavailable [phone] Keily Gomez OT Unavailable [phone] Encounter Details Date Type Department Care Team (Late st Contact Info) Description 02/13/2022 Procedure Pass [facility], Ct Scan - [address] [address] Social History Tobacco Use Types Packs/Day Years [...] 10:47 AM EDT Ginette Mann RN * [place] Suicide Severity Rating Scale (Screener/Recent Self-Report) Question [...] Description 10/22/2025 3:00 PM EST Office Visit [facility] Internal Medicine 40 [place] [address] Willie Blair MD 40 [place] [address] 11/03/2025 10:45 AM EST Office Visit [facility] Gastroenterology Clinic 10 [place] [address] Charlene Piedra, [address] [address] [email or web address] 02/11/2026 10:20 AM EDT Office Visit [facility] Pulmonary, Allergy and Critical Care Medicine 10 [facility] [place] [address] López Henry MD [address] [place] [address] [email or web address] documented as of this encounter [...] documented as of this encounter Care Teams Cancer Center Director Relationship Specialty Start Date End Date Willie Blair MD 40 [place] [address] [email or web address] PCP - General Internal Medicine 02/04/20 Willie Blair MD 40 [place] [address] [email or web address] Insurance Assigned Provider 02/08/24 Daniel Flores MD [address] [phone] [email or web address] Urology 04/14/20 Delvin Waddell MD 100 [employer] Fernando 120 [place] [phone] [email or web address] Cardiology 04/14/20 Shaylee Dejesus MD [address] [place] [address] Otolaryngology 05/20/20 Tramaine Valle MD [address] [place] [address] Gastroenterology 11/30/20 Chantel Philippe RN [address] [place] [address] PHCM Mexican Food Maker HandEnrolled Nurse 10/12/22 10/31/22 Keily Gomez, OT 30 [place] [address] Transitions Mexican Food Maker HandReceiver Bulk System Therapy 12/30/23 Socorro Begum PA [address] [place] [address] Physician Accounting Instructor Cardiology 04/06/24 Keily Gomez, OT 30 [place] [address] Transitions Mexican Food Maker HandReceiver Bulk System Therapy 03/01/25 documented as of this encounter Additional Source Comments The information contained in this document represents components of the legal health record. It is not the complete legal health record.[facility]
--- OUTSIDE RECORDS SUMMARY | 2025-10-04 16:36 | XMS_ITS | Encounter Summary ---
Author Organization [facility] Address [address] [place] [address] [place] [address] Phone Care Team Providers Care Screen Print Operator Name Role Phone Willie Blair MD Unavailable [phone] Willie Blair MD Primary Care Provider [phone] Daniel Flores MD Unavailable Delvin Waddell MD Unavailable Shaylee Dejesus MD Unavailable [phone] Tramaine Valle MD Unavailable [phone] Chantel Philippe RN Unavailable [phone] Keily Gomez OT Unavailable [phone] Socorro Begum Unavailable [phone] Keily Gomez OT Unavailable [phone] Encounter Details Date Type Department Care Team (Late st Contact Info) Description 06/13/2021 Procedure Pass [facility], [address] [address] Social History Tobacco Use Types Packs/Day Years [...] Description 10/22/2025 3:00 PM EST Office Visit [facility] Internal Medicine 40 [place] [address] Willie Blair MD 40 [place] [address] 11/03/2025 10:45 AM EST Office Visit [facility] Gastroenterology Clinic 10 [place] [address] Charlene Piedra, [address] [address] [email or web address] 02/11/2026 10:20 AM EDT Office Visit [facility] Pulmonary, Allergy and Critical Care Medicine 10 [place] [address] López Henry MD [address] [address] documented as of this encounter Visit Diagnoses [...] documented as of this encounter Care Teams Screen Print Operator Relationship Specialty Start Date End Date Willie Blair MD 40 [place] [address] [email or web address] PCP - General Internal Medicine 02/04/20 Willie Blair MD 40 [place] [address] [email or web address] Insurance Assigned Provider 02/08/24 Daniel Flores MD [address] [place] [address] [place] [phone] [email or web address] Urology 04/14/20 Delvin Waddell MD [address] [place] 120 [place] [address] [email or web address] Cardiology 04/14/20 Shaylee Dejesus MD [address] [place] [address] 106 [place] [address] Otolaryngology 05/20/20 Tramaine Valle MD [address] [place] [address] Gastroenterology 11/30/20 Chantel Philippe, RN [address] [place] [address] [facility] AnnealerBiochemistry Teacher 10/12/22 10/31/22 Keily Gomez, OT [address] [place] [address] Transitions AnnealerChild Care Attendant Therapy 12/30/23 Socorro Begum PA [address] [place] [address] Physician Resident Surgeon Cardiology 04/06/24 Keily Gomez, OT 30 [place] [address] Transitions AnnealerChild Care Attendant Therapy 03/01/25 documented as of this encounter Additional Source Comments The information contained in this document represents components of the legal health record. It is not the complete legal health record.[facility]
--- OUTSIDE RECORDS SUMMARY | 2025-10-04 16:36 | XMS_ITS | Encounter Summary ---
Author Organization [facility] Address [address] [place] [address] [place] [address] Phone Care Team Providers Care Hydro Plant Operator Name Role Phone Willie Blair MD Unavailable Willie Blair MD Primary Care Provider Daniel Flores MD Unavailable [phone] Delvin Waddell MD Unavailable Shaylee Dejesus MD Unavailable [phone] Tramaine Valle MD Unavailable Socorro Begum Unavailable [phone] Encounter Details Date Type Department Care Team (Late st Contact Info) Description 08/14/2025 Procedure Pass [facility] Endoscopy Admitting Dept Virtual Department 30 [place], [place] [phone] Social History Tobacco Use Types Packs/Day Years [...] Description 10/22/2025 3:00 PM EST Office Visit [facility] Internal Medicine 40 [place] [address] Willie Blair MD 40 [place] [address] 11/03/2025 10:45 AM EST Office Visit [facility] Gastroenterology Clinic 10 [place] [address] Charlene Piedra, [address] [phone] [email or web address] 02/11/2026 10:20 AM EDT Office Visit [facility] Pulmonary, Allergy and Critical Care Medicine 10 [place] [address] López Henry MD [address] [place] [address] documented as of this encounter Visit Diagnoses Not on filedocumented in this encounter Additional Health Concerns Infection Onset Date Last Indicated Resolved Time CoV-Risk 08/16/2025 08/16/2025 08/27/2025 1:21 AM EDT Assessment Noted Time PHQ-9 Depression Total Score: 7 03/01/20 22 2:17 PM EDT PHQ-2 Depression Total Score: 2 03/23/20 25 3:56 PM EDT documented as of this encounter Care Teams Hydro Plant Operator Relationship Specialty Start Date End Date Willie Blair MD 40 [place] [address] PCP - General Internal Medicine 02/04/20 Willie Blair MD 40 [place] [address] [email or web address] Insurance Assigned Provider 02/08/24 Daniel Flores MD [address] [phone] [email or web address] Urology 04/14/20 Delvin Waddell MD [address] [phone] [email or web address] Cardiology 04/14/20 Shaylee Dejesus MD [address] [place] [address] Otolaryngology 05/20/20 Tramaine Valle MD [address] [place] [address] [email or web address] Gastroenterology 11/30/20 Socorro Begum PA [facility] [place] [address] Physician Clinical Rn Manager Cardiology 04/06/24 documented as of this encounter Additional Source Comments The information contained in this document represents components of the legal health record. It is not the complete legal health record.[facility]
--- OUTSIDE RECORDS SUMMARY | 2025-10-04 16:36 | XMS_ITS | Encounter Summary ---
Author Organization [facility] Address [address] [place] [address] [place] [address] Phone Care Team Providers Care Metallurgical Lab Technician Name Role Phone Willie Blair MD Unavailable [phone] Willie Blair MD Primary Care Provider Daniel Flores MD Unavailable Delvin Waddell MD Unavailable Shaylee Dejesus MD Unavailable [phone] Tramaine Valle MD Unavailable [phone] Chantel Philippe RN Unavailable [phone] Keily Gomez OT Unavailable [phone] Socorro Begum Unavailable [phone] Keily Gomez OT Unavailable [phone] Encounter Details Date Type Department Care Team (Late st Contact Info) Description 01/03/2022 Procedure Pass [facility] Endoscopy Admitting Dept Virtual Department [address] [place] [address] [phone] Social History Tobacco Use Types Packs/Day Years [...] Description 10/22/2025 3:00 PM EST Office Visit [facility] Internal Medicine 40 [place] [address] Willie Blair MD 40 [place] [address] 11/03/2025 10:45 AM EST Office Visit [facility] Gastroenterology Clinic 10 [place] [address] Charlene Piedra, MANAGER APPOINTMENT [address] [address] [email or web address] 02/11/2026 10:20 AM EDT Office Visit [facility] Pulmonary, Allergy and Critical Care Medicine 10 [facility] [place] [address] López Henry MD [address] [place] [address] documented as of this encounter Visit Diagnoses [...] documented as of this encounter Care Teams Metallurgical Lab Technician Relationship Specialty Start Date End Date Willie Blair MD 40 [place] [address] [email or web address] PCP - General Internal Medicine 02/04/20 Willie Blair MD 40 [place] [address] [email or web address] Insurance Assigned Provider 02/08/24 Daniel Flores MD [address] [phone] [email or web address] Urology 04/14/20 Delvin Waddell MD [address] [phone] [email or web address] Cardiology 04/14/20 Shaylee Dejesus MD [address] [place] [address] [address] Otolaryngology 05/20/20 Tramaine Valle MD [address] [place] [address] [email or web address] Gastroenterology 11/30/20 Chantel Philippe, RN [address] [place] [address] [email or web address] PHCM Operations ClerkDental Surgeon 10/12/22 10/31/22 Keily Gomez, OT [address] [place] [address] [email or web address] Transitions Operations ClerkSupervisor Uranium Processing Therapy 12/30/23 Socorro Begum PA [address] [place] [address] Physician Hydraulic Auto Jack Mechanic Cardiology 04/06/24 Keily Gomez, OT [address] [place] [address] [email or web address] Transitions Operations ClerkSupervisor Uranium Processing Therapy 03/01/25 documented as of this encounter Additional Source Comments The information contained in this document represents components of the legal health record. It is not the complete legal health record.[facility]
--- OUTSIDE RECORDS SUMMARY | 2025-10-04 16:36 | XMS_ITS | Encounter Summary ---
Author Organization [facility] Address [address] [place] [address] [place] [address] Phone Care Team Providers Care Trim Technician Name Role Phone Willie Blair MD Unavailable [phone] Willie Blair MD Primary Care Provider [phone] Daniel Flores MD Primary Care Provider Willie Blair MD Primary Care Provider [phone] Daniel Flores MD Unavailable [phone] Delvin Waddell MD Unavailable [phone] Shaylee Dejesus MD Unavailable [phone] Tramaine Valle MD Unavailable [phone] Maxx Gardner OT Unavailable [phone] Chantel Philippe RN Unavailable [phone] Keily Gomez OT Unavailable [phone] Socorro Begum Unavailable [phone] Keily Gomez OT Unavailable [phone] Encounter Details Date Type Department Care Team (Late st Contact Info) Description 01/03/2018 Procedure Pass [facility], Mri - [facility] [address] [place] [address] Social History Tobacco Use Types Packs/Day Years [...] Description 10/22/2025 3:00 PM EST Office Visit [facility] Internal Medicine 40 [place] [address] Willie Blair MD 40 [place] [address] 11/03/2025 10:45 AM EST Office Visit [facility] 10 [place] [address] Charlene Piedra, [address] [address] [email or web address] 02/11/2026 10:20 AM EDT Office Visit [facility] Pulmonary, Allergy and Critical Care Medicine 10 [place] [address] López Henry MD 10 [facility] 2nd [place] [address] documented as of this encounter Visit Diagnoses [...] documented as of this encounter Care Teams Trim Technician Relationship Specialty Start Date End Date Willie Blair MD 40 [place] [address] [email or web address] PCP - General Internal Medicine 09/19/17 01/03/20 Daniel Flores MD [address] [phone] [email or web address] PCP - General Urology 01/04/20 02/03/20 Willie Blair MD 40 [place] [address] [email or web address] PCP - General Internal Medicine 02/04/20 Willie Blair MD 40 [place] [address] [email or web address] Insurance Assigned Provider 02/08/24 Daniel Flores MD 100 [facility] [employer] [address] [phone] [email or web address] Urology 04/14/20 Delvin Waddell MD [address] [place], [place] [address]ingrid [facility] 120 [place] [address] [email or web address] Cardiology 04/14/20 Shaylee Dejesus MD [address] [place] [address] Otolaryngology 05/20/20 Tramaine Valle MD [address] [place] [address] [email or web address] Gastroenterology 11/30/20 Maxx Gardner, OT [address] [place] [address] [email or web address] Transitions Web Development InternCity Alderman Therapy 05/22/21 Chantel Philippe, RN [address] [place] [address] [email or web address] PHC Web Development InternJewel Bearing Grinder 10/12/22 10/31/22 Keily Gomez, OT 30 [place] [address] [email or web address] Transitions Web Development [employer] [facility] 12/30/23 Socorro Begum PA [address] [place] [address] Physician Cocktail Lounge Manager Cardiology 04/06/24 Keily Gomez, OT 30 [place] [address] Transitions Web Development [employer] [facility] 03/01/25 documented as of this encounter Additional Source Comments The information contained in this document represents components of the legal health record. It is not the complete legal health record.[facility]
--- OUTSIDE RECORDS SUMMARY | 2025-10-04 16:36 | XMS_ITS | Encounter Summary ---
Author Organization [facility] Address [address] [facility] [address] [place] [address] Phone Care Team Providers Care Senior Back End Java Developer Name Role Phone Willie Blair MD Unavailable Willie Blair MD Primary Care Provider Daniel Flores MD Unavailable Delvin Waddell MD Unavailable Shaylee Dejesus MD Unavailable Tramaine Valle MD Unavailable Socorro Begum Unavailable [phone] Encounter Details Date Type Department Care Team (Late st Contact Info) Description 08/13/2025 Procedure Pass [facility], Ct Scan - [address] [address] Social History Tobacco Use Types Packs/Day Years [...] 5:58 PM EDT Nikkie Aguilar RN * [place] Suicide Severity Rating Scale (Screener/Recent Self-Report) Question [...] Description 10/22/2025 3:00 PM EST Office Visit [facility] Internal Medicine 40 [place] [address] Willie Blair MD 40 [place] [address] 11/03/2025 10:45 AM EST Office Visit [facility] Gastroenterology Clinic 10 [place] [address] Charlene Piedra, [address] [address] [email or web address] 02/11/2026 10:20 AM EDT Office Visit [facility] Pulmonary, Allergy and Critical Care Medicine 10 [facility] [place] [address] López Henry MD [address] [address] documented as of this encounter Visit Diagnoses Not on filedocumented in this encounter Additional Health Concerns Infection Onset Date Last Indicated Resolved Time CoV-Risk 08/16/2025 08/16/2025 08/27/2025 1:21 AM EDT Assessment Noted Time PHQ-9 Depression Total Score: 7 03/01/20 22 2:17 PM EDT PHQ-2 Depression Total Score: 2 03/23/20 25 3:56 PM EDT documented as of this encounter Care Teams Senior Back End Java Developer Relationship Specialty Start Date End Date Willie Blair MD 40 [place] [address] [email or web address] PCP - General Internal Medicine 02/04/20 Willie Blair MD 40 [place] [address] [email or web address] Insurance Assigned Provider 02/08/24 Daniel Flores MD [address] [phone] .[facility] Urology 04/14/20 Delvin Waddell MD [address] [phone] [email or web address] Cardiology 04/14/20 Shaylee Dejesus MD [address] [place] [address] Dr FELIX [address] [place] [address] Otolaryngology 05/20/20 Tramaine Valle MD [address] [place] [address] 2 [place] [address] Gastroenterology 11/30/20 Socorro Begum PA [address] [place] [address] Physician Treater Helper Cardiology 04/06/24 documented as of this encounter Additional Source Comments The information contained in this document represents components of the legal health record. It is not the complete legal health record.[facility]
--- OUTSIDE RECORDS SUMMARY | 2025-10-04 16:36 | XMS_ITS | Encounter Summary ---
Author Organization [facility] Address [address] [place] [address] [place] [address] Phone Care Team Providers Care General Car Supervisor Yard Name Role Phone Willie Blair MD Unavailable [phone] Willie Blair MD Primary Care Provider [phone] Daniel Flores MD Unavailable Delvin Waddell MD Unavailable Shaylee Dejesus MD Unavailable [phone] Tramaine Valle MD Unavailable [phone] Chantel Philippe RN Unavailable [phone] Keily Gomez OT Unavailable [phone] Socorro Begum Unavailable [phone] Keily Gomez OT Unavailable [phone] Encounter Details Date Type Department Care Team (Late st Contact Info) Description 03/12/2022 Procedure Pass [place] Admitting Dept - Virtual Department [address] [place] [address] Social History Tobacco Use Types Packs/Day Years [...] Description 10/22/2025 3:00 PM EST Office Visit [facility] [place] Internal Medicine 40 [place] [address] Willie Blair MD 40 [place] [address] 11/03/2025 10:45 AM EST Office Visit [facility] Gastroenterology Clinic 10 [place] [address] Charlene Piedra, BRADDISHER [address] [address] [email or web address] 02/11/2026 10:20 AM EDT Office Visit [facility] Pulmonary, Allergy and Critical Care Medicine 10 [place] [address] López Henry MD [address] [address] documented as of this encounter Visit Diagnoses Not on filedocumented in this encounter Additional Health Concerns Infection Onset Date Last Indicated Resolved Time CoV-Risk Comment:2 Neg covid 12/26/2023 12/26/2023 12/27/2023 2:[address] CoV-Risk 12/31/2024 12/31/2024 01/11/2025 1:22 AM EDT CoV-Risk Comment:Per note documentation 02/27/2025 02/27/2025 7:29 AM EDT CoV-Risk 08/16/2025 08/16/2025 08/27/2025 1:2 1 AM EDT Assessment Noted Time PHQ-9 Depression Total Score: 7 03/01/20 22 2:17 PM EDT PHQ-2 Depression Total Score: 4 03/01/20 22 2:17 PM EDT documented as of this encounter Care Teams General Car Supervisor Yard Relationship Specialty Start Date End Date Willie Blair MD 40 [place] [address] [email or web address] PCP - General Internal Medicine 02/04/20 Willie Blair MD 40 [place] [address] [email or web address] Insurance Assigned Provider 02/08/24 Daniel Flores MD [address] [address] [email or web address] Urology 04/14/20 Delvin Waddell MD [address] [address] [email or web address] Cardiology 04/14/20 Shaylee Dejesus MD [address] [place] [address] [address] [place] [address] Otolaryngology 05/20/20 Tramaine Valle MD [address] [place] [address] 2 [place] [address] [email or web address] Gastroenterology 11/30/20 Chantel Philippe, RN 10 [place] [address] [email or web address] PHCM Senior Mainframe Programmer AnalystRn Disease Management 10/12/22 10/31/22 Keily Gomez, OT 30 [place] [address] [email or web address] Transitions Senior Mainframe Programmer AnalystSurgical Aides Teacher Therapy 12/30/23 Socorro Begum PA [address] [place] [address] Physician Wool Cleaner Cardiology 04/06/24 Keily Gomez, OT 30 [place] [address] [email or web address] Transitions Senior Mainframe Programmer AnalystSurgical Aides Teacher Therapy 03/01/25 documented as of this encounter Additional Source Comments The information contained in this document represents components of the legal health record. It is not the complete legal health record.[facility]
--- OUTSIDE RECORDS SUMMARY | 2025-10-04 16:36 | XMS_ITS | Encounter Summary ---
Author Organization [facility] Address [address] [place] [address] [place] [address] Phone Care Team Providers Care Support Merchandiser Name Role Phone Willie Blair MD Unavailable [phone] Willie Blair MD Primary Care Provider Daniel Flores MD Unavailable Delvin Waddell MD Unavailable Shaylee Dejesus MD Unavailable [phone] Tramaine Valle MD Unavailable [phone] Chantel Philippe RN Unavailable [phone] Keily Gomez OT Unavailable [phone] Socorro Begum Unavailable [phone] Keily Gomez OT Unavailable [phone] Encounter Details Date Type Department Care Team (Late st Contact Info) Description 02/13/2022 Procedure Pass [facility] Endoscopy Admitting Dept Virtual Department [address] [place] [address] [phone] Social History Tobacco Use Types Packs/Day Years [...] 10:47 AM EDT Ginette Mann RN * [place] Suicide Severity Rating Scale (Screener/Recent Self-Report) Question [...] Description 10/22/2025 3:00 PM EST Office Visit [facility] Internal Medicine 40 [place] [address] Willie Blair MD 40 [place] [address] 11/03/2025 10:45 AM EST Office Visit [facility] Gastroenterology Clinic 10 [place], [place] [address] Charlene Piedra, [address] [phone] [email or web address] 02/11/2026 10:20 AM EDT Office Visit [facility] Pulmonary, Allergy and Critical Care Medicine 10 [facility] [place] [address] López Henry MD 10 [facility] 2nd [place] [address] [email or web address] documented as of [...] documented as of this encounter Care Teams Support Merchandiser Relationship Specialty Start Date End Date Willie Blair MD 40 [place] [address] [email or web address] PCP - General Internal Medicine 02/04/20 Willie Blair MD 40 [place] [address] [email or web address] Insurance Assigned Provider 02/08/24 Daniel Flores MD 100 [employer] [address] [address] [email or web address] Urology 04/14/20 Delvin Waddell MD 100 [employer] Fernando 120 [place] [phone] [email or web address] Cardiology 04/14/20 Shaylee Dejesus MD [address] [place] [address] Otolaryngology 05/20/20 Tramaine Valle MD [address] [place] [address] Gastroenterology 11/30/20 Chantel Philippe RN [address] [place] [address] PHCM Pe TeacherBusiness Rules Developer 10/12/22 10/31/22 Keily Gomez, OT 30 [place] [address] Transitions Pe TeacherMarket Development Specialist Therapy 12/30/23 Socorro Begum PA [address] [place] [address] Physician Dx Board Operator Cardiology 04/06/24 Keily Gomez, OT 30 [place] [address] Transitions Pe TeacherMarket Development Specialist Therapy 03/01/25 documented as of this encounter Additional Source Comments The information contained in this document represents components of the legal health record. It is not the complete legal health record.[facility]
--- OUTSIDE RECORDS SUMMARY | 2025-10-04 16:37 | XMS_ITS | Encounter Summary ---
Author Organization [facility] Address [address] [place] [address] [place] [address] Phone Care Team Providers Care Mushroom Cutter Name Role Phone Willie Blair MD Unavailable Willie Blair MD Primary Care Provider Daniel Flores MD Unavailable Delvin Waddell MD Unavailable Shaylee Dejesus MD Unavailable Tramaine Valle MD Unavailable [phone] Socorro Begum Unavailable [phone] Keily Gomez OT Unavailable [phone] Encounter Details Date Type Department Care Team (Late st Contact Info) Description 10/19/2024 Procedure Pass [facility], Ct Scan - [address] [phone] Social History Tobacco Use Types Packs/Day Years [...] Description 10/22/2025 3:00 PM EST Office Visit [facility] [place] Internal Medicine 40 [place] [address] Willie Blair MD 40 [place] [address] 11/03/2025 10:45 AM EST Office Visit [facility] Gastroenterology Clinic 10 [place] [address] Charlene Piedra, MEDICAID ANALYST 10 [facility] 2 [place] [address] [email or web address] 02/11/2026 10:20 AM EDT Office Visit [facility] Pulmonary, Allergy and Critical Care Medicine 10 [facility] [place] [address] López Henry MD [address] [place] [address] [email or web address] documented as of this encounter Visit Diagnoses [...] documented as of this encounter Care Teams Mushroom Cutter Relationship Specialty Start Date End Date Willie Blair MD 40 [place] [address] PCP - General Internal Medicine 02/04/20 Willie Blair MD 40 [place] [address] Insurance Assigned Provider 02/08/24 Daniel Flores MD [address] [place] [address] 120 [place] [address] [email or web address] Urology 04/14/20 Delvin Waddell MD 100 [facility] 120 [place] [address] [email or web address] Cardiology 04/14/20 Shaylee Dejesus MD [address] [place] [address] 106 [place] [address] Otolaryngology 05/20/20 Tramaine Valle MD [address] [place] [address] 2 [place] [address] [email or web address] Gastroenterology 11/30/20 Socorro Begum PA [address] [place] [address] Physician Steno Typist Cardiology 04/06/24 Keily Gomez, OT 30 [place] [address] [email or web address] Transitions Auto Body Repair TeacherTorpedo Worker Therapy 03/01/25 documented as of this encounter Additional Source Comments The information contained in this document represents components of the legal health record. It is not the complete legal health record.[facility]
--- OUTSIDE RECORDS SUMMARY | 2025-10-04 16:37 | XMS_ITS | Encounter Summary ---
Author Organization [facility] Address [address] [place] [address] [place] [address] Phone Care Team Providers Care Continuous Churn Buttermaker Name Role Phone Willie Blair MD Unavailable [phone] Willie Blair MD Primary Care Provider Daniel Flores MD Unavailable Delvin Waddell MD Unavailable Shaylee Dejesus MD Unavailable [phone] Tramaine Valle MD Unavailable [phone] Chantel Philippe RN Unavailable [phone] Keily Gomez OT Unavailable [phone] Socorro Begum Unavailable [phone] Keily Gomez OT Unavailable [phone] Encounter Details Date Type Department Care Team (Late st Contact Info) Description 03/27/2022 Procedure Pass [facility], [address] [address] Social History Tobacco Use Types Packs/Day Years [...] 10/22/2025 3:00 PM EST Office Visit [facility] [place] Internal Medicine 40 [place] [address] Willie Blair MD 40 [place] [address] 11/03/2025 10:45 AM EST Office Visit [facility] 10 [place] [address] Charlene Piedra, PARTS SALESMAN [address] [address] [email or web address] 02/11/2026 10:20 AM EDT Office Visit [facility] Pul[facility], Allergy and Critical Care Medicine 10 [place] [address] López Henry MD [address] [address] documented as of this encounter Visit Diagnoses [...] documented as of this encounter Care Teams Continuous Churn Buttermaker Relationship Specialty Start Date End Date Willie Blair MD 40 [place] [address] [email or web address] PCP - General Internal Medicine 02/04/20 Willie Blair MD 40 [place] [address] [email or web address] Insurance Assigned Provider 02/08/24 Daniel Flores MD 100 [facility] 120 [place] [address] [email or web address] Urology 04/14/20 Delvin Waddell MD 100 [facility] 120 [place] [address] [email or web address] Cardiology 04/14/20 Shaylee Dejesus MD [address] [place] [address] 106 [place] [address] Otolaryngology 05/20/20 Tramaine Valle MD [address] [place] [address] 2 [place] [address] [email or web address] Gastroenterology 11/30/20 Chantel Philippe, RN 10 [place] [address] PHCM Work Ticket DistributorContainer Washer 10/12/22 10/31/22 Keily Gomez, OT 30 [place] [address] [email or web address] Transitions Work Ticket DistributorPca Therapy 12/30/23 Socorro Begum PA [address] [place] [address] Physician Senior Stack Engineer Cardiology 04/06/24 Keily Gomez, OT 30 [place] [address] [email or web address] Transitions Work Ticket DistributorPca Therapy 03/01/25 documented as of this encounter Additional Source Comments The information contained in this document represents components of the legal health record. It is not the complete legal health record.[facility]
--- OUTSIDE RECORDS SUMMARY | 2025-10-04 16:37 | XMS_ITS | Clinical Summary ---
Author Organization Formerly [facility] Address [address] [place] [id number] Phone Care Team Providers Care Mud Jack Nozzleman Name Role Phone Willie Laguna MD Unavailable [phone] Willie Laguna MD Primary Care Provider Daniel Flores MD Unavailable Delvin Waddell MD Unavailable Shaylee Dejesus MD Unavailable Shiloh Valle MD Unavailable [phone] Socorro Begum Unavailable [phone] Allergies Active Allergy Reactions Criticality Noted Date Comments Lisinopril Angioedema High 10/04/2017 Other Reaction(s): Anaphylaxis, Not available Penicillins Swelling High 10/04/2017 Other Reaction(s): Anaphylaxis, Not available Medications ascorbic acid, vitamin C, (VITAMIN C) 500 MG tablet Take 1,000 mg by mouth daily. Active ferrous sulfate 325 mg (65 mg tribal iron) tablet Take 325 mg by mouth as directed. 5 days a week - 1 Active calcium citrate-vitamin D3 315 mg-6.25 mcg (250 unit) per tablet 2 in am and 1 in pm 100 tablet 3 1 Active loperamide (IMODIUM A-D) 2 mg tablet Take 2 mg by mouth 3 (three) times a day as needed for diarrhea. Active omeprazole (PRILOSEC) 40 MG capsule TAKE ONE CAPSULE BY MOUTH ONCE DAILY 90 capsule 3 5 Active ELIQUIS 5 mg tabletIndication s:Atrial fibrillation and flutter TAKE ONE TABLET BY MOUTH TWICE DAILY 60 tablet 11 5 Active carvedilol (COREG) 3.125 MG tabletIndication s:Essential hypertension 6.25 mg in am and 3.125 mg in pm 360 tablet 3 5 Active Additional Information Patient taking differently: 6.25 mg at lunchtime and 3.125 mg in the evening, Reported on 08/27/2025 ENTRESTO 24-26 mg per tablet Take 1 tablet by mouth 2 (two) times a day. 5 Active albuterol 90 mcg/actuation inhaler INHALE 2 PUFFS INTO THE LUNGS EVERY 6 (SIX) HOURS NEEDED FOR WHEEZING. 8.5 g 11 5 Active finasteride (PROSCAR) 5 mg tabletIndication s:BPH (benign prostatic hyperplasia) TAKE ONE TABLET BY MOUTH EVERY MORNING 90 tablet 3 5 Active nitroglycerin (NITROSTAT) 0.4 MG SL tabletIndication s:Precordial pain PLACE 1 TABLET (0.4 MG TOTAL) UNDER THE TONGUE EVERY 5 (FIVE) MINUTES NEEDED FOR CHEST PAIN. 25 tablet 3 5 Active Additional Information Patient not taking.Reported on 08/27/2025 dapagliflozin propanediol (FARXIGA) 5 mg tablet Take 5 mg by mouth daily. 5 Active furosemide (LASIX) 20 MG tablet Take 20 mg by mouth daily. Active predniSONE (DELTASONE) 20 MG tablet Take 1 tablet (20 mg total) by mouth daily with breakfast. 5 tablet 5 Active Additional Information Patient not taking.Reported on 08/27/2025 Active Problems Problem Noted Date Diagnosed Date URI (upper respiratory infection) 08/16/2025 Assessment & Plan (08/16/2025 3:37 PM EDT): Suspect viral illness. Covid-19 negative. CXR with atelectasis. Wheezing and feeling weak. Got lightheaded after coughing. --Check flu swab and sputum cx --Duonebs --Mucinex, APAP prn Lower GI bleed 08/14/2025 Assessment & Plan (08/16/2025 3:37 PM EDT): CTA showing bleeding in the transverse colon near the ileal colonic anastomosis. Colonoscopy corroborates erosions in this area that were nonbleeding. No intervention needed. Apixaban reversed on admission. H&H remained stable. Appreciate GI input. Assessing risk versus benefit of restarting anticoagulation. GHA5XQ4-KLMb score 5 indicating a 7.2% annual risk of stroke. Has bled score of 3 indicating 5.8% risk of bleeding. His DOAC score returned high risk of bleeding. We discussed risk versus benefits of anticoagulation between the patient, [place], and myself. This apparently has been a hotly debated topic amongst his urologist and clinical dietetic technician in the past. After discussing the risk versus benefits of anticoagulation, half dose anticoagulation and no anticoagulation, the patient voiced that his preference was for anticoagulation as he was quite fearful of having a stroke. -- Plan to restart apixaban after 1 week (Saturday) -- Recheck CBC in a.m. -- Watch for recurrent signs of bleeding. -- Advance diet --Patient to follow-up with primary care and cardiology as an outpatient. Assessment & Plan (08/15/2025 11:15 AM EDT): CTA showing bleeding in the transverse colon near the ileal colonic anastomosis. Colonoscopy corroborates erosions in this area that were nonbleeding. No intervention needed. Apixaban reversed on admission. H&H remained stable. Appreciate GI input. Assessing risk versus benefit of restarting anticoagulation. VQH9II3-MWLd score 5 indicating a 7.2% annual risk of stroke. Has bled score of 3 indicating 5.8% risk of bleeding. His DOAC score returned high risk of bleeding. He denied discussed risks versus benefits of anticoagulation. He is pondering this information and we will rediscuss tomorrow with the input of his [place]. -- Holding apixaban for now -- Recheck CBC in a.m. -- Watch for recurrent signs of bleeding. -- Advance diet Assessment & Plan (08/14/2025 2:34 PM EDT): CTA showing bleeding in the transverse colon near the ileal colonic anastomosis. Colonoscopy corroborates erosions in this area that were nonbleeding. No intervention needed. Apixaban reversed on admission. H&H stable. Patient without evidence for recurrent bleeding at this time. Appreciate GI input. -- Holding apixaban for 2 days as recommended -- Recheck CBC at 4 PM -- Watch for recurrent signs of bleeding. -- Clear liquid diet Assessment & Plan (08/14/2025 3:48 AM EDT): Appears to be a lower GI bleed. No symptoms of upper GI bleed. BUN is mildly elevated but this could be related to just dehydration. Gastroenterology consultation will be obtained. GoLytely prep will be initiated. Close monitoring of his hemodynamics and heart rate. Orthostatic hypotension 08/10/2025 Assessment & Plan (08/10/2025 5:45 PM EDT): Orthostatic hypotension Intermittent lightheadedness, particularly during exertion in hot weather. Likely related to dehydration and exertion. Able to recognize symptoms and rest as needed. - Encourage hydration, especially during exertion in hot weather - Advise use of electrolyte solutions like sugar-free Gatorade during exertion - Set a timer to drink 4 ounces of water every 30 minutes during exertion in hot weather particularly. - Instruct to sit down immediately if feeling lightheaded to prevent falls Stage 3a chronic kidney disease 03/05/2025 Congestive heart failure with cardiomyopathy Assessment & Plan (08/16/2025 3:37 PM EDT): More pedal edema today. Lasix had been on hold in the setting of GI bleed -- Restart home Lasix. -- Patient tolerating his usual Entresto Assessment & Plan (08/15/2025 11:15 AM EDT): Appears euvolemic. --Lasix presently on hold -- Patient tolerating his usual Entresto Assessment & Plan (08/14/2025 2:34 PM EDT): Appears euvolemic. --Lasix presently on hold -- Patient tolerating his usual Entresto Assessment & Plan (03/01/2025 11:17 AM EDT): Known history of nonischemic cardiomyopathy no record of latest EF. Follows closely with [facility] cardiology who was last seen in [...] record of latest EF. 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 Rate controlled. -- Continue with Coreg at home dose Assessment & Plan (08/15/2025 11:15 AM EDT): Chronic atrial fibrillation. Rate briefly fast this morning. It appears he normally takes Coreg 6.25 mg in the morning and 3.125 in the evening. He is on a lower dose presently. He may be a little dry at present. -- Increase Coreg dose back to home dose --Push p.o. fluids -- Holding apixaban for now Assessment & Plan (08/14/2025 2:34 PM EDT): Chronic atrial fibrillation. Rate controlled. Normally on apixaban but held in the setting of GI bleed as outlined above. -- Holding apixaban for 2 days. --Continue with Coreg Assessment & Plan (08/14/2025 3:48 AM EDT): Chronic atrial fibrillation. Rate controlled at this time. Will continue his rate control medications. Reversal of anticoagulation is needed in the setting of active bleeding. Assessment & Plan (03/01/2025 11:17 AM EDT): Patient with a history of a atrial fibrillation who follows with [facility] cardiology. He is managed on Coreg [...] of a atrial fibrillation who follows with [facility] cardiology. He is managed on Coreg [...] of a atrial fibrillation who follows with [facility] cardiology. Patient is rate controlled and [...] event. Recommended outpatient follow up with his clinical dietetic technician (previously Dr. Waddell) for discussion on when the resume the medication. Assessment & Plan (08/25/2021 6:10 PM EDT): Hold Eliquis in the setting of GI bleeding, continue Coreg Assessment & Plan (05/26/2021 7:59 AM EDT): History of atrial fibrillation, chronic systolic CHF, hypertension,, mild to moderate CAD (based on catheterization April 2021). Followed by [place] cardiology (EKG here sinus) Had Cardiac cath [...] obstructive pulmonary disease 10/04/2017 Assessment & Plan (08/16/2025 3:37 PM EDT): As below Assessment & Plan (08/15/2025 11:15 AM EDT): Stable at this time. No respiratory symptoms of concern. Continue with as needed albuterol. Assessment & Plan (08/14/2025 2:34 PM EDT): Stable at this time. No respiratory symptoms of concern. Continue with as needed albuterol. Assessment & Plan (08/14/2025 3:48 AM EDT): Stable at this time. No respiratory symptoms of concern. Continue with as needed albuterol. Assessment & Plan (08/10/2025 5:45 PM EDT): Previously experienced dizziness with Incruse Ellipta, which was discontinued. Currently using albuterol as needed. No significant worsening of symptoms. Able to perform daily activities, including yard work and painting, though experienced hypotension during exertion in hot weather. - Continue albuterol as needed - Encourage hydration, especially during exertion in hot weather - Advise use of electrolyte solutions like sugar-free Gatorade during exertion - Set a timer to drink 4 ounces of water every 30 minutes during exertion Assessment & Plan (03/01/2025 11:17 AM EDT): [...] to 4 times daily scheduled with albuterol [facility] Prn Assessment & Plan (02/28/2025 12:36 PM [...] to 4 times daily scheduled - [facility] Pr[facility] Assessment & Plan (02/27/2025 8:09 PM [...] PM EST): -Blood pressures currently controlled, continue Coreg, Cozaar on hold for TIMO Assessment & [...] with a fairly preserved EF according to [facility] records. Given his ongoing hemodynamic stability, [...] Problem Noted Date Diagnosed Date Resolved Date Acute on chronic systolic heart failure 02/28/2025 08/14/2025 Assessment & Plan (03/01/2025 11:17 AM EDT): As Noted above Assessment & Plan (02/28/2025 12:36 PM EDT): As Noted. Bradycardia 02/12/2025 02/27/2025 Assessment & Plan (02/12/2025 10:36 AM EDT): Bradycardia Heart rate today in the 50s and at 59 bpm noted during a previous cardiology visit. Possible sick sinus syndrome contributing to dizziness. Further evaluation by a clinical dietetic technician is suggested. - Send a note to cardiology PA, Socorro Begum, to consider the low heart rate as a potential cause of dizziness. - Consider referral to a clinical dietetic technician for further evaluation if needed. Epigastric pain [...] feels his last colonoscopy was probably in 2017 or 2018, follows with Dr. Valle, Chronically on Eliquis, no NSAIDs or other anticoagulants Hemoglobin 11, with some BRBPR noted this afternoon. Holding Eliquis Colonoscopy planned for tomorrow following preparation Clear liquids N.p.o. past midnight -GI consult appreciated Permanent atrial fibrillation 05/26/2021 08/14/2025 Assessment & Plan (08/14/2025 3:48 AM EDT): Has a RDP1DS6-CFOm score that is elevated necessitating anticoagulation. This will be held at this time. Rate controlled with other medications. Consideration for restarting anticoagulation could be made based off of results of colonoscopy. 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 He describes [...] he will need a letter from Dr. Laguna for clearance. He would need to stop [...] hematuria 10/04/2017 02/13/2022 Calculus of kidney 10/04/2017 Encounters Date Type Department Care Team Description 08/27/2025 3:11 PM EDT - 08/27/2025 11:59 PM EDT Hospital Encounter [facility] [place] [address] [place] [address] Willie Laguna MD Discharge Disposition: Home or Self Care 08/27/2025 2:00 PM EDT Office Visit [facility] Internal Medicine [address] [place] [address] Willie Laguna MD Rectal bleeding (Primary Dx) 08/27/2025 Telephone [facility] Internal Medicine [address] [place] [address] Willie Laguna MD Blood pressure 08/20/2025 5:10 PM EDT Office Visit [facility] Urgent Care at [address] [address] Raiza Puentes CNP Acute viral bronchitis (Primary Dx) 08/18/2025 Telephone [facility] Internal Medicine [address] [place] [address] Willie Laguna MD Follow-up; Cough 08/16/2025 9:49 AM EDT - 08/16/2025 11:59 PM EDT Hospital Encounter [facility] Specimen Processing [address] [place] [address] Ariella Hampton, [place], [place] Discharge Disposition: Home or Self Care 08/16/2025 Transcribe Orders [facility] Specimen Processing [address] [place] [address] Ariella Hampton, [place], [place] Diagnosis unknown (Primary Dx) 08/14/2025 9:45 AM EDT - 08/14/2025 10:31 AM EDT Surgery [facility] Endoscopy Admitting Dept Virtual Department [address] [place] [address] Shiloh Seaman MD COLONOSCOPY 08/14/2025 9:40 AM EDT Anesthesia Event [facility] Endoscopy Admitting Dept Virtual Department [address] [place] [address] Marbella Iqbal MD 08/14/2025 Procedure Pass [facility] Endoscopy Admitting Dept Virtual Department [address] [place] [address] 08/13/2025 11:23 PM EDT - 08/17/2025 2:00 PM EDT Hospital Encounter [facility] Medsurg [place] [address] [place] [address] Thi Aguirre MD Lipkin-Moore, Zachary M, MD Oliveira, Paulo J, MD Altman, Fredrick Ingram DO, MPH Discharge Disposition: Home or Self Care 08/13/2025 Procedure Pass [facility], Ct Scan - [address] [address] 08/13/2025 Telephone [facility] Internal Medicine [address] [place] [address] Willie Laguna MD Rectal Bleeding 08/10/2025 10:00 AM EDT Office Visit [facility] Pulmonary, Allergy and Critical Care Medicine [address] [place] [address] López Henry MD Chronic obstructive pulmonary disease, unspecified COPD type (Primary Dx); Orthostatic hypotension 07/31/2025 Refill [facility] Internal Medicine [address] [place] [address] Willie Laguna MD Medication Refill from Last 3 Months Immunizations Immunization Administration Dates Next Due COVID-19 (Pre-08/26) Pfizer Vaccine, Bivalent 12+ 08/05/2022 COVID-19 (Pre-08/26) Pfizer Vaccine, mRNA, PF 08/17/2021,12/28/2020,12/07/2020 COVID-19, Unspecified Formulation 05/24/2021, Influenza High-Dose Quadriva lent Preservative Free IM 07/02/2023,08/05/2022,08/03/2021 Influenza High-Dose Trivalen t Preservative Free IM 07/27/2024,07/28/2018,07/09/2016,07/24,08/18/2014,07/13/2013,07/13/2012 Influenza Nasal, Unspecified Formulation 07/14/2010,08/05/2009 Influenza Trivalent Adjuvant ed Preservative free IM 08/03/2025,06/19/2017 Influenza, Unspecified Formulation 07/20/2020,,09/13/2011 Influenza, whole 07/06/2008 Pneumococcal conjugate PCV13 11/04/2019,07/24/20 15 Pneumococcal conjugate, unsp ecified formulation 11/04/2019 Pneumococcal polysaccharide PPSV23 11/04,06/19/2017,02/02/2010,08/04 RSV Vaccine (bivalent) 07/24/2023 Td (adult) 5 Lf Tetanus Toxo id, PF, Adsorbed 09/04/2004 Tdap 06/17/2018,06/04/2013 Unknown Vaccine Or Immune Globulin 05/24/2021, Zoster live 04/14/2010 Zoster recombinant 08/27/2019,05/18/2019 Family [...] Mass Index 33.83 08/27/2025 2:04 PM EDT Plan of Treatment Upcoming Encounters Date Type Department Care Team (Late st Contact Info) Description 10/22/2025 3:00 PM EST Office Visit [facility] Internal Medicine [address] [place] [address] Willie Laguna MD [address] [place] [address] 11/03/2025 10:45 AM EST Office Visit [facility] G[facility]ology [facility] [address] [place] [address] Charlene Piedra, [address] [address] [email or web address] 02/11/2026 10:20 AM EDT Office Visit [facility], Allergy [facility] Critical Care Medicine [address] [facility] [place] [address] López Henry MD [address] [facility] [address] [place] [address] Health Maintenance Due Date Last Done Comments COVID-19 VACCINE ( season) 2026 08/03/2025, 07/27/2024, 08/08/2023, Additional history exists DEPRESSION SCREENING 03/23/2026 03/23/2025, 03/01/20 22 LIPID PANEL 04/30/2026 04/30/2025, 03/05, 10/11/2023, Additional history exists CREATININE LEVEL 08/27/2026 08/27/2025, , 08/15/2025, Additional history exists Adult Td,Tdap Booster 06/17/2028 06/17/2018 , 06/04/2013, 09/04/2004 ZOSTER VACCINES Completed 08/27/2019, 05/04, 04/14/2010 PNEUMOCOCCAL VACCINES (50+ years) Completed 11/04/2019, 11/04/2019, 06/19/2017, Additional history exists RSV VACCINE Completed 07/24/2023 INFLUENZA VACCINE Completed 08/03/2025, , 07/02/2023, Additional history exists HEPATITIS A VACCINES Aged Out No long [...] this topic Medical Devices Implanted Type Area Weaving Machine Operator Device Identifier Shelf Expiration Date Model / Serial / Lot Lens Lens Bilateral: Eye Knees Description:Bilat knee repla cements Device Fixation 37mm Optifix Pdlla Smooth Head Hollow Core Angled Tip Absorb Sterile Disp 30 Fastner - [id number] Implanted:Qty: 1 on 07/02/2018 by Arleen Donald MD at [facility] N/A: Abdomen DAVOL 03/01/2020 [id number] / / [id number] Mesh Synthetic [id number] Abdominal Non Absorbable Ellipse Polypropylene Eptfe Ventralex - [id number] Implanted:Qty: 1 on 07/02/2018 by Arleen Donald MD at [facility] Abdomen DAVOL 10/01/2019 [id number] / / [id number] Device Fixation 37mm Optifix Pdlla Smooth Head Hollow Core Angled Tip Absorb Sterile Disp 30 Fastner - [id number] Implanted:Qty: 1 on 07/02/2018 by Arleen Donald MD at [facility] N/A: Abdomen DAVOL 08/01/2018 [id number] / / [id number] Procedures Procedure Name Priority Date/Time Associated Diagnosis Comments CBC AND DIFFERENTIAL Routine 08/27/2025 3:11 PM EDT Rectal bleeding COMPREHENSIVE METABOLIC PANEL (CMP) Routine 08/27/2025 3:11 PM EDT Rectal bleeding POCT COVID-19 RT-PCR/INFLUENZA A & B/RSV CEPHEID Routine 08/20/2025 5:39 PM EDT XR CHEST PORTABLE Routine 08/17/2025 9:5 1 AM EDT CBC AND DIFFERENTIAL Routine 08/17/2025 5:41 AM EDT BASIC METABOLIC PANEL (BMP) Routine 08/17/2025 5:41 AM EDT RESPIRATORY CULTURE/SMEAR Routine 08/16/2025 4:27 PM EDT RAPID INFLUENZA A AND B Routine 08/16/2025 4:15 PM EDT COVID PANDEMIC RESPIRATORY VIRAL ORDER (PRO) STAT 08/16/2025 11:19 AM EDT XR CHEST PA AND LATERAL 2 VIEWS Routine 08/16/2025 10:56 AM EDT CBC AND DIFFERENTIAL Routine 08/16/2025 4:16 AM EDT CBC AND DIFFERENTIAL Routine 08/15/2025 5:37 AM EDT BASIC METABOLIC PANEL (BMP) Routine 08/15/2025 5:37 AM EDT CBC Timed 08/14/2025 3:18 PM EDT COLONOSCOPY 08/14/2025 9:28 AM EDT colonoscpy ENDOSCOPY, COLON 08/14/2025 9:27 AM EDT CBC AND DIFFERENTIAL Routine 08/14/2025 5:15 AM EDT PHOSPHORUS Routine 08/14/2025 5:15 AM EDT MAGNESIUM Routine 08/14/2025 5:15 AM EDT BASIC METABOLIC PANEL (BMP) Routine 08/14/2025 5:15 AM EDT MRSA PCR SCREEN Routine 08/14/2025 5:[address] ANGIO ABDOMEN/PELVIS WITH AND WITHOUT CONTRAST Routine 08/14/2025 12:43 AM EDT ECG 12-LEAD STAT 08/14/2025 12:12 AM EDT BLOOD BANK HOLD SPECIMEN STAT 08/14/2025 12:09 AM EDT CBC STAT 08/14/2025 12:09 AM EDT HC BLOOD TYPING SEROLOGIC ABO STAT 08/14/2025 12:06 AM EDT URINE SEDIMENT STAT 08/13/2025 6:40 PM EDT URINALYSIS WITH REFLEX TO URINE CULTURE STAT 08/13/2025 6:40 PM EDT PT-INR STAT 08/13/2025 6:09 PM EDT LIPASE STAT 08/13/2025 6:09 PM EDT LFTS (HEPATIC PANEL) STAT 08/13/2025 6:09 PM EDT BASIC METABOLIC PANEL (BMP) STAT 08/13/2025 6:09 PM EDT CBC AND DIFFERENTIAL STAT 08/13/2025 6:09 PM EDT LIPID PANEL Routine 04/30/2025 7:41 AM EDT ASCVD (arteriosclerotic cardiovascular disease) from Last 3 Months or Most Recently Relevant to Health Maintenance Results * (ABNORMAL) Comprehensive metabolic panel (08/27/2025 3:11 PM EDT) SODIUM 141 133 - 146 mmol/L [facility] POTASSIUM 4.8 3.3 - 5.1 mmol/L [facility] CHLORIDE 104 96 - 108 mmol/L [facility] CO2 27 21 - 35 mmol/L [facility] BUN 32(H) 6 - 19 mg/dL [facility] CREATININE 1.40 0.5 - 1.5 mg/dL [facility] GLUCOSE 101(H) 70 - 99 mg/dL [facility] ALBUMIN 3.7(L) 3.9 - 4.8 g/dL [facility] TOTAL PROTEIN 6.5 6.5 - 8.0 g/dL [facility] CALCIUM 9.4 8.4 - 10.3 mg/dL [facility] ALKALINE PHOSPHATASE 72 39 - 117 U/L [facility] TOTAL BILIRUBIN 0.5 0.0 - 1.2 mg/dL [facility] AST 16 0 - 37 U/L [facility] ALT 13 0 - 40 U/L [facility] GLOBULIN 2.8 1 - 4.8 g/dL [facility] EGFR 48(L) >59 mL/min/1.7 3m2 [facility] Comment:Estimated glomerular filtration rate calculated using the CKD-EPI refit equation. ANION GAP 15 10 - 20 mmol/L [facility] Blood 08/27/2025 3:11 PM EDT 08/27/2025 3:13 PM EDT us Willie Laguna MD LAB BLOOD BKR ORDERABLES Aysha ricks Result [address] [address] * (ABNORMAL) CBC and differential (08/27/2025 3:11 PM EDT) Only the most recent of6 resultswithin the time period is included. WBC 7.57 4.00 - 11.00 K/uL [facility] RBC 4.51 4.50 - 5.90 M/uL [facility] HGB 13.1(L) 13.5 - 17.5 g/dL [facility] HCT 42.3 41.0 - 53.0 % [facility] PLT 270 150 - 450 K/uL [facility] MCV 93.8 80.0 - 100.0 fL [facility] MCH 29.0 27.0 - 31.0 pg [facility] MCHC 31.0(L) 32.0 - 36.0 g/dL [facility] RDW 14.1 11.5 - 14.5 % [facility] MPV 11.3 8.4 - 12.0 fL [facility] NRBC 0.00 0.00 /100 WBCs [facility] ABSOLUTE NRBC 0.00 0.00 K/uL [facility] DIFF METHOD Auto [facility] NEUTS 69.4 48.0 - 76.0 % [facility] LYMPHS 14.8(L) 18.0 - 41.0 % [facility] MONOS 12.0(H) 4.0 - 11.0 % [facility] EOS 2.4 0.0 - 5.0 % [facility] BASOS 1.1 0.0 - 1.5 % [facility] Granulocytes, immature (%) 0.3 0.0 - 0.9 % [facility] ABSOLUTE NEUTS 5.26 1.92 - 7.60 K/uL [facility] ABSOLUTE LYMPHS 1.12 0.72 - 4.10 K/uL [facility] ABSOLUTE MONOS 0.91 0.16 - 1.10 K/uL [facility] ABSOLUTE EOS 0.18 0.00 - 0.50 K/uL [facility] ABSOLUTE BASOS 0.08 0.00 - 0.15 K/uL [facility] Granulocytes, immature 0.02 0.00 - 0.09 K/uL [facility] Blood 08/27/2025 3:11 PM EDT 08/27/2025 3:13 PM EDT us Willie Laguna MD LAB BLOOD BKR ORDERABLES Aysha l Result [facility] [address] [place] [address] * POCT COVID-19 RT-PCR/Influenza A & B/RSV (Cepheid) (08/20/2025 5:39 PM EDT) [facility] RSV PCR Negative Negative [facility] SARS-CoV-2 (COVID-19) Negative Negative [facility] POC Influenza A PCR Negative Negative [facility] Influenza B PCR Negative Negative [facility] 08/20/2025 5:39 PM EDT 08/20/2025 6:20 PM EDT us Raiza Puentes BELLHOP CAPTAIN LAB POCT ENTER/EDIT ORDERAB LES Final Result Performing Organization Address City/[place] Hospital/ZIP Co de Phone Number [facility] AT [address] [address], [facility] [phone] * XR Chest Portable (08/17/2025 9:51 AM EDT) Anatomical Region Laterality Modality Chest Computed Radiogr aphy 08/17/2025 9:54 AM EDT Impressions 08/17/2025 9:57 AM EDT No acute radiographic abnormality. Narrative 08/17/2025 9:57 AM EDT XR CHEST PORTABLE Referring clinician's provided indication for this examination in Epic: Cough COMPARISON: August 16, 2025 FINDINGS: Devices/Tubes/Lines: None. Lungs: Bilateral prominent interstitial opacities are chronic. No new consolidation. Pleura: No pleural effusion or pneumothorax. Heart/Mediastinum: No new abnormality. Atherosclerotic calcifications. Bones/Soft Tissues: No acute abnormality. Osteoarthritis glenohumeral joints. Chronic widening of the right AC joint. Procedure Note Carlos Daley MD - 08/17/2025 XR CHEST PORTABLE Referring clinician's provided indication for this examination in Epic:Cough COMPARISON: August 16, 2025 FINDINGS: Devices/Tubes/Lines: None. Lungs: Bilateral prominent interstitial opacities are chronic. No newconsolidation. Pleura: No pleural effusion or pneumothorax. Heart/Mediastinum: No new abnormality. Atherosclerotic calcifications. Bones/Soft Tissues: No acute abnormality. Osteoarthritis glenohumeraljoints. Chronic widening of the right AC joint. IMPRESSION: No acute radiographic abnormality. us Fredrick Jones DO, MPH IMG XR CHEST Final Resu lt * Basic metabolic panel (08/17/2025 5:41 AM EDT) Only the most recent of4 resultswithin the time period is included. SODIUM 140 133 - 146 mmol/L [facility] CHLORIDE 106 96 - 108 mmol/L [facility] POTASSIUM 4.1 3.3 - 5.1 mmol/L [facility] CO2 24 21 - 35 mmol/L [facility] BUN 18 6 - 19 mg/dL [facility] CREATININE 0.90 0.5 - 1.5 mg/dL [facility] GLUCOSE 97 70 - 99 mg/dL [facility] CALCIUM 8.8 8.4 - 10.3 mg/dL [facility] EGFR 82 >59 mL/min/1.7 3m2 [facility] Comment:Estimated glomerular filtration rate calculated using the CKD-EPI refit equation. ANION GAP 14 10 - 20 mmol/L [facility] Blood 08/17/2025 5:41 AM EDT 08/17/2025 6:22 AM EDT us Ariella Hampton PA-C, MS LAB BLOOD BKR ORD ERABLES Final Result [facility] [address] [address] * (ABNORMAL) Respiratory Culture/Gram Stain (08/16/2025 4:27 PM EDT) Special Requests None 08/16/2025 4:15 PM EDT [facility] GRAM STAIN Moderate WBC'S , EPITHELIAL CELLS , Many GRAM POSITIVE COCCI , Few GRAM POSITIVE RODS , Gram stain evaluation indicated >10 squamous epithelial cells per lower power field. Specimen is contaminated with saliva. Please submit a new specimen if clinically indicated. 08/17/2025 7:51 AM EDT [facility] Respiratory Cult/Smear MIXED ORGANISMS RESEMBLING OROPHARYNGEAL ASTER(A) 08/17/2025 9:39 AM EDT [facility] Other (Sputum) 08/16/2025 4: 27 PM EDT 08/16/2025 4:54 PM EDT Ariella Hampton PA-C, MS LAB MICROBIOLOGY CULTURE ORDERABLES Final Result [address] [address] * Rapid influenza A and B (08/16/2025 4:15 PM EDT) [facility] Influenza A, NAAT Negative Negative [facility] Influenza B, NAAT Negative Negative [facility] 08/16/2025 4:15 PM EDT 08/16/2025 5:46 PM EDT Ariella Hampton PA-C, MS MICROBIOLOGY - GE NERAL ORDERABLES Final Result [address] [address] * COVID Pandemic Respiratory Viral Order (PRO) (08/16/2025 11:19 AM EDT) Pathologist [facility] Test Ordered Rapid COVID has been ordered [facility] SPECIMEN SOURCE/DESCRIPTION NASAL [facility] SARS-CoV 2 (COVID-19) PCR Negative Negative [facility] Comment: SARS-CoV-2 not detected Negative results do not preclude SARS-CoV-2 infection and should not be used as the sole basis for patient management decisions. Negative results must be combined with clinical observations, patient history, and epidemiological information. This test has been authorized by the FDA under an Emergency Use Authorization (EUA) for use by authorized laboratories. Other (Nasopharyngeal swab) 08/16/2025 11:19 AM EDT 08/16/2025 11:35 AM EDT us Ariella Hampton PA-C, MS LAB GENERAL ORDER TATYANA Final Result [facility] [address], [place] [id number] * XR CHEST PA AND LATERAL 2 VIEWS (08/16/2025 10:56 AM EDT) Anatomical Region Laterality Modality Chest Computed Radiogr aphy 08/16/2025 11:4 0 AM EDT Impressions 08/16/2025 11:43 AM EDT Minimal right basilar and left perihilar atelectasis. No evidence for acute cardiopulmonary process. Narrative 08/16/2025 11:43 AM EDT XR CHEST PA AND LATERAL 2 VIEWS Referring clinician's provided indication for this examination in [facility]: Cough COMPARISON: XR CHEST 1 VIEW ; CT CHEST WITHOUT CONTRAST ; CT ANGIO ABDOMEN/PELVIS WITH AND WITHOUT CONTRAST FINDINGS: Devices/Tubes/Lines: None. Lungs: There is minimal right basilar and left perihilar atelectasis. There is no dense parenchymal consolidation or pulmonary edema. Pleura: No pleural effusion or pneumothorax. Heart/Mediastinum: Normal in size and contour. There are mild to moderate atherosclerotic calcifications of the aortic arch. Bones/Soft Tissues: Mild multilevel degenerative changes are noted. Procedure Note Brady Monsivais MD - 08/16/2025 XR CHEST PA AND LATERAL 2 VIEWS Referring clinician's provided indication for this examination in Epic:Cough COMPARISON: XR CHEST 1 VIEW ; CT CHEST WITHOUT [id number]; CT ANGIO ABDOMEN/PELVIS WITH AND WITHOUT [id number] FINDINGS: Devices/Tubes/Lines: None. Lungs: There is minimal right basilar and left perihilar atelectasis.There is no dense parenchymal consolidation or pulmonary edema. Pleura: No pleural effusion or pneumothorax. Heart/Mediastinum: Normal in size and contour. There are mild to moderateatherosclerotic calcifications of the aortic arch. Bones/Soft Tissues: Mild multilevel degenerative changes are noted. IMPRESSION: Minimal right basilar and left perihilar atelectasis. No evidence foracute cardiopulmonary process. Ariella Hampton PA-C, MS IMG XR CHEST F inal Result * (ABNORMAL) CBC (08/14/2025 3:18 PM EDT) Only the most recent of2 resultswithin the time period is included. WBC 4.75 4.00 - 11.00 K/uL [facility] RBC 3.94(L) 4.50 - 5.90 M/uL [facility] HGB 11.7(L) 13.5 - 17.5 g/dL [facility] HCT 37.5(L) 41.0 - 53.0 % [facility] PLT 153 150 - 450 K/uL [facility] MCV 95.2 80.0 - 100.0 fL [facility] MCH 29.7 27.0 - 31.0 pg [facility] MCHC 31.2(L) 32.0 - 36.0 g/dL [facility] RDW 14.3 11.5 - 14.5 % [facility] MPV 11.5 8.4 - 12.0 fL [facility] NRBC 0.00 0.00 /100 WBCs [facility] ABSOLUTE NRBC 0.00 0.00 K/uL [facility] Blood 08/14/2025 3:18 PM EDT 08/14/2025 6:19 PM EDT us Ariella Hampton PA-C, MS LAB BLOOD BKR ORD ERABLES Final Result [facility] [address] [place] [address] * ENDOSCOPY, COLON (08/14/2025 9:27 AM EDT) Narrative Transcriptions Shiloh Seaman MD - 08/14/2025 9:27 AM EDT [facility] Patient Name: Arnulfo Du Attending MD:: SHILOH SEAMAN MD, Procedure Date: 08/14/2025 9:27 AM Date of : 1935 Age: 89 Admit Type: Inpatient Gender: Male Room: [place] [address] Referring MD: WILLIE LAGUNA MD Exam Type: Colonoscopy Indications: Hematochezia, Rectal bleeding, Abnormal CTA of theGI tract on Eliquis Medications: Propofol per Anesthesia Procedure: Informed consent was obtained from the patientafter discussion of the indications, limitations, alternatives, benefits, and risks of the procedure. Risks specifically discussed include but are not limited to medication reactions, missed lesions, bleeding, perforation, or the need for emergent surgery. Throughout the procedure, the patient's blood pressure, pulse, end-tidal CO2, and oxygensaturations were monitored continuously. The Colonoscope was introduced through the anus and advanced to the ileocolonic anastomosis. The colonoscopy was technically difficult and complexdue to multiple diverticula in the colon. The patient tolerated the procedure fairly well. The quality of the bowel preparation was evaluated using the BBPS ([place] Bowel Preparation Scale) with scores of: Transverse Colon = 2 (minor amount of residual staining, small fragments of stool and/or opaque liquid, but mucosa seen well) and Left Colon = 2 (minor amount of residual staining, small fragmentsof stool and/or opaque liquid, but mucosa seen well).The total BBPS score equals 4. Ileocolonic anastomosis were photographed. Complications: No immediate complications. Estimated blood loss: Minimal. Findings: Hemorrhoids were found on perianal exam. A few localized non-bleeding erosions were found at the anastomosis in the transverse colon. Nostigmata of recent bleeding were seen. No lesion tocauterize Multiple small and large-mouthed diverticula were found in the sigmoid colon, descending colon and splenic flexure. Non-bleeding internal hemorrhoids were found during retroflexion. The hemorrhoids were moderate. The exam was otherwise without abnormality ondirect and retroflexion views. No active bleeding identified Impression: - Hemorrhoids found on perianal exam. - A few erosions at the colonic anastomosis. - Diverticulosis in the sigmoid colon, in the descending colon and at the splenic flexure. - Non-bleeding internal hemorrhoids. - The examination was otherwise normal on directand retroflexion views. - No specimens collected. Recommendation: - Clear liquid diet. - Resume Eliquis (apixaban) at prior dose in 2 days if clinically appropriate. - [facility] patient [facility]. SHILOH SEAMAN MD 08/14/2025 10:11:53 AM This report has been signed electronically. Number of Addenda: 0 Note Initiated On: 08/14/2025 9:27 AM Procedure Code(s): --- Professional --- 75049, Colonoscopy, flexible; diagnostic, including collection of specimen(s) by brushing or washing, when performed (separateprocedure) --- Technical --- 95749, Colonoscopy, flexible; diagnostic, including collection of specimen(s) by brushing or washing, when performed (separateprocedure) Diagnosis Code(s): --- Professional --- K64.8, Other hemorrhoids K63.3, Ulcer of intestine K92.1, Melena (includes Hematochezia) K62.5, Hemorrhage of anus and rectum K57.30, Diverticulosis of large intestine without perforation or abscess without bleeding R93.3, Abnormal findings on diagnostic imaging of other parts of digestive tract --- Technical --- K64.8, Other hemorrhoids K63.3, Ulcer of intestine K92.1, Melena (includes Hematochezia) K62.5, Hemorrhage of anus and rectum K57.30, Diverticulosis of large intestine without perforation or abscess without bleeding R93.3, Abnormal findings on diagnostic imaging of other parts of digestive tract CPT copyright 2021 [employer]. All rights reserved. The codes documented in this report are preliminary and upon ibm bpm architect reviewmay be revised to meet current compliance requirements. Procedure Date: 08/14/2025 9:27:[address] [place] [id number] Willie Laguna MD GI PROCEDURE ORDERABLES Final Result * MRSA PCR SCREEN (08/14/2025 5:15 AM EDT) [facility] MRSA PCR SCREEN Negative Negative [facility] Comment:The Xpert MRSA Assay is intended to aid in the prevention and control of MRSA infections in healthcare settings. The assay is not intended to diagnose nor to guide or monitor treatment for MRSA infections. Other (Nasal) 08/14/2025 5:1 5 AM EDT 08/14/2025 5:26 AM EDT us Arnulfo Jacob PA-C, MS LAB GENERAL ORDERABLES Final Result [facility] [address] [place] [address] * Phosphorus (08/14/2025 5:15 AM EDT) Pathologist [facility] PHOSPHORUS 3.1 2.7 - 4.5 mg/dL [facility] Blood 08/14/2025 5:15 AM EDT 08/14/2025 5:26 AM EDT us Arnulfo Jacob PA-C, MS LAB BLOOD BKR ORDERABLE S Final Result [address] [address] * Magnesium (08/14/2025 5:15 AM EDT) MAGNESIUM 2.0 1.6 - 2.6 mg/dL [facility] Blood 08/14/2025 5:15 AM EDT 08/14/2025 5:26 AM EDT us Arnulfo Jacob PA-C, MS LAB BLOOD BKR ORDERABLE S Final Result Performing Organization Address [facility]/ZIP Co de Phone Number [address] [address] * CT ANGIO ABDOMEN/PELVIS WITH AND WITHOUT CONTRAST (08/14/2025 12:43 AM EDT) [facility] [place] MAGISTRATE COMMENT active GI bleed in the transverse colon abutting the ileocolonic anastomosis. [facility] Anatomical Region Laterality Modality Abdomen, Abdominal Vasculature C omputed Tomography 08/14/2025 12:5 5 AM EDT Impressions 08/14/2025 1:06 AM EDT 1. Small volume active GI bleed in the transverse colon abutting the ileocolonic anastomosis. 2. Unchanged infrarenal abdominal aortic aneurysm and bilateral common iliac artery aneurysms. A clinically significant result was initiated on 08/14/2025 1:06 AM, Message ID [id number]. Narrative 08/14/2025 1:[address] ANGIO ABDOMEN/PELVIS WITH AND WITHOUT CONTRAST Referring clinician's provided indication for this examination in Epic: * GI bleed TECHNIQUE: Multidetector-row CTA of the abdomen and pelvis was performed with intravenous contrast using tailored dose modulation techniques. Images were reconstructed in the axial, coronal, and sagittal planes, including angiographic image post-processing. COMPARISON: CT ABDOMEN/PELVIS WITH CONTRAST VASCULAR FINDINGS: Small volume active extravasation in the transverse colon abutting the ileocolonic anastomosis (7:47, 9:49). Infrarenal abdominal aortic aneurysm measuring 4.2 cm, unchanged when remeasured. There is no aortic dissection, intramural hematoma, or occlusion. Moderate to severe atherosclerosis. The celiac axis, SMA and KARY are patent. Renal arteries are patent bilaterally. Aorto-iliac system is patent without significant stenosis bilaterally. Aneurysmal dilation of the bilateral common iliac arteries measuring 3 cm right and 2.6 cm left, unchanged when remeasured. No intraluminal contrast extravasation to indicate active GI bleeding. There is no venous thrombosis. NON VASCULAR FINDINGS: Lung bases: No consolidation or pleural effusions. Liver: No focal lesions. Biliary: Cholelithiasis. No biliary ductal dilatation. Spleen: No splenomegaly or focal lesions. Pancreas: No masses, ductal dilation or peripancreatic fat stranding. Adrenal Glands: No nodules. Kidneys/Ureters: No hydronephrosis. Bilateral nonobstructing renal stones measuring up to 14 mm on the left and 9 mm on the right. Bilateral renal cysts. Bowel: Right hemicolectomy. Slightly hyperdense fluid content within the transverse and descending colon likely represent blood products. Colonic diverticulosis without diverticulitis. No bowel wall thickening or dilatation. Normal appendix. Peritoneum/Retroperitoneum: No pneumoperitoneum or free fluid. Lymph Nodes: No lymphadenopathy. Pelvic Organs/Bladder: Right posterolateral bladder diverticulum. Bones/Soft Tissues: Degenerative changes of the spine. L4-5 grade 1 anterolisthesis. Small fat-containing bilateral inguinal hernias. Procedure Note Janice Leong MD - 08/14/2025 CT ANGIO ABDOMEN/PELVIS WITH AND WITHOUT CONTRAST Referring clinician's provided indication for this examination in Epic: *GI bleed TECHNIQUE: Multidetector-row CTA of the abdomen and pelvis was performedwith intravenous contrast using tailored dose modulation techniques.Images were reconstructed in the axial, coronal, and sagittal planes,including angiographic image post-processing. COMPARISON: CT ABDOMEN/PELVIS WITH CONTRAST VASCULAR FINDINGS: Small volume active extravasation in the transverse colon abutting theileocolonic anastomosis (7:47, 9:49). Infrarenal abdominal aortic aneurysm measuring 4.2 cm, unchanged whenremeasured. There is no aortic dissection, intramural hematoma, or occlusion. Moderateto severe atherosclerosis. The celiac axis, SMA and KARY are patent. Renal arteries are patent bilaterally. Aorto-iliac system is patent without significant stenosis bilaterally.Aneurysmal dilation of the bilateral common iliac arteries measuring 3 cmright and 2.6 cm left, unchanged when remeasured. No intraluminal contrast extravasation to indicate active GI bleeding. There is no venous thrombosis. NON VASCULAR FINDINGS: Lung bases: No consolidation or pleural effusions. Liver: No focal lesions. Biliary: Cholelithiasis. No biliary ductal dilatation. Spleen: No splenomegaly or focal lesions. Pancreas: No masses, ductal dilation or peripancreatic fat stranding. Adrenal Glands: No nodules. Kidneys/Ureters: No hydronephrosis. Bilateral nonobstructing renal stonesmeasuring up to 14 mm on the left and 9 mm on the right. Bilateral renalcysts. Bowel: Right hemicolectomy. Slightly hyperdense fluid content within thetransverse and descending colon likely represent blood products. Colonicdiverticulosis without diverticulitis. No bowel wall thickening ordilatation. Normal appendix. Peritoneum/Retroperitoneum: No pneumoperitoneum or free fluid. Lymph Nodes: No lymphadenopathy. Pelvic Organs/Bladder: Right posterolateral bladder diverticulum. Bones/Soft Tissues: Degenerative changes of the spine. L4-5 grade 1anterolisthesis. Small fat-containing bilateral inguinal hernias. IMPRESSION: 1. Small volume active GI bleed in the transverse colon abutting theileocolonic anastomosis. 2. Unchanged infrarenal abdominal aortic aneurysm and bilateral commoniliac artery aneurysms. A clinically significant result was initiated on 08/14/2025 1:06 AM,Message ID [id number]. us Thi Aguirre MD IMG CT ABD/PELVIS Final Resu lt * ECG 12-LEAD (08/14/2025 12:12 AM EDT) Ventricular Rate EKG/MIN 75 BPM [facility] Atrial Rate 102 BPM [facility] QRS Duration 164 ms [facility] QT Interval 462 ms [facility] QTC Interval 515 ms [facility] R Wave [place] 4 degrees [facility] T Wave [place] -1 degrees [facility] 08/14/2025 12:1 2 AM EDT 08/14/2025 8:51 AM EDT Narrative [facility] - 08/14/2025 8:51 AM EDT Atrial fibrillation Left bundle branch block Abnormal ECG When compared with ECG of 27-Feb-2025 15:00, T wave inversion now evident in Inferior leads Confirmed by Ovi Hardy ([id number]) on 08/14/2025 8:51:36 AM Thi Aguirre MD ECG ORDERABLES Final Result [facility] * Hold Specimen In Blood Bank (08/14/2025 12:09 AM EDT) Expiration Date of Sample 08/17/2025 ,2359 [facility] Resulting Agency [facility] Blood 08/14/2025 12:0 9 AM EDT 08/14/2025 12:12 AM EDT Thi Aguirre MD LAB BLOOD BANK TEST ORDERABL ES Final Result Performing Organization Address [facility] Co de Phone Number [address] [address] * Type and Screen (ABO,Rh,Antibody Screen) (08/14/2025 12:06 AM EDT) ABO/Rh O Negative [facility] Antibody Screen Negative [facility] Expiration Date of Sample 08/17/2025,2 359 [facility] Resulting Agency [facility] Blood 08/14/2025 12:0 6 AM EDT 08/14/2025 1:12 AM EDT Thi Aguirre MD LAB BLOOD BANK TEST ORDERABL ES Final Result Performing Organization Address [facility]/ZIP Co de Phone Number [address] [address] * (ABNORMAL) Urinalysis w/reflex Urine Culture (08/13/2025 6:40 PM EDT) COLOR BROWN(A) Yellow [facility] CLARITY CLOUDY [facility] GLUCOSE 1+(A) Negative [facility] BILI 1+(A) Negative [facility] KETONES Negative Negative [facility] SPECIFIC GRAVITY 1.015 1.005 - 1.030 [facility] BLOOD 3+(A) Negative [facility] PH 6.0 5.0 - 8.0 [facility] Protein-UA 1+(A) Negative [facility] NITRITE Negative Negative [facility] Leukocyte esterase, ur Negative Negative [facility] Urine (Urine) 08/13/2025 6:4 0 PM EDT 08/13/2025 6:50 PM EDT Bryant Cazares MD LAB URINE ORDERABLES Final Result Performing Organization Address [facility] Co de Phone Number [address] [address] * (ABNORMAL) Urine sediment (08/13/2025 6:40 PM EDT) WBC 5-10(A) NONE SEEN /hpf [facility] RBC TOO NUMEROUS TO COUNT(A) NONE SEEN /hpf [facility] URINE EPITHELIAL NONE SEEN NONE SEEN [facility] MUCUS NONE SEEN NONE SEEN /hpf [facility] BACTERIA NONE SEEN NONE SEEN /hpf [facility] 08/13/2025 6:40 PM EDT 08/13/2025 6:50 PM EDT Bryant Cazares MD LAB URINE ORDERABLES Final Result Performing Organization Address City/[facility]/ZIP Co de Phone Number [address] [address] * (ABNORMAL) LFTs (hepatic panel) (08/13/2025 6:09 PM EDT) ALKALINE PHOSPHATASE 74 39 - 117 U/L [facility] TOTAL BILIRUBIN 0.4 0.0 - 1.2 mg/dL [facility] DIRECT BILIRUBIN 0.2 0.0 - 0.2 mg/dL [facility] Bilirubin (Indirect) 0.2 0 - 1.5 mg/dL [facility] AST 16 0 - 37 U/L [facility] ALT 13 0 - 40 U/L [facility] TOTAL PROTEIN 6.3(L) 6.5 - 8.0 g/dL [facility] ALBUMIN 3.8(L) 3.9 - 4.8 g/dL [facility] GLOBULIN 2.5 1 - 4.8 g/dL [facility] A/G Ratio 1.52 1.00 - 4.80 RATIO [facility] Blood 08/13/2025 6:09 PM EDT 08/13/2025 6:20 PM EDT Bryant Cazares MD LAB BLOOD BKR ORDERABLES Fi nal Result Performing Organization Address City/[facility] Co de Phone Number [address] [address] * (ABNORMAL) PT-INR (08/13/2025 6:09 PM EDT) PT 18.2(H) 10.2 - 12.9 sec [facility] INR 1.5(H) 0.9 - 1.1 [facility] Comment:Therapeutic range fo r oral Vitamin K antagonists: 2.0-3.5 Blood 08/13/2025 6:09 PM EDT 08/13/2025 6:20 PM EDT Bryant Cazares MD LAB BLOOD BKR ORDERABLES Fi nal Result [address] [address] * Lipase (08/13/2025 6:09 PM EDT) LIPASE 23 16 - 63 U/L [facility] Blood 08/13/2025 6:09 PM EDT 08/13/2025 6:20 PM EDT us Bryant Cazares MD LAB BLOOD BKR ORDERABLES Fi nal Result Performing Organization Address [facility]/ZIP Co de Phone Number [address] [address] * (ABNORMAL) Lipid panel (04/30/2025 7:41 AM EDT) HDL 52 mg/dL [facility] Comment: Interpretation <40 mg/dL: Low HDL cholesterol (major risk factor for CHD) Greater than or equal to 60 mg/dL: High HDL cholesterol ( negative risk factor for CHD) HDL - cholesterol is affected by a number of factors, e.g. smoking, excerise, hormones, sex and age. CHOLESTEROL 160 0 - 240 mg/dL [facility] TRIGLYCERIDES 73 30 - 160 mg/dL [facility] LDL 93 50 - 129 mg/dL [facility] Comment: LDL levels in terms of risk for coronary heart disease: <100 mg/dL: Optimal 100-129 mg/dL: Near or above optimal 130-159 mg/dL: Borderline high 160-189 mg/dL: High >190 mg/dL: Very High CARDIAC RISK RATIO 3.1(L) 3.4 - 5.0 C [facility] Blood 04/30/2025 7:41 AM EDT 04/30/2025 7:44 AM EDT us Willie Laguna MD LAB BLOOD BKR ORDERABLES Aysha l Result Performing Organization Address [facility]/ZIP Co de Phone Number [address] [address] from Last 3 Months or Most Recently Relevant to Health Maintenance Insurance MEDICARE PART A & B [employer] MEDEX SUPPLEMENT MEDICARE PART A & B [employer] MEDEX SUPPLEMENT MEDICARE PART A & B [employer] MEDEX SUPPLEMENT MEDICARE PART A & B [employer] MEDEX SUPPLEMENT MEDICARE PART A & B [employer] MEDEX SUPPLEMENT MEDICARE PART A & B [employer] MEDEX SUPPLEMENT MEDICARE PART A & B [employer] MEDEX SUPPLEMENT MEDICARE PART A & B [employer] MEDEX SUPPLEMENT MEDICARE PART A & B [facility] MEDEX SUPPLEMENT Advance Directives For more information, please contact: [phone] (9AM - 5PM [facility], Saturday-Saturday) Documents on File Type Date Recorded Patient [employer] Specialist Expl anation Healthcare Proxy 04/26/2020 Health Care Proxy * Full Code (Latest Code Status on File) Date Activated Date Inactivated Comments 08/14/2025 3:35 AM Question Answer Comments Code Status Confirmed With: PatientFamily * Full Code Date Activated Date Inactivated Comments 02/27/2025 10:32 PM 08/14/2025 3:35 AM Question Answer Comments Code Status Confirmed [...] Agent (Proxy form on file) Care Teams Mud Jack Nozzleman Relationship Specialty Start Date End Date Willie Laguna MD [address] [place] [address] [email or web address] PCP - General Internal Medicine 02/04/20 Willie Laguna MD [address] [place] [address] [email or web address] Insurance Assigned Provider 02/08/24 Daniel Flores MD [address] [address] [email or web address] Urology 04/14/20 Delvin Waddell MD [address] [address] [email or web address] Cardiology 04/14/20 Shaylee Dejesus MD [address] [place] [address] Otolaryngology 05/20/20 Shiloh Valle MD [address] [place] [address] Gastroenterology 11/30/20 Socorro Begum PA [facility] [place] [address] Physician Academic Registrar Cardiology 04/06/24 Additional Source Comments The information contained in this document represents components of the legal health record. It is not the complete legal health record.Formerly [facility]
== END 2025-10-04 12:59 | disposition home or self-care (01) ==
LOC: HO.HMGAL 12:58
PROVIDERS: PCP Internal Medicine; Visit Provider Registered Nurse Emergency
DX: J30.89 Other allergic rhinitis (principal)
CPT/HCPCS: 95117; 95165

== ENCOUNTER 2025-10-18 14:26 | Outpatient (AMB) | payer MEDICARE, SELFPAY ==
--- OUTSIDE RECORDS SUMMARY | 2021-02-12 10:58 | XMS_ITS | Encounter Summary ---
Author Organization [facility] Address [address] [place] [address] [place] [address] Phone Care Team Providers Care Desktop Support Associate Name Role Phone Willie Blair MD Primary Care Provider [phone] Daniel Flores MD Unavailable Delvin Waddell MD Unavailable Shaylee Dejesus MD Unavailable [phone] Tramaine Valle MD Unavailable [phone] Encounter Details Date Type Department Care Team (Late st Contact Info) Description 02/12/2021 11:58 AM EDT Hospital Encounter [facility] [address] [place] [address] Orlando Smallwood PA [address] [place] [address] [email or web address] Social History Tobacco Use Types Packs/Day Years Used Date Smoking Tobacco: Former Cigarettes Smokeless Tobacco: Never Comments:tried it in his 20s , once in a while; light smoker back in the day Alcohol Use Standard Drinks/Week Comments Yes 0 (1 standard drink = 0.6 oz pure alcohol) occasionally during holidays and special events Home Health Assessment: Transportation Answer Date Recorded Lack of Transportation (Medical) No 02/05/2024 Lack of Transportation (Non-Medical) No 02/05/2024 Patient Unable or Declines to Respond No 02/05/2024 Education Answer Date Recorded Are you interested in more education? Not on cinthya e 03/01/2023 Are you concerned about learning? Not on file 03/01/2023 No 03/01/2023 No 03/01/2023 Food Answer Date Recorded Within the past 6 months we worried whether our food would run out before we got money to buy more. Never True 08/13/2025 Within the past 6 months the food we bought just didn't last and we didn't have enough money to get more. Never True Residential Stability Answer Date Recor ded What is your housing situation today? I have jenifer sing 08/13/2025 How many times have you move d in the past 12 months? Zero (I did not move) 08/13/2025 Paying for Meds Answer Date Recorded Do you have trouble paying for medicines? No 08/13/2025 Paying Utility Bills Answer Date Record ed Do you have trouble paying your heating or elect ricity bill? No 08/13/2025 Transportation Answer Date Recorded Has the lack of transportati on kept you from medical appointments or from getting medications? No 08/13/2025 Digital Access Answer Date Recorded No 08/13/2025 Yes 08/13/2025 Do you have reliable internet access at home? Ye s 08/13/2025 Do you have a device (e.g., phone, tablet, computer) with a working camera? Yes 08/13/2025 Intimate Partner Violence Answer Date R ecorded Are you denied basic needs s uch as food, clothing, or medical care? No 08/13/2025 In the past 12 months have y ou been in a relationship with a person who hurts, threatens, or tries to control you? No 08/13/2025 Are you denied basic needs s uch as food, clothing, or medical care? No 08/13/2025 In the past 12 months have y ou been in a relationship with a person who hurts, threatens, or tries to control you? No 08/13/2025 Sex and Gender Information Value Date Recorded Sex Assigned at Male 06/15/2019 8:25 PM EDT Legal Sex Male 10:14 PM EDT Gender Identity Male 06/15/2019 8:25 PM EDT Sexual Orientation Straight 06/15/2019 8: 25 PM EDT documented as of this encounter Functional Status * Calculated C-SSRS Risk Score (Lifetime/Recent) Answer Date of Assessment Author No Risk Indicated 08/13/2025 5:58 PM EDT Nikkie Aguilar RN * [place] Suicide Severity Rating Scale (Screener/Recent Self-Report) Question Answer Date of Assessment Author 1. Wish to be (Past 1 Month) No 025 5:58 PM EDT Nikkie Aguilar RN 2. Non-Specific Active Suici alayna Thoughts (Past 1 Month) No 08/13/2025 5:58 PM EDT Nikkie Aguilar RN 6. Suicidal Behavior (Lifetime) No 5:58 PM EDT Nikkie Aguilar RN documented as of this encounter Plan of Treatment Upcoming Encounters Date Type Department Care Team (Late st Contact Info) Description 10/22/2025 3:00 PM EST Office Visit [facility] Internal Medicine [address] [place] [address] Willie Blair MD 40 [place] [address] 11/03/2025 10:45 AM EST Office Visit [facility] 10 [place] [address] Charlene Piedra, [address] [address] [email or web address] 02/11/2026 10:20 AM EDT Office Visit [facility] Pulmonary, Allergy and Critical Care Medicine 10 [facility] [place] [address] López Henry MD [address] [address] (work) [email or web address] documented as of this encounter Procedures Procedure Name Priority Date/Time Associated Diagnosis Comments XR WRIST 3 OR MORE VIEWS (RIGHT) Urgent/patient waiting 02/12/2021 12:07 PM EDT Right wrist sprain, initial encounter documented in this encounter Results * XR WRIST 3 OR MORE VIEWS (RIGHT) (02/12/2021 12:07 PM EDT) Anatomical Region Laterality Modality Wrist Right Computed Radiogr aphy 02/12/2021 12:1 9 PM EDT Impressions 02/12/2021 12:22 PM EDT No acute displaced fracture. Chronic appearing scaphoid neck fracture. Widening of the scapholunate interval is likely chronic. Distal radial degenerative changes. Degenerative changes at the base of the thumb. Chondrocalcinosis of the triangular fibrocartilage complex. Probable calcified articular bodies. Narrative 02/12/2021 12:22 PM EDT TECHNIQUE: XR WRIST 3 OR MORE VIEWS (RIGHT) COMPARISON: None Procedure Note Harjinder Jordan MD, PhD - 02/12/2021 TECHNIQUE: XR WRIST 3 OR MORE VIEWS (RIGHT) COMPARISON: None IMPRESSION: No acute displaced fracture. Chronic appearing scaphoid neck fracture.Widening of the scapholunate interval is likely chronic. Distal radialdegenerative changes. Degenerative changes at the base of the thumb.Chondrocalcinosis of the triangular fibrocartilage complex. Probablecalcified articular bodies. Orlando VILLARREAL IMG XR UPPER EXTREMITY Aysha l Result documented in this encounter Visit Diagnoses Not on filedocumented in this encounter Additional Health Concerns Infection Onset Date Last Indicated Resolved Time CoV-Exposed Comment:Positive COVID-19 10/30/2021 10/30/2021 11/02/2021 11: 44 AM EST COVID-19 11/01/2021 11/01/2021 11/22/2021 1:23 AM EST CoV-Risk Comment:2 Neg covid 12/26/2023 12/26/2023 12/27/2023 2:[address] CoV-Risk 12/31/2024 12/31/2024 01/11/2025 1:22 AM EDT CoV-Risk Comment:Per note documentation 02/27/2025 02/27/2025 7:29 AM EDT CoV-Risk 08/16/2025 08/16/2025 08/27/2025 1:21 AM EDT Assessment Noted Time PHQ-2 Depression Total Score: 0 02/04/20 10:44 AM EDT documented as of this encounter Care Teams Desktop Support Associate Relationship Specialty Start Date End Date Willie Blair MD 40 [place] [address] [email or web address] PCP - General Internal Medicine 02/04/20 Daniel Flores MD 100 [facility] 120 [place] [address] [email or web address] 04/14/20 Delvin Waddell MD 100 [facility] 120 [place] [address] [email or web address] 04/14/20 Shaylee Dejesus MD [address] [place] [address] 106 [place] [address] Otolaryngology 05/20/20 Tramaine Valle MD [address] [place] [address] 2 [place] [address] [email or web address] Gastroenterology 11/30/20 documented as of this encounter Additional Source Comments The information contained in this document represents components of the legal health record. It is not the complete legal health record.[facility]
--- OUTSIDE RECORDS SUMMARY | 2025-10-17 23:59 | XMS_ITS | Continuity of Care Document ---
Author Organization [facility] Address [address] [address]- Care Team Providers Care Supply Chain Procurement Manager Name Role Phone Willie Blair MD Primary Care Physician Encounter [facility] Date(s): 09/17/25 - 10/17/25 [facility] [address] [address]- Encounter Type: Triage Allergies, Adverse Reactions, Alerts Substance Criticality Severity Reaction Reaction Severity Status lisinopril lip swelling Active penicillins lip swelling Activ e Immunizations Given and Recorded Vaccine Date Status Refusal Reason SARS-CoV-2 (COVID-19) mRNA BNT-162b2 vac 12/28/20 Given Influenza Inactive (IM) (oldterm) 1 07/06/08 Given 1Admin Note: [employer]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 Start Date: 09/20/25 Status: Ordered Medication Dispense Status: Completed Total Allowed Fills: 1 Fills Dispensed: 0 Calcium Acetate = 2,001 mg, By Mouth, 0 Refills, Maintenance, 01/31/23 10:33:00 AM EDT, Partial fill upon patient request if the prescription is for a schedule II opioid drug. Start Date: 01/31/23 Status: Ordered Medication Dispense Status: Completed Total Allowed Fills: 1 Fills Dispensed: 0 Coreg 3.125 mg oral tablet 6.25 mg, 2, tablet, By Mouth, 2 times a day, 6.25 mg in a.m. 3.125 mg in p.m., # 60 tablet, Refills0, Maintenance, 08/23/22 9:48:00 AM EDT, Partial fill upon patient request if the prescription is for a schedule II opioid drug. Start Date: 08/23/22 Status: Ordered Medication Dispense Status: Completed Quantity: 60.0 Unit: tablet Total Allowed Fills: 1 Fills Dispensed: 0 Durable Medical Equipment iVAPS EPAP 6 TVa 5.0 WV 18 PS 3-16, Maintenance, J&L, 09/05/17 5:08:11 PM EDT, Compound Start Date: 09/05/17 Status: Ordered Medication Dispense Status: Completed Total Allowed Fills: 1 Fills Dispensed: 0 Eliquis 5 mg oral tablet 1 tablet = 5 mg, By Mouth, 2 times a day, # 60 tablet, 0 Refills, Maintenance, 09/04/17 3:00:45 PM EDT, Tablet Start Date: 09/04/17 Status: Ordered Medication Dispense Status: Completed Quantity: 60.0 Unit: tablet Total Allowed Fills: 1 Fills Dispensed: 0 Entresto 24 mg-26 mg oral tablet 1 tablet, By Mouth, 2 times a day, # 180 tablet, 3 Refills, Maintenance, 03/18/25 12:35:00 PM EDT, Tablet, [facility], Partial fill upon patient request if the prescription is for a schedule II opioid drug., 1 tablet By Mouth 2 times a day, 173, cm, 03/10/25 11:25:00 EDT, Height, 109, kg, 06/23/24 16:01:00 EDT, Dry Weight Start Date: 03/18/25 Status: Ordered Medication Dispense Status: Completed Quantity: 180.0 Unit: tablet Total Allowed Fills: 4 Fills Dispensed: 0 famotidine 20 mg oral tablet 20 mg, 1, tablet, By Mouth, Daily, # 30 tablet, Refills 0, Maintenance, 07/02/24 3:43:00 PM EDT, Partial fill upon patient request if the prescription is for a schedule II opioid drug. Start Date: 07/02/24 Status: Ordered Medication Dispense Status: Completed Quantity: 30.0 Unit: tablet Total Allowed Fills: 1 Fills Dispensed: 0 Farxiga 5 mg oral tablet 1 tablet, By Mouth, Daily, # 90 tablet, 3 Refills, Maintenance, 5/15/25 12:35:00 PM EDT, [facility], 173, cm, 03/10/25 11:25:00 EDT, Height, 109, kg, 06/23/24 16:01:00 EDT, Dry Weight Start Date: 03/18/25 Status: Ordered Medication Dispense Status: Completed Quantity: 90.0 Unit: tablet Total Allowed Fills: 4 Fills Dispensed: 0 Ferrous Sulfate ER Refills 0, Maintenance, 04/18/23 11:04:00 AM EDT, Partial fill upon patient request if the prescription is for a schedule II opioid drug. Start Date: 04/18/23 Status: Ordered Medication Dispense Status: Completed Total Allowed Fills: 1 Fills Dispensed: 0 finasteride 5 mg oral tablet 1 tablet = 5 mg, By Mouth, Daily, # 30 tablet, 0 Refills, Maintenance, 12/05/20 2:33:00 PM EST, Tablet, Partial fill upon patient request if the prescription is for a schedule II opioid drug. Start Date: 12/05/20 Status: Ordered Medication Dispense Status: Completed Quantity: 30.0 Unit: tablet Total Allowed Fills: 1 Fills Dispensed: 0 Incruse Ellipta 62.5 mcg/inh inhalation powder 1 each, Inhalation, Every 24 hours, doses should be taken at least 24 hours apart, # 30 each, 0 Refills, Maintenance, 05/23/23 10:38:00 AM EDT, Powder, Partial fill upon patient request if the prescription is for a schedule II opioid drug. Start Date: 05/23/23 Status: Ordered Medication Dispense Status: Completed Quantity: 30.0 Unit: each Total Allowed Fills: 1 Fills Dispensed: 0 Lasix 20 mg oral tablet 20 mg, 1, tablet, By Mouth, Daily, # 90 tablet, Refills 1, Tot. Refills 1, Maintenance, 06/22/25 5:04:00 PM EDT, Route to Pharmacy Electronically, [facility], Partial fill upon patient request ifthe prescription is for a schedule II opioid drug., 173, cm, 06/14/25 13:06:00 EDT, Height, 109, kg, 06/23/24 16:01:00 EDT, Dry Weight Start Date: 06/22/25 Status: Ordered Medication Dispense Status: Completed Quantity: 90.0 Unit: tablet Total Allowed Fills: 2 Fills Dispensed: 0 Loratadine Tablet 10 mg, By Mouth, Daily, Maintenance, 06/01/15 4:03:23 PM EDT Start Date: 06/01/15 Status: Ordered Medication Dispense Status: Completed Total Allowed Fills: 1 Fills Dispensed: 0 metolazone 2.5 mg oral tablet 2.5 mg, 1, tablet, By Mouth, Daily, # 15 tablet, Refills 1, Tot. Refills 1, Maintenance, 09/17/25 12:50:00 PM EST, Route to Pharmacy Electronically, [facility], Partial fill upon patient requestif the prescription is for a schedule II opioid drug., 173, cm, 08/24/25 13:59:00 EDT, Height, 109,kg, 06/23/24 16:01:00 EDT, Dry Weight Start Date: 09/17/25 Status: Ordered Medication Dispense Status: Completed Quantity: 15.0 Unit: tablet Total Allowed Fills: 2 Fills Dispensed: 0 nitroglycerin 0.4 mg sublingual tablet 1 tablet = 0.4 mg, Sublingual, Every 5 minutes, PRN Chest Pain, not to exceed 3 doses/15 min--if pain persists, seek medical attention, # 100 tablet, 0 Refills, Maintenance, 03/01/21 12:35:00 PM EDT, [facility], Partial fill upon patient request if the prescription is for a schedule II opioid drug. 4 bottles of 25 tablets, 175, cm, 03/01/21 12:01:00 EDT, Height Start Date: 03/01/21 Status: Ordered Medication Dispense Status: Completed Quantity: 100.0 Unit: tablet Total Allowed Fills: 1 Fills Dispensed: 0 Omeprazole = 40 mg, By Mouth, Daily, 0 Refills, Maintenance, 12/05/20 2:33:00 PM EST, Partial fill upon patient request if the prescription is for a schedule II opioid drug. Start Date: 12/05/20 Status: Ordered Medication Dispense Status: Completed Total Allowed Fills: 1 Fills Dispensed: 0 Probiotic Formula By Mouth, Daily, 0 Refills, Maintenance, 01/31/23 10:33:00 AM EDT, Partial fill upon patient requestif the prescription is for a schedule II opioid drug. Start Date: 01/31/23 Status: Ordered Medication Dispense Status: Completed Total Allowed Fills: 1 Fills Dispensed: 0 Vitamin C By Mouth, Daily, 0 Refills, Maintenance, 01/31/23 10:33:00 AM EDT, Partial fill upon patient requestif the prescription is for a schedule II opioid drug. 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 2Sept2015 3lower gi bleed secondary to diverticular disease Social History Social History Type Response Smoking Status Never smoker entered on: 09/20/14 Sex Sex Representation Male (finding) Patient Care team information Care Team Personnel Name: Willie Blair MD Position: [facility] Outreach Member Role: PCP Address: [address] [place] [address] [place] [address]- Telecom: Name: Sierra Alvarez Position: [facility] Outreach Member Role: Lifetime Consulting Physician Name: Maria L Rossi RN Position: [facility] RN Member Role: Primary Care Nurse Name: Renee Jordan Position: [facility] Outreach Member Role: Lifetime Consulting Physician Name: Lefty Carranza MD Position: [facility] Cardiology MD Member Role: Lifetime Consulting Physician Address: [address] [place] [address] [place] [address]- Telecom: Care Team Related Persons Name: SIMONE FIGUEROA Name: MURPHY MONTAÑO Insurance Providers Guarantor name: MURPHY MONTAÑO Health Plan Information #: 1 Payer: MEDICARE B Payer Identifier: NA Member Number: [id number] Group Number: NA Subscriber Identifier: NA Relationship to Subscriber: self Coverage Type: NA Coverage Verification Date: NA Telecom: NA Address: [facility] Plan Information #: 2 Payer: MEDEX SECONDARY ONLY Payer Identifier: MEHRDAD Member Number: [id number] Group Number: [id number] Subscriber Identifier: MEHRDAD Relationship to Subscriber: self Coverage Type: Medicare Other Coverage Verification Date: MEHRDAD Telecom: NA Address:
--- OUTSIDE RECORDS SUMMARY | 2025-10-18 20:49 | XMS_ITS | Encounter Summary ---
Author Organization [facility] Address [address] [place] [address] [place] [address] Phone Care Team Providers Care Contact Printer Dry Film Name Role Phone Willie Blair MD Unavailable [phone] Willie Blair MD Primary Care Provider Daniel Flores MD Unavailable [phone] Delvin Waddell MD Unavailable Shaylee Dejesus MD Unavailable Tramaine Valle MD Unavailable [phone] Maxx Gardner OT Unavailable [phone] Chantel Philippe RN Unavailable [phone] Keily Gomez OT Unavailable Socorro Begum Unavailable [phone] Keily Gomez OT Unavailable [phone] Encounter Details Date Type Department Care Team (Late st Contact Info) Description 05/10/2021 Procedure Pass [facility] Endoscopy Admitting Dept Virtual Department 30 [place] [address] Social History Tobacco Use Types [...] Description 10/22/2025 3:00 PM EST Office Visit [facility] Internal Medicine 40 [place] [address] Willie Blair MD 40 [place] [address] 11/03/2025 10:45 AM EST Office Visit [facility] Gastroenterology Clinic 10 [place] [address] Charlene Piedra, MANAGER RISK [address] [address] [email or web address] 02/11/2026 10:20 AM EDT Office Visit [facility] Pulmonary, Allergy and Critical Care Medicine 10 [place] [address] López Henry MD [address] [address] documented as of this encounter Visit Diagnoses [...] documented as of this encounter Care Teams Contact Printer Dry Film Relationship Specialty Start Date End Date Willie Blair MD 40 [place] [address] [email or web address] PCP - General Internal Medicine 02/04/20 Willie Blair MD [address] [place] [address] [email or web address] Insurance Assigned Provider 02/08/24 Daniel Flores MD [address] [address] [email or web address] Urology 04/14/20 Delvin Waddell MD [address] [address] [email or web address] Cardiology 04/14/20 Shaylee Dejesus MD [address] [place] [address] Dr FELIX [address] [place] [address] Otolaryngology 05/20/20 Tramaine Valle MD [address] [place] [address] [email or web address] Gastroenterology 11/30/20 Maxx Gardner, OT [address] [place] [address] [email or web address] C.[email or web address]. ClerkGalley Worker Therapy 05/22/21 Chantel Philippe, RN [address] [place] [address] [email or web address] C.O.D. ClerkWastewater Plant Civil Engineer 10/12/22 10/31/22 Keily Gomez, OT 30 [place] [address] [email or web address] Transitions C.O.D. ClerkGalley Worker Therapy 12/30/23 Socorro Begum PA [address] [place] [address] Physician Lacing String Cutter Cardiology 04/06/24 Keily Gomez, OT 30 [place] [address] [email or web address] Transitions C.O.D. ClerkGalley Worker Therapy 03/01/25 documented as of this encounter Additional Source Comments The information contained in this document represents components of the legal health record. It is not the complete legal health record.[facility]
--- OUTSIDE RECORDS SUMMARY | 2025-10-18 20:49 | XMS_ITS | Encounter Summary ---
Author Organization [facility] Address [address] [place] [address] [place] [address] Phone Care Team Providers Care Intervention Nurse Name Role Phone Willie Blair MD Unavailable Willie Blair MD Primary Care Provider Daniel Flores MD Unavailable Delvin Waddell MD Unavailable [phone] Shaylee Dejesus MD Unavailable [phone] Tramaine Valle MD Unavailable [phone] Maxx Gardner OT Unavailable [phone] Chantel Philippe RN Unavailable [phone] Keily Gomez OT Unavailable [phone] Socorro Begum Unavailable [phone] Keily Gomez OT Unavailable [phone] Encounter Details Date Type Department Care Team (Late st Contact Info) Description 05/23/2021 Procedure Pass [facility] Cardiovascular And Interventional Radiology 30 [place] [address] Social History Tobacco Use Types Packs/Day Years [...] Office Visit [facility] Internal Medicine 40 [place] [address] Willie Blair MD 40 [place] [address] 11/03/2025 10:45 AM EST Office Visit [facility] Gastroenterology Clinic 10 [place] [address] Charlene Piedra, CONSTRUCTION TECHNICIAN [address] [address] [email or web address] 02/11/2026 10:20 AM EDT Office Visit [facility] Pulmonary, Allergy and Critical Care Medicine 10 [place] [address] López Henry MD [address] [address] documented as of this encounter Visit Diagnoses [...] documented as of this encounter Care Teams Intervention Nurse Relationship Specialty Start Date End Date Willie Blair MD 40 [place] [address] [email or web address] PCP - General Internal Medicine 02/04/20 Willie Blair MD 40 [place] [address] [email or web address] Insurance Assigned Provider 02/08/24 Daniel Flores MD [address] [address] [email or web address] Urology 04/14/20 Delvin Waddell MD [address] [address] [email or web address] Cardiology 04/14/20 Shaylee Dejesus MD [address] [place] [address] Otolaryngology 05/20/20 Tramaine Valle MD [address] [place] [address] [email or web address] Gastroenterology 11/30/20 Maxx Gardner, OT [address] [place] [address] [email or web address] Transitions Expense ClerkPediatric Speech Language Pathologist Therapy 05/22/21 Chantel Philippe, RN [address] [place] [address] [email or web address] [facility] Expense ClerkLaboratory Inspector 10/12/22 10/31/22 Keily Gomez, OT 30 [place] [address] [email or web address] Transitions Expense ClerkPediatric Speech Language Pathologist Therapy 12/30/23 Socorro Begum PA [address] [place] [address] Physician Recreation Teacher Cardiology 04/06/24 Keily Gomez, OT 30 [place] [address] [email or web address] Transitions Expense ClerkPediatric Speech Language Pathologist Therapy 03/01/25 documented as of this encounter Additional Source Comments The information contained in this document represents components of the legal health record. It is not the complete legal health record.[facility]
--- OUTSIDE RECORDS SUMMARY | 2025-10-18 20:49 | XMS_ITS | Encounter Summary ---
Author Organization [facility] Address [address] [place] [address] Care Team Providers Care Warehouse Distribution Specialist Name Role Phone Physician, Pcp Unknown Primary Care Provider Tiffanie vailable Encounter Details Date Type Department Care Team (Late st Contact Info) Description 07/08/2025 Lab Requisition [facility] - Main Lab 299 [facility] [place] [address] Daniel Flores MD 100 [facility] 120 [place] [address] Benign essential microscopic hematuria Social History Tobacco [...] 12:00 AM EDT) Final Diagnosis Urine, Voided, [id number]: Negative for high grade urothelial carcinoma. 07/30/2025 4:43 PM EDT [facility] at 1643 EDT Specimen A Adequacy Satisfactory for evaluation 07/30/2025 4:43 PM EDT [facility] Clinical Information Benign essential microscopic hematuria R31.1 Urine cytology with reflex UroVysion (AUC/SHGUC) 07/30/2025 4:43 PM EDT [facility] Gross Description A. Urine, Voided, [id number]: Received one ThinPrep slide for cytology. 07/30/2025 4:43 PM EDT [facility] Disclaimer Unless otherwise specified, all tissue is 10% NB formalin fixed and paraffin embedded. Technical pathology services provided by [facility] at [address] [place] [address] [address], [place] [address] (CLIA #[id number]/Gio Ortiz MD, Digital Strategy Director) 07/30/2025 4:43 PM EDT [facility] Urine Urine specimen from urethra / Unknown 06/29/2025 07/08/2025 1:04 PM EDT us Daniel Flores MD LAB CYTOLOGY ORDERABLES Fin al Result [facility] [address] [place] [address], documented in this encounter Visit Diagnoses Diagnosis Benign essential microscopic hematuria documented in this encounter Care Teams Warehouse Distribution Specialist Relationship Specialty Start Date End Date Physician, Pcp Unknown PCP - General 07/08/25 documented as of this encounter
--- OUTSIDE RECORDS SUMMARY | 2025-10-18 20:49 | XMS_ITS | Encounter Summary ---
Author Organization [facility] Address [address] [place] [address] [place] [address] Phone Care Team Providers Care Vamp Marker Name Role Phone Willie Blair MD Unavailable Willie Blair MD Primary Care Provider Daniel Flores MD Unavailable [phone] Delvin Waddell MD Unavailable Shaylee Dejesus MD Unavailable Tramaine Valle MD Unavailable [phone] Maxx Gardner OT Unavailable [phone] Chantel Philippe RN Unavailable [phone] eKily Goemz OT Unavailable [phone] Socorro Begum Unavailable [phone] Keily Gomez OT Unavailable [phone] Encounter Details Date Type Department Care Team (Late st Contact Info) Description 05/20/2021 Procedure Pass [facility] Echo Lab 30 [place], [place] [id number] Social History Tobacco Use Types Packs/Day Years [...] PM EST Office Visit [facility] Internal Medicine 40 [place] [address] Willie Blair MD 40 [place] [address] 11/03/2025 10:45 AM EST Office Visit [facility] Gastroenterology Clinic 10 [place] [address] Charlene Piedra, AUTOMOBILE INSPECTOR [address] [address] [email or web address] 02/11/2026 10:20 AM EDT Office Visit [facility] Pulmonary, Allergy and Critical Care Medicine 10 [place] [address] López Henry MD [address] [address] documented as of this encounter Visit Diagnoses [...] documented as of this encounter Care Teams Vamp Marker Relationship Specialty Start Date End Date Willie Blair MD 40 [place] [address] [email or web address] PCP - General Internal Medicine 02/04/20 Willie Blair MD 40 [place] [address] [email or web address] Insurance Assigned Provider 02/08/24 Daniel Florse MD [address] [address] [email or web address] Urology 04/14/20 Delvin Waddell MD [address] [address] [email or web address] Cardiology 04/14/20 Shaylee Dejesus MD [address] [place] [address] Otolaryngology 05/20/20 Tramaine Valle MD [address] [place] [address] [email or web address] Gastroenterology 11/30/20 Maxx Gardner, OT 10 [place] [address] [email or web address] Transitions Machinist BrakeCereal Popper Therapy 05/22/21 Chantel Philippe, RN [address] [place] [address] [email or web address] [facility] Machinist BrakeIsotope Technologist 10/12/22 10/31/22 Keily Gomez, OT 30 [place] [address] [email or web address] Transitions Machinist BrakeCereal Popper Therapy 12/30/23 Socorro Begum PA [address] [place] [address] Physician Special Events Assistant Cardiology 04/06/24 Keily Gomez, OT 30 [place] [address] [email or web address] Transitions Machinist BrakeCereal Popper Therapy 03/01/25 documented as of this encounter Additional Source Comments The information contained in this document represents components of the legal health record. It is not the complete legal health record.[facility]
--- OUTSIDE RECORDS SUMMARY | 2025-10-18 20:49 | XMS_ITS | Encounter Summary ---
Author Organization [facility] Address [address] [place] [address] [place] [address] Phone Care Team Providers Care Echo Technologist Name Role Phone Willie Blair MD Unavailable [phone] Willie Blair MD Primary Care Provider [phone] Daneil Flores MD Unavailable Delvin Waddell MD Unavailable [phone] Shaylee Dejesus MD Unavailable [phone] Tramaine Valle MD Unavailable [phone] Socorro Begum Unavailable [phone] Keily Gomez OT Unavailable [phone] Encounter Details Date Type Department Care Team (Late st Contact Info) Description 02/27/2025 Procedure Pass [facility] 30 [place], [place] [id number] Social History Tobacco Use Types Packs/Day Years [...] 2:34 PM EDT Sheela Sanchez RN * [place] Suicide Severity Rating Scale (Screener/Recent Self-Report) Question Answer Date of Assessment Author 1. Wish to be (Past 1 Month) No 02/27/2025 2:34 PM EDT Florecita Sawant RN 2. Non-Specific Active Suici alayna Thoughts (Past 1 Month) No 02/27/2025 2:34 PM EDT Kat Sawant RN 6. Suicidal Behavior (Lifetime) No 2:34 PM EDT Sehela Sawant RN documented as of this encounter Plan of Treatment Upcoming Encounters Date Type Department Care Team (Late st Contact Info) Description 10/22/2025 3:00 PM EST Office Visit [facility] Internal Medicine 40 [place] [address] Willie Blair MD 40 [place] [address] 11/03/2025 10:45 AM EST Office Visit [facility] Gastroenterology Clinic 10 [place] [address] Charlene Piedra, [address] [address] [email or web address] 02/11/2026 10:20 AM EDT Office Visit [facility] Pulmonary, Allergy and Critical Care Medicine 10 [facility] [place] [address] López Henry MD [address] [address] [email or web address] documented as of this encounter Visit Diagnoses [...] documented as of this encounter Care Teams Echo Technologist Relationship Specialty Start Date End Date Willie Blair MD 40 [place] [address] [email or web address] PCP - General Internal Medicine 02/04/20 Willie Blair MD 40 [place] [address] [email or web address] Insurance Assigned Provider 02/08/24 Daniel Flores MD [address] [address] [email or web address] Urology 04/14/20 Delvin Waddell MD [address] [facility] [address] [facility] 120 [place] [address] [email or web address] Cardiology 04/14/20 Shaylee Dejesus MD [address] [place] [address] Dr FELIX [address] [place] [address] Otolaryngology 05/20/20 Tramaine Valle MD [address] [place] [address] [email or web address] Gastroenterology 11/30/20 Socorro Begum PA [address] [place] [address] Physician Pre K Lead Teacher Cardiology 04/06/24 Keily Gomez, OT 30 [place] [address] [email or web address] Transitions Online FacilitatorMarine Water Tender Therapy 03/01/25 documented as of this encounter Additional Source Comments The information contained in this document represents components of the legal health record. It is not the complete legal health record.[facility]
--- OUTSIDE RECORDS SUMMARY | 2025-10-18 20:49 | XMS_ITS | Encounter Summary ---
Author Organization [facility] Address [address] [place] [address] [place] [address] Phone Care Team Providers Care Head Of Visual Merchandising Name Role Phone Willie Blair MD Unavailable Willie Blair MD Primary Care Provider [phone] Daniel Flores MD Unavailable Delvin Waddell MD Unavailable Shaylee Dejesus MD Unavailable Tramaine Valle MD Unavailable [phone] Maxx Gardner OT Unavailable [phone] Chantel Philippe RN Unavailable [phone] Keily Gomez OT Unavailable [phone] Socorro Begum Unavailable [phone] Keily Gomez OT Unavailable [phone] Encounter Details Date Type Department Care Team (Late st Contact Info) Description 05/23/2021 Procedure Pass [facility], Ct Scan - [address] [id number] Social History Tobacco Use Types Packs/Day Years [...] Description 10/22/2025 3:00 PM EST Office Visit [facility] Internal Medicine 40 [place] [address] Willie Blair MD 40 [place] [address] 11/03/2025 10:45 AM EST Office Visit [facility] Gastroenterology Clinic 10 [place] [address] Charlene Piedra, [address] [address] [email or web address] 02/11/2026 10:20 AM EDT Office Visit [facility] Pulmonary, Allergy and Critical Care Medicine 10 [facility] [place] [address] López Henry MD [address] [address] documented as of this encounter Visit Diagnoses [...] documented as of this encounter Care Teams Head Of Visual Merchandising Relationship Specialty Start Date End Date Willie Blair MD 40 [place] [address] [email or web address] PCP - General Internal Medicine 02/04/20 Willie Blair MD 40 [place] [address] [email or web address] Insurance Assigned Provider 02/08/24 Daniel Flores MD [address] [address] [email or web address] Urology 04/14/20 Delvin Waddell MD [address] [address] [email or web address] Cardiology 04/14/20 Shaylee Dejesus MD [address] [place] [address] [place] [address] Otolaryngology 05/20/20 Tramaine Valle MD [address] [place] [address] [email or web address] Gastroenterology 11/30/20 Maxx Gardner, OT 10 [place] [address] [email or web address] [email or web address] Clinical Rn ManagerFountain Server Therapy 05/22/21 Chantel Philippe, RN [address] [place] [address] [email or web address] Clinical Rn ManagerGeographic Area Intelligence Officer 10/12/22 10/31/22 Keily Gomez, OT 30 [place] [address] [email or web address] Transitions Clinical Rn ManagerFountain Server Therapy 12/30/23 Socorro Begum PA [address] [place] [address] Physician Air Shovel Operator Cardiology 04/06/24 Keily Gomez, OT 30 [place] [address] [email or web address] Transitions Clinical Rn ManagerFountain Server Therapy 03/01/25 documented as of this encounter Additional Source Comments The information contained in this document represents components of the legal health record. It is not the complete legal health record.[facility]
--- OUTSIDE RECORDS SUMMARY | 2025-10-18 20:49 | XMS_ITS | Continuity of Care Document ---
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 4 02:22:32 Impacted cerumen of bilateral ears 80208450734 28982 Active 2021 Impacted cerumen, bilateral ; Note: Date Diagnosed : 06/11/2022 1:26 PM (H61.23) Not Available [facility] 4 02:22:37 Problem Notes None recorded. Procedures Surgical History Date Name Laterality Status Provider Name and Address Organization Details Recorded Time 5 Cerumen removal without microscope bilat completed Angelica Puga [place] - [facility] 01/11/2025 16:07:03 Imaging Results None recorded. Procedure Notes None recorded. Medical Equipment None Reported. Allergies Allergen ID Allergen Name Allergen Category Reaction Reaction Severity Criticality Documentation Date Start Date Code Code System Note Provider Name and Address Organization Details Recorded Time 75739 Product containin g penicilli n (product) medicatio n Not available Not available Not available 03/17/2024 24616 8001 SNOMED React ion: other react ion, Lip swell ing; Not Available [facility] 4 00:56:08 42666 lisinopri l medicatio n Not available Not available Not available 03/17/2024 81190 RxNorm React ion: other react ion, Lip swell ing; Not Available [facility] 4 00:56:09 Medications Name Sig Start Date Stop Date Status Note LastModified by Organization Details LastModified Time losartan 50 mg tablet 09/14 completed Not Available Not Available Not Available clotrimazol e 10 mg tina 09/14 completed Medication ID: [id number] Rian nd Name: clotrimazo le Send Method: E-Prescrib ed Subs Allowed: subs OK Medicat ionGeneric Name: clotrimazo le Not Available Not Available Not Available cefpodoxime 200 mg tablet active Not Available Not Available Not Available Iron (ferrous sulfate) 325 mg (65 mg iron) tablet 2021 active Medication ID: [id number] Rian nd Name: Iron (ferrous sulfate) S end Method: E-Prescrib ed Subs Allowed: subs OK Medicat ionGeneric Name: Iron (ferrous sulfate) Not Available Not Available Not Available Claritin 10 mg tablet 2021 active Medication ID: [id number] Rian nd Name: Claritin S end Method: [...] 325 mg tablet 2021 active Medication ID: [id number] Rian nd Name: Tylenol Se nd Method: E-Prescrib ed Subs Allowed: subs OK Medicat ionGeneric Name: Tylenol Not Available Not Available Not Available Culturelle 10 billion cell capsule 2021 active Medication ID: [id number] Rian nd Name: Culturelle Send Method: E-Prescrib ed Subs Allowed: subs OK Medicat ionGeneric Name: Culturelle Not Available Not Available Not Available furosemide 20 mg tablet 09/14 completed Not Available Not Available Not Available albuterol sulfate HFA 90 mcg/actuati on aerosol inhaler active Not Available Not Available Not Available fluticasone propionate 50 mcg/actuati on nasal spray,suspe nsion 2021 active Medication ID: [id number] Rian nd Name: fluticason e propionate Send Method: E-Prescrib ed Subs Allowed: subs OK Medicat ionGeneric Name: fluticason e propionate Not Available Not Available Not Available finasteride 5 mg tablet active Not Available Not Available Not Available Vitamin D3 25 mcg (1,000 unit) chewable tablet 09/14 completed Medication ID: [id number] Rian nd Name: Vitamin D3 Send Method: [...] mcg-2.75 mg tablet 2021 active Medication ID: [id number] Bra nd Name: Citracal + D Maximum Se nd Method: E-Prescrib ed Subs Allowed: subs OK Medicat ionGeneric Name: Citracal + D Maximum Not Available Not Available Not Available Vitals Date Recorded Body height Body mass index (BMI) Body weight Provider Name and Address Organization Details Last Updated DateTime 09/14/2025 175.26 cm 34.1 kg/m2 064282.84 g Carmen Euceda [place] - [facility] 09/14/2025 15:07:28 Social History None recorded. Functional Status None recorded. Mental Status None recorded. Family History Nothing Reported. Medical History No medical history recorded. Past Encounters Encounter ID Performer Location Encounter Start Date Encounter Closed Date Diagnosis/Indication Diagnosis SNOMED-CT Code Diagnosis ICD10 Code Diagnosis IMO Codes Diagnosis Note [id number] JOSE DIAZ MD [facility] [address] [address] 09/14/2025 15:01:33 09/14/2025 15:23:08 Impacted cerumen of bilateral ears [id number] 641293 H61.23 Only a small amount of cerumen was removed. I did recommend having the hearing and hearing aids assessed to make sure they are functionin g adequately . We can stretch his next visit to 1 year. Sensorineu ral hearing loss of bilateral ears [id number] H90.3 Health Concerns Section Related Observation LastModified by Organization Detai ls LastModified Time None Recorded Concern Status LastModified by Organization Details LastModified Time None Recorded Payers Encounter Date Sequence Insurance Name Policy Number Policy Cleaning Covered Member ID Cleaning Member ID Guarantor Name 09/14/2025 2 [place] [id number] Arnulfo Du [id number] 30 Arnulfo Du 09/14/2025 1 [place] Arnulfo Du [id number] Arnulfo Du Notes Date Note Type Note Provider Name and Address Organization Details Recorded Time 09/14/2025 text/html ROS as noted in the HPI 89 year old male who presents to the office for routine ear cleaning. No acute concerns. He uses bilateral amplification. JOSE DIAZ MD [address] [place] [address], [place], [address], [facility] - [facility] 09/15/2025 07:41:13
--- OUTSIDE RECORDS SUMMARY | 2025-10-18 20:49 | XMS_ITS | Clinical Summary ---
Author Organization [facility] Address [address] [place] [address] Phone Care Team Providers Care Script Developer Name Role Phone Physician, Pcp Unknown Primary [...] age to complete this topic Insurance MEDICARE [facility] Care Teams Script Developer Relationship Specialty Start Date End Date Physician, Pcp Unknown PCP - General 07/08/25
--- OUTSIDE RECORDS SUMMARY | 2025-10-18 20:49 | XMS_ITS | Encounter Summary ---
Author Organization [facility] Address [address] [place] [address] [place] [address] Phone Care Team Providers Care Blindstitch Lapel Padder Name Role Phone Willie Blair MD Unavailable [phone] Willie Blair MD Primary Care Provider [phone] Daniel Flores MD Unavailable Delvin Waddell MD Unavailable Shaylee Dejesus MD Unavailable [phone] Tramaine Valle MD Unavailable [phone] Socorro Begum Unavailable [phone] Keily Gomez OT Unavailable [phone] Encounter Details Date Type Department Care Team (Late st Contact Info) Description 12/02/2024 Procedure Pass [facility] Endoscopy Admitting Dept Virtual Department 30 [place], [place] [phone] Social History Tobacco Use Types Packs/Day Years [...] 3:00 PM EST Office Visit [facility] Internal Medicine 40 [place] [address] Willie Blair MD 40 [place] [address] 11/03/2025 10:45 AM EST Office Visit [facility] Gastroenterology Clinic 10 [place] [address] Charlene Piedra LABORER AMMUNITION ASSEMBLY 10 [facility] 2 [place] [address] [email or web address] 02/11/2026 10:20 AM EDT Office Visit [facility] Pulmonary, Allergy and Critical Care Medicine 10 [facility] [place] [address] López Henry MD [address] [place] [address] documented as of this encounter Visit Diagnoses [...] documented as of this encounter Care Teams Blindstitch Lapel Padder Relationship Specialty Start Date End Date Willie Blair MD 40 [place] [address] PCP - General Internal Medicine 02/04/20 Willie Blair MD 40 [place] [address] Insurance Assigned Provider 02/08/24 Daniel Flores MD [address] [place] [address] 120 [place] [address] [email or web address] Urology 04/14/20 Delvin Waddell MD 100 [facility] 120 [place] [address] [email or web address] Cardiology 04/14/20 Shaylee Dejesus MD [address] [place] [address] 106 [place] [address] Otolaryngology 05/20/20 Tramaine Valle MD [address] [place] [address] 2 [place] [address] [email or web address] Gastroenterology 11/30/20 Socorro Begum PA [address] [place] [address] Physician Quality Control Tech Cardiology 04/06/24 Keily Gomez, OT 30 [place] [address] [email or web address] Transitions Director Sanitation BureauJailor Therapy 03/01/25 documented as of this encounter Additional Source Comments The information contained in this document represents components of the legal health record. It is not the complete legal health record.[facility]
--- OUTSIDE RECORDS SUMMARY | 2025-10-18 20:49 | XMS_ITS | Encounter Summary ---
Author Organization [facility] Address [address] [place] [address] [place] [address] Phone Care Team Providers Care Aeronautical Drafter Name Role Phone Willie Blair MD Unavailable [phone] Willie Blair MD Primary Care Provider Daniel Flores MD Unavailable Delvin Waddell MD Unavailable [phone] Shaylee Dejesus MD Unavailable [phone] Tramaine Valle MD Unavailable [phone] Chantel Philippe RN Unavailable [phone] Keily Gomez OT Unavailable Socorro Begum Unavailable [phone] Keily Gomez OT Unavailable [phone] Encounter Details Date Type Department Care Team (Late st Contact Info) Description 08/28/2021 Procedure Pass [facility] Endoscopy Admitting Dept Virtual Department [address] [place] [address] Social History Tobacco Use Types Packs/Day Years [...] Description 10/22/2025 3:00 PM EST Office Visit [facility] Internal Medicine 40 [place] [address] Willie Blair MD 40 [place] [address] 11/03/2025 10:45 AM EST Office Visit [facility] Gastroenterology Clinic 10 [place] [address] Charlene Piedra, GAS MASK INSPECTOR [address] [address] [email or web address] 02/11/2026 10:20 AM EDT Office Visit [facility] Pulmonary, Allergy and Critical Care Medicine 10 [place] [address] López Henry MD [address] [address] documented as of this encounter Visit Diagnoses [...] documented as of this encounter Care Teams Aeronautical Drafter Relationship Specialty Start Date End Date Willie Blair MD 40 [place] [address] [email or web address] PCP - General Internal Medicine 02/04/20 Willie Blair MD 40 [place] [address] [email or web address] Insurance Assigned Provider 02/08/24 Daniel Flores MD [address] [address] [email or web address] Urology 04/14/20 Delvin Waddell MD [address] [address] [email or web address] Cardiology 04/14/20 Shaylee Dejesus MD [address] [place] [address] Dr FELIX [address] [place] [address] Otolaryngology 05/20/20 Tramaine Valle MD [address] [place] [address] [place] [address] [email or web address] Gastroenterology 11/30/20 Chantel Philippe, RN 10 [place] [address] [email or web address] PHCM Celery StripperBelt Polisher 10/12/22 10/31/22 Keily Gomez, OT 30 [place] [address] [email or web address] Transitions Celery StripperTelevision Operator Therapy 12/30/23 Socorro Begum PA [address] [place] [address] Physician Data Security Coordinator Cardiology 04/06/24 Keily Gomez, OT 30 [place] [address] [email or web address] Transitions Celery StripperTelevision Operator Therapy 03/01/25 documented as of this encounter Additional Source Comments The information contained in this document represents components of the legal health record. It is not the complete legal health record.[facility]
--- OUTSIDE RECORDS SUMMARY | 2025-10-18 20:49 | XMS_ITS | Encounter Summary ---
Author Organization [facility] Address [address] [place] [address] [place] [address] Phone Care Team Providers Care Mutual Funds Agent Name Role Phone Willie Blair MD Unavailable Willie Blair MD Primary Care Provider Daniel Flores MD Unavailable Delvin Waddell MD Unavailable Shaylee Dejesus MD Unavailable Tramaine Valle MD Unavailable [phone] Maxx Gardner OT Unavailable [phone] Chantel Philippe RN Unavailable [phone] Keily Gomez OT Unavailable Socorro Begum Unavailable [phone] Keily Gomez OT Unavailable [phone] Encounter Details Date Type Department Care Team (Late st Contact Info) Description 05/19/2021 Procedure Pass [facility], Ct Scan - [address] [phone] Social History Tobacco Use Types Packs/Day Years [...] 4:56 PM EDT Taylor Byrd RN * [place] Suicide Severity Rating Scale (Screener/Recent Self-Report) Question [...] Description 10/22/2025 3:00 PM EST Office Visit [facility] Internal Medicine 40 [place] [address] Willie Blair MD 40 [place] [address] 11/03/2025 10:45 AM EST Office Visit [facility] Gastroenterology Clinic 10 [place] [address] Charlene Piedra, [address] [address] [email or web address] 02/11/2026 10:20 AM EDT Office Visit [facility] Pulmonary, Allergy and Critical Care Medicine 10 [facility] [place] [address] López Henry MD 10 [facility] 2nd [place] [address] [email or web address] documented as of this encounter Visit Diagnoses [...] documented as of this encounter Care Teams Mutual Funds Agent Relationship Specialty Start Date End Date Willie Blair MD 40 [place] [address] [email or web address] PCP - General Internal Medicine 02/04/20 Willie Blair MD 40 [place] [address] [email or web address] Insurance Assigned Provider 02/08/24 Daniel Flores MD [address] [address] [email or web address] [email or web address] 04/14/20 Delvin Waddell MD 100 [facility] 120 [place] [address] [email or web address] Cardiology 04/14/20 Shaylee Dejesus MD [address] [place] [address] 106 [place] [address] Otolaryngology 05/20/20 Tramaine Valle MD [address] [place] [address] [email or web address] Gastroenterology 11/30/20 Maxx Gardner, OT [address] [place] [address] [email or web address] Transitions Instructional ConsultantIndustrial Roofer Helper Therapy 05/22/21 Chantel Philippe, RN 10 [place] [address] [email or web address] Instructional ConsultantHand Drawer In 10/12/22 10/31/22 Keily Gomez, OT 30 [place] [address] [email or web address] Transitions Instructional ConsultantIndustrial Roofer Helper Therapy 12/30/23 Socorro Begum PA [address] [place] [address] Physician Water Filterer Cardiology 04/06/24 Keily Gomez, OT 30 [place] [address] [email or web address] Transitions Instructional ConsultantIndustrial Roofer Helper Therapy 03/01/25 documented as of this encounter Additional Source Comments The information contained in this document represents components of the legal health record. It is not the complete legal health record.[facility]
--- OUTSIDE RECORDS SUMMARY | 2025-10-18 20:49 | XMS_ITS | Encounter Summary ---
Author Organization [facility] Address [address] [place] [address] [place] [address] Phone Care Team Providers Care Email Engineer Name Role Phone Willie Blair MD Unavailable Willie Blair MD Primary Care Provider Daniel Flores MD Unavailable [phone] Delvin Waddell MD Unavailable Shaylee Dejesus MD Unavailable Tramaine Valle MD Unavailable [phone] Maxx Gardner OT Unavailable [phone] Chantel Philippe RN Unavailable [phone] Keily Gomez OT Unavailable Socorro Begum Unavailable [phone] Keily Gomez OT Unavailable [phone] Encounter Details Date Type Department Care Team (Late st Contact Info) Description 05/25/[address] [facility] Cardiovascular And Interventional Radiology 30 [place] [address] Social History Tobacco Use Types Packs/Day Years [...] Description 10/22/2025 3:00 PM EST Office Visit [facility] Internal Medicine 40 [place] [address] Willie Blair MD 40 [place] [address] 11/03/2025 10:45 AM EST Office Visit [facility] Gastroenterology Clinic 10 [place] [address] Charlene Piedra, SUGAR CANE FARM MANAGER [address] [address] [email or web address] 02/11/2026 10:20 AM EDT Office Visit [facility] Pulmonary, Allergy and Critical Care Medicine 10 [facility] [place] [address] López Henry MD [address] [address] documented as of this encounter Visit Diagnoses [...] documented as of this encounter Care Teams Email Engineer Relationship Specialty Start Date End Date Willie Blair MD 40 [place] [address] [email or web address] PCP - General Internal Medicine 02/04/20 Willie Blair MD 40 [place] [address] [email or web address] Insurance Assigned Provider 02/08/24 Daniel Flores MD [address] [address] [email or web address] Urology 04/14/20 Delvin Waddell MD [address] [address] [email or web address] Cardiology 04/14/20 Shaylee Dejesus MD [address] [place] [address] Otolaryngology 05/20/20 Tramaine Valle MD [address] [place] [address] [email or web address] Gastroenterology 11/30/20 Maxx Gardner, OT [address] [place] [address] [email or web address] Transitions Basket Hand BraiderSteamboat Pilot Therapy 05/22/21 Chantel Philippe, RN [address] [place] [address] [email or web address] [facility] Basket Hand BraiderSupervisor [place] 10/12/22 10/31/22 Keily Gomez, OT 30 [place] [address] [email or web address] Transitions Basket Hand BraiderSteamboat Pilot Therapy 12/30/23 Socorro Begum PA [address] [place] [address] Physician Associate Creative Director Cardiology 04/06/24 Keily Gomez, OT 30 [place] [address] [email or web address] Transitions Basket Hand BraiderSteamboat Pilot Therapy 03/01/25 documented as of this encounter Additional Source Comments The information contained in this document represents components of the legal health record. It is not the complete legal health record.[facility]
--- OUTSIDE RECORDS SUMMARY | 2025-10-18 20:49 | XMS_ITS | Encounter Summary ---
Author Organization [facility] Address [address] [place] [address] [place] [address] Phone Care Team Providers Care Resource Protection Specialist Name Role Phone Willie Blair MD Unavailable Willie Blair MD Primary Care Provider Daniel Flores MD Unavailable Delvin Waddell MD Unavailable Shaylee Dejesus MD Unavailable Tramaine Valle MD Unavailable [phone] Maxx Gardner OT Unavailable [phone] Chantel Philippe RN Unavailable [phone] Keily Gomez OT Unavailable Socorro Begum Unavailable [phone] Keily Gomez OT Unavailable [phone] Encounter Details Date Type Department Care Team (Late st Contact Info) Description 02/21/2021 Procedure Pass [facility], Ct Scan - [address] [id number] Social History Tobacco Use Types Packs/Day Years [...] Visit [facility] Internal Medicine 40 [place] [address] Willie Blair MD 40 [place] [address] 11/03/2025 10:45 AM EST Office Visit [facility] Gastroenterology Clinic 10 [place] [address] Charlene Piedra, PO [address] [address] [email or web address] 02/11/2026 10:20 AM EDT Office Visit [facility] Pulmonary, Allergy and Critical Care Medicine 10 [place] [address] López Henry MD [address] [address] documented as of this encounter Visit Diagnoses [...] documented as of this encounter Care Teams Resource Protection Specialist Relationship Specialty Start Date End Date Willie Blair MD 40 [place] [address] [email or web address] PCP - General Internal Medicine 02/04/20 Willie Blair MD 40 [place] [address] [email or web address] Insurance Assigned Provider 02/08/24 Daniel Flores MD [address] [address] [email or web address] Urology 04/14/20 Delvin Waddell MD [address] [address] [email or web address] Cardiology 04/14/20 Shaylee Dejesus MD [address] [place] [address] Dr FELIX [address] [place] [address] Otolaryngology 05/20/20 Tramaine Valle MD [address] [address] [email or web address] Gastroenterology 11/30/20 Maxx Gardner, OT 10 [place] [address] [email or web address] Transitions CcieDirector Of Product Development Therapy 05/22/21 Chantel Philippe, RN [address] [place] [address] [email or web address] CcieFreight [place] 10/12/22 10/31/22 Keily Gomez, OT 30 [place] [address] [email or web address] Transitions CcieDirector Of Product Development Therapy 12/30/23 Socorro Begum PA [address] [place] [address] Physician Plastics Design Engineer Cardiology 04/06/24 Keily Gomez, OT 30 [place] [address] [email or web address] Transitions CcieDirector Of Product Development Therapy 03/01/25 documented as of this encounter Additional Source Comments The information contained in this document represents components of the legal health record. It is not the complete legal health record.[facility]
--- OUTSIDE RECORDS SUMMARY | 2025-10-18 20:49 | XMS_ITS | Encounter Summary ---
Author Organization [facility] Address [address] [place] [address] [place] [address] Phone Care Team Providers Care Testing Analyst Name Role Phone Willie Blair MD Unavailable Willie Blair MD Primary Care Provider [phone] Daniel Flores MD Unavailable Delvin Waddell MD Unavailable Shaylee Dejesus MD Unavailable Tramaine Valle MD Unavailable [phone] Maxx Gardner OT Unavailable [phone] Chantel Philippe RN Unavailable [phone] Keily Gomez OT Unavailable Socorro Begum Unavailable [phone] Keily Gomez OT Unavailable [phone] Encounter Details Date Type Department Care Team (Late st Contact Info) Description 05/22/2021 Procedure Pass [facility] Cardiovascular And Interventional Radiology 30 [place] [address] Social History Tobacco Use Types Packs/Day Years [...] Description 10/22/2025 3:00 PM EST Office Visit [facility] Internal Medicine 40 [place] [address] Willie Blair MD 40 [place] [address] 11/03/2025 10:45 AM EST Office Visit [facility] Gastroenterology Clinic 10 [place] [address] Charlene Piedra, REWINDER [address] [address] [email or web address] 02/11/2026 10:20 AM EDT Office Visit [facility] Pulmonary, Allergy and Critical Care Medicine 10 [facility] [place] [address] López Henry MD [address] [address] documented as of this encounter Visit Diagnoses [...] documented as of this encounter Care Teams Testing Analyst Relationship Specialty Start Date End Date Willie Blair MD 40 [place] [address] [email or web address] PCP - General Internal Medicine 02/04/20 Willie Blair MD 40 [place] [address] [email or web address] Insurance Assigned Provider 02/08/24 Daniel Flores MD [address] [address] [email or web address] Wastewater Coaudrain medical [email or web address].[facility] Urology 04/14/20 Delvin Waddell MD [address] [address] [email or web address] Cardiology 04/14/20 Shaylee Dejesus MD [address] [place] [address] Otolaryngology 05/20/20 Tramaine Valle MD [address] [place] [address] [email or web address] Gastroenterology 11/30/20 Maxx Gardner, OT [address] [place] [address] [email or web address] Transitions Research MethodologistDeputy County Clerk Therapy 05/22/21 Chantel Philippe, RN [address] [place] [address] [email or web address] [facility] Research MethodologistFly Rail Operator 10/12/22 10/31/22 Keily Gomez, OT 30 [place] [address] [email or web address] Transitions Research MethodologistDeputy County Clerk Therapy 12/30/23 Socorro Begum PA [address] [place] [address] Physician Community Health Advisor Cardiology 04/06/24 Keily Gomez, OT 30 [place] [address] [email or web address] Transitions Research MethodologistDeputy County Clerk Therapy 03/01/25 documented as of this encounter Additional Source Comments The information contained in this document represents components of the legal health record. It is not the complete legal health record.[facility]
--- OUTSIDE RECORDS SUMMARY | 2025-10-18 20:49 | XMS_ITS | Encounter Summary ---
Author Organization [facility] Address [address] [place] [address] [place] [address] Phone Care Team Providers Care Student Success Advisor Name Role Phone Willie Blair MD Unavailable [phone] Willie Blair MD Primary Care Provider [phone] Daniel Flores MD Unavailable Delvin Waddell MD Unavailable Shaylee Dejesus MD Unavailable Tramaine Valle MD Unavailable [phone] Maxx Gardner OT Unavailable [phone] Chantel Philippe RN Unavailable [phone] Keily Gomez OT Unavailable Socorro Begum Unavailable [phone] Keily Gomez OT Unavailable [phone] Encounter Details Date Type Department Care Team (Late st Contact Info) Description 05/21/2021 Procedure Pass [facility], [address] [phone] Social History Tobacco Use Types Packs/Day Years [...] [facility] Internal Medicine 40 [place] [address] Willie Blair MD 40 [place] [address] 11/03/2025 10:45 AM EST Office Visit [facility] Gastroenterology Clinic 10 [place] [address] Charlene Piedra, PO [address] [address] [email or web address] 02/11/2026 10:20 AM EDT Office Visit [facility] Pulmonary, Allergy and Critical Care Medicine 10 [facility] [place] [address] López Henry MD [address] [address] documented as of this encounter Visit Diagnoses [...] as of this encounter Care Teams Student Success Advisor Relationship Specialty Start Date End Date Willie Blair MD 40 [place] [address] [email or web address] PCP - General Internal Medicine 02/04/20 Willie Blair MD 40 [place] [address] [email or web address] Insurance Assigned Provider 02/08/24 Daniel Flores MD [address] [address] [email or web address] memorial [email or web address] Urology 04/14/20 Delvin Waddell MD [address] [address] [email or web address] Cardiology 04/14/20 Shaylee Dejesus MD [address] [place] [address] Dr FELIX [facility] [place] [address] Otolaryngology 05/20/20 Tramaine Valle MD [address] [address] [email or web address] Gastroenterology 11/30/20 Maxx Gardner, OT 10 [place] [address] [email or web address] Transitions Supervisor Blast Furnace AuxiliariesMen'S Custom Hair Piece Consultant Therapy 05/22/21 Chantel Philippe, RN [address] [place] [address] [email or web address] Supervisor Blast Furnace AuxiliariesRig Welder 10/12/22 10/31/22 Keily Gomez, OT 30 [place] [address] [email or web address] Transitions Supervisor Blast Furnace AuxiliariesMen'S Custom Hair Piece Consultant Therapy 12/30/23 Socorro Begum PA [address] [place] [address] Physician Physician Office Clin Asst Cardiology 04/06/24 Keily Gomez, OT 30 [place] [address] [email or web address] Transitions Supervisor Blast Furnace AuxiliariesMen'S Custom Hair Piece Consultant Therapy 03/01/25 documented as of this encounter Additional Source Comments The information contained in this document represents components of the legal health record. It is not the complete legal health record.[facility]
--- OUTSIDE RECORDS SUMMARY | 2025-10-18 20:49 | XMS_ITS | Encounter Summary ---
Author Organization [facility] Address [address] [place] [address] [place] [address] Phone Care Team Providers Care Board Operator Name Role Phone Willie Blair MD Unavailable [phone] Willie Blair MD Primary Care Provider Daniel Flores MD Unavailable Delvin Waddell MD Unavailable Shaylee Dejesus MD Unavailable Tramaine Valle MD Unavailable [phone] Maxx Gardner OT Unavailable [phone] Chantel Philippe RN Unavailable [phone] Keily Gomez OT Unavailable [phone] Socorro Begum Unavailable [phone] Keily Gomez OT Unavailable [phone] Encounter Details Date Type Department Care Team (Late st Contact Info) Description 05/25/2021 Procedure Pass [facility] Cardiovascular And Interventional Radiology 30 [place] [address] Social History Tobacco Use Types Packs/Day Years [...] Description 10/22/2025 3:00 PM EST Office Visit [facility] Internal Medicine 40 [place] [address] Willie Blair MD 40 [place] [address] 11/03/2025 10:45 AM EST Office Visit [facility] Gastroenterology Clinic 10 [place] [address] Charlene Piedra, AERONAUTICAL PROJECT ENGINEER [address] [address] [email or web address] 02/11/2026 10:20 AM EDT Office Visit [facility] Pulmonary, Allergy and Critical Care Medicine 10 [place] [address] López Henry MD [address] [address] documented as of this encounter Visit Diagnoses [...] documented as of this encounter Care Teams Board Operator Relationship Specialty Start Date End Date Willie Blair MD 40 [place] [address] [email or web address] PCP - General Internal Medicine 02/04/20 Willie Blair MD 40 [place] [address] [email or web address] Insurance Assigned Provider 02/08/24 Daniel Flores MD [address] [address] [email or web address] institute [email or web address] st[facility] Urology 04/14/20 Delvin Waddell MD [address] [address] [email or web address] Cardiology 04/14/20 Shaylee Dejesus MD [address] [place] [address] Otolaryngology 05/20/20 Tramaine Valle MD [address] [place] [address] [email or web address] Gastroenterology 11/30/20 Maxx Gardner, OT [address] [place] [address] [email or web address] Transitions Dairy BacteriologistSenior Cytogenetic Technologist Therapy 05/22/21 Chantel Philippe, RN [address] [place] [address] [email or web address] [facility] Dairy BacteriologistMigration Specialist 10/12/22 10/31/22 Keily Gomez, OT 30 [place] [address] [email or web address] Transitions Dairy BacteriologistSenior Cytogenetic Technologist Therapy 12/30/23 Socorro Begum PA [address] [place] [address] Physician Automotive Service Writer Cardiology 04/06/24 Keily Gomez, OT 30 [place] [address] [email or web address] Transitions Dairy BacteriologistSenior Cytogenetic Technologist Therapy 03/01/25 documented as of this encounter Additional Source Comments The information contained in this document represents components of the legal health record. It is not the complete legal health record.[facility]
--- OUTSIDE RECORDS SUMMARY | 2025-10-18 20:50 | XMS_ITS | Encounter Summary ---
Author Organization [facility] Address [address] [place] [address] [place] [address] Phone Care Team Providers Care Site Monitor Name Role Phone Willie Blair MD Unavailable Willie Blair MD Primary Care Provider Daniel Flores MD Unavailable Delvin Waddell MD Unavailable Shaylee Dejesus MD Unavailable [phone] Tramaine Valle MD Unavailable [phone] Chantel Philippe RN Unavailable [phone] Keily Gomez OT Unavailable Socorro Begum Unavailable [phone] Keily Gomez OT Unavailable [phone] Encounter Details Date Type Department Care Team (Latest Contact Info) Description 01/01/2022 Transcribe Orders Virtual Department 30 [place] [address] Navi Leon MD [address] [place] [phone] [email or web address] Encounter for laboratory testing for [...] Visit [facility] Internal Medicine 40 [place] [address] Willie Blair MD 40 [place] [address] 11/03/2025 10:45 AM EST Office Visit [facility] Gastroenterology Clinic 10 [place] [address] Charlene Piedra, [address] [address] [email or web address] 02/11/2026 10:20 AM EDT Office Visit [facility] Pulmonary, Allergy and Critical Care Medicine 10 [facility] [place] [address] López Henry MD [address] [phone] documented as of this encounter Results * COVID-19 PCR Order (01/01/2022 4:11 PM EST) COVID-19 Comment [id number] [facility] COVID Testing Status Specimen received in analyzing lab. Results should be available within 24 to 48 hrs. [facility] Other 01/01/2022 4:11 PM EST 01/01/2022 8:34 PM EST us Navi Leon MD LAB GENERAL ORDERABLES Final Result Performing Organization Address City/State/[facility] Co de Phone Number [facility] [address] [place] [address] [facility] 30 [place] [address] documented in this encounter Visit Diagnoses Diagnosis [...] documented as of this encounter Care Teams Site Monitor Relationship Specialty Start Date End Date Willie Blair MD 40 [place] [address] [email or web address] PCP - General Internal Medicine 02/04/20 Willie Blair MD 40 [place] [address] [email or web address] Insurance Assigned Provider 02/08/24 Daniel Flores MD [address] [place] [phone] [email or web address] Urology 04/14/20 Delvin Waddell MD 100 Jeremiah Carranza [facility] [address] [place] [address] [email or web address] Cardiology 04/14/20 Shaylee Dejesus MD [address] [place] [address] 106 [place] [address] Otolaryngology 05/20/20 Trmaaine Valle MD [address] [place] [address] [email or web address] Gastroenterology 11/30/20 Chantel Philippe, RN [address] [place] [address] [email or web address] PHCM Citrix AdministratorSmeller 10/12/22 10/31/22 Keily Gomez, OT 30 [place] [address] [email or web address] Transitions Citrix AdministratorData Sciences Director Therapy 12/30/23 Socorro Begum PA [address] [place] [address] Physician Orange Picking Supervisor Cardiology 04/06/24 Keily Gomez, OT 30 [place] [address] [email or web address] Transitions Citrix AdministratorData Sciences Director Therapy 03/01/25 documented as of this encounter Additional Source Comments The information contained in this document represents components of the legal health record. It is not the complete legal health record.[facility]
--- OUTSIDE RECORDS SUMMARY | 2025-10-18 20:50 | XMS_ITS | Encounter Summary ---
Author Organization [facility] Address [address] [place] [address] [place] [address] Phone Care Team Providers Care Charge Machine Operator Name Role Phone Willie Blair MD Unavailable [phone] Willie Blair MD Primary Care Provider Daniel Flores MD Unavailable Delvin Waddell MD Unavailable Shaylee Dejesus MD Unavailable [phone] Tramaine Valle MD Unavailable [phone] Chantel Philippe RN Unavailable [phone] Keily Gomez OT Unavailable [phone] Socorro Begum Unavailable [phone] Keily Gomez OT Unavailable [phone] Encounter Details Date Type Department Care Team (Late st Contact Info) Description 03/12/2022 Procedure Pass OR Admitting Dept - Virtual Department [address] [place] [address] Social History Tobacco Use Types Packs/Day Years [...] Description 10/22/2025 3:00 PM EST Office Visit [facility] [place] Internal Medicine 40 [place] [address] Willie Blair MD 40 [place] [address] 11/03/2025 10:45 AM EST Office Visit [facility] G[facility]ology [facility] 10 [place] [address] Charlene Piedra, USER INTERFACE ENGINEER [address] [address] [email or web address] 02/11/2026 10:20 AM EDT Office Visit [facility] 10 [place] [address] López Henry MD [address] [address] documented as of this encounter Visit Diagnoses [...] documented as of this encounter Care Teams Charge Machine Operator Relationship Specialty Start Date End Date Willie Blair MD 40 [place] [address] [email or web address] PCP - General Internal Medicine 02/04/20 Willie Blair MD 40 [place] [address] [email or web address] Insurance Assigned Provider 02/08/24 Daniel Flores MD [address] [address] [email or web address] Urology 04/14/20 Delvin Waddell MD [address] [address] [email or web address] Cardiology 04/14/20 Shaylee Dejesus MD [address] [place] [address] [address] [place] [address] Otolaryngology 05/20/20 Tramaine Valle MD [address] [place] [address] 2 [place] [address] [email or web address] Gastroenterology 11/30/20 Chantel Philippe, RN 10 [place] [address] [email or web address] PHCM Residence Hall DirectorPlastic Straightening Roll Operator 10/12/22 10/31/22 Keily Gomez, OT 30 [place] [address] [email or web address] Transitions Residence Hall DirectorHose Builder Therapy 12/30/23 Socorro Begum PA [address] [place] [address] Physician Rental Car Porter Cardiology 04/06/24 Keily Gomez, OT 30 [place] [address] [email or web address] Transitions Residence Hall DirectorHose Builder Therapy 03/01/25 documented as of this encounter Additional Source Comments The information contained in this document represents components of the legal health record. It is not the complete legal health record.[facility]
--- OUTSIDE RECORDS SUMMARY | 2025-10-18 20:50 | XMS_ITS | Encounter Summary ---
Author Organization [facility] Address [address] [place] [address] [place] [address] Phone Care Team Providers Care Millinery Teacher Name Role Phone Willie Blair MD Unavailable [phone] Willie Blair MD Primary Care Provider Daniel Flores MD Unavailable Delvin Waddell MD Unavailable Shaylee Dejesus MD Unavailable Tramaine Valle MD Unavailable [phone] Chantel Philippe RN Unavailable [phone] Keily Gomez OT Unavailable [phone] Socorro Begum Unavailable [phone] Keily Gomez OT Unavailable [phone] Encounter Details Date Type Department Care Team (Late st Contact Info) Description 02/13/2022 Procedure Pass [facility], Ct Scan - [address] [address] Social History Tobacco Use Types Packs/Day Years [...] 10:47 AM EDT Ginette Mann RN * Mission Suicide Severity Rating Scale (Screener/Recent Self-Report) Question [...] [facility] Internal Medicine 40 [place] [address] Willie Blair MD 40 [place] [address] 11/03/2025 10:45 AM EST Office Visit [facility] 10 [place] [address] Charlene Piedra, PO [address] [address] [email or web address] 02/11/2026 10:20 AM EDT Office Visit [facility], Allergy [facility] Critical [facility] Medicine 10 [facility] [place] [address] López Henry MD [address] [place] [address] [email or web address] documented as of this encounter [...] documented as of this encounter Care Teams Millinery Teacher Relationship Specialty Start Date End Date Willie Blair MD 40 [place] [address] [email or web address] PCP - General Internal Medicine 02/04/20 Willie Blair MD 40 [place] [address] [email or web address] Insurance Assigned Provider 02/08/24 Daniel Flores MD 100 [employer] [address] [address] [email or web address], [email or web address] [email or web address] Urology 04/14/20 Delvin Waddell MD 100 [address] Fernando 120 [place] [phone] [email or web address] Cardiology 04/14/20 Shaylee Dejesus MD [address] [place] [address] Otolaryngology 05/20/20 Tramaine Valle MD [address] [place] [address] Gastroenterology 11/30/20 Chantel Philippe RN [address] [place] [address] PHCM Coin Machine SupervisorBall Machine Operator 10/12/22 10/31/22 Keily Gomez, OT 30 [place] [address] Transitions Coin Machine SupervisorAutomotive Machinist Therapy 12/30/23 Socorro Begum PA [address] [place] [address] Physician Checkroom Attendant Cardiology 04/06/24 Keily Gomez, OT 30 [place] [address] Transitions Coin Machine SupervisorAutomotive Machinist Therapy 03/01/25 documented as of this encounter Additional Source Comments The information contained in this document represents components of the legal health record. It is not the complete legal health record.[facility]
--- OUTSIDE RECORDS SUMMARY | 2025-10-18 20:50 | XMS_ITS | Encounter Summary ---
Author Organization [facility] Address [address] [place] [address] [place] [address] Phone Care Team Providers Care Glazier Stained Glass Name Role Phone Willie Blair MD Unavailable [phone] Willie Blair MD Primary Care Provider [phone] Daniel Flores MD Unavailable Delvin Waddell MD Unavailable Shaylee Dejesus MD Unavailable Tramaine Valle MD Unavailable [phone] Chantel Philippe RN Unavailable [phone] Keily Gomez OT Unavailable [phone] Socorro Begum Unavailable [phone] Keily Gomez OT Unavailable [phone] Encounter Details Date Type Department Care Team (Late st Contact Info) Description 01/03/2022 Procedure Pass [facility] Endoscopy Admitting Dept Virtual Department [address] [place] [phone] Social History Tobacco Use Types Packs/Day Years [...] 10/22/2025 3:00 PM EST Office Visit [facility] Internal Medicine 40 [place] [address] Willie Blair MD 40 [place] [address] 11/03/2025 10:45 AM EST Office Visit [facility] Gastroenterology Clinic 10 [place] [address] Charlene Piedra, ROLLER INSPECTOR [address] [address] [email or web address] 02/11/2026 10:20 AM EDT Office Visit [facility] All[facility] Critical [facility] Medicine 10 [facility] [place] [address] López Henry MD [address] [place] [address] documented as of this encounter Visit Diagnoses [...] documented as of this encounter Care Teams Glazier Stained Glass Relationship Specialty Start Date End Date Willie Blair MD 40 [place] [address] [email or web address] PCP - General Internal Medicine 02/04/20 Willie Blair MD 40 [place] [address] [email or web address] Insurance Assigned Provider 02/08/24 Daniel Flores MD [address] [address] [email or web address] Urology 04/14/20 Delvin Waddell MD [address] [address] [email or web address] Cardiology 04/14/20 Shaylee Dejesus MD [address] [place] [address] [address] Otolaryngology 05/20/20 Tramaine Valle MD [address] [place] [address] [email or web address] Gastroenterology 11/30/20 Chantel Philippe, RN [address] [place] [address] [email or web address] PHCM Deputy Editor In ChiefDrawbridge Operator 10/12/22 10/31/22 Keily Gomez, OT [address] [place] [address] [email or web address] Transitions Deputy Editor In ChiefPublic Accountant Therapy 12/30/23 Socorro Begum PA [address] [place] [address] Physician Tester Food Products Cardiology 04/06/24 Keily Gomez, OT [address] [place] [address] [email or web address] Transitions Deputy Editor In ChiefPublic Accountant Therapy 03/01/25 documented as of this encounter Additional Source Comments The information contained in this document represents components of the legal health record. It is not the complete legal health record.[facility]
--- OUTSIDE RECORDS SUMMARY | 2025-10-18 20:50 | XMS_ITS | Encounter Summary ---
Author Organization [facility] Address [address] [place] [address] [place] [address] Phone Care Team Providers Care Cleaning Manager Name Role Phone Willie Blair MD Unavailable [phone] Willie Blair MD Primary Care Provider [phone] Daniel Flores MD Unavailable Delvin Waddell MD Unavailable [phone] Shaylee Dejesus MD Unavailable [phone] Tramaine Valle MD Unavailable Socorro Begum Unavailable [phone] Encounter Details Date Type Department Care Team (Late st Contact Info) Description 08/14/2025 Procedure Pass [facility] Endoscopy Admitting Dept Virtual Department 30 [place], [place] [phone] Social History Tobacco Use Types Packs/Day Years [...] Description 10/22/2025 3:00 PM EST Office Visit [facility] Internal Medicine 40 [place] [address] Willie Blair MD 40 [place] [address] 11/03/2025 10:45 AM EST Office Visit [facility] Gastroenterology Clinic 10 [place] [address] Charlene Piedra, PO [address] [phone] [email or web address] 02/11/2026 10:20 AM EDT Office Visit [facility] 10 [place] [address] López Henry MD [address] [place] [address] documented as of this encounter Visit Diagnoses Not on filedocumented in this encounter Additional Health Concerns Infection Onset Date Last Indicated Resolved Time CoV-Risk 08/16/2025 08/16/2025 08/27/2025 1:21 AM EDT Assessment Noted Time PHQ-9 Depression Total Score: 7 03/01/20 22 2:17 PM EDT PHQ-2 Depression Total Score: 2 03/23/20 25 3:56 PM EDT documented as of this encounter Care Teams Cleaning Manager Relationship Specialty Start Date End Date Willie Blair MD 40 [place] [address] PCP - General Internal Medicine 02/04/20 Willie Blair MD 40 [place] [address] [email or web address] Insurance Assigned Provider 02/08/24 Daniel Flores MD [address] [phone] [email or web address] Urology 04/14/20 Delvin Waddell MD [address] [phone] [email or web address] Cardiology 04/14/20 Shaylee Dejesus MD [address] [place] [address] Otolaryngology 05/20/20 Tramaine Valle MD [address] [place] [address] [email or web address] Gastroenterology 11/30/20 Socorro Begum PA [facility] [place] [address] Physician Shot Dropper Cardiology 04/06/24 documented as of this encounter Additional Source Comments The information contained in this document represents components of the legal health record. It is not the complete legal health record.[facility]
--- OUTSIDE RECORDS SUMMARY | 2025-10-18 20:50 | XMS_ITS | Encounter Summary ---
Author Organization [facility] Address [address] [facility] [address] [place] [address] Phone Care Team Providers Care Job Analysis Manager Name Role Phone Willie Blair MD Unavailable Willie Blair MD Primary Care Provider [phone] Daniel Flores MD Unavailable Delvin Waddell MD Unavailable Shaylee Dejesus MD Unavailable [phone] Tramaine Valle MD Unavailable Socorro Begum Unavailable [phone] Encounter Details Date Type Department Care Team (Late st Contact Info) Description 08/13/2025 Procedure Pass [facility], Ct Scan - [address] [address] Social History Tobacco Use Types Packs/Day Years [...] 5:58 PM EDT Nikkie Aguilar RN * [place] Suicide Severity Rating Scale (Screener/Recent Self-Report) Question [...] Description 10/22/2025 3:00 PM EST Office Visit [facility] Internal Medicine 40 [place] [address] Willie Blair MD 40 [place] [address] 11/03/2025 10:45 AM EST Office Visit [facility] Gastroenterology Clinic 10 [place] [address] Charlene Piedra, PO [address] [address] [email or web address] 02/11/2026 10:20 AM EDT Office Visit [facility] All[facility] Critical Care Medicine 10 [facility] [place] [address] López Henry MD [address] [address] documented as of this encounter Visit Diagnoses Not on filedocumented in this encounter Additional Health Concerns Infection Onset Date Last Indicated Resolved Time CoV-Risk 08/16/2025 08/16/2025 08/27/2025 1:21 AM EDT Assessment Noted Time PHQ-9 Depression Total Score: 7 03/01/20 22 2:17 PM EDT PHQ-2 Depression Total Score: 2 03/23/20 25 3:56 PM EDT documented as of this encounter Care Teams Job Analysis Manager Relationship Specialty Start Date End Date Willie Blair MD 40 [place] [address] [email or web address] PCP - General Internal Medicine 02/04/20 Willie Blair MD 40 [place] [address] [email or web address] Insurance Assigned Provider 02/08/24 Daniel Flores MD [address] [phone] [email or web address] Urology 04/14/20 Delvin Waddell MD [address] [phone] [email or web address] Cardiology 04/14/20 Shaylee Dejesus MD [address] [place] [address] Dr FELIX [address] [place] [address] Otolaryngology 05/20/20 Tramaine Valle MD [address] [place] [address] 2 [place] [address] Gastroenterology 11/30/20 Socorro Begum PA [address] [place] [address] Physician Extension Associate Cardiology 04/06/24 documented as of this encounter Additional Source Comments The information contained in this document represents components of the legal health record. It is not the complete legal health record.[facility]
--- OUTSIDE RECORDS SUMMARY | 2025-10-18 20:50 | XMS_ITS | Encounter Summary ---
Author Organization [facility] Address [address] [place] [address] [place] [address] Phone Care Team Providers Care Storm Chaser Name Role Phone Willie Blair MD Unavailable [phone] Willie Blair MD Primary Care Provider [phone] Daniel Flores MD Unavailable Delvin Waddell MD Unavailable Shaylee Dejesus MD Unavailable Tramaine Valle MD Unavailable [phone] Socorro Begum Unavailable [phone] Keily Gomez OT Unavailable [phone] Encounter Details Date Type Department Care Team (Late st Contact Info) Description 10/19/2024 Procedure Pass [facility] [place], Ct Scan - [address] [id number] Social History Tobacco Use Types Packs/Day Years [...] Description 10/22/2025 3:00 PM EST Office Visit [facility] [place] Internal Medicine 40 [place] [address] Willie Blair MD 40 [place] [address] 11/03/2025 10:45 AM EST Office Visit [facility] Gastroenterology Clinic 10 [place] [address] Charlene Piedra, FIRE ASSISTANT 10 [facility] 2 [place] [address] [email or web address] 02/11/2026 10:20 AM EDT Office Visit [facility], Allergy [facility] Critical Care Medicine 10 [facility] [place] [address] López Henry MD [address] [place] [address] [email or web address] documented as of this [...] documented as of this encounter Care Teams Storm Chaser Relationship Specialty Start Date End Date Willie lBair MD 40 [place] [address] PCP - General Internal Medicine 02/04/20 Willie Blair MD 40 [place] [address] Insurance Assigned Provider 02/08/24 Daniel Flores MD [address] [place] [address] 120 [place] [address] [email or web address] Urology 04/14/20 Delvin Waddell MD 100 [facility] 120 [place] [address] [email or web address] Cardiology 04/14/20 Shaylee Dejesus MD [address] [place] [address] 106 [place] [address] Otolaryngology 05/20/20 Tramaine Valle MD [address] [place] [address] 2 [place] [address] [email or web address] Gastroenterology 11/30/20 Socorro Begum PA [address] [place] [address] Physician Poker Manager Cardiology 04/06/24 Keily Gomez, OT 30 [place] [address] [email or web address] Transitions Family LawyerBreaker Machine Operator Therapy 03/01/25 documented as of this encounter Additional Source Comments The information contained in this document represents components of the legal health record. It is not the complete legal health record.[facility]
--- OUTSIDE RECORDS SUMMARY | 2025-10-18 20:50 | XMS_ITS | Encounter Summary ---
Author Organization [facility] Address [address] [place] [address] [place] [address] Phone Care Team Providers Care Motorcycle Mechanic Name Role Phone Willie Blair MD Unavailable [phone] Willie Blair MD Primary Care Provider [phone] Daniel Flores MD Primary Care Provider Willie Blair MD Primary Care Provider [phone] Daniel Flores MD Unavailable [phone] Delvin Waddell MD Unavailable Shaylee Dejesus MD Unavailable [phone] Tramaine Valle MD Unavailable [phone] Maxx Gardner OT Unavailable [phone] Chantel Philippe RN Unavailable [phone] Keily Gomez OT Unavailable [phone] Socorro Begum Unavailable [phone] Keily Gomez OT Unavailable [phone] Encounter Details Date Type Department Care Team (Late st Contact Info) Description 07/02/2018 Procedure Pass [place] Admitting Dept - Virtual Department 30 [place] [address] Social History Tobacco Use Types Packs/Day Years [...] Description 10/22/2025 3:00 PM EST Office Visit [facility] Internal Medicine 40 [place] [address] Willie Blair MD 40 [place] [address] 11/03/2025 10:45 AM EST Office Visit [facility] Gastroenterology Clinic 10 [place] [address] Charlene Piedra, PO [address] [address] [email or web address] 02/11/2026 10:20 AM EDT Office Visit [facility], Allergy [facility] Critical Care Medicine 10 [facility] [place] [address] López Henry MD [address] [address] documented as of this encounter Visit Diagnoses [...] documented as of this encounter Care Teams Motorcycle Mechanic Relationship Specialty Start Date End Date Willie Blair MD 40 [place] [address] [email or web address] PCP - General Internal Medicine 09/19/17 01/03/20 Daniel Flores MD [address] [employer] [address] [place] [phone] [email or web address] PCP - General Urology 01/04/20 02/03/20 Willie Blair MD 40 [place] [address] [email or web address] PCP - General Internal Medicine 02/04/20 Willie Blair MD 40 [place] [address] [email or web address] Insurance Assigned Provider 02/08/24 Daniel Flores MD 100 [facility] [email or web address] [address] [phone] [email or web address] Urology 04/14/20 Delvin Waddell MD 100 [facility] Camp[facility] 120 [place] [address] [email or web address].[email or web address] Cardiology 04/14/20 Shaylee Dejesus MD [address] [place] [address] Otolaryngology 05/20/20 Tramaine Valle MD [address] [place] [address] [email or web address] Gastroenterology 11/30/20 Maxx Gardner, OT [address] [place] [address] [email or web address] Transitions Vacuum Cleaner OperatorDrilling Superintendent Therapy 05/22/21 Chantel Philippe, RN [address] [place] [address] [email or web address] PHCM Vacuum Cleaner OperatorDrilling Machine Operator 10/12/22 10/31/22 Keily Gomez, OT 30 [place] [address] [email or web address] Transitions Vacuum Cleaner OperatorDrilling Superintendent Therapy 12/30/23 Socorro Begum PA [address] [place] [address] Physician Clinical Reviewer Cardiology 04/06/24 Keily Gomez, OT 30 [place] [address] Transitions Vacuum Cleaner OperatorDrilling Superintendent Therapy 03/01/25 documented as of this encounter Additional Source Comments The information contained in this document represents components of the legal health record. It is not the complete legal health record.[facility]
--- OUTSIDE RECORDS SUMMARY | 2025-10-18 20:50 | XMS_ITS | Encounter Summary ---
Author Organization [facility] Address [address] [place] [address] [place] [address] Phone Care Team Providers Care Laundry Route Driver Name Role Phone Willie Blair MD Unavailable [phone] Willie Blair MD Primary Care Provider Daniel Flores MD Unavailable Delvin Waddell MD Unavailable [phone] Shaylee Dejesus MD Unavailable [phone] Tramaine Valle MD Unavailable [phone] Chantel Philippe RN Unavailable [phone] Keily Gomez OT Unavailable [phone] Socorro Begum Unavailable [phone] Keily Gomez OT Unavailable [phone] Encounter Details Date Type Department Care Team (Late st Contact Info) Description 02/13/2022 Procedure Pass [facility] Endoscopy Admitting Dept Virtual Department [address] [place] [address] [id number] Social History Tobacco Use Types Packs/Day Years [...] 10:47 AM EDT Ginette Mann RN * [place] Suicide Severity Rating Scale (Screener/Recent Self-Report) Question [...] Visit [facility] Internal Medicine 40 [place] [address] Willie Blair MD 40 [place] [address] 11/03/2025 10:45 AM EST Office Visit [facility] Gastroenterology Clinic 10 [place], [place] [phone] Charlene Piedra, [address] [id number] [email or web address] 02/11/2026 10:20 AM EDT Office Visit [facility] Pulmonary, Allergy [facility] Critical Care Medicine 10 [facility] [place] [address] López Henry MD 10 [facility] 2nd [place] [address] [email or web address] documented as of this encounter Visit Diagnoses [...] documented as of this encounter Care Teams Laundry Route Driver Relationship Specialty Start Date End Date Willie Blair MD 40 [place] [address] [email or web address] PCP - General Internal Medicine 02/04/20 Willie Blair MD 40 [place] [address] [email or web address] Insurance Assigned Provider 02/08/24 Daniel Flores MD [address] [address] [email or web address] Urology 04/14/20 Delvin Waddell MD 100 [employer] Fernando 120 [place] [phone] [email or web address] Cardiology 04/14/20 Shaylee Dejesus MD [address] [place] [address] Otolaryngology 05/20/20 Tramaine Valle MD [address] [place] [address] Gastroenterology 11/30/20 Chantel Philippe RN [address] [place] [address] PHCM Plate InspectorBen Day Artist 10/12/22 10/31/22 Keily Gomez, OT 30 [place] [address] Transitions Plate InspectorMaintenance Craftsman Therapy 12/30/23 Socorro Begum PA [address] [place] [address] Physician Machine Binder Stripper Cardiology 04/06/24 Keily Gomez, OT 30 [place] [address] Transitions Plate InspectorMaintenance Craftsman Therapy 03/01/25 documented as of this encounter Additional Source Comments The information contained in this document represents components of the legal health record. It is not the complete legal health record.[facility]
--- OUTSIDE RECORDS SUMMARY | 2025-10-18 20:50 | XMS_ITS | Encounter Summary ---
Author Organization [facility] Address [address] [place] [address] [place] [address] Phone Care Team Providers Care Milk Handler Name Role Phone Willie Blair MD Unavailable [phone] Willie Blair MD Primary Care Provider Daniel Flores MD Unavailable [phone] Delvin Waddell MD Unavailable Shaylee Dejesus MD Unavailable Tramaine Valle MD Unavailable [phone] Keily Gomez OT Unavailable [phone] Socorro Begum Unavailable [phone] Keily Gomez OT Unavailable [phone] Encounter Details Date Type Department Care Team (Late st Contact Info) Description 12/26/2023 Procedure Pass [facility] Scan - [address] [address] Social History Tobacco Use Types Packs/Day Years [...] Indicated 12/26/2023 2:43 PM Alli Osullivan * [place] Suicide Severity Rating Scale (Screener/Recent Self-Report) Question [...] Description 10/22/2025 3:00 PM EST Office Visit [facility] Internal Medicine 40 [place] [address] Willie Blair MD 40 [place] [address] 11/03/2025 10:45 AM EST Office Visit [facility] Gastroenterology Clinic 10 [place] [address] Charlene Piedra, FOOD PROCESSING PLANT MANAGER 10 [facility] Fernando 2 [place] [address] [email or web address] 02/11/2026 10:20 AM EDT Office Visit [facility] Pulmonary, Allergy and Critical Care Medicine 10 [facility] [place] [address] [place] [address] López Henry MD [address] [place] [address] [place] [address] documented as of this encounter Visit Diagnoses [...] documented as of this encounter Care Teams Milk Handler Relationship Specialty Start Date End Date Willie Blair MD 40 [place] [address] PCP - General Internal Medicine 02/04/20 Willie Blair MD 40 [place] [address] Insurance Assigned Provider 02/08/24 Daniel Flores MD [address] [place] [address] 120 [place] [address] [email or web address] Urology 04/14/20 Delvin Waddell MD [address] [facility] Car[facility] 120 [place] [address] [email or web address] Cardiology 04/14/20 Shaylee Dejesus MD [address] [place] [address] Otolaryngology 05/20/20 Tramaine Valle MD [address] [place] [address] [email or web address] Gastroenterology 11/30/20 Keily Gomez, OT 30 [place] [address] Transitions Wharf Tender HeadWind Up Operator Therapy 12/30/23 Socorro Begum PA [address] [place] [address] Physician Roll Examiner Cardiology 04/06/24 Keily Gomez, OT 30 [place] [address] Transitions Wharf Tender HeadWind Up Operator Therapy 03/01/25 documented as of this encounter Additional Source Comments The information contained in this document represents components of the legal health record. It is not the complete legal health record.[facility]
--- OUTSIDE RECORDS SUMMARY | 2025-10-18 20:50 | XMS_ITS | Encounter Summary ---
Author Organization [facility] Address [address] [place] [address] [place] [address] Phone Care Team Providers Care Wire Splicer Name Role Phone Willie Blair MD Unavailable Willie Blair MD Primary Care Provider Daniel Flores MD Unavailable Delvin Waddell MD Unavailable Shaylee Dejesus MD Unavailable Tramaine Valle MD Unavailable [phone] Chantel Philippe RN Unavailable [phone] Keily Gomez OT Unavailable Socorro Begum Unavailable [phone] Keily Gomez OT Unavailable [phone] Encounter Details Date Type Department Care Team (Late st Contact Info) Description 05/26/2021 Procedure Pass [facility] Cardiovascular And Interventional Radiology 30 [place] [address] Social History Tobacco Use Types Packs/Day Years [...] 3:00 PM EST Office Visit [facility] Internal Medicine 40 [place] [address] Willie Blair MD 40 [place] [address] 11/03/2025 10:45 AM EST Office Visit [facility] Gastroenterology Clinic 10 [place] [address] Charlene Piedra, [address] [address] [email or web address] 02/11/2026 10:20 AM EDT Office Visit [facility] Pulmonary, Allergy and Critical Care Medicine 10 [place] [address] López Henry MD [address] [address] documented as of this encounter Visit Diagnoses [...] documented as of this encounter Care Teams Wire Splicer Relationship Specialty Start Date End Date Willie Blair MD 40 [place] [address] [email or web address] PCP - General Internal Medicine 02/04/20 Willie Blair MD 40 [place] [address] [email or web address] Insurance Assigned Provider 02/08/24 Daniel Flores MD [address] [address] [email or web address] Urology 04/14/20 Delvin Waddell MD [address] [address] [email or web address] Cardiology 04/14/20 Shaylee Dejesus MD [address] [place] [address] 106 [place] [address] Otolaryngology 05/20/20 Tramaine Valle MD [address] [place] [address] 2 [place] [address] [email or web address] Gastroenterology 11/30/20 Chantel Philippe, RN 10 [place] [address] [email or web address] PHCM Climatology TeacherEsl Teacher 10/12/22 10/31/22 Keily Gomez, OT 30 [place] [address] [email or web address] Transitions Climatology TeacherDirector Of Publications Therapy 12/30/23 Socorro Begum PA [address] [place] [address] Physician Silver Holloware Assembler Cardiology 04/06/24 Keily Gomez, OT 30 [place] [address] [email or web address] Transitions Climatology TeacherDirector Of Publications Therapy 03/01/25 documented as of this encounter Additional Source Comments The information contained in this document represents components of the legal health record. It is not the complete legal health record.[facility]
--- OUTSIDE RECORDS SUMMARY | 2025-10-18 20:50 | XMS_ITS | Encounter Summary ---
Author Organization [facility] Address [address] [place] [address] [place] [address] Phone Care Team Providers Care Computer Technical Support Specialist Name Role Phone Willie Blair MD Unavailable [phone] Willie Blair MD Primary Care Provider [phone] Daniel Flores MD Unavailable Delvin Waddell MD Unavailable Shaylee Dejesus MD Unavailable Tramaine Valle MD Unavailable [phone] Keily Gomez OT Unavailable [phone] Socorro Begum Unavailable [phone] Keily Gomez OT Unavailable [phone] Encounter Details Date Type Department Care Team (Late st Contact Info) Description 12/26/2023 Procedure Pass [facility] Echo Lab 30 [place], [place] [id number] Social History Tobacco Use Types Packs/Day Years [...] Indicated 12/26/2023 2:43 PM Alli Osullivan * [place] Suicide Severity Rating Scale (Screener/Recent Self-Report) Question [...] Description 10/22/2025 3:00 PM EST Office Visit [facility] [place] Internal Medicine 40 [place] [address] Willie Blair MD 40 [place] [address] 11/03/2025 10:45 AM EST Office Visit [facility] Gastroenterology Clinic 10 [place] [address] Charlene Avila, COMMUNICATION ASSISTANT 10 [facility] 2 [place] [address] [email or web address] 02/11/2026 10:20 AM EDT Office Visit [facility] Pulmonary, Allergy and Critical Care Medicine 10 [facility] [place] [address] López Henry MD [address] [place] [address] [place] [address] documented as of this encounter Visit Diagnoses [...] as of this encounter Care Teams Computer Technical Support Specialist Relationship Specialty Start Date End Date Willie Blair MD 40 [place] [address] PCP - General Internal Medicine 02/04/20 Willie Blair MD 40 [place] [address] Insurance Assigned Provider 02/08/24 Daniel Flores MD [address] [place] [address] 120 [place] [address] [email or web address] Urology 04/14/20 Delvin Waddell MD 100 Jeremiah Carranza [facility] 120 [place] [address] [email or web address] Cardiology 04/14/20 Shaylee Dejesus MD [address] [place] [address] 106 [place] [address] Otolaryngology 05/20/20 Tramaine Valle MD [address] [place] [address] Gastroenterology 11/30/20 Keily Gomez, OT 30 [place] [address] Transitions Corporate Security OfficerManual Tester Therapy 12/30/23 Socorro Begum PA [address] [place] [address] Physician Cloth Presser Cardiology 04/06/24 Keily Gomez, OT 30 [place] [address] Transitions Corporate Security OfficerManual Tester Therapy 03/01/25 documented as of this encounter Additional Source Comments The information contained in this document represents components of the legal health record. It is not the complete legal health record.[facility]
--- OUTSIDE RECORDS SUMMARY | 2025-10-18 20:50 | XMS_ITS | Encounter Summary ---
Author Organization [facility] Address [address] [place] [address] [place] [address] Phone Care Team Providers Care Diamond Wheel Edger Name Role Phone Willie Blair MD Unavailable [phone] Willie Blair MD Primary Care Provider [phone] Daniel Flores MD Primary Care Provider Willie Blair MD Primary Care Provider [phone] Daniel Flores MD Unavailable [phone] Delvin Waddell MD Unavailable Shaylee Dejesus MD Unavailable [phone] Tramaine Valle MD Unavailable [phone] Maxx Gardner OT Unavailable [phone] Chantel Philippe RN Unavailable [phone] Keily Gomez OT Unavailable [phone] Socorro Begum Unavailable [phone] Keily Gomez OT Unavailable [phone] Encounter Details Date Type Department Care Team (Late st Contact Info) Description 01/03/2018 Procedure Pass [facility], [facility] - [facility] 30 [place] [address] Social History Tobacco Use Types Packs/Day Years [...] Description 10/22/2025 3:00 PM EST Office Visit [facility] Internal Medicine 40 [place] [address] Willie Blair MD 40 [place] [address] 11/03/2025 10:45 AM EST Office Visit [facility] Gastroenterology Clinic 10 [place] [address] Charlene Piedra, [address] [address] [email or web address] 02/11/2026 10:20 AM EDT Office Visit [facility] Pulmonary, Allergy and Critical Care Medicine 10 [facility] [place] [address] López Henry MD 10 [facility] 2nd [place] [address] documented as of this encounter Visit Diagnoses [...] documented as of this encounter Care Teams Diamond Wheel Edger Relationship Specialty Start Date End Date Willie Blair MD 40 [place] [address] [email or web address] PCP - General Internal Medicine 09/19/17 01/03/20 Daniel Flores MD [address] [phone] [email or web address] PCP - General Urology 01/04/20 02/03/20 Willie Blair MD 40 [place] [address] [email or web address] PCP - General Internal Medicine 02/04/20 Willie Blair MD 40 [place] [address] [email or web address] Insurance Assigned Provider 02/08/24 Daniel Flores MD 100 [facility] HospitalLast Size [address] [phone] [email or web address] Urology 04/14/20 Delvin Waddell MD [address] [place], [place] [address]ingrid [facility] 120 [place] [address] [email or web address] Cardiology 04/14/20 Shaylee Dejesus MD [address] [place] [address] Otolaryngology 05/20/20 Tramaine Valle MD [address] [place] [address] [email or web address] Gastroenterology 11/30/20 Maxx Gardner, OT [address] [place] [address] [email or web address] Transitions Parole AgentMotor Vehicle Compliance Analyst Therapy 05/22/21 Chantel Philippe, RN [address] [place] [address] [email or web address] PHC Parole AgentDirector Of Digital Technology 10/12/22 10/31/22 Keily Gomez, OT 30 [place] [address] [email or web address] Transitions Parole AgentMotor Vehicle Compliance Analyst Therapy 12/30/23 Socorro Begum PA [address] [place] [address] Physician Garage Door Service Technician Cardiology 04/06/24 Keily Gomez, OT 30 [place] [address] Transitions Parole AgentMotor Vehicle Compliance Analyst Therapy 03/01/25 documented as of this encounter Additional Source Comments The information contained in this document represents components of the legal health record. It is not the complete legal health record.[facility]
--- OUTSIDE RECORDS SUMMARY | 2025-10-18 20:50 | XMS_ITS | Encounter Summary ---
Author Organization [facility] Address [address] [place] [address] [place] [address] Phone Care Team Providers Care Import Export Clerk Name Role Phone Willie Blair MD Unavailable [phone] Willie Blair MD Primary Care Provider Daniel Flores MD Unavailable Delvin Waddell MD Unavailable Shaylee Dejesus MD Unavailable Tramaine Valle MD Unavailable [phone] Chantel Philippe RN Unavailable [phone] Keily Gomez OT Unavailable [phone] Socorro Begum Unavailable [phone] Keily Gomez OT Unavailable [phone] Encounter Details Date Type Department Care Team (Late st Contact Info) Description 06/13/2021 Procedure Pass [facility], [address] [address] Social History Tobacco Use Types Packs/Day Years [...] PM EST Office Visit [facility] Internal Medicine 40 [place] [address] Willie Blair MD 40 [place] [address] 11/03/2025 10:45 AM EST Office Visit [facility] Gastroenterology Clinic 10 [place] [address] Charlene Piedra, [address] [address] [email or web address] 02/11/2026 10:20 AM EDT Office Visit [facility] Pulmonary, Allergy and Critical Care Medicine 10 [facility] [place] [address] López Henry MD [address] [address] documented as of this encounter Visit Diagnoses [...] documented as of this encounter Care Teams Import Export Clerk Relationship Specialty Start Date End Date Willie Blair MD 40 [place] [address] [email or web address] PCP - General Internal Medicine 02/04/20 Willie Blair MD 40 [place] [address] [email or web address] Insurance Assigned Provider 02/08/24 Daniel Flores MD [address] Fernando [address] [place] [phone] [email or web address] Urology 04/14/20 Delvin Waddell MD [address] Fernando 120 [place] [address] [email or web address] Cardiology 04/14/20 Shaylee Dejesus MD [address] [place] [address] 106 [place] [address] Otolaryngology 05/20/20 Tramaine Valle MD [address] [place] [address] Gastroenterology 11/30/20 Chantel Philippe, RN [address] [place] [address] [facility] Mechanical AssemblyCellular Tower Climber 10/12/22 10/31/22 Keily Gomez, OT [address] [place] [address] Transitions Mechanical AssemblyResidential Program Coordinator Therapy 12/30/23 Socorro Begum PA [address] [place] [address] Physician Train Station Server Cardiology 04/06/24 Keily Gomez, OT 30 [place] [address] Transitions Mechanical AssemblyResidential Program Coordinator Therapy 03/01/25 documented as of this encounter Additional Source Comments The information contained in this document represents components of the legal health record. It is not the complete legal health record.[facility]
--- OUTSIDE RECORDS SUMMARY | 2025-10-18 20:50 | XMS_ITS | Encounter Summary ---
Author Organization [facility] Address [address] [place] [address] [place] [address] Phone Care Team Providers Care Web Content Developer Name Role Phone Willie Blair MD Unavailable [phone] Willie Blair MD Primary Care Provider [phone] Daniel Flores MD Unavailable Delvin Waddell MD Unavailable Shaylee Dejesus MD Unavailable [phone] Tramaine Valle MD Unavailable [phone] Chantel Philippe RN Unavailable [phone] Keily Gomez OT Unavailable [phone] Socorro Begum Unavailable [phone] Keily Gomez OT Unavailable [phone] Encounter Details Date Type Department Care Team (Late st Contact Info) Description 03/27/2022 Procedure Pass [facility], [address] [address] Social History Tobacco Use Types Packs/Day Years [...] 10/22/2025 3:00 PM EST Office Visit [facility] [place] Internal Medicine 40 [place] [address] Willie Blair MD 40 [place] [address] 11/03/2025 10:45 AM EST Office Visit [facility] Gastroenterology Clinic 10 [place] [address] Charlene Piedra, BIOFUELS TECHNOLOGY DEVELOPMENT MANAGER [address] [address] [email or web address] 02/11/2026 10:20 AM EDT Office Visit [facility] Pulmonary, Allergy and Critical Care Medicine 10 [place] [address] López Henry MD [address] [address] documented as of this encounter Visit Diagnoses [...] documented as of this encounter Care Teams Web Content Developer Relationship Specialty Start Date End Date Willie Blair MD 40 [place] [address] [email or web address] PCP - General Internal Medicine 02/04/20 Willie Blair MD 40 [place] [address] [email or web address] Insurance Assigned Provider 02/08/24 Daniel Flores MD 100 [facility] 120 [place] [address] [email or web address] Urology 04/14/20 Delvin Waddell MD 100 [facility] 120 [place] [address] [email or web address] Cardiology 04/14/20 Shaylee Dejesus MD [address] [place] [address] 106 [place] [address] Otolaryngology 05/20/20 Tramaine Valle MD [address] [place] [address] 2 [place] [address] [email or web address] Gastroenterology 11/30/20 Chantel Philippe, RN 10 [place] [address] PHCM Phys TherapistAssembler Wet Wash 10/12/22 10/31/22 Keily Gomez, OT 30 [place] [address] [email or web address] Transitions Phys TherapistChain Saw Mechanic Therapy 12/30/23 Socorro Begum PA [address] [place] [address] Physician Assistant Department Manager Cardiology 04/06/24 Keily Gomez, OT 30 [place] [address] [email or web address] Transitions Phys TherapistChain Saw Mechanic Therapy 03/01/25 documented as of this encounter Additional Source Comments The information contained in this document represents components of the legal health record. It is not the complete legal health record.[facility]
--- OUTSIDE RECORDS SUMMARY | 2025-10-18 20:50 | XMS_ITS | Encounter Summary ---
Author Organization [facility] Address [address] [place] [address] [place] [phone] Phone Care Team Providers Care Electrical Tech Name Role Phone Willie Blair MD Unavailable [phone] Willie Blair MD Primary Care Provider [phone] Daniel Flores MD Unavailable [phone] Delvin Waddell MD Unavailable Shaylee Dejesus MD Unavailable Tramaine Valle MD Unavailable [phone] Maxx Gardner OT Unavailable [phone] Chantel Philippe RN Unavailable [phone] Keily Gomez OT Unavailable [phone] Socorro Begum Unavailable [phone] Keily Gomez OT Unavailable [phone] Encounter Details Date Type Department Care Team (Late st Contact Info) Description 05/25/2021 Procedure Pass [facility], [address] [phone] Social History Tobacco Use Types Packs/Day Years [...] 10/22/2025 3:00 PM EST Office Visit [facility] Internal Medicine [address] [place] [address] Willie Blair MD [address] [place] [address] 11/03/2025 10:45 AM EST Office Visit [facility] Gastroenterology [facility] [address] [place] [address] Charlene Piedra, [address] [address] [email or web address] 02/11/2026 10:20 AM EDT Office Visit [facility] Pulmonary, Allergy and Critical Care Medicine 10 [facility] [place] [address] López Henry MD [address] [address] documented as of this encounter Visit Diagnoses [...] documented as of this encounter Care Teams Electrical Tech Relationship Specialty Start Date End Date Willie Blair MD [address] [place] [address] [email or web address] PCP - General Internal Medicine 02/04/20 Willie Blair MD [address] [place] [address] [email or web address] Insurance Assigned Provider 02/08/24 Daniel Flores MD [address] [phone] [email or web address] Urology 04/14/20 Delvin Waddell MD [address] [address] [email or web address] Cardiology 04/14/20 Shaylee Dejesus MD [address] [place] [address] Dr FELIX [facility] [place] [address] Otolaryngology 05/20/20 Tramaine Valle MD [address] [address] [email or web address] [email or web address] 11/30/20 Maxx Gardner, OT [address] [place] [address] [email or web address] Transitions Manager ValidationSocial Service Liaison Therapy 05/22/21 Chantel Philippe, RN [address] [place] [address] [email or web address] Manager ValidationFelt Tipping Machine Tender 10/12/22 10/31/22 Keily Gomez, OT [address] [place] [address] [email or web address] Transitions Manager ValidationSocial Service Liaison Therapy 12/30/23 Socorro Begum PA [address] [place] [address] Physician Metal Leaf Layer Cardiology 04/06/24 Keily Gomez, OT [address] [place] [address] [email or web address] Transitions Manager ValidationSocial Service Liaison Therapy 03/01/25 documented as of this encounter Additional Source Comments The information contained in this document represents components of the legal health record. It is not the complete legal health record.[facility]
--- OUTSIDE RECORDS SUMMARY | 2025-10-18 20:50 | XMS_ITS | Data Portability ---
Author Organization [place] - [facility], Allergy Address [address] [place] [phone] Care Team Providers Care Brush Machine Setter Name Role Phone GOPAL LAGUNA Primary Care [...] Sensorine ural hearing loss of bilateral ears [id number] Active 2021 Sensorine ural hearing loss, bilateral ; Note: Date Diagnosed : 12/11/2021 11:00 AM (H90.3) Not Available [facility] 4 02:22:15 Glossodyn ia [id number] Active 2021 Glossodyn ia; Note: Date Diagnosed : 12/11/2021 12:27 PM (K14.6) Not Available [facility] 4 02:22:32 Impacted cerumen of bilateral ears 21507599546 97811 Active 2021 Impacted cerumen, bilateral ; Note: Date Diagnosed : 06/11/2022 1:26 PM (H61.23) Not Available [facility] 4 02:22:37 Problem Notes None recorded. Procedures Surgical History Date Name Laterality Status Provider Name and Address Organization Details Recorded Time Cerumen removal without microscope bilat completed Chidi Flor [place] - [facility] 01/11/2025 16:07:03 Imaging Results None recorded. Procedure Notes None recorded. Medical Equipment None Reported. Allergies Allergen ID Allergen Name Allergen Category Reaction Reaction Severity Criticality Documentation Date Start Date Code Code System Note Provider Name and Address Organization Details Recorded Time 48234 Product containin g penicilli n (product) medicatio n Not available Not available Not available 03/17/2024 94370 8001 SNOMED React ion: other react ion, Lip swell ing; Not Available [facility] 4 00:56:08 09631 lisinopri l medicatio n Not available Not available Not available 03/17/2024 69708 RxNorm React ion: other react ion, Lip swell ing; Not Available [facility] 4 00:56:09 Medications Name Sig Start Date Stop Date Status Note LastModified by Organization Details LastModified Time losartan 50 mg tablet 09/14 completed Not Available Not Available Not Available clotrimazol e 10 mg tina 09/14 completed Medication ID: [id number] Rian nd Name: clotrimazo le Send Method: E-Prescrib ed Subs Allowed: subs [place] Medicat ionGeneric Name: clotrimazo le Not Available Not Available Not Available cefpodoxime 200 mg tablet active Not Available Not Available Not Available Iron (ferrous sulfate) 325 mg (65 mg iron) tablet 2021 active Medication ID: [id number] Rian nd Name: Iron (ferrous sulfate) S end Method: E-Prescrib ed Subs Allowed: subs [place] Medicat ionGeneric Name: Iron (ferrous sulfate) Not Available Not Available Not Available Claritin 10 mg tablet 2021 active Medication ID: [id number] Rian nd Name: Claritin S end Method: [...] 325 mg tablet 2021 active Medication ID: [id number] Rian nd Name: Tylenol Se nd Method: E-Prescrib ed Subs Allowed: subs OK Medicat ionGeneric Name: Tylenol Not Available Not Available Not Available Culturelle 10 billion cell capsule 2021 active Medication ID: [id number] Rian nd Name: Culturelle Send Method: E-Prescrib ed Subs Allowed: subs OK Medicat ionGeneric Name: Culturelle Not Available Not Available Not Available furosemide 20 mg tablet 09/14 completed Not Available Not Available Not Available albuterol sulfate HFA 90 mcg/actuati on aerosol inhaler active Not Available Not Available Not Available fluticasone propionate 50 mcg/actuati on nasal spray,suspe nsion 2021 active Medication ID: [id number] Rian nd Name: fluticason e propionate Send Method: E-Prescrib ed Subs Allowed: subs OK Medicat ionGeneric Name: fluticason e propionate Not Available Not Available Not Available finasteride 5 mg tablet active Not Available Not Available Not Available Vitamin D3 25 mcg (1,000 unit) chewable tablet 09/14 completed Medication ID: [id number] Rian nd Name: Vitamin D3 Send Method: [...] mcg-2.75 mg tablet 2021 active Medication ID: [id number] Rian nd Name: Citracal + D Maximum Se nd Method: E-Prescrib ed Subs Allowed: subs OK Medicat ionGeneric Name: Citracal + D Maximum Not Available Not Available Not Available Vitals Date Recorded Body height Body mass index (BMI) Body weight Provider Name and Address Organization Details Last Updated DateTime 01/11/2025 175.26 cm 35.4 kg/m2 618239.17 g Cecilia Carson [facility] 01/11/2025 15:34:41 Date Recorded Body height Body mass index (BMI) Body weight Provider Name and Address Organization Details Last Updated DateTime 07/21/2024 175.26 cm 35.4 kg/m2 640371.17 g Cecilia Carson [facility] 07/21/2024 10:06:51 Date Recorded Body height Body mass index (BMI) Body weight Provider Name and Address Organization Details Last Updated DateTime 09/14/2025 175.26 cm 34.1 kg/m2 182495.84 g Carmen Euceda [place] - [facility] 09/14/2025 15:07:28 Social History None recorded. Functional Status None recorded. Mental Status None recorded. Family History Nothing Reported. Medical History No medical history recorded. Past Encounters Encounter ID Performer Location Encounter Start Date Encounter Closed Date Diagnosis/Indication Diagnosis SNOMED-CT Code Diagnosis ICD10 Code Diagnosis IMO Codes Diagnosis Note [id number] JAHAIRA BAIG PA-C [facility] on [address] [place] [phone] 07/21/2024 09:53:00 07/21/2024 10:20:03 Impacted cerumen of bilateral ears [id number] 557236 H61.23 [id number] CHIDI FLOR PA-C [facility] on [address] [place] [phone] 2 01/11/2025 15:24:47 01/11/2025 16:36:05 Impacted cerumen of bilateral ears [id number] 795556 H61.23 [id number] JOSE DIAZ MD [facility] on [address] [place] [id number] 09/14/2025 15:01:33 09/14/2025 15:23:08 Impacted cerumen of bilateral ears 0482976101 405944 H61.23 Only a small amount of cerumen was removed. I did recommend having the hearing and hearing aids assessed to make sure they are functionin g adequately . We can stretch his next visit to 1 year. Sensorineu ral hearing loss of bilateral ears 910350631 H90.3 Health Concerns Section Related Observation LastModified by Organization Detai ls LastModified Time None Recorded Concern Status LastModified by Organization Details LastModified Time None Recorded Advance Directives Directive None Recorded Payers Insurance Date Sequence Insurance Name Policy Number Policy Cleaning Covered Member ID Cleaning Member ID Guarantor Name 09/17/2025 2 [place]) [id number] Murphy Du [id number] Murphy Du 09/14/2025 1 MEDICARE [place]: [facility] Murphy Du [id number] Murphy Du Notes Date Note Type Note Provider Name and Address Organization Details Recorded Time 07/21/2024 text/html ROS as noted in the HPI 89 year old male presents today for an ear cleaning. He has bilateral hearing aids from [employer]. No concerns today. JOSE DIAZ MD [address] [place] [address], [phone], [facility] - [facility] 07/21/2024 13:59:27 01/11/2025 text/html ROS as noted in the [facility] Gómez is an 89 year old male who presents to the office with his [place] for routine ear cleaning. No acute concerns. He uses bilateral amplification. MURPHY ZEPEDA MD [address] [place] [address], [phone], [facility] 01/12/2025 08:00:25 09/14/2025 text/html ROS as noted in the HPI 89 year old male who presents to the office for routine ear cleaning. No acute concerns. He uses bilateral amplification. JOSE DIAZ MD [address] [place] [address], [phone], [facility] 09/15/2025 07:41:13
--- OUTSIDE RECORDS SUMMARY | 2025-10-18 20:51 | XMS_ITS | Clinical Summary ---
Author Organization [facility] Address [address] [place] [phone] Phone Care Team Providers Care [place] Ma[place] Name Role Phone Willie Laguna MD Unavailable Willie Laguna MD Primary Care Provider [phone] Daniel Flores MD Unavailable Delvin Waddell MD Unavailable Shaylee Dejesus MD Unavailable [phone] Shiloh Valle MD Unavailable Socorro Begum Unavailable [phone] Allergies Active Allergy Reactions Criticality Noted Date Comments Lisinopril Angioedema High 10/04/2017 Other Reaction(s): Anaphylaxis, Not available Penicillins Swelling High 10/04/2017 Other Reaction(s): Anaphylaxis, Not available Medications ascorbic acid, vitamin C, (VITAMIN C) 500 MG tablet Take 1,000 mg by mouth daily. Active ferrous sulfate 325 mg (65 mg [place] iron) tablet Take 325 mg by mouth [...] Assessing risk versus benefit of restarting anticoagulation. [id number] score 5 indicating a 7.2% annual risk of stroke. Has bled score of 3 indicating 5.8% risk of bleeding. His DOAC score returned high risk of bleeding. We discussed risk versus benefits of anticoagulation between the patient, [place], and myself. This apparently has been a hotly debated topic amongst his urologist and mate relief in the past. After discussing the risk [...] Assessing risk versus benefit of restarting anticoagulation. [id number] score 5 indicating a 7.2% annual risk [...] record of latest EF. Follows closely with [facility] cardiology who was last seen in [...] record of latest EF. Follows closely with [facility] cardiology who was last seen in [...] history of CHF who follows closely with [facility] cardiology who was last seen in [...] of a atrial fibrillation who follows with [facility] cardiology. He is managed on Coreg [...] of a atrial fibrillation who follows with [facility] cardiology. He is managed on Coreg [...] of a atrial fibrillation who follows with [facility] cardiology. Patient is rate controlled and [...] event. Recommended outpatient follow up with his mate relief (previously Dr. Waddell) for discussion on when the resume the medication. Assessment & Plan (08/25/2021 6:10 PM EDT): Hold Eliquis in the setting of GI bleeding, continue Coreg Assessment & Plan (05/26/2021 7:59 AM EDT): History of atrial fibrillation, chronic systolic CHF, hypertension,, mild to moderate CAD (based on catheterization April 2021). Followed by [facility]ology (EKG here sinus) Had Cardiac cath [...] to 4 times daily scheduled with albuterol [facility] Prn Assessment & Plan (02/28/2025 12:36 PM [...] 4 times daily scheduled - [facility] Assessment & Plan (02/27/2025 8:09 [...] with a fairly preserved EF according to [facility] records. Given his ongoing hemodynamic stability, [...] contributing to dizziness. Further evaluation by a mate relief is suggested. - Send a note to cardiology PA, Socorro Begum, to consider the low heart rate as a potential cause of dizziness. - Consider referral to a mate relief for further evaluation if needed. Epigastric pain [...] Plan (08/14/2025 3:48 AM EDT): Has a [id number] score that is elevated necessitating anticoagulation. This [...] not going to be pursued, would not blade changer- no vegetation seen on TTE Continue [...] He has previously discussed this with his mate relief, who felt it was non-cardiac. He describes [...] 11:59 PM EDT Hospital Encounter [facility] [place] [address] [place] [address] Willie Laguna MD Discharge Disposition: Home or Self Care 08/27/2025 2:00 PM EDT Office Visit [facility] Internal Medicine [address] [place] [address] Willie Laguna MD Rectal bleeding (Primary Dx) 08/27/2025 Telephone [facility] Internal Medicine [address] [place] [address] Willie Laguna MD Blood pressure 08/20/2025 5:10 PM EDT Office Visit [facility] at [address] [address] Raiza Puentes CNP Acute viral bronchitis (Primary Dx) 08/18/2025 Telephone [facility] Internal Medicine [address] [place] [address] Willie Laguna MD Follow-up; Cough 08/16/2025 9:49 AM EDT - 08/16/2025 11:59 PM EDT Hospital Encounter [facility] Specimen Processing [address] [place] [address] Ariella Hampton, [place], [place] Discharge Disposition: Home or Self Care 08/16/2025 Transcribe Orders [facility] Specimen Processing [address] [place] [address] Ariella Hampton, [place], [place] Diagnosis unknown (Primary Dx) 08/14/2025 9:45 AM EDT - 08/14/2025 10:31 AM EDT Surgery [facility] Endoscopy Admitting Dept Virtual Department [address] [place] [address] Shiloh Seaman MD COLONOSCOPY 08/14/2025 9:40 AM EDT Anesthesia Event [facility] Endoscopy Admitting Dept Virtual Department [address] [place] [address] Marbella Iqbal MD 08/14/2025 Procedure Pass [facility] Endoscopy Admitting Dept Virtual Department [address] [place] [address] 08/13/2025 11:23 PM EDT - 08/17/2025 2:00 PM EDT Hospital Encounter [facility] Medsurg [place] [address] [place] [address] Thi Aguirre MD Lipkin-Moore, Zachary M, MD Oliveira, Paulo J, MD Altman, Fredrick Ingram DO, MPH Discharge Disposition: Home or Self Care 08/13/2025 Procedure Pass [facility], Ct Scan - [address] [address] 08/13/2025 Telephone [facility] Internal Medicine [address] [place] [address] Willie Laguna MD Rectal Bleeding 08/10/2025 10:00 AM EDT Office Visit [facility] Pulmonary[facility] Allergy [facility] Critical [facility] Medicine [address] [place] [address] López Henry MD Chronic obstructive pulmonary disease, unspecified COPD type (Primary Dx); Orthostatic hypotension 07/31/2025 Refill [facility] Internal Medicine [address] [place] [address] Willie Laguna MD Medication Refill from Last [...] [facility] [address] [place] [address] Willie Laguna MD [address] [place] [address] 11/03/2025 10:45 AM EST Office Visit [facility] [address] [place] [address] Charlene Piedra, [address] [address] [email or web address] 02/11/2026 10:20 AM EDT Office Visit [facility] All[facility] [address] [facility] [place] [address] López Henry MD 10 [facility] [address] [place] [address] Health Maintenance Due Date Last Done Comments [...] this topic Medical Devices Implanted Type Area Personal Insurance Advisor Device Identifier Shelf Expiration Date Model / Serial / Lot Lens Lens Bilateral: Eye Knees Description:Bilat knee repla cements Device Fixation 37mm Optifix Pdlla Smooth Head Hollow Core Angled Tip Absorb Sterile Disp 30 Fastner - [id number] Implanted:Qty: 1 on 07/02/2018 by Arleen Donald MD at [facility] N/A: Abdomen DAVOL 03/01/2020 [id number] / / [id number] Mesh Synthetic [id number] Abdominal Non Absorbable Ellipse Polypropylene Eptfe Ventralex - [id number] Implanted:Qty: 1 on 07/02/2018 by Arleen Donald MD at [facility] Abdomen DAVOL 10/01/2019 [id number] / / [id number] Device Fixation 37mm Optifix Pdlla Smooth Head Hollow Core Angled Tip Absorb Sterile Disp 30 Fastner - [id number] Implanted:Qty: 1 on 07/02/2018 by Arleen Donald MD at [facility] N/A: Abdomen DAVOL 08/01/2018 [id number] / / [id number] Procedures Procedure Name Priority Date/Time Associated Diagnosis [...] EDT) SODIUM 141 133 - 146 mmol/L [facility] POTASSIUM 4.8 3.3 - 5.1 mmol/L [facility] CHLORIDE 104 96 - 108 mmol/L [facility] CO2 27 21 - 35 mmol/L [facility] BUN 32(H) 6 - 19 mg/dL [facility] CREATININE 1.40 0.5 - 1.5 mg/dL [facility] GLUCOSE 101(H) 70 - 99 mg/dL [facility] ALBUMIN 3.7(L) 3.9 - 4.8 g/dL [facility] TOTAL PROTEIN 6.5 6.5 - 8.0 g/dL [facility] CALCIUM 9.4 8.4 - 10.3 mg/dL [facility] ALKALINE PHOSPHATASE 72 39 - 117 U/L [facility] TOTAL BILIRUBIN 0.5 0.0 - 1.2 mg/dL [facility] AST 16 0 - 37 U/L [facility] ALT 13 0 - 40 U/L [facility] GLOBULIN 2.8 1 - 4.8 g/dL [facility] EGFR 48(L) >59 mL/min/1.7 3m2 [facility] Comment:Estimated glomerular filtration rate calculated using the CKD-EPI refit equation. ANION GAP 15 10 - 20 mmol/L [facility] Blood 08/27/2025 3:11 PM EDT 08/27/2025 3:13 PM EDT us Willie Laguna MD LAB BLOOD BKR ORDERABLES Aysha ricks Result [address] [address] * (ABNORMAL) CBC and differential (08/27/2025 3:11 PM EDT) Only the most recent of6 resultswithin the time period is included. WBC 7.57 4.00 - 11.00 K/uL [facility] RBC 4.51 4.50 - 5.90 M/uL [facility] HGB 13.1(L) 13.5 - 17.5 g/dL [facility] HCT 42.3 41.0 - 53.0 % [facility] PLT 270 150 - 450 K/uL [facility] MCV 93.8 80.0 - 100.0 fL [facility] MCH 29.0 27.0 - 31.0 pg [facility] MCHC 31.0(L) 32.0 - 36.0 g/dL [facility] RDW 14.1 11.5 - 14.5 % [facility] MPV 11.3 8.4 - 12.0 fL [facility] NRBC 0.00 0.00 /100 WBCs [facility] ABSOLUTE NRBC 0.00 0.00 K/uL [facility] DIFF METHOD Auto [facility] NEUTS 69.4 48.0 - 76.0 % [facility] LYMPHS 14.8(L) 18.0 - 41.0 % [facility] MONOS 12.0(H) 4.0 - 11.0 % [facility] EOS 2.4 0.0 - 5.0 % [facility] BASOS 1.1 0.0 - 1.5 % [facility] Granulocytes, immature (%) 0.3 0.0 - 0.9 % [facility] ABSOLUTE NEUTS 5.26 1.92 - 7.60 K/uL [facility] ABSOLUTE LYMPHS 1.12 0.72 - 4.10 K/uL [facility] ABSOLUTE MONOS 0.91 0.16 - 1.10 K/uL [facility] ABSOLUTE EOS 0.18 0.00 - 0.50 K/uL [facility] ABSOLUTE BASOS 0.08 0.00 - 0.15 K/uL [facility] Granulocytes, immature 0.02 0.00 - 0.09 K/uL [facility] Blood 08/27/2025 3:11 PM EDT 08/27/2025 3:13 PM EDT us Willie Laguna MD LAB BLOOD BKR ORDERABLES Aysha l Result [facility] [address] [place] [address] * POCT COVID-19 RT-PCR/Influenza A & B/RSV (Cepheid) (08/20/2025 5:39 PM EDT) [facility] RSV PCR Negative Negative [facility] SARS-CoV-2 (COVID-19) Negative Negative [facility] POC Influenza A PCR Negative Negative [facility] Influenza B PCR Negative Negative [facility] 08/20/2025 5:39 PM EDT 08/20/2025 6:20 PM EDT us Raiza Puentes LATCHER LAB POCT ENTER/EDIT ORDERAB LES Final Result Performing Organization Address City/[facility]/ZIP Co de Phone Number [facility] [address] [address], [facility] [phone] * XR Chest Portable (08/17/2025 9:51 AM [...] included. SODIUM 140 133 - 146 mmol/L [facility] CHLORIDE 106 96 - 108 mmol/L [facility] POTASSIUM 4.1 3.3 - 5.1 mmol/L [facility] CO2 24 21 - 35 mmol/L [facility] BUN 18 6 - 19 mg/dL [facility] CREATININE 0.90 0.5 - 1.5 mg/dL [facility] GLUCOSE 97 70 - 99 mg/dL [facility] CALCIUM 8.8 8.4 - 10.3 mg/dL [facility] EGFR 82 >59 mL/min/1.7 3m2 [facility] Comment:Estimated glomerular filtration rate calculated using the CKD-EPI refit equation. ANION GAP 14 10 - 20 mmol/L [facility] Blood 08/17/2025 5:41 AM EDT 08/17/2025 6:22 AM EDT us Ariella Hampton PA-C, MS LAB BLOOD BKR ORD ERABLES Final Result [facility] [address] [address] * (ABNORMAL) Respiratory Culture/Gram Stain (08/16/2025 4:27 PM EDT) Special Requests None 08/16/2025 4:15 PM EDT [facility] GRAM STAIN Moderate WBC'S , EPITHELIAL CELLS , Many GRAM POSITIVE COCCI , Few GRAM POSITIVE RODS , Gram stain evaluation indicated >10 squamous epithelial cells per lower power field. Specimen is contaminated with saliva. Please submit a new specimen if clinically indicated. 08/17/2025 7:51 AM EDT [facility] Respiratory Cult/Smear MIXED ORGANISMS RESEMBLING OROPHARYNGEAL ASTER(A) 08/17/2025 9:39 AM EDT [facility] Other (Sputum) 08/16/2025 4: 27 PM EDT 08/16/2025 4:54 PM EDT Ariella Hampton PA-C, MS LAB MICROBIOLOGY CULTURE ORDERABLES Final Result [address] [address] * Rapid influenza A and B (08/16/2025 4:15 PM EDT) [facility] Influenza A, NAAT Negative Negative [facility] Influenza B, NAAT Negative Negative [facility] 08/16/2025 4:15 PM EDT 08/16/2025 5:46 PM EDT Ariella Hampton PA-C, MS MICROBIOLOGY - GE NERAL ORDERABLES Final Result [address] [address] * COVID Pandemic Respiratory Viral Order (PRO) (08/16/2025 11:19 AM EDT) Pathologist [facility] Test Ordered Rapid COVID has been ordered [facility] SPECIMEN SOURCE/DESCRIPTION NASAL [facility] SARS-CoV 2 (COVID-19) PCR Negative Negative [facility] Comment: SARS-CoV-2 not detected Negative results [...] MS LAB GENERAL ORDER TATYANA Final Result [facility] [address] [place], [place] [id number] * XR CHEST PA AND LATERAL 2 VIEWS (08/16/2025 10:56 AM EDT) Anatomical Region Laterality Modality Chest Computed Radiogr aphy 08/16/2025 11:4 0 AM EDT Impressions 08/16/2025 11:43 AM EDT Minimal right basilar and left perihilar atelectasis. No evidence for acute cardiopulmonary process. Narrative 08/16/2025 11:43 AM EDT XR CHEST PA AND LATERAL 2 VIEWS Referring clinician's provided indication for this examination in [facility]: Cough COMPARISON: XR CHEST 1 VIEW ; [...] CHEST 1 VIEW ; CT CHEST WITHOUT [id number]; CT ANGIO ABDOMEN/PELVIS WITH AND WITHOUT [id number] FINDINGS: Devices/Tubes/Lines: None. Lungs: There is minimal [...] included. WBC 4.75 4.00 - 11.00 K/uL [facility] RBC 3.94(L) 4.50 - 5.90 M/uL [facility] HGB 11.7(L) 13.5 - 17.5 g/dL [facility] HCT 37.5(L) 41.0 - 53.0 % [facility] PLT 153 150 - 450 K/uL [facility] MCV 95.2 80.0 - 100.0 fL [facility] MCH 29.7 27.0 - 31.0 pg [facility] MCHC 31.2(L) 32.0 - 36.0 g/dL [facility] RDW 14.3 11.5 - 14.5 % [facility] MPV 11.5 8.4 - 12.0 fL [facility] NRBC 0.00 0.00 /100 WBCs [facility] ABSOLUTE NRBC 0.00 0.00 K/uL [facility] Blood 08/14/2025 3:18 PM EDT 08/14/2025 6:19 PM EDT us Ariella Hampton PA-C, MS LAB BLOOD BKR ORD ERABLES Final Result [facility] [address] [place] [address] * ENDOSCOPY, COLON (08/14/2025 9:27 AM EDT) Narrative Transcriptions Shiloh Seaman MD - 08/14/2025 9:27 AM EDT [facility] Patient Name: Arnulfo Du Attending MD:: SHILOH SEAMAN MD, Procedure Date: 08/14/2025 9:27 AM Date of : 1935 Age: 89 Admit Type: Inpatient Gender: Male Room: [place] [address] Referring MD: WILLIE LGAUNA MD Exam Type: Colonoscopy Indications: Hematochezia, Rectal [...] bowel preparation was evaluated using the BBPS ([place] Bowel Preparation Scale) with scores of: Transverse [...] 9:27 AM Procedure Code(s): --- Professional --- 73883, Colonoscopy, flexible; diagnostic, including collection of specimen(s) by brushing or washing, when performed (separateprocedure) --- Technical --- 18326, Colonoscopy, flexible; diagnostic, including collection of specimen(s) [...] parts of digestive tract CPT copyright 2021 [employer]. All rights reserved. The codes documented in this report are preliminary and upon wind farm operations manager reviewmay be revised to meet current compliance requirements. Procedure Date: 08/14/2025 9:27:[address] [place] [address] Willie Laguna MD GI PROCEDURE ORDERABLES Final Result * MRSA PCR SCREEN (08/14/2025 5:15 AM EDT) [facility] MRSA PCR SCREEN Negative Negative [facility] Comment:The Xpert MRSA Assay is intended to aid in the prevention and control of MRSA infections in healthcare settings. The assay is not intended to diagnose nor to guide or monitor treatment for MRSA infections. Other (Nasal) 08/14/2025 5:1 5 AM EDT 08/14/2025 5:26 AM EDT us Arnulfo Jacob PA-C, MS LAB GENERAL ORDERABLES Final Result [facility] [address] [place] [address] * Phosphorus (08/14/2025 5:15 AM EDT) Pathologist [facility] PHOSPHORUS 3.1 2.7 - 4.5 mg/dL [facility] Blood 08/14/2025 5:15 AM EDT 08/14/2025 5:26 AM EDT us Arnulfo Jacob PA-C, MS LAB BLOOD BKR ORDERABLE S Final Result [address] [address] * Magnesium (08/14/2025 5:15 AM EDT) MAGNESIUM 2.0 1.6 - 2.6 mg/dL [facility] Blood 08/14/2025 5:15 AM EDT 08/14/2025 5:26 AM EDT us Arnulfo Jacob PA-C, MS LAB BLOOD BKR ORDERABLE S Final Result Performing Organization Address [facility]/ZIP Co de Phone Number [address] [address] * CT ANGIO ABDOMEN/PELVIS WITH AND WITHOUT CONTRAST (08/14/2025 12:43 AM EDT) MGB IMG TARIFF CLERK COMMENT active GI bleed in the transverse colon abutting the ileocolonic anastomosis. [facility] Anatomical Region Laterality Modality Abdomen, Abdominal Vasculature C omputed Tomography 08/14/2025 12:5 5 AM EDT Impressions 08/14/2025 1:06 AM EDT 1. Small volume active GI bleed in the transverse colon abutting the ileocolonic anastomosis. 2. Unchanged infrarenal abdominal aortic aneurysm and bilateral common iliac artery aneurysms. A clinically significant result was initiated on 08/14/2025 1:06 AM, Message ID [id number]. Narrative 08/14/2025 1:[address] ANGIO [...] was initiated on 08/14/2025 1:06 AM,Message ID [id number]. us Thi Aguirre MD IMG CT ABD/PELVIS Final Resu lt * ECG 12-LEAD (08/14/2025 12:12 AM EDT) Ventricular Rate EKG/MIN 75 BPM [facility] Atrial Rate 102 BPM [facility] QRS Duration 164 ms [facility] QT Interval 462 ms [facility] QTC Interval 515 ms [facility] R Wave Leigh 4 degrees [facility] T Wave Leigh -1 degrees [facility] 08/14/2025 12:1 2 AM [...] EDT) Expiration Date of Sample 08/17/2025 ,2359 [facility] Resulting Agency [facility] Blood 08/14/2025 12:0 9 AM EDT 08/14/2025 12:12 AM EDT Thi Aguirre MD LAB BLOOD BANK TEST ORDERABL ES Final Result Performing Organization Address [facility] Co de Phone Number [address] [address] * Type and Screen (ABO,Rh,Antibody Screen) (08/14/2025 12:06 AM EDT) ABO/Rh O Negative [facility] Antibody Screen Negative [facility] Expiration Date of Sample 08/17/2025,2 359 [facility] Resulting Agency [facility] Blood 08/14/2025 12:0 6 AM EDT 08/14/2025 1:12 AM EDT Thi Aguirre MD LAB BLOOD BANK TEST ORDERABL ES Final Result Performing Organization Address [facility]/ZIP Co de Phone Number [address] [address] * (ABNORMAL) Urinalysis w/reflex Urine Culture (08/13/2025 6:40 PM EDT) COLOR BROWN(A) Yellow [facility] CLARITY CLOUDY [facility] GLUCOSE 1+(A) Negative [facility] BILI 1+(A) Negative [facility] KETONES Negative Negative [facility] SPECIFIC GRAVITY 1.015 1.005 - 1.030 [facility] BLOOD 3+(A) Negative [facility] PH 6.0 5.0 - 8.0 [facility] Protein-UA 1+(A) Negative [facility] NITRITE Negative Negative [facility] Leukocyte esterase, ur Negative Negative [facility] Urine (Urine) 08/13/2025 6:4 0 PM EDT 08/13/2025 6:50 PM EDT Bryant Cazares MD LAB URINE ORDERABLES Final Result Performing Organization Address [facility] Co de Phone Number [address] [address] * (ABNORMAL) Urine sediment (08/13/2025 6:40 PM EDT) WBC 5-10(A) NONE SEEN /hpf [facility] RBC TOO NUMEROUS TO COUNT(A) NONE SEEN /hpf [facility] URINE EPITHELIAL NONE SEEN NONE SEEN [facility] MUCUS NONE SEEN NONE SEEN /hpf [facility] BACTERIA NONE SEEN NONE SEEN /hpf [facility] 08/13/2025 6:40 PM EDT 08/13/2025 6:50 PM EDT Bryant Cazares MD LAB URINE ORDERABLES Final Result Performing Organization Address City/[facility]/ZIP Co de Phone Number [address] [address] * (ABNORMAL) LFTs (hepatic panel) (08/13/2025 6:09 PM EDT) ALKALINE PHOSPHATASE 74 39 - 117 U/L [facility] TOTAL BILIRUBIN 0.4 0.0 - 1.2 mg/dL [facility] DIRECT BILIRUBIN 0.2 0.0 - 0.2 mg/dL [facility] Bilirubin (Indirect) 0.2 0 - 1.5 mg/dL [facility] AST 16 0 - 37 U/L [facility] ALT 13 0 - 40 U/L [facility] TOTAL PROTEIN 6.3(L) 6.5 - 8.0 g/dL [facility] ALBUMIN 3.8(L) 3.9 - 4.8 g/dL [facility] GLOBULIN 2.5 1 - 4.8 g/dL [facility] A/G Ratio 1.52 1.00 - 4.80 RATIO [facility] Blood 08/13/2025 6:09 PM EDT 08/13/2025 6:20 PM EDT Bryant Cazares MD LAB BLOOD BKR ORDERABLES Fi nal Result Performing Organization Address City/[facility] Co de Phone Number [address] [address] * (ABNORMAL) PT-INR (08/13/2025 6:09 PM EDT) PT 18.2(H) 10.2 - 12.9 sec [facility] INR 1.5(H) 0.9 - 1.1 [facility] Comment:Therapeutic range fo r oral Vitamin K antagonists: 2.0-3.5 Blood 08/13/2025 6:09 PM EDT 08/13/2025 6:20 PM EDT Bryant Cazares MD LAB BLOOD BKR ORDERABLES Fi nal Result [address] [address] * Lipase (08/13/2025 6:09 PM EDT) LIPASE 23 16 - 63 U/L [facility] Blood 08/13/2025 6:09 PM EDT 08/13/2025 6:20 PM EDT us Bryant Cazares MD LAB BLOOD BKR ORDERABLES Fi nal Result Performing Organization Address [facility]/ZIP Co de Phone Number [address] [address] * (ABNORMAL) Lipid panel (04/30/2025 7:41 AM EDT) HDL 52 mg/dL [facility] Comment: Interpretation <40 mg/dL: Low HDL cholesterol (major risk factor for CHD) Greater than or equal to 60 mg/dL: High HDL cholesterol ( negative risk factor for CHD) HDL - cholesterol is affected by a number of factors, e.g. smoking, excerise, hormones, sex and age. CHOLESTEROL 160 0 - 240 mg/dL [facility] TRIGLYCERIDES 73 30 - 160 mg/dL [facility] LDL 93 50 - 129 mg/dL [facility] Comment: LDL levels in terms of risk for coronary heart disease: <100 mg/dL: Optimal 100-129 mg/dL: Near or above optimal 130-159 mg/dL: Borderline high 160-189 mg/dL: High >190 mg/dL: Very High CARDIAC RISK RATIO 3.1(L) 3.4 - 5.0 [facility] Blood 04/30/2025 7:41 AM EDT 04/30/2025 7:44 AM EDT us Willie Laguna MD LAB BLOOD BKR ORDERABLES Aysha l Result Performing Organization Address [facility]/ZIP Co de Phone Number [address] [address] from Last 3 Months or Most Recently Relevant to Health Maintenance Insurance MEDICARE PART A & B [employer] SUPPLEMENT MEDICARE PART A & B [employer] MEDEX SUPPLEMENT MEDICARE PART A & B [employer] MEDEX SUPPLEMENT MEDICARE PART A & B [employer] MEDEX SUPPLEMENT MEDICARE PART A & B [employer] MEDEX SUPPLEMENT MEDICARE PART A & B [employer] MEDEX SUPPLEMENT MEDICARE PART A & B [employer] MEDEX SUPPLEMENT MEDICARE PART A & B [employer] MEDEX SUPPLEMENT MEDICARE PART A & B [facility] MEDEX SUPPLEMENT Advance Directives For more information, please contact: [phone] (9AM - 5PM [facility], Saturday-Saturday) Documents on File Type Date Recorded Patient Vibrating Screed Operator Expl anation Healthcare Proxy 04/26/2020 Health Care [...] Agent (Proxy form on file) Care Teams [place] Relationship Specialty Start Date End Date Willie Laguna MD [address] [place] [address] [email or web address] PCP - General Internal Medicine 02/04/20 Willie Laguna MD [address] [place] [address] [email or web address] Insurance Assigned Provider 02/08/24 Daniel Flores MD [address] [phone] [email or web address] Urology 04/14/20 Delvin Waddell MD [address] [id number] [email or web address] Cardiology 04/14/20 Shaylee Dejesus MD [address] [place] [id number] Otolaryngology 05/20/20 Shiloh Valle MD [address] [place] [id number] Gastroenterology 11/30/20 Socorro Begum PA [facility] [place] [address] Reporter Cardiology 04/06/24 Additional Source Comments The information contained in this document represents components of the legal health record. It is not the complete legal health record.[facility]
== END 2025-10-18 14:27 | disposition home or self-care (01) ==
LOC: HO.HMGAL 14:26
PROVIDERS: PCP Internal Medicine; Visit Provider Registered Nurse Emergency
DX: J30.89 Other allergic rhinitis (principal)
CPT/HCPCS: 95117; 95165